=== PATIENT | male | born 1940 | race Caucasian/White ===

== ENCOUNTER 2020-02-03 11:58 | Outpatient (REF) | payer MEDICARE, OTHER, SELFPAY ==
[2020-02-03 13:51] LABS: MANUAL DIFF FLAG NO
[2020-02-03 13:59] LABS: Basophils Absolute Auto 0.1 X10*3/uL (0.0-0.2); Basophils Percent Auto 0.8 % (0-2); Eosinophils Absolute Auto 0.2 X10*3/uL (0.0-0.4); Hemoglobin 14.4 g/dl (14.0-18.0); Imm Gran Abs Auto 0.03 X10*3/uL (0.00-0.03); Imm Gran Pct Auto 0.5 % (0.0-0.4); Lymphocytes Absolute Auto 2.2 X10*3/uL (1.2-4.9); Mean Corpuscular HGB Conc 32.7 g/dl (31.0-36.0); Mean Corpuscular Hemoglobin 30.2 pg (27.0-33.0); Mean Corpuscular Volume 92.2 fL (80-98); Mean Platelet Volume 11.6 fL (9.4-12.4); Monocytes Absolute Auto 0.6 X10*3/uL (0.1-1.2); Monocytes Percent Auto 8.9 % (2-11); Neutrophils Absolute Auto 3.6 X10*3/uL (2.0-8.3); Neutrophils Percent Auto 53.8 % (45-73); Platelet Count 158 X10*3/uL (160-400); Red Blood Count 4.77 X10*6/uL (4.60-5.80); White Blood Count 6.6 X10*3/uL (4.8-10.8)
[2020-02-03 14:25] LABS: Alanine Aminotransferase 31 U/L (0-40); Albumin Level 4.3 g/dL (3.5-5.0); Alkaline Phosphatase 91 U/L (39-117); Anion Gap 13 (12-20); Aspartate Amino Transferase 30 U/L (5-37); Bilirubin Total 0.8 mg/dL (0.0-1.0); Blood Urea Nitrogen 15 mg/dL (9-16); Calcium 9.1 mg/dL (8.4-10.2); Carbon Dioxide 28 mmol/L (22-29); Chloride 107 mmol/L (96-108); Cholesterol 158 mg/dL; Estimated Glomerular Filt Rate > 60; Glucose Fasting 96 mg/dL (60-99); HDL Cholesterol 53 mg/dL; LDL Cholesterol Calculated 90 mg/dl; Potassium 4.3 mmol/l (3.3-5.1); Sodium 144 mmol/L (135-145); Total Protein 6.9 g/dL (6.5-8.0); Triglycerides 77 mg/dL
[2020-02-03 14:46] LABS: Thyroid Stimulating Hormone 1.35 mIU/mL (0.32-4.0)
== END 2020-02-03 11:59 | disposition home or self-care (01) ==
LOC: HO.HMGCLDS 11:58
PROVIDERS: PCP Internal Medicine; Visit Provider Internal Medicine
DX: I10 Essential (primary) hypertension (principal); E78.00 Pure hypercholesterolemia, unspecified; E55.9 Vitamin D deficiency, unspecified; F33.42 Major depressive disorder, recurrent, in full remission
CPT/HCPCS: 36415; 80053; 80061; 82306; 84443; 85025

== ENCOUNTER → 2020-08-10 13:17 | Outpatient (BNVA) | payer MEDICARE, OTHER, SELFPAY | PROVIDERS: PCP Internal Medicine; Visit Provider Orthopaedic Surgery | DX: M75.101 Unspecified rotator cuff tear or rupture of right shoulder, not specified as traumatic (principal) | CPT/HCPCS: 20610; 99212; J1100 ==

== ENCOUNTER 2021-03-16 09:10 | Outpatient (REF) | payer MEDICARE, OTHER, SELFPAY ==
[2021-03-16 11:54] LABS: MANUAL DIFF FLAG NO
[2021-03-16 12:03] LABS: Basophils Absolute Auto 0.1 X10*3/uL (0.0-0.2); Eosinophils Absolute Auto 0.3 X10*3/uL (0.0-0.4); Eosinophils Percent Auto 4.9 % (0-4); Hematocrit 45.6 % (42.0-52.0); Hemoglobin 14.5 g/dl (14.0-18.0); Imm Gran Abs Auto 0.03 X10*3/uL (0.00-0.03); Imm Gran Pct Auto 0.5 % (0.0-0.4); Lymphocytes Absolute Auto 1.8 X10*3/uL (1.2-4.9); Lymphocytes Percent Auto 29.8 % (20-40); Mean Corpuscular HGB Conc 31.8 g/dl (31.0-36.0); Mean Corpuscular Hemoglobin 29.8 pg (27.0-33.0); Mean Corpuscular Volume 93.8 fL (80.0-98.0); Mean Platelet Volume 11.5 fL (9.4-12.4); Monocytes Absolute Auto 0.6 X10*3/uL (0.1-1.2); Monocytes Percent Auto 9.4 % (2-11); Neutrophils Absolute Auto 3.2 x10*3/uL (2.0-8.3); Neutrophils Percent Auto 54.4 % (45-73); Platelet Count 166 X10*3/uL (160-400); Red Blood Count 4.86 X10*6/uL (4.60-5.80); Red Cell Distribution Width 13.5 % (11.0-16.0); White Blood Count 5.9 X10*3/uL (4.8-10.8)
[2021-03-16 12:11] LABS: Alanine Aminotransferase 48 U/L (0-40); Albumin Level 4.4 g/dL (3.5-5.0); Alkaline Phosphatase 107 U/L (39-117); Anion Gap 13 (12-20); Aspartate Amino Transferase 47 U/L (5-37); Bilirubin Total 0.7 mg/dL (0.0-1.0); Blood Urea Nitrogen 15 mg/dL (9-16); Calcium 9.6 mg/dL (8.4-10.2); Carbon Dioxide 27 mmol/L (22-29); Chloride 111 mmol/L (96-108); Cholesterol 163 mg/dL; Estimated Glomerular Filt Rate > 60; Glucose Fasting 134 mg/dL (60-99); HDL Cholesterol 42 mg/dL; LDL Cholesterol Calculated 101 mg/dl; Potassium 4.1 mmol/L (3.3-5.1); Sodium 147 mmol/L (135-145); Triglycerides 103 mg/dL
[2021-03-16 12:47] LABS: Thyroid Stimulating Hormone 1.57 uIU/mL (0.32-4.0); Vitamin D 25-OH Total 49.8 ng/mL (>30)
== END 2021-03-16 09:11 | disposition home or self-care (01) ==
LOC: HO.HMGCLDS 09:10
PROVIDERS: PCP Internal Medicine; Visit Provider Internal Medicine
DX: I10 Essential (primary) hypertension (principal); E78.00 Pure hypercholesterolemia, unspecified; E55.9 Vitamin D deficiency, unspecified; F33.42 Major depressive disorder, recurrent, in full remission
CPT/HCPCS: 36415; 80053; 80061; 82306; 84443; 85025

== ENCOUNTER 2021-09-14 09:56 | Outpatient (REF) | payer MEDICARE, OTHER, SELFPAY ==
[2021-09-14 11:26] LABS: MANUAL DIFF FLAG NO
[2021-09-14 11:41] LABS: Basophils Absolute Auto 0.1 X10*3/uL (0.0-0.2); Basophils Percent Auto 1.1 % (0-2); Eosinophils Absolute Auto 0.4 X10*3/uL (0.0-0.4); Eosinophils Percent Auto 6.2 % (0-4); Hematocrit 44.5 % (42.0-52.0); Hemoglobin 14.5 g/dl (14.0-18.0); Imm Gran Abs Auto 0.02 X10*3/uL (0.00-0.03); Imm Gran Pct Auto 0.3 % (0.0-0.4); Lymphocytes Absolute Auto 1.8 X10*3/uL (1.2-4.9); Lymphocytes Percent Auto 29.5 % (20-40); Mean Corpuscular HGB Conc 32.6 g/dl (31.0-36.0); Mean Corpuscular Volume 92.1 fL (80.0-98.0); Mean Platelet Volume 11.6 fL (9.4-12.4); Monocytes Absolute Auto 0.5 X10*3/uL (0.1-1.2); Monocytes Percent Auto 8.7 % (2-11); Neutrophils Absolute Auto 3.3 x10*3/uL (2.0-8.3); Neutrophils Percent Auto 54.2 % (45-73); Platelet Count 159 X10*3/uL (160-400); Red Blood Count 4.83 X10*6/uL (4.60-5.80); Red Cell Distribution Width 13.6 % (11.0-16.0); White Blood Count 6.1 X10*3/uL (4.8-10.8)
[2021-09-14 11:46] LABS: Alanine Aminotransferase 39 U/L (0-40); Albumin Level 4.3 g/dL (3.5-5.0); Alkaline Phosphatase 100 U/L (39-117); Anion Gap 12 (12-20); Aspartate Amino Transferase 37 U/L (5-37); Bilirubin Total 0.8 mg/dL (0.0-1.0); Blood Urea Nitrogen 13 mg/dL (9-16); Calcium 9.4 mg/dL (8.4-10.2); Carbon Dioxide 27 mmol/L (22-29); Chloride 109 mmol/L (96-108); Cholesterol 163 mg/dL; Estimated Glomerular Filt Rate > 60; Glucose Fasting 114 mg/dL (60-99); HDL Cholesterol 44 mg/dL; LDL Cholesterol Calculated 103 mg/dl; Potassium 4.1 mmol/L (3.3-5.1); Sodium 144 mmol/L (135-145); Total Protein 6.9 g/dL (6.5-8.0); Triglycerides 84 mg/dL
== END 2021-09-14 09:57 | disposition home or self-care (01) ==
LOC: HO.HMGCLDS 09:56
PROVIDERS: PCP Internal Medicine; Visit Provider Internal Medicine
DX: I10 Essential (primary) hypertension (principal); E78.00 Pure hypercholesterolemia, unspecified
CPT/HCPCS: 36415; 80053; 80061; 85025

== ENCOUNTER 2021-12-08 11:45 | Emergency (ER) | payer MEDICARE, OTHER, SELFPAY ==
--- NOTE | ~2021-12-08 | CT_ITS ---
EXAMINATION: CT ABDOMEN AND PELVIS WITHOUT CONTRAST CLINICAL INFORMATION: New onset back pain. Rule out abdominal aortic aneurysm. COMPARISON: CT abdomen pelvis July 09, 2006 TECHNIQUE: Multidetector volumetric imaging was performed from the superior aspect of the liver through the pubic symphysis. Sagittal and coronal reformatted images were obtained on the technologist's workstation. This CT examination was performed using dose optimization techniques as appropriate, variously including the following: *Automated exposure control *Adjustment of mA and/or kV according to patient size (this includes techniques or standardized protocols for targeted exams where dose is matched to indication/reason for exam; i.e. extremities or head) *Use of iterative reconstruction technique DLP: 497 mGy-cm FINDINGS: Visualized lung bases demonstrate minimal lingular and dependent atelectasis. The liver demonstrates normal size, contour and attenuation. Gallstones are present in an otherwise unremarkable appearing gallbladder. The pancreas, spleen and adrenal glands are unremarkable. Symmetrically sized kidneys. No renal calculi or hydronephrosis bilaterally. Mild bilateral perinephric stranding, nonspecific. The stomach is decompressed. Small diverticulum of the duodenal sweep suspected. Normal caliber loops of small bowel. Moderate colonic stool burden. Normal caliber abdominal aorta which demonstrates moderate atherosclerotic disease. Retroperitoneal lymphadenopathy is present, for example there is a lymph node inferior to the left renal vein which measures 2 cm in maximum transverse dimension. The bladder is normal in appearance. The prostate gland is enlarged measuring 5.6 cm in maximum transverse dimension. There is a moderate sized fat-containing left inguinal hernia. No gross free pelvic fluid. No inguinal lymphadenopathy. Diffuse osteopenia. Degenerative changes of the spine and hips. CT/CT abdomen pelvis wo con IMPRESSION: -Retroperitoneal lymphadenopathy, nonspecific. Malignancy is within the differential. -Cholelithiasis. -Enlarged prostate gland. Fleischner guidelines were followed.
--- NOTE | ~2021-12-08 | XR_ITS ---
EXAMINATION: XR LUMBAR SPINE CLINICAL INFORMATION: Reason for Exam acute atraumatic mid lower back pain COMPARISON: None TECHNIQUE: Frontal lateral and coned-down L5-S1 frontal lateral FINDINGS: Five [id number] lumbar vertebrae were identified maintaining normal height and alignments. Narrowing of intervertebral disc spaces suggest underlying degenerative disc disease. Paravertebral soft tissues are unremarkable. There are radiolucencies, most likely superimposed bowel gas.. No radiographic evidence of osteolytic or osteoblastic lesions. XR/XR lumbar spine 2-3V IMPRESSION: No fracture. Narrowing of intervertebral disc spaces suggest underlying degenerative disc disease. .
[2021-12-08 11:58] VITALS: BP 175/84; PULSE 72; O2SAT 98
[2021-12-08 11:59] VITALS: BP 162/73; PULSE 65; RESP 16; TEMP 36.6; O2SAT 95; BMI 24.3
--- NOTE | 2021-12-08 12:31 | ED_ITS ---
HPI - Back Pain/Injury General Chief Complaint: Back Pain/Injury Stated Complaint: LOW BACK PAIN X'S 1 WEEK,NO INJURY PER EMS Time Seen by Provider: 12/08/21 12:13 Source: patient Mode of arrival: EMS Limitations: no limitations History of Present Illness HPI Narrative: Patient presents emergency department for evaluation of back pain. Onset was 1 week ago. No trauma or exacerbating incident that he recalls. Pain is felt midline. It is described as sharp, made worse with movement. He is trialed Tylenol, Aleve, and Advil without improvement. Denies any prior history of back pain. Denies recent precipitating injury, fevers, chills, burning with micturition, urinary frequency/urgency/hesitancy, bladder or bowel dysfunction, numbness or tingling of the perineum or bilateral legs. Denies any recent surg ical procedures, any known immune compromising conditions, personal history of cancer, or IV drug usage. MD elicited complaint: back pain Related Data Home Medications Medication Instructions Recorded Confirmed lovastatin 10 mg tablet 10 mg PO DAILY 08/10/20 08/28/20 metoprolol succinate 25 mg 12.5 mg PO DAILY 08/10/20 08/28/20 tablet,extended release 24 hr mirtazapine 7.5 mg tablet 7.5 mg PO BEDTIME 08/10/20 08/28/20 quetiapine 25 mg tablet 25 mg PO BEDTIME 08/10/20 08/28/20 Previous Rx's Medication Instructions Recorded azithromycin 250 mg tablet See Rx Instructions PO .COMPLEX #6 08/28/20 tabs prednisone 20 mg tablet 20 mg PO .COMPLEX #18 tabs 08/28/20 lidocaine 5 % topical patch 1 patch topical DAILY #15 ea 12/08/21 (Lidoderm) tramadol 50 mg tablet 50 mg PO Q8H PRN pain #10 tabs 12/08/21 Allergies Allergy/AdvReac Type Severity Reaction Status Date / Time amoxicillin [From Augmentin] Allergy diarreah Verified 08/28/20 13:53 clavulanic acid Allergy diarreah Verified 08/28/20 13:53 [From Augmentin] Review of Systems Review of Systems: Constitutional: No weight loss, fever, chills, weakness or fatigue. HEENT: No visual loss, blurred vision, double vision. No hearing loss, sneezing, congestion, runny nose or sore throat. Skin: No rash or itching. Cardiovascular: No chest pain, chest pressure or chest discomfort. No palpitat ions or pedal edema. Respiratory: No shortness of breath, cough or sputum production. Gastrointestinal: No anorexia, nausea, vomiting or diarrhea. No abdominal pain or blood in stool. Genitourinary: No burning micturition. No urinary frequency or incontinence. Neurologic: No headache, dizziness, syncope, unilateral weakness, ataxia, numbness or tingling in the extremities. No change in bowel or bladder control. Musculoskeletal: + Back pain as noted in HPI. No joint pain or stiffness. Hematologic: No bleeding or bruising. Lymphatics: No enlarged lymph nodes. Psychiatric:No depression or anxiety. Endocrine: No polyuria or polydipsia. Yes all other systems are reviewed and are negative [facility] Past Medical History Attestation statement: The following information was validated with the patient. Source: old records reviewed Medical History (Updated 12/08/21 @ 16:19 by Yun Spencer CNP) Hypertension Social History Social History Advance Directives: No Advance Directives Information Provided: No Current occupational status: retired Current occupation: left hand Physical Exam Vital Signs: Vital Signs: Last Vital Signs Temp 97.9 F 12/08/21 11:59 Pulse 65 12/08/21 11:59 Resp 16 12/08/21 11:59 BP 162/73 H 12/08/21 11:59 Pulse Ox 95 12/08/21 11:59 O2 Del Method 12/08/21 11:59 BMI result Body Mass Index 24.3 Appearance: Alert.?Oriented to person, place and time. No acute distress.?Normal affect. Eyes: Pupils equal, round and reactive to light.? ENT: Pharynx normal.?? Neck: Normal inspection.? Neck supple.?? CVS: Heart sounds normal. Normal heart rate and rhythm.? Pulses normal; bilateral radial pulses 2+, bilateral posterior tibial/dorsalis pedis pulses 2+.? Respiratory: No respiratory distress.? Lung sounds clear to auscultation bilaterally?? Abdomen: Soft and non-tender. Normoactive bowel sounds. No pulsatile mass.?? Skin: Skin warm and dry.? Normal skin color.? Normal skin turgor.?? Extremities: No lower extremity edema.? No calf ttp? Back: No CVA tenderness. Positive midline lumbar spinal tenderness, no step- off's or deformity. Full ROM intact in bilateral lower extremities. Straight leg test negative on right; Straight leg test negative on left. No rashes, lesions, areas of induration or fluctuance, or signs of infection noted. Neuro: Moves all extremities spontaneously. 5/5 strength in hip extension/flexion, abduction, adduction. Sensation to light touch intact bilaterally. Patellar and Achilles reflex 2+ bilaterally. No ataxia, gait normal and steady.. No focal neuro deficits. Course Course Course Narrative: Patient is an 81-year-old male with a past medical history of hypertension presents to the emergency department for evaluation of midline lumbar back pain. On neurological exam there are no deficits. No high risk past medical history including incontinence, fever, immunosuppression, recent surgery or lumbar puncture, coagulopathy, significant trauma, recent unintentional weight loss, pulsatile mass, history of cancer, history of TB, history of IV drug use. However, given age in onset of symptoms to be sudden and atraumatic will obtain XR the lumbar spine and CT of the abdomen and pelvis to rule out intra-abdominal pathology as a source for pain or fracture/dislocation Not consistent with pyelonephritis, urinary tract infection, renal calculi, appendicitis, diverticulitis. On exam no concern for cauda equina syndrome. Patient to receive oxycodone and Lidoderm patch at this time for pain Reevaluation(s) Reevaluation #1: XR of the lumbar spine is overall unremarkable, does show degenerative changes. CT of the abdomen and pelvis reveals retroperitoneal lymphadenopathy, and enlarged prostate gland. At this time there is concern for malignancy. Discussed these findings with patient, advised no definitive diagnosis at this time, however it is imperative to follow up with primary care provider as well as Urology for further evaluation and treatment. Patient with some relief from oxycodone and Lidoderm patch, therefore will send patient home with a short prescription for analgesics and Lidoderm patch. Reviewed worrisome signs and symptoms return back to the emergency department for. All questions were answered, and patient was discharged home in stable condition, he was ambulatory with slow steady gait. Time: 15:26 MDM - Back Pain/Injury Medical Records Attestation: I reviewed the patient's medical records. Lab Data Attestation: I reviewed the patient's lab results. Result diagrams: 12/08/21 15:39 12/08/21 15:39 Labs: Lab Results 12/08/21 12/08/21 12/08/21 Range/Units 12:54 15:39 15:39 WBC 10.0 (4.8-10.8) X10*3/uL RBC 4.94 (4.60-5.80) X10*6/uL Hgb 15.0 (14.0-18.0) g/dl Hct 45.5 (42.0-52.0) % MCV 92.1 (80.0-98.0) fL MCH 30.4 (27.0-33.0) pg MCHC 33.0 (31.0-36.0) g/dl RDW 13.3 (11.0-16.0) % Plt Count 203 D (160-400) X10*3/uL MPV 10.3 (9.4-12.4) fL Immature Gran % (Auto) 0.4 (0.0-0.4) % Neut % (Auto) 73.5 H (45-73) % Lymph % (Auto) 15.9 L (20-40) % [place] % (Auto) 7.3 (2-11) % Eos % (Auto) 2.2 (0-4) % Baso % (Auto) 0.7 (0-2) % Lymph # (Auto) 1.6 (1.2-4.9) X10*3/uL [place] # (Auto) 0.7 (0.1-1.2) X10*3/uL Eos # (Auto) 0.2 (0.0-0.4) X10*3/uL Baso # (Auto) 0.1 (0.0-0.2) X10*3/uL Abs Immat Gran (auto) 0.04 H (0.00-0.03) X10*3/uL Absolute Neuts (auto) 7.4 (2.0-8.3) x10*3/uL Absolute Nucleated RBC 0.000 (0.0-0.012) X10*3/uL Nucleated RBC % (auto) 0.0 (0.0-0.2) /100WBC Sodium 144 (135-145) mmol/L Potassium 4.8 (3.3-5.1) mmol/L Chloride 105 (96-108) mmol/L Carbon Dioxide 26 (22-29) mmol/L Anion Gap 18 (12-20) BUN 14 (9-16) mg/dL Creatinine 0.96 (0.5-1.4) mg/dL Estim Creat Clear Calc 58.3 Estimated GFR > 60 Random Glucose 120 H (60-115) mg/dL Calcium 9.7 (8.4-10.2) mg/dL Total Bilirubin 0.7 (0.0-1.0) mg/dL AST 36 (5-37) U/L ALT 32 (0-40) U/L Alkaline Phosphatase 122 H D (39-117) U/L Total Protein 7.3 (6.5-8.0) g/dL Albumin 4.5 (3.5-5.0) g/dL Urine Color Yellow Urine Appearance Clear Urine pH 7.0 (5.0-8.0) Ur Specific [place] 1.015 (1.005-1.025) Urine Protein Negative (Neg-Trace) mg/dL Urine Glucose (UA) Negative (Negative) mg/dL Urine Ketones Negative (Negative) mg/dL Urine Blood Negative (Negative) Urine Nitrite Negative (Negative) Ur Leukocyte Esterase Trace H (Negative) Urine RBC 0-2 (0-2) /HPF Urine WBC 0-5 (0-5) /HPF Ur Squamous Epith Cells 0-2 (0-2) /HPF Urine Bacteria None Seen (None Seen) Hyaline Casts 0-2 (0-2) /LPF Imaging Data lumbar XR: Radiologist's impression: XR/XR lumbar spine 2-3V IMPRESSION: No fracture. ? Narrowing of intervertebral disc spaces suggest underlying degenerative disc disease. CT scan - abdomen: Radiologist's impression: CT/CT abdomen pelvis wo con IMPRESSION: -Retroperitoneal lymphadenopathy, nonspecific. Malignancy is within the differential. -Cholelithiasis. -Enlarged prostate gland.? Discharge Plan Discharge Clinical Impression: Acute lumbar back pain, Enlarged prostate, Lymphadenopathy, retroperitoneal Patient Disposition: Home, Self-Care Additional Instructions: As we discussed, it is very important to contact your primary care provider to arrange for a follow-up visit within 1 week. Additionally, you have been provided with contact information for Urology, you will need to call their office on Friday morning to schedule a follow-up visit for further evaluation and treatment You have been given a prescription for a Lidoderm patch for pain, you may use the tramadol as needed for severe pain. This may make you drowsy, you should not take this medication if you need to drive or leave the house. Please return to the emergency department with any new or worsening symptoms or concerns Prescriptions: New lidocaine [Lidoderm] 5 % adhesive patch,medicated 1 patch topical DAILY Qty: 15 0RF Rx Instructions: leave on most painful area for up to 12 hrs tramadol 50 mg tablet 50 mg PO Q8H PRN (Reason: pain) Qty: 10 0RF No Action prednisone 20 mg tablet 20 mg PO .COMPLEX Qty: 18 0RF Rx Instructions: 20 mg PO 3 p.o. daily for 3 days followed by 2 p.o. daily for 3 days followed by 1 p.o. daily for 3 days; azithromycin 250 mg tablet See Rx Instructions PO .COMPLEX Qty: 6 0RF Rx Instructions: take 500 mg today (day 1), then 250 mg for 4 days (days 2-5) PO metoprolol succinate 25 mg tablet extended release 24 hr 12.5 mg PO DAILY lovastatin 10 mg tablet 10 mg PO DAILY quetiapine 25 mg tablet 25 mg PO BEDTIME mirtazapine 7.5 mg tablet 7.5 mg PO BEDTIME Referrals: Riaz Laboy MD [Physician] - 1 week (Acute low back pain, enlarged prostate, retroperitoneal lymphadenopathy) Ramon Cortez DO [Primary Care Provider] - 1 week
[2021-12-08] MEDS: Lidocaine 4 % Patch ADH..PATCH 1 PATCH TRANSDERMA (12:52)
[2021-12-08] MEDS: oxyCODONE HCl Immed Release 5 MG TABLET PO (13:11)
[2021-12-08 13:14] LABS: Appearance Urine Clear; Color Urine Yellow; Glucose Urine UA Negative (Negative); Leukocyte Esterase Urine Trace (Negative); Nitrite Urine Negative (Negative); Specific Gravity - Urine 1.015 (1.005-1.025); Urine Blood Negative (Negative); Urine Ketones Negative (Negative); Urine Protein Negative (Neg-Trace)
[2021-12-08 13:19] LABS: Bacteria Urine None Seen (None Seen); Hyaline Casts Urine 0-2 /LPF (0-2); RBC Urine 0-2 /HPF (0-2); Squamous Epithelial Cell Urine 0-2 /HPF (0-2); WBC Urine 0-5 /HPF (0-5)
[2021-12-08 15:51] LABS: MANUAL DIFF FLAG NO
[2021-12-08 15:53] LABS: Basophils Absolute Auto 0.1 X10*3/uL (0.0-0.2); Basophils Percent Auto 0.7 % (0-2); Eosinophils Absolute Auto 0.2 X10*3/uL (0.0-0.4); Eosinophils Percent Auto 2.2 % (0-4); Hematocrit 45.5 % (42.0-52.0); Imm Gran Abs Auto 0.04 X10*3/uL (0.00-0.03); Imm Gran Pct Auto 0.4 % (0.0-0.4); Lymphocytes Absolute Auto 1.6 X10*3/uL (1.2-4.9); Lymphocytes Percent Auto 15.9 % (20-40); Mean Corpuscular Hemoglobin 30.4 pg (27.0-33.0); Mean Corpuscular Volume 92.1 fL (80.0-98.0); Mean Platelet Volume 10.3 fL (9.4-12.4); Monocytes Absolute Auto 0.7 X10*3/uL (0.1-1.2); Monocytes Percent Auto 7.3 % (2-11); Neutrophils Absolute Auto 7.4 x10*3/uL (2.0-8.3); Neutrophils Percent Auto 73.5 % (45-73); Platelet Count 203 X10*3/uL (160-400); Red Blood Count 4.94 X10*6/uL (4.60-5.80); Red Cell Distribution Width 13.3 % (11.0-16.0)
[2021-12-08 16:15] LABS: Alanine Aminotransferase 32 U/L (0-40); Albumin Level 4.5 g/dL (3.5-5.0); Alkaline Phosphatase 122 U/L (39-117); Anion Gap 18 (12-20); Aspartate Amino Transferase 36 U/L (5-37); Bilirubin Total 0.7 mg/dL (0.0-1.0); Blood Urea Nitrogen 14 mg/dL (9-16); Calcium 9.7 mg/dL (8.4-10.2); Carbon Dioxide 26 mmol/L (22-29); Chloride 105 mmol/L (96-108); Creatinine Clr Calc Pharmacy 58.3; Estimated Glomerular Filt Rate > 60; Glucose Random 120 mg/dL (60-115); Potassium 4.8 mmol/L (3.3-5.1); Sodium 144 mmol/L (135-145); Total Protein 7.3 g/dL (6.5-8.0)
[2021-12-08 16:35] LABS: Prostate Specific Antigen 2.09 ng/mL (<0.05-4.0)
== END 2021-12-08 16:34 | disposition home or self-care (01) ==
PROVIDERS: Nurse Practitioner Family; Emergency Provider Emergency Medicine; PCP Internal Medicine
DX: M54.50 Low back pain, unspecified (principal); N40.0 Benign prostatic hyperplasia without lower urinary tract symptoms; R59.1 Generalized enlarged lymph nodes
CPT/HCPCS: 36415; 72100; 74176; 80053; 81001; 81003; 84153; 85025; 99284

== ENCOUNTER → 2021-12-28 14:53 | Outpatient (BNV) | payer MEDICARE, OTHER, SELFPAY | PROVIDERS: PCP Internal Medicine; Referring Provider Internal Medicine; Visit Provider Internal Medicine Medical Oncology | DX: K68.9 Other disorders of retroperitoneum (principal) | CPT/HCPCS: 99204; 99212; 99213; 99214 ==

== ENCOUNTER 2022-01-10 11:55 | Day surgery (SDC) | payer MEDICARE, OTHER, SELFPAY ==
--- NOTE | ~2022-01-10 | CT_ITS ---
PROCEDURE: CT GUIDED BIOPSY, ABDOMINAL MASS CLINICAL INFORMATION: Retroperitoneal and small bowel mesentery lymphadenopathy COMPARISON: Previous CT of the abdomen and pelvis November 2021 TECHNIQUE: Procedure and risks and benefits including bleeding and infection were discussed with the patient and informed consent was obtained. Patient was positioned in the right decubitus position. Limited axial images through the abdomen were performed. The left flank was prepped and draped in the usual sterile fashion. The skin and soft tissues were anesthetized with 1% lidocaine plain. Using CT guidance and a coaxial system, access to an enlarged left retroperitoneal lymph node was obtained. 5 20-gauge core biopsies were performed and placed in formalin and flow cytometry solution. The patient received Versed 1 mg and fentanyl 50 mcg intravenously during the procedure. Total sedation time was 26 minutes. Continuous hemodynamic monitoring was performed by a registered nurse under my direct supervision. This CT examination was performed using dose optimization techniques as appropriate, variously including the following: *Automated exposure control *Adjustment of mA and/or kV according to patient size (this includes techniques or standardized protocols for targeted exams where dose is matched to indication/reason for exam; i.e. extremities or head) *Use of iterative reconstruction technique DLP: 288 mGy-cm FINDINGS: There are enlarged retroperitoneal and small bowel mesentery lymph nodes. Enlarged left periaortic retroperitoneal lymph node measuring maximum 1.9 cm was targeted for biopsy. Postprocedure images demonstrate no evidence of hemorrhage. CT/CT biopsy abdomen percutaneous IMPRESSION: CT-guided left retroperitoneal lymph node biopsy.
[2022-01-10 12:37] VITALS: BMI 24.3
--- NOTE | 2022-01-10 14:36 | HO.RADPN ---
RADIOLOGY Narrative Narrative: CT guided left retroperitoneal lymph node biopsy using coaxial system. 5 20g core biopsies obtained. No complication.
--- NOTE | 2022-01-10 14:37 | HO.RADPN ---
RADIOLOGY Narrative Narrative: CT guided left retroperitoneal lymph node biopsy using coaxial system. 5 20g core biopsies obtained. No complication.
[2022-01-10 14:40] VITALS: BP 133/56; PULSE 65; RESP 16; TEMP 36.8; O2SAT 97
[2022-01-10 14:55] VITALS: BP 114/89; PULSE 62; RESP 16; O2SAT 95
[2022-01-10 15:10] VITALS: BP 133/49; PULSE 62; RESP 16; O2SAT 95
[2022-01-10 15:25] VITALS: BP 124/55; PULSE 62; RESP 16; O2SAT 95
[2022-01-10 15:40] VITALS: BP 128/53; PULSE 63; RESP 16; TEMP 36.6; O2SAT 94
== END 2022-01-10 16:02 | disposition home or self-care (01) ==
PROVIDERS: Radiology Diagnostic Radiology; PCP Internal Medicine; Visit Provider Radiology Diagnostic Radiology
DX: R59.0 Localized enlarged lymph nodes (principal); K80.20 Calculus of gallbladder without cholecystitis without obstruction; I10 Essential (primary) hypertension; N40.0 Benign prostatic hyperplasia without lower urinary tract symptoms; Z79.899 Other long term (current) drug therapy; Z88.1 Allergy status to other antibiotic agents; Z87.891 Personal history of nicotine dependence
CPT/HCPCS: 36415; 49180; 77012; 88184; 88185; 88300; 88305; 88341; 88342; 88360; 99152; 99153; J2250; J3010

== ENCOUNTER → 2022-05-22 09:46 | Outpatient (BNVA) | payer MEDICARE, OTHER, SELFPAY | PROVIDERS: PCP Internal Medicine; Visit Provider Urology | DX: R39.15 Urgency of urination (principal) | CPT/HCPCS: 51798; 99202 ==

== ENCOUNTER 2022-06-05 10:06 | Day surgery (SDC) | payer MEDICARE, OTHER, SELFPAY ==
[2022-06-05 10:41] VITALS: BMI 23.9
[2022-06-05 10:55] VITALS: BP 152/71; PULSE 71; RESP 16; TEMP 36.3; O2SAT 97
[2022-06-05] MEDS: Sodium Phosphate,Mono-Dibasic 133 ML ENEMA PR ×2 (11:15→11:29)
--- NOTE | 2022-06-05 11:19 | PC.NURSE ---
1115-left lateral position for fleet enema. nicko procedure well.
--- NOTE | 2022-06-05 11:24 | PC.NURSE ---
light yellow but unable to see down into toilet. not clear. second enema to be performed.
--- NOTE | 2022-06-05 11:36 | PC.NURSE ---
1129-second fleet enema given. nicko well. left lateral position. redness noted to harjinder area.
--- NOTE | 2022-06-05 11:46 | PC.NURSE ---
after second enema clear output with some sediment.
[2022-06-05] MEDS: Lactated Ringers 1,000 ML 50 ML IVCONT (12:23)
--- NOTE | 2022-06-05 13:10 | P.CONAN_ITS ---
HPI - Anesthesia Eval Consult details Narrative: egd for dysphagia and gerd colonoscopy for screening [facility] Active Problems Active Problems: All Active Problems (Updated 06/04/22 @ 12:43 by Elisabet Harley RN) Left otitis media (Acute) Retroperitoneal lymphadenopathy (Acute) Urinary urgency (Acute) Past Medical History Medical History (Updated 06/04/22 @ 12:43 by Elisabet Harley RN) Bilateral cataracts Depression GERD (gastroesophageal reflux disease) Gout Hypertension Neuroendocrine tumor Peptic ulcer disease Right inguinal hernia Family History Family History Other No family history of cancer Family history of problems with anesthesia: No Surgical History Surgical History (Updated 06/04/22 @ 12:43 by Elisabet Harley RN) History of appendectomy No pertinent past surgical history History of Problems with Anesthesia: No Social History Social History Household Members: None Housing: Apartment Are you a primary care connector to a significant other at home: No Do you presently have visiting nurse or other home services: No Patient Tobacco Use Status: Former Tobacco user Tobacco use type: Cigarette Use of substances other than those prescribed or required for medical reasons: No Are you DNR?: No Advance Directives: No Advance Directives Information Provided: Yes Recently lost weight without trying: No How much weight loss: 2-13 pounds Nutrition Risks: No Nutritional Risk service: Yes Current occupational status: retired Current occupation: left hand Meds Allergies Allergy/AdvReac Type Severity Reaction Status Date / Time amoxicillin [From Augmentin] Allergy diarreah Verified 05/22/22 09:49 clavulanic acid Allergy diarreah Verified 05/22/22 09:49 [From Augmentin] Active Medications: Current Medications Lactated Ringer's (Lr) 1,000 mls @ 50 mls/hr IVCONT .Q20H [facility] Last Admin: 06/05/22 12:23 Dose: 50 mls/hr Sodium Biphosphate/Sodium Phosphate (Sodium Phosphate,[place]-Dibasic 133 Ml Enema) 133 ml UT ONCE PRN PRN Reason: Poor Colonoscopy Prep Results Last Admin: 06/05/22 11:29 Dose: 133 ml Home Medications Medication Instructions Recorded Confirmed Last Taken Type lisinopril 5 mg tablet 5 mg PO DAILY 05/22/22 06/05/22 Unknown History lovastatin 40 mg tablet 40 mg PO DAILY 05/22/22 06/05/22 Unknown History metoprolol tartrate 50 mg tablet 25 mg PO BID 05/22/22 06/05/22 Unknown History mirtazapine 45 mg tablet 45 mg PO BEDTIME 05/22/22 06/05/22 Unknown History quetiapine 100 mg tablet 100 mg PO BEDTIME 05/22/22 06/05/22 Unknown History Exam Exam Date and Time: June 05, 2022 1310 Height,Weight and Vital Signs: Height 5 ft 9 in Weight 73.482 kg Last Vital Signs Temp 97.3 F 06/05/22 10:55 Pulse 71 06/05/22 10:55 Resp 16 06/05/22 10:55 BP 152/71 H 06/05/22 10:55 Pulse Ox 97 06/05/22 10:55 O2 Del Method 06/05/22 10:55 Airway Mallampati Class: I TM Dist: >3cm Neck ROM: Full Denture: Upper and Lower Heart: RR Lungs: CTA Assessment and Plan Assessment Anesthesia Assessment: Anesthesia Plan Discussed and Chart Reviewed Final Anesthetic Review Family History of Problems with Anesthesia: No History of Problems with Anesthesia: No NPO: Yes ASA Class: II Final Preanesthetic Review: No Changes in Pt Med Stat and Consent Obtained/Reviewed Patient Risk: Low Procedure Risk: Low Anesthetic Plan Anesthetic Plan: MAC: Disposition: Standard PACU
--- NOTE | 2022-06-05 14:20 | PM.OP ---
Brief Operative Note Date of Service: 06/05/22 Pre-op diagnosis: Anorexia, Screening Post-op diagnosis: other (Colon mass, Colon polyps, Gastritis) Procedure: EGD with biopsies, Colonoscopy to the cecum with biopsy and submucosal inking of TC lesion, and hot snare polypectomy of cecal polyp and polyp at 50cm Surgeon: Ramon Araiza Anesthesia: MAC Was an Transition Specialist used for this Procedure?: No Estimated blood loss (mL): 2.0 Pathology: other (A. Gastric antrum B. Cecal polyp C. Transverse colon mass D. Polyp at 50cm) Condition: stable Disposition: PACU
[2022-06-05 14:23] VITALS: BP 121/58; PULSE 61; RESP 16; TEMP 36.2; O2SAT 97
[2022-06-05 14:38] VITALS: BP 151/61; PULSE 61; RESP 16; TEMP 36.1; O2SAT 96
--- NOTE | 2022-06-06 04:37 | OP_ITS ---
SURGEON: Ramon Araiza MD INDICATIONS: The patient presents for evaluation of metastatic neuroendocrine tumor, need to assess a primary site of neuroendocrine tumor if possible, anorexia, and weight loss. Full consent has been obtained from him for both procedures, including risks of bleeding and perforation. PREOPERATIVE DIAGNOSIS: POSTOPERATIVE DIAGNOSIS: Metastatic neuroendocrine tumor, anorexia, weight loss, chronic gastritis, small hiatal hernia, colon polyps, colon mass in transverse colon, diverticulosis, and internal hemorrhoids. PROCEDURE PERFORMED: Esophagogastroduodenoscopy with biopsies, colonoscopy to the cecum with hot snare polypectomy x 2, biopsies, and placement of submucosal ink. ESTIMATED BLOOD LOSS: COMPLICATIONS: ANESTHESIA: Medications used, monitored anesthesia care. ASSISTANTS: SPECIMENS: PREOPERATIVE DIAGNOSES: Metastatic neuroendocrine tumor, anorexia, weight loss. DESCRIPTION OF PROCEDURE: The patient was placed in the left lateral decubitus position. The Olympus video gastroscope was passed into the posterior oropharynx and upper esophagus under direct vision. The scope was passed slowly to the distal esophagus. The gastroesophageal junction appeared at 36 cm. This area appeared slightly irregular consistent with some reflux, but no evidence of esophagitis nor any definitive evidence of [place] mucosa. There was a small hiatal hernia. The scope was advanced to the pylorus, and the duodenum was cannulated to the second and third portion. The duodenum including the bulb was carefully inspected and I did not visualize any signs of duodenitis, ulceration, nor mass. The scope was withdrawn back into the stomach. The gastric antrum and body had some changes of chronic gastritis with some edema and erythema. There was no evidence of any ulceration or erosion. There was good peristalsis. Biopsies were obtained from the antrum. The scope was retroflexed visualizing the proximal stomach carefully, which appeared normal, without any sign of mass or ulceration. The scope was straightened and withdrawn back into the esophagus. The esophageal mucosa appeared normal. The scope was withdrawn from the patient. He was turned around for the colonoscopy. The digital rectal exam revealed no abnormalities. The Olympus video pediatric colonoscope was entered into the rectum and advanced to the cecum. Advancement was somewhat difficult due to a somewhat limited prep, particularly in the left colon. Once in the cecum, I did have to spend considerable time irrigating and suctioning away liquid and semisolid stool. Once I was able to get good visualization, I did find an approximately 10 mm polyp in the cecum, which was removed by hot snare polypectomy and recovered by suction. The polypectomy site appeared clean, without any signs of residual polyp nor bleeding. I then spent time trying to get into the ileum, but somewhat limited prep made it not possible at this time. The portions of the ileocecal valve itself appeared normal. There was transillumination of light deep in the right lower quadrant. The scope was slowly withdrawn assessing all mucosal surfaces carefully. Preparation of the ascending and transverse colon for the most part was good, although there was some small amount of liquid stool. The left colon was more limited in regard to the prep and definitively decreased our ability to visualize the mucosa and any relatively small or even larger lesions. In the transverse colon, however, was a very suspicious lesion part of which appeared to be polypoid, but the other part consistent with malignancy. It was quite friable. It encompassed about a third of the circumference of the transverse colon in that area. Multiple biopsies were obtained from it and it was very friable. I did place submucosal ink santiago just proximal and distal to the lesion. At 50 cm was an approximately 10 mm polyp, which was removed by hot snare polypectomy and recovered by suction. The polypectomy site appeared clean, without any sign of residual polyp nor bleeding. There was a moderate amount of sigmoid diverticulosis. I did not visualize any sign of other polyps, although again visualization was somewhat limited, particularly in the left colon. There was no sign of any colitis or angiodysplasias. In the rectum, the scope was retroflexed visualizing internal hemorrhoids but no other pathology. The rectal mucosa appeared normal. The scope was straightened and withdrawn from the patient. He tolerated the procedure well and was returned to the recovery area in stable condition. IMPRESSION: 1. Suspicious lesion in transverse colon, status post biopsy and marking with submucosal ink. 2. Colon polyps. 3. Diverticulosis. 4. Internal hemorrhoids. 5. Chronic gastritis. 6. Hiatal hernia. PLAN: The results of the biopsies will be checked. The colon lesion may represent a primary adenocarcinoma of the colon, but given his underlying history of the metastatic neuroendocrine tumor we will need to be sure the lesion in the transverse colon is not the primary site of the neuroendocrine tumor. If the lesion in the transverse colon is a straight forward adenocarcinoma of the colon, he will then need surgical consultation, but I would recommend another colonoscopy with a better clean out prior to any planned surgery to be sure there are no other synchronous lesions. He was instructed not to use any aspirin or NSAIDs on a nursing home basis at this point. He will be followed up once we have the results of the biopsies and further plans will be made accordingly. This has been discussed with his brother and with the patient. MD VERONIQUE Ozuna/JESUS / [id number] MTDD
== END 2022-06-05 15:17 | disposition home or self-care (01) ==
PROVIDERS: PCP Internal Medicine; Visit Provider Internal Medicine
PROC: (CPT 45385; principal; 2022-06-05 11:40)
DX: C7B.8 Other secondary neuroendocrine tumors (principal); Z86.010 Personal history of colon polyps; C18.4 Malignant neoplasm of transverse colon; D12.0 Benign neoplasm of cecum; D12.5 Benign neoplasm of sigmoid colon; K57.30 Diverticulosis of large intestine without perforation or abscess without bleeding; K64.8 Other hemorrhoids; K58.9 Irritable bowel syndrome, unspecified; R63.0 Anorexia; R63.4 Abnormal weight loss; Z68.24 Body mass index [BMI] 24.0-24.9, adult; R68.81 Early satiety; K29.50 Unspecified chronic gastritis without bleeding; K44.9 Diaphragmatic hernia without obstruction or gangrene; K21.9 Gastro-esophageal reflux disease without esophagitis; K27.9 Peptic ulcer, site unspecified, unspecified as acute or chronic, without hemorrhage or perforation; I10 Essential (primary) hypertension; F32.A Depression, unspecified; Z79.899 Other long term (current) drug therapy; Z88.1 Allergy status to other antibiotic agents
CPT/HCPCS: 45385; 45380; 45381; 43239; 88305; 88341; 88342; J3010

== ENCOUNTER → 2022-06-12 12:56 | Outpatient (BNVA) | payer MEDICARE, OTHER, SELFPAY | PROVIDERS: PCP Internal Medicine; Referring Provider Internal Medicine; Visit Provider Surgery | DX: C18.9 Malignant neoplasm of colon, unspecified (principal) | CPT/HCPCS: 99202 ==

== ENCOUNTER 2022-06-28 09:13 | Inpatient (IN) | payer MEDICARE, OTHER, SELFPAY ==
--- NOTE | 2022-06-20 | ECG_ITS ---
Test Reason : PRE OP Blood Pressure : / mmHG Vent. Rate : 055 BPM Atrial Rate : 055 BPM P-R Int : 166 ms QRS Dur : 080 ms QT Int : 430 ms P-R-T Axes : 077 018 058 degrees QTc Int : 411 ms Sinus bradycardia with sinus arrhythmia Otherwise normal ECG When compared with ECG of 05-JUL-2013 12:42, No significant changes seen Referred By: Lida Carrasco Electronically Signed By:CUONG BARRETO
[2022-06-20 10:08] VITALS: BP 168/70; PULSE 51; RESP 20; O2SAT 97; BMI 23.0
--- NOTE | 2022-06-20 10:23 | P.CONAN_ITS ---
Documented by User: Lida Carrasco NP 06/20/22 10:30 HPI - Anesthesia Eval Consult details Narrative: 82yo M for Colectomy Transverse Resection s/p EGD and [place] 05/2022 with [facility] Active Problems Active Problems: All Active Problems (Updated 06/20/22 @ 10:07 by Alejandra Clark RN) Left otitis media (Acute) Retroperitoneal lymphadenopathy (Acute) Urinary urgency (Acute) Colon cancer (Acute) Impacted cerumen of left ear (Acute) Past Medical History Medical History Arthritis Depression GERD (gastroesophageal reflux disease) Gout Hypertension Neuroendocrine tumor Peptic ulcer disease Right inguinal hernia Family History Family History Other No family history of cancer Family history of problems with anesthesia: No Surgical History Surgical History H/O colonoscopy History of appendectomy History of esophagogastroduodenoscopy (EGD) Hx of bilateral cataract extraction Hx of right inguinal hernia repair History of Problems with Anesthesia: No Social History Social History Household Members: None Housing: Apartment Are you a primary neonatal intensive care unit nurse to a significant other at home: No Do you presently have visiting nurse or other home services: No Alcohol intake: current Alcohol intake frequency: a few times a week Patient Tobacco Use Status: Former Tobacco user Quit Date: age 52 Tobacco use type: Cigarette Years Smoked: 20 Use of substances other than those prescribed or required for medical reasons: No Have you been hit, kicked, punched, or otherwise hurt by someone within the past year? 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 Narrative Narrative: No recent illness No CP/SOB >4 mets Meds Allergies Allergy/AdvReac Type Severity Reaction Status Date / Time amoxicillin [From Augmentin] Allergy Intermediate Diarrhea Verified 06/20/22 09:52 clavulanic acid Allergy Intermediate Diarrhea Verified 06/20/22 09:52 [From Augmentin] Home Medications Medication Instructions Recorded Confirmed Last Taken Type lisinopril 5 mg tablet 5 mg PO DAILY 05/22/22 06/28/22 06/27/22 History lovastatin 40 mg tablet 40 mg PO DAILY 05/22/22 06/28/22 06/27/22 History metoprolol tartrate 50 mg tablet 25 mg PO BID 05/22/22 06/19/22 06/28/22 History mirtazapine 45 mg tablet 45 mg PO BEDTIME 05/22/22 06/28/22 06/27/22 History quetiapine 100 mg tablet 100 mg PO BEDTIME 05/22/22 06/28/22 06/27/22 History Exam Exam Date and Time: June 20, 2022 1023 Height,Weight and Vital Signs: Height 5 ft 9 in Weight 70.76 kg Last Vital Signs Pulse 51 06/20/22 10:08 Resp 20 06/20/22 10:08 BP 168/70 H 06/20/22 10:08 Pulse Ox 97 06/20/22 10:08 O2 Del Method 06/20/22 10:08 Airway Mallampati Class: II TM Dist: >3cm Neck ROM: Full Denture: Upper and Lower (Doesnt wear) Heart: kelly, regular Lungs: CTAB Assessment and Plan Assessment Anesthesia Assessment: Anesthesia Plan Discussed and PAT Visit Final Anesthetic Review Family History of Problems with Anesthesia: No History of Problems with Anesthesia: No Documented by User: David Taylor MD 06/28/22 11:15 [facility] Past Medical History Medical History Arthritis Depression GERD (gastroesophageal reflux disease) Gout Hypertension Neuroendocrine tumor Peptic ulcer disease Right inguinal hernia Family History Family History Other No family history of cancer Surgical History Surgical History H/O colonoscopy History of appendectomy History of esophagogastroduodenoscopy (EGD) Hx of bilateral cataract extraction Hx of right inguinal hernia repair Social History Social History Household Members: None Housing: Apartment Are you a primary neonatal intensive care unit nurse to a significant other at home: No Do you presently have visiting nurse or other home services: No Alcohol intake: current Alcohol intake frequency: a few times a week Patient Tobacco Use Status: Former Tobacco user Quit Date: age 52 Tobacco use type: Cigarette Years Smoked: 20 Use of substances other than those prescribed or required for medical reasons: No Have you been hit, kicked, punched, or otherwise hurt by someone within the past year? If so, by whom?: No Are you DNR?: No Advance Directives: No (brothrenu Torres is primary contact) Advance Directives Information Provided: Yes Advance Directives on File: No Recently lost weight without trying: Yes How much weight loss: 2-13 pounds Eating poorly because of decreased appetite: No Nutrition screen score: 3 Nutrition Risks: Surgical patient >75years Poor oral hygiene: No (upper full denture) service: Yes Current occupational status: retired Current occupation: left hand Meds Allergies Allergy/AdvReac Type Severity Reaction Status Date / Time amoxicillin [From Augmentin] Allergy Intermediate Diarrhea Verified 06/20/22 09:52 clavulanic acid Allergy Intermediate Diarrhea Verified 06/20/22 09:52 [From Augmentin] Home Medications Medication Instructions Recorded Confirmed Last Taken Type lisinopril 5 mg tablet 5 mg PO DAILY 05/22/22 06/28/22 06/27/22 History lovastatin 40 mg tablet 40 mg PO DAILY 05/22/22 06/28/22 06/27/22 History metoprolol tartrate 50 mg tablet 25 mg PO BID 05/22/22 06/19/22 06/28/22 History mirtazapine 45 mg tablet 45 mg PO BEDTIME 05/22/22 06/28/22 06/27/22 History quetiapine 100 mg tablet 100 mg PO BEDTIME 05/22/22 06/28/22 06/27/22 History Exam Airway Loose/Missing/Broken Teeth: Yes Assessment and Plan Final Anesthetic Review NPO: Yes ASA Class: III Final Preanesthetic Review: No Changes in Pt Med Stat, Meds/Allgs Chart Reviewed, Consent Obtained/Reviewed and Anes Risks/Benef Reviewed Patient Risk: Intermediate Procedure Risk: Intermediate Assessment/Block/Sedation in SS: Assess/Block/Sedation-SS Anesthetic Plan Anesthetic Plan: GA and Agree w/ Assess. and Plan Disposition: Standard PACU
[2022-06-28] VITALS (8 sets, daily range): BP systolic 110–152; BP diastolic 47–64; PULSE 61–78; RESP 17–20; TEMP 36.2–36.6; O2SAT 95–100
[2022-06-28 08:57] LABS: COVID-19 Test Negative (Negative); IDNOW Serial# 08D9AD1C
[2022-06-28] MEDS: Lactated Ringers 1,000 ML 100 ML IVCONT (09:13)
--- OUTSIDE RECORDS SUMMARY | 2022-06-28 09:16 | XMS_ITS ---
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, in full remission Problem Vitamin D deficiency E55.9 Active 31364069 ALLERGIES Substance Reaction Event Type Date Status Augmentin diarrhea Drug Allergy Apr, Active ENCOUNTERS Encounter Location Date Diagnosis Ramon Cortez DO, [address] [place] [address] Apr, Retroper itoneal lymphadenopathy [place], [place] R59.0 ; Essenti al hypertension [id number] I10 ; Hyperchole sterolemia E78.00 ; Vitamin D deficiency E55.9 and Recurr ent major depressive disor dagmar, in full remission F33.42 [address] Jan, Neuroend ocrine tumor D3A.8 ; [place], [place] Essential hyper tension I10 ; [id number] Hypercholesterol emia E78.00 ; Vitamin D defici ency E55.9 and Recurrent major depressive disorder, in ful l remission F33.42 Ramon Cortez DO, [address] [place] [address] Dec, Retroper itoneal lymphadenopathy [place], [place] R59.0 ; Benign prostatic [id number] hyperplasia, uns pecified whether lower ur inary tract symptoms present N40.0 ; Essential hypert ension I10 ; Hypercholesterol emia E78.00 ; Vitamin D defici ency E55.9 and Recurrent major depressive disorder, in ful l remission F33.42 Ramon Cortez DO, [address] August, [facility]ent[facility] hypertension I10 ; [place] Hypercholestero lemia E78.00 ; [id number] Recurrent major depressive disorder, in ful l remission F33.42 and Vitam in D deficiency E55.9 Ramon Cortez DO, [address] Feb, [facility] hypertension I10 ; [place] Hypercholestero lemia E78.00 ; [id number] Recurrent major depressive disorder, in ful l remission F33.42 and Vitam in D deficiency E55.9 Ramon Cortez DO, [address] Jan, [facility] hypertension I10 [place] [id number] Ramon Cortez DO, [address] August, [facility] hypertension I10 ; [place] Hypercholestero lemia E78.00 ; [id number] Recurrent major depressive disorder, in ful l remission F33.42 and Vitam in D deficiency E55.9 Ramon Cortez DO, [address] Jul, [facility] hypertension I10 ; [place] Hypercholestero lemia E78.00 and [id number] Recurrent major depressive disorder, in ful l remission F33.42 Ramon Cortez DO, [address] Feb, [facility] hypertension I10 ; [place] Hypercholestero lemia E78.00 ; [id number] Vitamin D defici ency E55.9 and Recurrent major depressive disorder, in ful l remission F33.42 Ramon Cortez DO, [address] Oct, [facility] hypertension I10 ; [place] Hypercholestero lemia E78.00 ; [id number] Vitamin D defici ency E55.9 and Recurrent major depressive disorder, in ful l remission F33.42 Ramon Cortez DO, [address] Apr, [facility] hypertension I10 ; [place] Hypercholestero lemia E78.00 ; [id number] Vitamin D defici ency E55.9 and Recurrent major depressive disorder, in ful l remission F33.42 Ramon Cortez DO, [address] Dec, Essent[place] hypertension I10 [place] [id number] Ramon Cortez DO, [address] Oct, [facility] ; [place] Hypercholestero lemia E78.00 ; [id number] Recurrent major depressive disorder, in ful l remission F33.42 and Vitam in D deficiency E55.9 Ramon Cortez DO, [address] Apr, [facility] ; [place] Hypercholestero lemia E78.00 ; [id number] Vitamin D defici ency E55.9 and Recurrent major depressive disorder, in ful l remission F33.42 Ramon Cortez DO, [address] Jan, [facility] hypertension with [place] goal blood pres sure less than [id number] 130\/85 I10 Ramon Cortez DO, [address] Oct, [facility] hypertension with [place] goal blood pres sure less than [id number] 130\/85 I10 ; Hypercholesterol emia E78.0 ; Vitamin D defici ency E55.9 and Recurrent major depressive disorder, in ful l remission F33.42 Ramon Cortez DO, [address] August, [facility] hypertension with [place] goal blood pres sure less than [id number] 130\/85 I10 Ramon Cortez DO, [address] August, [facility] l hypertension with [place] goal blood pres sure less than [id number] 130\/85 I10 ; Hypercholesterol emia E78.0 ; Vitamin D defici ency E55.9 ; Recurrent major depressive disorder, in ful l remission F33.42 and Left hip pain M25.552 Ramon Cortez DO, [address] Jul, Encounte r for general adult [place] medical examina tion without [id number] abnormal finding s Z00.00 ; Essential hypert ension with goal blood press ure less than 130\/85 I10 ; Hypercholesterol emia E78.0 ; Vitamin D defici ency E55.9 and Recurrent major depressive disorder, in ful l remission F33.42 Ramon Cortez DO, [address] Jan, [facility] hypertension with [place] goal blood pres sure less than [id number] 130\/85 I10 ; Hypercholesterol emia E78.0 ; Vitamin D defici ency E55.9 and Recurrent major depressive disorder, in ful l remission F33.42 Ramon Cortez DO, [address] Sep, [facility] with [facility] [place] goal blood pres sure less than [id number] 130\/85 I10 ; Re current major depressive disor dagmar, in full remission F33.42 and Hypercholesterol emia E78.0 Ramon Cortez DO, [address] Jul, [facility] with [facility] [place] goal blood pres sure less than [id number] 130\/85 I10 ; Hypercholesterol emia E78.0 ; Vitamin D defici ency E55.9 and Recurrent major depressive disorder, in ful l remission F33.42 Ramon Cortez DO, [address] Apr, [facility] hypertension with [facility] [place] goal blood pres sure less than [id number] 130\/85 I10 Ramon Cortez DO, [address] [facility] [address] Dec, [facility] hypertension with [facility] [place] goal blood pres sure less than [id number] 130\/85 I10 ; Hypercholesterol emia E78.0 ; Vitamin D defici ency E55.9 and Recurrent major depressive disorder, in ful l remission F33.42 Ramon Cortez DO, [address] [facility] [address] Dec, [facility] [place] [id number] Ramon Cortez DO, [address] [facility] [address] Dec, [facility] [place] [id number] Ramon Cortez DO, [address] Nov, [facility] [place] [id number] Ramon Cortez DO, [address] Jul, [facility] [place] [id number] Ramon Cortez DO, [address] Jun, [facility] with [facility] [place] goal blood pres sure less than [id number] 130\/85 I10 ; Hypercholesterol emia E78.0 and Impacted cerumen of left ear H61.22 Ramon Cortez DO, [address] Dec, [facility] [place] [id number] Ramon Cortez DO, [address] Dec, Hyperten hawa 401.9 and [facility] [place] Hypercholestero lemia 272.0 [id number] Ramon Cortez DO, [address] [facility] [address] Nov, Tinea cr uris 110.3 [facility] [id number] Ramon Cortez DO, [address] [facility] August, Testicul ar discomfort 608.9 [facility] [id number] Ramon Cortez DO, [address] [facility] August, [facility] [place] [id number] Ramon Cortez DO, [address] [place] [address] Jun, Hyperten hawa 401.9 and [facility] [place] Hypercholestero lemia 272.0 [id number] Ramon Cortez DO, [address] [place] [address] Dec, Hyperten hawa 401.9 and [facility] [place] Hypercholestero lemia 272.0 [id number] Ramon Cortez DO, [address] [place] [address] Dec, [facility] [place] [id number] Ramon Cortez DO, [address] [place] [address] Dec, Hyperten hawa 401.9 [facility] [place] [id number] Ramon Cortez DO, [address] [place] [address] Oct, Hyperten hawa 401.9 and [facility] [place] Hypercholestero lemia 272.0 [id number] Ramon Cortez DO, [address] [place] [address] Jun, Hyperten hawa 401.9 ; [facility] [place] Hypercholestero lemia 272.0 ; [id number] Tubular adenoma 229.9 and Cataract 366.9 Ramon Cortez DO, [address] [place] [address] Apr, Hyperten hawa 401.9 and [facility] [place] Hypercholestero lemia 272.0 [id number] Ramon Cortez DO, [address] [place] [address] Feb, [facility] [place] [id number] Ramon Cortez DO, [address] [place] [address] Jan, [facility] [place] [id number] Ramon Cortez DO, [address] [place] [address] Jan, [facility] [place] [id number] Ramon Cortez DO, [address] [place] [address] STREET Jan, Shoulder pain, right 719.41 [facility] [place] [id number] Ramon Cortez DO, [address] [place] [address] Oct, Hyperten hawa 401.9 and [facility] [place] Hypercholestero lemia 272.0 [id number] Ramon Cortez , [address] [place] [address] May, [facility] [place] [id number] Ramon Cortez DO, [address] [place] [address] Apr, Hyperten hawa 401.9 and [facility] [place] Hypercholestero lemia 272.0 [id number] Ramon Cortez , [address] [place] [address] Feb, [facility] [place] [id number] Ramon Cortez , [address] [place] [address] August, [facility] [place] [id number] Ramon Cortez DO, [address] [place] [address] Apr, Hyperten hawa 401.9 and [facility] [place] Hypercholestero lemia 272.0 [id number] Ramon Cortez , [address] [place] [address] Feb, [facility] [place] [id number] IMMUNIZATIONS Vaccine Route Administration Date Status Influnza High Dose Quad Unknown Dec 21, 2020 Administ ered COVID-19 Moderna Vaccine Unknown September 12, 2020 Adminis tered Influenza High Dose IM Intramuscular Dec 19, 2021 Administere d Influnza High Dose Quad Unknown Dec 19, 2021 Administ ered Influenza Unknown Jan 14, 2018 Administered Influnza High Dose Quad Unknown Dec 28, 2019 Administ ered PCV 13 Unknown July 18, 2017 Administered Pneumococcal - PPSV23 Unknown Dec 20, 2003 Administer ed COVID-19 Moderna Vaccine Unknown August 11, 2020 Adminis tered Influenza IM Intramuscular Jan 13, 2019 Administered Influenza High Dose IM Intramuscular Dec 20, 2016 Administere d Influenza High Dose IM Intramuscular Jan 10, 2016 Administere d Influenza Quad IM Intramuscular Jan 05, 2015 Administered Pneumococcal - PPSV23 IM Intramuscular July 06, 2014 Administe red Influenza IM Intramuscular Jan 04, 2014 Administered Influenza Unknown Mar 02, 2013 Administered SOCIAL HISTORY Qualifiers Date Former Smoker REASON FOR REFERRAL FUNCTIONAL STATUS PLAN OF CARE Activity Details Follow Up 3 Months Reason:follow up vi sit Future Appointment Provider Name:Ramon Silveira she, 2022-07-30 02:00:00 PM, [address] [place] [address], [phone], Pending Test COVID-19 ID NOW ([place]) VITAL SIGNS Weight 163 lbs 2022-05-01 Weight 166 lbs 2022-01-23 Weight 170 lbs 2021-12-19 Weight 170 lbs 2021-09-05 Weight 175 lbs 2021-03-06 Weight 170 lbs 2020-09-05 Weight 180 lbs 2020-02-28 Weight 171 lbs 2019-04-20 Weight 169 lbs 2018-10-20 Weight 177 lbs 2018-04-21 Weight 175 lbs 2017-10-17 Weight 185 lbs 2017-08-15 Weight 185 lbs 2017-07-16 Weight 186 lbs 2017-01-15 Weight 185 lbs 2016-07-16 Weight 189 lbs 2016-01-10 Weight 186 lbs 2015-07-11 Weight 183 lbs 2015-01-05 Weight 183 lbs 2014-12-09 Weight 183 lbs 2014-08-26 Weight 184 lbs 2014-07-06 Weight 189 lbs 2014-01-04 Weight 183 lbs 2013-11-02 Weight 178 lbs 2013-07-07 Weight 182 lbs 2013-05-04 Weight 184 lbs 2013-01-29 Weight 180 lbs 2012-11-05 Weight 183 lbs 2012-05-12 Weight 180 lbs 2011-05-10 Height 68.25 in 2022-05-01 Height 68.25 in 2022-01-23 Height 68.25 in 2021-12-19 Height 68.25 in 2021-09-05 Height 68.25 in 2021-03-06 Height 68.25 in 2020-09-05 Height 68.25 in 2020-02-28 Height 68.25 in 2019-04-20 Height 68.25 in 2018-10-20 Height 68.25 in 2018-04-21 Height 68.25 in 2017-10-17 Height 68.25 in 2017-08-15 Height 68.25 in 2017-07-16 Height 68.25 in 2017-01-15 Height 68.25 in 2016-07-16 Height 68.25 in 2016-01-10 Height 68.25 in 2015-07-11 Height 68.25 in 2015-01-05 Height 68.25 in 2014-12-09 Height 68.25 in 2014-08-26 Height 68.25 in 2014-07-06 Height 68.25 in 2014-01-04 Height 68.25 in 2013-11-02 Height 68.25 in 2013-07-07 Height N/A in 2013-05-04 Height N/A in 2013-01-29 Height N/A in 2012-11-05 Height 68.25 in 2012-05-12 Height 68.25 in 2011-05-10 BMI 24.60 kg/m2 2022-05-01 BMI 25.05 kg/m2 2022-01-23 BMI 25.66 kg/m2 2021-12-19 BMI 25.66 kg/m2 2021-09-05 BMI 26.41 kg/m2 2021-03-06 BMI 25.66 kg/m2 2020-09-05 BMI 27.17 kg/m2 2020-02-28 BMI 25.81 kg/m2 2019-04-20 BMI 25.51 kg/m2 2018-10-20 BMI 26.71 kg/m2 2018-04-21 BMI 26.41 kg/m2 2017-10-17 BMI 27.92 kg/m2 2017-08-15 BMI 27.92 kg/m2 2017-07-16 BMI 28.07 kg/m2 2017-01-15 BMI 27.92 kg/m2 2016-07-16 BMI 28.52 kg/m2 2016-01-10 BMI 28.07 kg/m2 2015-07-11 BMI 27.62 kg/m2 2015-01-05 BMI 27.62 kg/m2 2014-12-09 BMI 27.62 kg/m2 2014-08-26 BMI 27.77 kg/m2 2014-07-06 BMI 28.52 kg/m2 2014-01-04 BMI 27.62 kg/m2 2013-11-02 BMI 26.86 kg/m2 2013-07-07 BMI 27.47 kg/m2 2013-05-04 BMI 27.77 kg/m2 2013-01-29 BMI 27.17 kg/m2 2012-11-05 BMI 27.62 kg/m2 2012-05-12 BMI 27.17 kg/m2 2011-05-10 Heart Rate 76 /min 2013-11-02 Heart Rate 68 /min 2013-07-07 Blood pressure systolic 124 mm Hg 2022-05-01 Blood pressure diastolic 56 mm Hg 2022-05-01 MEDICATIONS Medication Instructions Dosage Frequency Start End Date Duration Stat us Date Vitamin D 1000 Orally Once a 1 capsule 24h Jul, A ctive UNIT 2015 Lovastatin 40 Orally Once a 1 tablet 24h Act mackenzie MG day with the evening meal QUEtiapine Orally Once a 1 tablet at 24h Act mackenzie Fumarate 100 MG day bedtime Metoprolol Orally Twice a 1 tablet 12h Activ e Tartrate 50 MG day with food Mirtazapine 45 Orally Once a 1 tablet at 24h Active MG day bedtime Lisinopril 5 MG Orally Once a [address] day PROCEDURES Procedure Date Ordered Result Body Site FLU IMMUNIZE ORDER/ADMIN Jan 15, 2017 Imms Admin Pneu July 06, 2014 PNEUMOC IMM ORDER/ADMIN July 16, 2017 PNEUMOC IMM ORDER/ADMIN Feb 28, 2020 DOC MEDS VERIFIED W/PT OR RE October 17, 2017 ADMN FLU VAC NO FEE SCHED SAME Jan 10, 2016 DOC MEDS VERIFIED W/PT OR RE Jan 23, 2022 BMI<30 AND >=22 CALC & DOCU Feb 28, 2020 PNEUMOC IMM ORDER/ADMIN Jan 15, 2017 EAR IRRIGATION July 11, 2015 FLU IMMUNIZE ORDER/ADMIN July 16, 2016 FLU IMMUNIZE ORDER/ADMIN Jan 23, 2022 DOC MEDS VERIFIED W/PT OR RE October 20, 2018 DOC MEDS VERIFIED W/PT OR RE Mar 06, 2021 ADMN FLU VAC NO FEE SCHED SAME Dec 19, 2021 FLU IMMUNIZE ORDER/ADMIN July 16, 2017 FLU VACC 4 DAVONTE 3 YRS PLUS IM Jan 05, 2015 PNEUMOC IMM ORDER/ADMIN Apr 21, 2018 DOC MEDS VERIFIED W/PT OR RE November 02, 2013 DOC MEDS VERIFIED W/PT OR RE July 06, 2014 TOBACCO NON-USER Jan 04, 2014 TOBACCO NON-USER July 11, 2015 DOC MEDS VERIFIED W/PT OR RE Jan 10, 2016 TOBACCO NON-USER July 07, 2013 TOBACCO NON-USER Jan 10, 2016 PNEUMOC IMM ORDER/ADMIN July 16, 2016 BMI<30 AND >=22 CALC & DOCU Apr 21, 2018 TOBACCO NON-USER Mar 06, 2021 TOBACCO NON-USER October 17, 2017 ADMN FLU VAC NO FEE SCHED SAME DAY Jan 04, 2014 FLU IMMUNIZE ORDER/ADMIN Jan 10, 2016 BMI<30 AND >=22 CALC & DOCU July 16, 2016 Imms Admin Jan 05, 2015 BMI<30 AND >=22 CALC & DOCU July 16, 2017 COLORECTAL CA SCREEN DOC REV July 07, 2013 TOBACCO NON-USER July 06, 2014 BMI<30 AND >=22 CALC & DOCU September 05, 2021 DOC MEDS VERIFIED W/PT OR RE October 20, 2019 BMI<30 AND >=22 CALC & DOCU September 05, 2020 TOBACCO NON-USER November 02, 2013 PNEUMOC IMM ORDER/ADMIN July 07, 2013 FLU IMMUNIZE ORDER/ADMIN July 11, 2015 PNEUMOC IMM ORDER/ADMIN Apr 20, 2019 TOBACCO NON-USER August 26, 2014 BMI<30 AND >=22 CALC & DOCU July 07, 2013 MOST RECENT SYSTOLIC BP < 140MM HG Jan 23, 2022 TOBACCO NON-USER Feb 28, 2020 PNEUMOC IMM ORDER/ADMIN August 26, 2014 FLU IMMUNIZE ORDER/ADMIN Jan 04, 2014 TOBACCO NON-USER September 05, 2020 TOBACCO NON-USER Dec 19, 2021 PNEUMOC IMM ORDER/ADMIN July 06, 2014 TOBACCO NON-USER October 20, 2019 BMI<30 AND >=22 CALC & DOCU Apr 20, 2019 BMI<30 AND >=22 CALC & DOCU Mar 06, 2021 DOC MEDS VERIFIED W/PT OR RE Apr 20, 2019 DOC MEDS VERIFIED W/PT OR RE Apr 21, 2018 PNEUMOC IMM ORDER/ADMIN Mar 06, 2021 TOBACCO NON-USER Apr 21, 2018 PNEUMOC IMM ORDER/ADMIN Jan 10, 2016 FLU VACC PRSV FREE INC ANTIG Dec 19, 2021 DOC MEDS VERIFIED W/PT OR RE July 16, 2016 DOC MEDS VERIFIED W/PT OR RE Jan 05, 2015 FLU VACC PRSV FREE INC ANTIG Jan 10, 2016 Pneumococcal - PPSV23 July 06, 2014 TOBACCO NON-USER September 05, 2021 BMI<30 AND >=22 CALC & DOCU July 11, 2015 BMI<30 AND >=22 CALC & DOCU August 26, 2014 BMI<30 AND >=22 CALC & DOCU July 06, 2014 DOC MEDS VERIFIED W/PT OR RE July 11, 2015 TOBACCO NON-USER Apr 20, 2019 TOBACCO NON-USER July 16, 2016 DOC MEDS VERIFIED W/PT OR RE Jan 04, 2014 BMI<30 AND >=22 CALC & DOCU Jan 10, 2016 TOBACCO NON-USER July 16, 2017 BMI<30 AND >=22 CALC & DOCU Jan 15, 2017 FLU IMMUNIZE ORDER/ADMIN August 26, 2014 FLU IMMUNIZE ORDER/ADMIN Jan 05, 2015 DOC MEDS VERIFIED W/PT OR RE Feb 28, 2020 DOC MEDS VERIFIED W/PT OR RE Dec 19, 2021 PNEUMOC IMM ORDER/ADMIN July 11, 2015 DOC MEDS VERIFIED W/PT OR RE September 05, 2021 FLU IMMUNIZE ORDER/ADMIN July 06, 2014 DOC MEDS VERIFIED W/PT OR RE September 05, 2020 TOBACCO NON-USER Jan 23, 2022 DOC MEDS VERIFIED W/PT OR RE July 07, 2013 MOST RECENT DIASTOLIC BP < 90MM HG Jan 23, 2022 TOBACCO NON-USER Jan 15, 2017 BMI<30 AND >=22 CALC & DOCU Jan 23, 2022 FLU IMMUNIZE ORDER/ADMIN July 07, 2013 PNEUMOC IMM ORDER/ADMIN September 05, 2020 FLU VACC SPLIT 3 YRS & > IM FLUZONE Jan 04, 2014 DOC MEDS VERIFIED W/PT OR RE August 15, 2017 DOC MEDS VERIFIED W/PT OR RE August 26, 2014 PNEUMOC IMM ORDER/ADMIN September 05, 2021 PNEUMOC IMM ORDER/ADMIN October 20, 2019 FLU IMMUNIZE ORDER/ADMIN Apr 20, 2019 DOC MEDS VERIFIED W/PT OR RE Dec 09, 2014 ANNUAL WELLNESS VST; PPS SUBSQT VST July 16, 2017 DOC MEDS VERIFIED W/PT OR RE July 16, 2017 DOC MEDS VERIFIED W/PT OR RE Jan 15, 2017 RESULTS Name Result Date Reference Range Type and Screen 2022-06-20 Blood Type OP Antibody Screen NEGATIVE Complete Blood Count Auto Diff 2022-06-11 White Blood Count 5.2 4.8-10.8 Red Blood Count 4.91 4.60-5.80 Hemoglobin 14.6 14.0-18.0 Hematocrit 43.7 42.0-52.0 Mean Corpuscular Volume 89.0 80.0-98. 0 Mean Corpuscular Hemoglobin 29.7 27.0 -33.0 Mean Corpuscular HGB Conc 33.4 31.0-3 6.0 Red Cell Distribution Width 13.3 11.0 -16.0 Platelet Count 162 160-400 Mean Platelet Volume 10.2 9.4-12.4 Neutrophils Percent Auto 59.6 45-73 Imm Gran Pct Auto 0.2 0.0-0.4 Lymphocytes Percent Auto 26.0 20-40 Monocytes Percent Auto 9.2 2-11 Eosinophils Percent Auto 4.2 0-4 Basophils Percent Auto 0.8 0-2 NRBC Pct Auto 0.0 0.0-0.2 Neutrophils Absolute Auto 3.1 2.0-8. 3 Imm Gran Abs Auto 0.01 0.00-0.03 Lymphocytes Absolute Auto 1.4 1.2-4. 9 Monocytes Absolute Auto 0.5 0.1-1.2 Eosinophils Absolute Auto 0.2 0.0-0. 4 Basophils Absolute Auto 0.0 0.0-0.2 NRBC Abs Auto 0.000 0.0-0.012 Comprehensive Met. Panel 2022-06-11 Sodium 145 135-145 Potassium 3.8 3.3-5.1 Chloride 109 96-108 Carbon Dioxide 27 22-29 Anion Gap 13 12-20 Blood Urea Nitrogen 15 9-16 Creatinine 0.87 0.5-1.4 Creatinine Clr Calc Pharmacy 63.2 Estimated Glomerular Filt Rate > 60 Glucose Random 104 60-115 Calcium 9.2 8.4-10.2 Bilirubin Total 0.6 0.0-1.0 Aspartate Amino Transferase 34 5-37 Alanine Aminotransferase 33 0-40 Total Protein 6.5 6.5-8.0 Albumin Level 4.1 3.5-5.0 Alkaline Phosphatase 93 39-117 Carcinoembryonic Antigen 2022-06-11 Carcinoembryonic Antigen 2.40 Chromogranin A 2022-06-11 Chromogranin A 785 ADULTS: <311 Pathology 2022-06-05 Chromogranin A 2022-04-18 Chromogranin A 629 ADULTS: <311 Complete Blood Count Auto Diff 2022-03-18 White Blood Count 6.4 4.8-10.8 Red Blood Count 4.86 4.60-5.80 Hemoglobin 14.7 14.0-18.0 Hematocrit 44.5 42.0-52.0 Mean Corpuscular Volume 91.6 80.0-98. 0 Mean Corpuscular Hemoglobin 30.2 27.0 -33.0 Mean Corpuscular HGB Conc 33.0 31.0-3 6.0 Red Cell Distribution Width 13.2 11.0 -16.0 Platelet Count 168 160-400 Mean Platelet Volume 10.8 9.4-12.4 Neutrophils Percent Auto 58.8 45-73 Imm Gran Pct Auto 0.3 0.0-0.4 Lymphocytes Percent Auto 25.2 20-40 Monocytes Percent Auto 9.0 2-11 Eosinophils Percent Auto 5.9 0-4 Basophils Percent Auto 0.8 0-2 NRBC Pct Auto 0.0 0.0-0.2 Neutrophils Absolute Auto 3.8 2.0-8. 3 Imm Gran Abs Auto 0.02 0.00-0.03 Lymphocytes Absolute Auto 1.6 1.2-4. 9 Monocytes Absolute Auto 0.6 0.1-1.2 Eosinophils Absolute Auto 0.4 0.0-0. 4 Basophils Absolute Auto 0.1 0.0-0.2 NRBC Abs Auto 0.000 0.0-0.012 Comprehensive Met. Panel 2022-03-18 Sodium 147 135-145 Potassium 3.9 3.3-5.1 Chloride 110 96-108 Carbon Dioxide 29 22-29 Anion Gap 12 12-20 Blood Urea Nitrogen 17 9-16 Creatinine 0.96 0.5-1.4 Creatinine Clr Calc Pharmacy 58.3 Estimated Glomerular Filt Rate > 60 Glucose Random 100 60-115 Calcium 9.5 8.4-10.2 Bilirubin Total 0.6 0.0-1.0 Aspartate Amino Transferase 34 5-37 Alanine Aminotransferase 34 0-40 Total Protein 6.6 6.5-8.0 Albumin Level 4.3 3.5-5.0 Alkaline Phosphatase 86 39-117 Complete Blood Count Auto Diff 2022-01-17 White Blood Count 6.6 4.8-10.8 Red Blood Count 4.85 4.60-5.80 Hemoglobin 14.6 14.0-18.0 Hematocrit 44.4 42.0-52.0 Mean Corpuscular Volume 91.5 80.0-98. 0 Mean Corpuscular Hemoglobin 30.1 27.0 -33.0 Mean Corpuscular HGB Conc 32.9 31.0-3 6.0 Red Cell Distribution Width 12.9 11.0 -16.0 Platelet Count 168 160-400 Mean Platelet Volume 10.8 9.4-12.4 Neutrophils Percent Auto 57.7 45-73 Imm Gran Pct Auto 0.3 0.0-0.4 Lymphocytes Percent Auto 26.4 20-40 Monocytes Percent Auto 10.7 2-11 Eosinophils Percent Auto 3.8 0-4 Basophils Percent Auto 1.1 0-2 NRBC Pct Auto 0.0 0.0-0.2 Neutrophils Absolute Auto 3.8 2.0-8. 3 Imm Gran Abs Auto 0.02 0.00-0.03 Lymphocytes Absolute Auto 1.8 1.2-4. 9 Monocytes Absolute Auto 0.7 0.1-1.2 Eosinophils Absolute Auto 0.3 0.0-0. 4 Basophils Absolute Auto 0.1 0.0-0.2 NRBC Abs Auto 0.000 0.0-0.012 Comprehensive Met. Panel 2022-01-17 Sodium 143 135-145 Potassium 4.1 3.3-5.1 Chloride 107 96-108 Carbon Dioxide 27 22-29 Anion Gap 13 12-20 Blood Urea Nitrogen 14 9-16 Creatinine 0.94 0.5-1.4 Creatinine Clr Calc Pharmacy 59.5 Estimated Glomerular Filt Rate > 60 Glucose Random 108 60-115 Calcium 9.5 8.4-10.2 Bilirubin Total 0.5 0.0-1.0 Aspartate Amino Transferase 33 5-37 Alanine Aminotransferase 35 0-40 Total Protein 6.7 6.5-8.0 Albumin Level 4.3 3.5-5.0 Alkaline Phosphatase 86 39-117 Pathology 2022-01-10 Complete Blood Count Auto Diff 2021-12-28 White Blood Count 8.0 4.8-10.8 Red Blood Count 4.99 4.60-5.80 Hemoglobin 15.4 14.0-18.0 Hematocrit 46.5 42.0-52.0 Mean Corpuscular Volume 93.2 80.0-98. 0 Mean Corpuscular Hemoglobin 30.9 27.0 -33.0 Mean Corpuscular HGB Conc 33.1 31.0-3 6.0 Red Cell Distribution Width 13.2 11.0 -16.0 Platelet Count 193 160-400 Mean Platelet Volume 10.5 9.4-12.4 Neutrophils Percent Auto 62.8 45-73 Imm Gran Pct Auto 0.5 0.0-0.4 Lymphocytes Percent Auto 23.6 20-40 Monocytes Percent Auto 8.1 2-11 Eosinophils Percent Auto 4.1 0-4 Basophils Percent Auto 0.9 0-2 NRBC Pct Auto 0.0 0.0-0.2 Neutrophils Absolute Auto 5.0 2.0-8. 3 Imm Gran Abs Auto 0.04 0.00-0.03 Lymphocytes Absolute Auto 1.9 1.2-4. 9 Monocytes Absolute Auto 0.7 0.1-1.2 Eosinophils Absolute Auto 0.3 0.0-0. 4 Basophils Absolute Auto 0.1 0.0-0.2 NRBC Abs Auto 0.000 0.0-0.012 Prothrombin Time INR 2021-12-28 Prothrombin Time 11.8 10.0-13.1 INTERNATIONAL NORM RATIO 1.0 0.9-1.1 Comprehensive Met. Panel 2021-12-28 Sodium 145 135-145 Potassium 4.4 3.3-5.1 Chloride 104 96-108 Carbon Dioxide 29 22-29 Anion Gap 16 12-20 Blood Urea Nitrogen 16 9-16 Creatinine 0.99 0.5-1.4 Creatinine Clr Calc Pharmacy 56.5 Estimated Glomerular Filt Rate > 60 Glucose Random 108 60-115 Calcium 9.9 8.4-10.2 Bilirubin Total 0.6 0.0-1.0 Aspartate Amino Transferase 39 5-37 Alanine Aminotransferase 43 0-40 Total Protein 7.4 6.5-8.0 Albumin Level 4.7 3.5-5.0 Alkaline Phosphatase 104 39-117 Lactate Dehydrogenase 2021-12-28 Lactate Dehydrogenase 170 118-273 Carcinoembryonic Antigen 2021-12-28 Carcinoembryonic Antigen 2.40 Prostate Specific Antigen Scr 2021-12-28 Prostate Specific Antigen Scr 2.57 <0 .05-4.0 Complete Blood Count Auto Diff 2021-12-08 White Blood Count 10.0 4.8-10.8 Red Blood Count 4.94 4.60-5.80 Hemoglobin 15.0 14.0-18.0 Hematocrit 45.5 42.0-52.0 Mean Corpuscular Volume 92.1 80.0-98. 0 Mean Corpuscular Hemoglobin 30.4 27.0 -33.0 Mean Corpuscular HGB Conc 33.0 31.0-3 6.0 Red Cell Distribution Width 13.3 11.0 -16.0 Platelet Count 203 160-400 Mean Platelet Volume 10.3 9.4-12.4 Neutrophils Percent Auto 73.5 45-73 Imm Gran Pct Auto 0.4 0.0-0.4 Lymphocytes Percent Auto 15.9 20-40 Monocytes Percent Auto 7.3 2-11 Eosinophils Percent Auto 2.2 0-4 Basophils Percent Auto 0.7 0-2 NRBC Pct Auto 0.0 0.0-0.2 Neutrophils Absolute Auto 7.4 2.0-8. 3 Imm Gran Abs Auto 0.04 0.00-0.03 Lymphocytes Absolute Auto 1.6 1.2-4. 9 Monocytes Absolute Auto 0.7 0.1-1.2 Eosinophils Absolute Auto 0.2 0.0-0. 4 Basophils Absolute Auto 0.1 0.0-0.2 NRBC Abs Auto 0.000 0.0-0.012 Comprehensive Met. Panel 2021-12-08 Sodium 144 135-145 Potassium 4.8 3.3-5.1 Chloride 105 96-108 Carbon Dioxide 26 22-29 Anion Gap 18 12-20 Blood Urea Nitrogen 14 9-16 Creatinine 0.96 0.5-1.4 Creatinine Clr Calc Pharmacy 58.3 Estimated Glomerular Filt Rate > 60 Glucose Random 120 60-115 Calcium 9.7 8.4-10.2 Bilirubin Total 0.7 0.0-1.0 Aspartate Amino Transferase 36 5-37 Alanine Aminotransferase 32 0-40 Total Protein 7.3 6.5-8.0 Albumin Level 4.5 3.5-5.0 Alkaline Phosphatase 122 39-117 Prostate Specific Antigen 2021-12-08 Prostate Specific Antigen 2.09 <0.05- 4.0 Complete Blood Count Auto Diff 2021-09-14 White Blood Count 6.1 4.8-10.8 Red Blood Count 4.83 4.60-5.80 Hemoglobin 14.5 14.0-18.0 Hematocrit 44.5 42.0-52.0 Mean Corpuscular Volume 92.1 80.0-98. 0 Mean Corpuscular Hemoglobin 30.0 27.0 -33.0 Mean Corpuscular HGB Conc 32.6 31.0-3 6.0 Red Cell Distribution Width 13.6 11.0 -16.0 Platelet Count 159 160-400 Mean Platelet Volume 11.6 9.4-12.4 Neutrophils Percent Auto 54.2 45-73 Imm Gran Pct Auto 0.3 0.0-0.4 Lymphocytes Percent Auto 29.5 20-40 Monocytes Percent Auto 8.7 2-11 Eosinophils Percent Auto 6.2 0-4 Basophils Percent Auto 1.1 0-2 NRBC Pct Auto 0.0 0.0-0.2 Neutrophils Absolute Auto 3.3 2.0-8. 3 Imm Gran Abs Auto 0.02 0.00-0.03 Lymphocytes Absolute Auto 1.8 1.2-4. 9 Monocytes Absolute Auto 0.5 0.1-1.2 Eosinophils Absolute Auto 0.4 0.0-0. 4 Basophils Absolute Auto 0.1 0.0-0.2 NRBC Abs Auto 0.000 0.0-0.012 Comprehensive [place]. Panel Fast 2021-09-14 Sodium 144 135-145 Potassium 4.1 3.3-5.1 Chloride 109 96-108 Carbon Dioxide 27 22-29 Anion Gap 12 12-20 Blood Urea Nitrogen 13 9-16 Creatinine 0.95 0.5-1.4 Estimated Glomerular Filt Rate > 60 Glucose Fasting 114 60-99 Calcium 9.4 8.4-10.2 Bilirubin Total 0.8 0.0-1.0 Aspartate Amino Transferase 37 5-37 Alanine Aminotransferase 39 0-40 Total Protein 6.9 6.5-8.0 Albumin Level 4.3 3.5-5.0 Alkaline Phosphatase 100 39-117 Lipid Panel 2021-09-14 Triglycerides 84 Cholesterol 163 LDL Cholesterol Calculated 103 HDL Cholesterol 44 Complete Blood Count Auto Diff 2021-03-16 White Blood Count 5.9 4.8-10.8 Red Blood Count 4.86 4.60-5.80 Hemoglobin 14.5 14.0-18.0 Hematocrit 45.6 42.0-52.0 Mean Corpuscular Volume 93.8 80.0-98. 0 Mean Corpuscular Hemoglobin 29.8 27.0 -33.0 Mean Corpuscular HGB Conc 31.8 31.0-3 6.0 Red Cell Distribution Width 13.5 11.0 -16.0 Platelet Count 166 160-400 Mean Platelet Volume 11.5 9.4-12.4 Neutrophils Percent Auto 54.4 45-73 Imm Gran Pct Auto 0.5 0.0-0.4 Lymphocytes Percent Auto 29.8 20-40 Monocytes Percent Auto 9.4 2-11 Eosinophils Percent Auto 4.9 0-4 Basophils Percent Auto 1.0 0-2 NRBC Pct Auto 0.0 0.0-0.2 Neutrophils Absolute Auto 3.2 2.0-8. 3 Imm Gran Abs Auto 0.03 0.00-0.03 Lymphocytes Absolute Auto 1.8 1.2-4. 9 Monocytes Absolute Auto 0.6 0.1-1.2 Eosinophils Absolute Auto 0.3 0.0-0. 4 Basophils Absolute Auto 0.1 0.0-0.2 NRBC Abs Auto 0.000 0.0-0.012 Comprehensive [place]. Panel Fast 2021-03-16 Sodium 147 135-145 Potassium 4.1 3.3-5.1 Chloride 111 96-108 Carbon Dioxide 27 22-29 Anion Gap 13 12-20 Blood Urea Nitrogen 15 9-16 Creatinine 1.08 0.5-1.4 Estimated Glomerular Filt Rate > 60 Glucose Fasting 134 60-99 Calcium 9.6 8.4-10.2 Bilirubin Total 0.7 0.0-1.0 Aspartate Amino Transferase 47 5-37 Alanine Aminotransferase 48 0-40 Total Protein 7.0 6.5-8.0 Albumin Level 4.4 3.5-5.0 Alkaline Phosphatase 107 39-117 Lipid Panel 2021-03-16 Triglycerides 103 Cholesterol 163 LDL Cholesterol Calculated 101 HDL Cholesterol 42 Vitamin D 25-OH Total 2021-03-16 Vitamin D 25-OH Total 49.8 >30 Thyroid Stimulating Hormone 2021-03-16 Thyroid Stimulating Hormone 1.57 0.32 -4.0 LIPOPROTEIN FRACTIONATION (LIPID PANEL) CHOLESTEROL 166 TRIGLYCERIDE 86 HDL 53 LDL CALCULATED 96 CBC w DIFF 2018-11-06 WBC 6.6 4.8-10.8 ABSOLUTE NEUTROPHIL COUNT 3.3 2.2-7. 9 RBC 4.78 4.60-5.80 HEMOGLOBIN 14.8 14.0-18.0 HEMATOCRIT 44.7 42-52 MCV 93.5 80-98 MCH 31.0 27.0-33.0 MCHC 33.1 31.0-36.0 PLATELET COUNT 182 160-400 RDW 12.1 11.0-16.0 NEUTROPHILS 50.8 45-73 LYMPHOCYTES 34.3 20-40 MONOCYTES 9.7 2-11 EOSINOPHILS 3.7 0-4 BASOPHILS 1.6 0-2 PROFILE, FASTING 2018-11-06 NA 143 135-145 K 4.1 3.3-5.1 CL 108 96-108 CO2 27 22-29 ANION GAP 12 12-20 FASTING BLOOD SUGAR 99 60-99 BUN 14 9-16 CREATININE 0.86 0.5-1.4 ESTIMATED GFR > 60 PROTEIN, TOTAL 6.9 6.5-8.0 ALBUMIN 4.5 3.5-5.0 BILIRUBIN, TOTAL 0.7 0.0-1.0 CALCIUM 9.7 8.4-10.2 ALK. PHOS. 95 39-117 GOT 44 5-37 GPT 47 0-40 KNEE LEFT [id number] 2018-08-07 XR KNEE BILATERAL STANDING 2018-08-07 KNEE LEFT 4 VIEWS [id number] 2017-08-25 XR HIP LEFT 2 TO 3 VIEWS 2017-08-25 URINALYSIS + MICROSCOPIC 2017-08-04 COLOR YELLOW APPEARANCE,(UA) CLEAR SPECIFIC GRAVITY 1.025 1.005-1.025 LEUKOCYTES NEG NEG NITRITE NEG NEG PROTEIN,QUALITATIVE NEG NEG - TRACE PH 5.5 5.0-8.0 URINE BLOOD NEG NEG KETONES NEG NEG GLUCOSE NEG NEG MICROSCOPIC WBC 0 0-4 MICROSCOPIC RBC 0 0 EPITHELIAL CELLS NONE BACTERIA NONE LIPOPROTEIN FRACTIONATION (LIPID PANEL) CHOLESTEROL 189 TRIGLYCERIDE 137 HDL 49 LDL CALCULATED 113 CBC w DIFF 2017-08-01 WBC 6.9 4.8-10.8 ABSOLUTE NEUTROPHIL COUNT 3.7 2.2-7. 9 RBC 5.05 4.60-5.80 HEMOGLOBIN 15.7 14.0-18.0 HEMATOCRIT 46.8 42-52 MCV 92.8 80-98 MCH 31.0 27.0-33.0 MCHC 33.4 31.0-36.0 PLATELET COUNT 168 160-400 RDW 12.5 11.0-16.0 NEUTROPHILS 53.5 45-73 LYMPHOCYTES 33.6 20-40 MONOCYTES 8.3 2-11 EOSINOPHILS 3.3 0-4 BASOPHILS 1.5 0-2 PROFILE, FASTING 2017-08-01 NA 143 135-145 K 4.0 3.3-5.1 CL 106 96-108 CO2 28 22-29 ANION GAP 13 12-20 FASTING BLOOD SUGAR 106 60-99 BUN 15 9-16 CREATININE 0.86 0.5-1.4 ESTIMATED GFR > 60 PROTEIN, TOTAL 7.1 6.5-8.0 ALBUMIN 4.4 3.5-5.0 BILIRUBIN, TOTAL 0.8 0.0-1.0 CALCIUM 9.7 8.4-10.2 ALK. PHOS. 103 39-117 GOT 51 5-37 GPT 53 0-40 TSH (THYROID STIMULATING HORMONE) 2017-08-01 TSH 1.64 0.32-4.0 VITAMIN D 25-OH TOTAL 2017-08-01 VITAMIN D 25-OH TOTAL 31.8 > 30 LIPOPROTEIN FRACTIONATION (LIPID PANEL) CHOLESTEROL 183 TRIGLYCERIDE 137 HDL 51 LDL CALCULATED 105 CBC w DIFF 2016-11-20 WBC 7.4 4.8-10.8 ABSOLUTE NEUTROPHIL COUNT 4.3 2.2-7. 9 RBC 5.04 4.60-5.80 HEMOGLOBIN 16.1 14.0-18.0 HEMATOCRIT 48.6 42-52 MCV 96.3 80-98 MCH 31.9 27.0-33.0 MCHC 33.1 31.0-36.0 PLATELET COUNT 177 160-400 RDW 12.9 11.0-16.0 NEUTROPHILS 59.0 45-73 LYMPHOCYTES 27.6 20-40 MONOCYTES 9.4 2-11 EOSINOPHILS 2.6 0-4 BASOPHILS 1.4 0-2 PROFILE, FASTING 2016-11-20 NA 144 135-145 K 3.9 3.3-5.1 CL 106 96-108 CO2 25 22-29 ANION GAP 17 12-20 FASTING BLOOD SUGAR 96 60-99 BUN 16 9-16 CREATININE 0.89 0.5-1.4 ESTIMATED GFR > 60 PROTEIN, TOTAL 7.2 6.5-8.0 ALBUMIN 4.5 3.5-5.0 BILIRUBIN, TOTAL 0.7 0.0-1.0 CALCIUM 10.0 8.4-10.2 ALK. PHOS. 111 39-117 GOT 58 5-37 GPT 55 0-40 TSH (THYROID STIMULATING HORMONE) 2016-11-20 TSH 1.41 0.32-4.0 VITAMIN D 25-OH TOTAL 2016-11-20 VITAMIN D 25-OH TOTAL 33.5 > 30 LIPOPROTEIN FRACTIONATION (LIPID PANEL) CHOLESTEROL 179 TRIGLYCERIDE 107 HDL 57 LDL 101 CBC w DIFF 2015-07-19 WBC 7.4 4.8-10.8 ABSOLUTE NEUTROPHIL COUNT 3.7 2.2-7. 9 RBC 4.88 4.60-5.80 HEMOGLOBIN 15.9 14.0-18.0 HEMATOCRIT 46.9 42-52 MCV 96.1 80-98 MCH 32.6 27.0-33.0 MCHC 33.9 31.0-36.0 PLATELET COUNT 197 160-400 RDW 13.2 11.0-16.0 NEUTROPHILS 50.2 45-73 LYMPHOCYTES 33.9 20-40 MONOCYTES 11.0 2-11 EOSINOPHILS 3.5 0-4 BASOPHILS 1.4 0-2 PROFILE, FASTING 2015-07-19 NA 145 135-145 K 3.8 3.3-5.1 CL 106 96-108 CO2 28 22-29 ANION GAP 15 12-20 FASTING BLOOD SUGAR 90 60-99 BUN 12 9-16 CREATININE 0.9 0.5-1.4 ESTIMATED GFR > 60 PROTEIN, TOTAL 6.9 6.5-8.0 ALBUMIN 4.6 3.5-5.0 BILIRUBIN, TOTAL 0.7 0.0-1.0 CALCIUM 9.6 8.4-10.2 ALK. PHOS. 80 39-117 GOT 71 5-37 GPT 80 0-40 TSH (THYROID STIMULATING HORMONE) 2015-07-19 TSH 1.44 0.32-4.0 VITAMIN D 25-OH TOTAL 2015-07-19 VITAMIN D 25-OH TOTAL 18.1 > 30 LIPOPROTEIN FRACTIONATION (LIPID PANEL) CHOLESTEROL 205 TRIGLYCERIDE 139 HDL 61 LDL 117 CBC w DIFF 2014-07-21 WBC 9.5 4.8-10.8 ABSOLUTE NEUTROPHIL COUNT 5.4 2.2-7. 9 RBC 5.29 4.60-5.80 HEMOGLOBIN 16.3 14.0-18.0 HEMATOCRIT 49.1 42-52 MCV 93.0 80-98 MCH 30.9 27.0-33.0 MCHC 33.2 31.0-36.0 PLATELET COUNT 202 160-400 RDW 12.9 11.0-16.0 NEUTROPHILS 57.1 45-73 LYMPHOCYTES 30.1 20-40 MONOCYTES 9.1 2-11 EOSINOPHILS 2.4 0-4 BASOPHILS 1.2 0-2 PROFILE, FASTING 2014-07-21 NA 145 135-145 K 4.1 3.3-5.1 CL 106 96-108 CO2 26 22-29 ANION GAP 17 12-20 FASTING BLOOD SUGAR 83 60-99 BUN 11 9-16 CREATININE 1.02 0.5-1.4 ESTIMATED GFR > 60 PROTEIN, TOTAL 7.7 6.5-8.0 ALBUMIN 4.8 3.5-5.0 BILIRUBIN, TOTAL 0.6 0.0-1.0 CALCIUM 9.7 8.4-10.2 ALK. PHOS. 92 39-117 GOT 48 5-37 GPT 51 0-40 VITAMIN D 25-OH TOTAL 2014-07-21 VITAMIN D 25-OH TOTAL 27.4 > 30 LIPOPROTEIN FRACTIONATION (LIPID PANEL) CHOLESTEROL 179 TRIGLYCERIDE 121 HDL 45 LDL 110 CBC w DIFF 2013-05-14 WBC 7.6 4.8-10.8 ABSOLUTE NEUTROPHIL COUNT 4.8 2.2-7. 9 RBC 4.97 4.60-5.80 HEMOGLOBIN 15.7 14.0-18.0 HEMATOCRIT 45.4 42-52 MCV 91.4 80-98 MCH 31.7 27.0-33.0 MCHC 34.7 31.0-36.0 PLATELET COUNT 213 160-400 RDW 12.1 11.0-16.0 NEUTROPHILS 63.7 45-73 LYMPHOCYTES 25.6 20-40 MONOCYTES 7.5 2-11 EOSINOPHILS 1.9 0-4 BASOPHILS 1.4 0-2 PROFILE, FASTING 2013-05-14 NA 142 135-145 K 3.8 3.3-5.1 CL 108 96-108 CO2 26 22-29 ANION GAP 12 12-20 FASTING BLOOD SUGAR 148 60-99 BUN 17 9-16 CREATININE 0.97 0.5-1.4 ESTIMATED GFR > 60 PROTEIN, TOTAL 7.1 6.5-8.0 ALBUMIN 4.7 3.5-5.0 BILIRUBIN, TOTAL 0.6 0.0-1.0 CALCIUM 9.5 8.4-10.2 ALK. PHOS. 68 39-117 GOT 50 <3-37 GPT 67 <6-40 XR HUMERUS RT 2013-02-01 XR SHOULDER RT 2 VIEWS 2013-02-01 URINALYSIS + MICROSCOPIC 2012-05-27 COLOR YELLOW APPEARANCE,(UA) CLEAR SPECIFIC GRAVITY >= 1.030 1.005-1.025 LEUKOCYTES NEG NEG NITRITE NEG NEG PROTEIN,QUALITATIVE NEG NEG - TRACE PH 5.0 5.0-8.0 URINE BLOOD NEG NEG KETONES NEG NEG GLUCOSE NEG NEG MICROSCOPIC WBC 0 0-4 MICROSCOPIC RBC 0 0 EPITHELIAL CELLS TRACE BACTERIA NONE RENAL EPITHELIAL CELLS NONE CASTS NONE LIPOPROTEIN FRACTIONATION (LIPID PANEL) CHOLESTEROL 210 TRIGLYCERIDE 136 HDL 64 LDL 119 CBC w DIFF 2012-05-26 WBC 7.1 4.8-10.8 ABSOLUTE NEUTROPHIL COUNT 4.0 2.2-7. 9 RBC 4.93 4.60-5.80 HEMOGLOBIN 15.8 14.0-18.0 HEMATOCRIT 46.3 42-52 MCV 94.0 80-98 MCH 32.0 27.0-33.0 MCHC 34.0 31.0-36.0 PLATELET COUNT 179 160-400 RDW 12.4 11.0-16.0 NEUTROPHILS 57.0 45-73 LYMPHOCYTES 31.4 20-40 MONOCYTES 7.8 2-11 EOSINOPHILS 2.5 0-4 BASOPHILS 1.3 0-2 PROFILE, FASTING 2012-05-26 NA 144 135-145 K 4.0 3.3-5.1 CL 106 96-108 CO2 24 22-29 ANION GAP 18 12-20 FASTING BLOOD SUGAR 99 60-99 BUN 14 9-16 CREATININE 0.95 0.5-1.4 ESTIMATED GFR > 60 PROTEIN, TOTAL 7.6 6.5-8.0 ALBUMIN 4.5 3.5-5.0 BILIRUBIN, TOTAL 0.7 0.0-1.0 CALCIUM 10.3 8.4-10.2 ALK. PHOS. 73 39-117 GOT 51 <3-37 GPT 58 <6-40 Colonoscopy REASON FOR VISIT 3 month f/u, Follow up Retroperitoneal lymphadenopathy, 3 month f/u, 3 month f/u, 1 month f/u, Follow up Retroperitoneal lymphadenopathy, prostate, follow-up after Emergency Room visit, 6 month f/u, Follow up hypertension, hypercholesterolemia, 6 month f/u, Follow up hypertension, hypercholesterolemia, Refill, Follow up hypertension, hypercholesterolemia, 6 month f/u, Refills, Follow up hypertension,hypercholesterolemia, 3 month f/u, Follow up hypertension, hypercholesterolemia, vitamin D deficiency, depression, 6 month f/u, 6 month f/u, Follow up hypertension, hypercholesterolemia, Refills, Follow up hypertension, hypercholesterolemia, 6 month f/u, Follow up hypertension, hypercholesterolemia, Refills, Follow up hypertension, Refill, 1 month f/u, Follow up hypertension, hypercholesterolemia, physical, annual visit, 6 month f/u, Follow up hypertension, hypercholesterolemia, Refills, 6 month f/u, Follow up hypertension, hypercholesterolemia, vitamin D deficiency, Refill, 6 month f/u, Follow up hypertension, hypercholesterolemia, vitamin D deficiency, FYI only, Needs call back from office, Refills, Message, Follow up hypertension, hypercholesterolemia, 6 month f/u, Follow up hypertension, hypercholesterolemia, 6 month f/u, urgent visit, pain, groin, left testicular pain, Needs call back from office, Follow up hypertension, hypercholesterolemia, Follow up hypertension, Refills, Message, Follow up hypertension, Pre op Dr Garza, follow up, refills, urgent visit, follow up, annual visit, Refills, f/u visit, refills Insurance Providers [facility] Member Patient Patient Patient Patient Patient Subscriber Subscriber Subscriber Group Insurance Plan Plan Plan Plan ID Relationship Address Phone Name Date of ID Name Date of No Type Insurance Insurance Insurance Coverage to Subscriber Address Phone Name Dates MEDICARE [id number] MEDICARE self Edward [id number] [place] [address] [employer] [phone] [place] self [place] [id number] INDEMNITY [facility] INDEMNITY [address] MEDICARE [id number] MEDICARE self Edward [id number] [place] [address]
--- OUTSIDE RECORDS SUMMARY | 2022-06-28 09:16 | XMS_ITS ---
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 Problem History of Z86.010 Active 696490828 adenomatous polyp of colon Problem Diverticulosis of K57.30 Active 73 3613551 colon Problem Weight loss R63.4 Active 22911074 Problem Anorexia R63.0 Active 34294085 Problem Gastritis K29.70 Active 2119326 Problem Decreased appetite R63.0 Active ALLERGIES Substance Reaction Event Type Date Status Augmentin DIARRHEA Drug Allergy Jan, Active ENCOUNTERS Encounter Location Date Diagnosis [address] [facility] [address] [place] [address] [facility] Outpatient [address] [place] [address] May, Colon polyps K6 3.5 ; [place] [id number] Diverticul osis of colon K57.30 ; Interna l hemorrhoids K64. 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 4 ; Early satiety R68.81 ; Irritable bowel syndrome K 58.9 and History of adeno matous polyp of colon Z 86.[address] [place] [address] [facility] [address] [place] [address] [facility] Outpatient [address] [place], [place] [id number] [facility] [address] [place], [place] [id number] [facility] [address] [place], [place] [id number] IMMUNIZATIONS Vaccine Route Administration Date Status Influenza Unknown Jan 12, 2022 Administered SOCIAL HISTORY Qualifiers Date Never Smoker REASON FOR REFERRAL FUNCTIONAL STATUS PLAN OF CARE Activity Details Future/Pending Procedure UPPER GI ENDOSCOPY [id number] Future/Pending Procedure COLONOSCOPY [id number] VITAL SIGNS Weight 168 lbs 2022-01-24 Height 69 in 2022-01-24 BMI 24.81 kg/m2 2022-01-24 Temperature 97.1 degrees Fahrenheit 2022-01-24 Blood pressure systolic 000 mm Hg 2022-01-24 Blood pressure diastolic 00 mm Hg 2022-01-24 MEDICATIONS Medication Instructions Dosage Frequency Start End Duration Statu s Date Date Lovastatin 40 TAKE 1 90 Active MG TABLET BY MOUTH EVERY DAY WITH FOOD Mirtazapine 45 TAKE 1 90 Active MG TABLET BY MOUTH EVERYDAY AT BEDTIME Metoprolol Orally Twice a as directed 12h Ac tive Tartrate 25 MG day QUEtiapine 90 Active Fumarate 100 MG Lisinopril 5 MG 90 Active PROCEDURES Procedure Date Ordered Result Body Site BP SCR NOT PRFRM REC REASON NOS Jan 24, 2022 UPPER GI ENDOSCOPY, BIOPSY Jun 05, 2022 COLONOSCOPE, SUBMUCOUS INJ Jun 05, 2022 TOBACCO NON-USER Jan 24, 2022 DOC MEDS VERIFIED W/PT OR RE Jan 24, 2022 COLONOSCOPY AND BIOPSY Jun 05, 2022 LESION REMOVAL COLONOSCOPY Jun 05, 2022 RESULTS Name Result Date Reference Range Pathology 2022-06-05 REASON FOR VISIT Needs an JOSE [facility] surgery appointment, anorexia,wt loss,earlys satiety,hx polyps,secondary neuroendocrine tumor distant lymph nodes, Dr Jackson would like patient to have these tests, anorexia,wt loss, secondary neuroendocrine tumor of distant lymph node, early satiety,hx polyps, Patient presents today for retroperitoneal lymphadenopathy Insurance Providers [facility] Member Patient Patient Patient Patient Patient Subscriber Subscriber Subscriber Group Insurance Plan Plan Plan Plan ID Relationship Address Phone Name Date of ID Name Date of No Type Insurance Insurance Insurance Coverage to Subscriber Address Phone Name Dates [facility] [phone] [facility] self EDWARD [id number] [employer] [id number] [employer] [place] [employer] TH INDEMNITY SERVICE INDEMNITY [facility] [address] MEDICARE [id number] MEDICARE self EDWARD [id number] [place] [address] [place] [address]
--- OUTSIDE RECORDS SUMMARY | 2022-06-28 09:16 | XMS_ITS ---
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, in full remission Problem Vitamin D deficiency E55.9 Active 75054936 ALLERGIES Substance Reaction Event Type Date Status Augmentin diarrhea Drug Allergy Apr, Active ENCOUNTERS Encounter Location Date Diagnosis Ramon Cortez DO, [address] [place] [address] Apr, Retroper itoneal lymphadenopathy [place], [place] R59.0 ; Essenti al hypertension 660623357 I10 ; Hyperchole sterolemia E78.00 ; Vitamin D deficiency E55.9 and Recurr ent major depressive disor dagmar, in full remission F33.[address] Jan, Neuroend ocrine tumor D3A.8 ; [place], [place] Essential hyper tension I10 ; [id number] Hypercholesterol emia E78.00 ; Vitamin D defici ency E55.9 and Recurrent major depressive disorder, in ful l remission F33.42 Ramon Cortez DO, [address] [place] [address] Dec, Retroper itoneal lymphadenopathy [place], [place] R59.0 ; Benign prostatic [id number] hyperplasia, uns pecified whether lower ur inary tract symptoms present N40.0 ; Essential hypert ension I10 ; Hypercholesterol emia E78.00 ; Vitamin D defici ency E55.9 and Recurrent major depressive disorder, in ful l remission F33.42 Ramon Cortez DO, [address] August, [place]ent[place] hypertension I10 ; [place] Hypercholestero lemia E78.00 ; [id number] Recurrent major depressive disorder, in ful l remission F33.42 and Vitam in D deficiency E55.9 Ramon Cortez DO, [address] Feb, [place]ent[place] hypertension I10 ; [place] Hypercholestero lemia E78.00 ; 685641747 Recurrent major depressive disorder, in ful l remission F33.42 and Vitam in D deficiency E55.9 Ramon Cortez DO, [address] Jan, [place]ent[place] hypertension I10 [place] [id number] Ramon Cortez DO, [address] August, [place] hypertension I10 ; [place] Hypercholestero lemia E78.00 ; [id number] Recurrent major depressive disorder, in ful l remission F33.42 and Vitam in D deficiency E55.9 Ramon Cortez DO, [address] Jul, [place] hypertension I10 ; [place] Hypercholestero lemia E78.00 and 612994953 Recurrent major depressive disorder, in ful l remission F33.42 Ramon oCrtez DO, [address] Feb, [place] hypertension I10 ; [place] Hypercholestero lemia E78.00 ; 840862425 Vitamin D defici ency E55.9 and Recurrent major depressive disorder, in ful l remission F33.42 Ramon Cortez DO, [address] Oct, [place] hypertension I10 ; [place] Hypercholestero lemia E78.00 ; [id number] Vitamin D defici ency E55.9 and Recurrent major depressive disorder, in ful l remission F33.42 Ramon Cortez DO, [address] Apr, [place] hypertension I10 ; [place] Hypercholestero lemia E78.00 ; 755973403 Vitamin D defici ency E55.9 and Recurrent major depressive disorder, in ful l remission F33.42 Ramon Cortez DO, [address] Dec, [place] hypertension I10 [place] [id number] Ramon Cortez DO, [address] Oct, [facility] ; [place] Hypercholestero lemia E78.00 ; 518012795 Recurrent major depressive disorder, in ful l remission F33.42 and Vitam in D deficiency E55.9 Ramon Cortez DO, [address] Apr, [facility] hypertension I10 ; [place] Hypercholestero lemia E78.00 ; 960329139 Vitamin D defici ency E55.9 and Recurrent major depressive disorder, in ful l remission F33.42 Ramon Cortez DO, [address] Jan, [facility] hypertension with [place] goal blood pres sure less than [id number] 130\/85 I10 Ramon Cortez DO, [address] Oct, [facility] hypertension with [place] goal blood pres sure less than 400174047 130\/85 I10 ; Hypercholesterol emia E78.0 ; Vitamin D defici ency E55.9 and Recurrent major depressive disorder, in ful l remission F33.42 Ramon Cortez DO, [address] August, [facility] hypertension with [place] goal blood pres sure less than [id number] 130\/85 I10 Ramon Cortez DO, [address] August, [facility] l hypertension with [place] goal blood pres sure less than [id number] 130\/85 I10 ; Hypercholesterol emia E78.0 ; Vitamin D defici ency E55.9 ; Recurrent major depressive disorder, in ful l remission F33.42 and Left hip pain M25.552 Ramon Cortez DO, [address] Jul, Encounte r for general adult [place] medical examina tion without [id number] abnormal finding s Z00.00 ; Essential hypert ension with goal blood press ure less than 130\/85 I10 ; Hypercholesterol emia E78.0 ; Vitamin D defici ency E55.9 and Recurrent major depressive disorder, in ful l remission F33.42 Ramon Cortez DO, [address] Jan, [place] hypertension with [place] goal blood pres sure less than [id number] 130\/85 I10 ; Hypercholesterol emia E78.0 ; Vitamin D defici ency E55.9 and Recurrent major depressive disorder, in ful l remission F33.42 Ramon Cortez DO, [address] Sep, [facility] hypertension with [facility] [place] goal blood pres sure less than [id number] 130\/85 I10 ; Re current major depressive disor dagmar, in full remission F33.42 and Hypercholesterol emia E78.0 Ramon Cortez DO, [address] Jul, [facility] hypertension with [facility] [place] goal blood pres sure less than [id number] 130\/85 I10 ; Hypercholesterol emia E78.0 ; Vitamin D defici ency E55.9 and Recurrent major depressive disorder, in ful l remission F33.42 Ramon Cortez DO, [address] Apr, [facility] hypertension with [facility] [place] goal blood pres sure less than [id number] 130\/85 I10 Ramon Cortez DO, [address] [facility] [address] Dec, [facility] hypertension with [facility] [place] goal blood pres sure less than [id number] 130\/85 I10 ; Hypercholesterol emia E78.0 ; Vitamin D defici ency E55.9 and Recurrent major depressive disorder, in ful l remission F33.42 Ramon Cortez DO, [address] [facility] [address] Dec, [facility] [place] [id number] Ramon Cortez DO, [address] [facility] [address] Dec, [facility] [place] [id number] Ramon Cortez DO, [address] Nov, [facility] [place] [id number] Ramon Cortez DO, [address] Jul, [facility] [place] [id number] Ramon Cortez DO, [address] Jun, [facility] hypertension with [facility] [place] goal blood pres sure less than [id number] 130\/85 I10 ; Hypercholesterol emia E78.0 and Impacted cerumen of left ear H61.22 Ramon Cortez DO, [address] Dec, [facility] [place] [id number] Ramon Cortez DO, [address] Dec, Hyperten hawa [address] [facility] [place] Hypercholestero lemia 272.0 [id number] Ramon Cortez DO, [address] [facility] [address] Nov, Tinea cr uris 110.3 [facility] [phone] Ramon Cortez DO, [address] [facility] August, Testicul ar discomfort 608.9 [facility] [id number] Ramon Cortez DO, [address] [facility] August, [facility] [place] [phone] Ramon Cortez DO, [address] [place] [address] Jun, Hyperten hawa [address] [facility] [place] Hypercholestero lemia 272.0 [id number] Ramon Cortez DO, [address] [place] [address] Dec, Hyperten hawa 401.[address] [facility] [place] Hypercholestero lemia 272.0 [id number] Ramon Cortez DO, [address] [place] [address] Dec, [facility] [place] [id number] Ramon Cortez DO, [address] [place] [address] Dec, Hyperten [address]wa [address] [facility] [place] [id number] Ramon Cortez DO, [address] [place] [address] Oct, Hyperten hawa 401.9 and [facility] [place] Hypercholestero lemia 272.0 [id number] Ramon Cortez DO, [address] [place] [address] Jun, Hyperten hawa 401.9 ; [facility] [place] Hypercholestero lemia 272.0 ; [id number] Tubular adenoma 229.9 and Cataract 366.9 Ramon Cortez DO, [address] [place] [address] Apr, Hyperten hawa 401.9 and [facility] [place] Hypercholestero lemia 272.0 [id number] Ramon Cortez DO, [address] [place] [address] Feb, [facility] [place] [id number] Ramon Cortez DO, [address] [place] [address] Jan, [facility] [place] [id number] Ramon Cortez DO, [address] [place] [address] Jan, [facility] [place] [id number] Ramon Cortez DO, [address] [place] [address] STREET Jan, Shoulder pain, right 719.41 [facility] [place] [id number] Ramon Cortez DO, [address] [place] [address] Oct, Hyperten hawa 401.9 and [facility] [place] Hypercholestero lemia 272.0 [id number] Ramon Cortez , [address] [place] [address] May, [facility] [place] [id number] Ramon Cortez DO, [address] [place] [address] Apr, Hyperten hawa 401.9 and [facility] [place] Hypercholestero lemia 272.0 [id number] Ramon Cortez , [address] [place] [address] Feb, [facility] [place] [id number] Ramon Cortez , [address] [place] [address] August, [facility] [place] [id number] Ramon Cortez DO, [address] [place] [address] Apr, Hyperten hawa 401.9 and [facility] [place] Hypercholestero lemia 272.0 [id number] Ramon Cortez , [address] [place] [address] Feb, [facility] [place] [id number] IMMUNIZATIONS Vaccine Route Administration Date Status Influnza [...] Provider Name:Ramon Silveira she, 2022-07-30 02:00:00 PM, [address] [place] [address], [id number], Pending Test COVID-19 ID NOW ([facility]) VITAL [...] 0.0-0.2 NRBC Abs Auto 0.000 0.0-0.012 Comprehensive [place]. Panel Fast 2021-09-14 Sodium 144 135-145 Potassium [...] 0.0-0.2 NRBC Abs Auto 0.000 0.0-0.012 Comprehensive [place]. Panel Fast 2021-03-16 Sodium 147 135-145 Potassium [...] 44 5-37 GPT 47 0-40 KNEE LEFT [id number] 2018-08-07 XR KNEE BILATERAL STANDING 2018-08-07 KNEE LEFT 4 VIEWS [id number] 2017-08-25 XR HIP LEFT 2 TO 3 [...] visit, Refills, f/u visit, refills Insurance Providers [facility] Health Health Member Patient Patient Patient Patient Patient Subscriber Subscriber Subscriber Group Insurance Plan Plan Plan Plan ID Relationship Address Phone Name Date of ID Name Date of No Type Insurance Insurance Insurance Coverage to Subscriber Address Phone Name Dates MEDICARE [phone] MEDICARE self Edward [id number] [place] [address] [employer] [phone] [place] self [place] [id number] INDEMNITY [facility] INDEMNITY [address] MEDICARE [phone] MEDICARE self Edward [id number] [place] [address]
--- OUTSIDE RECORDS SUMMARY | 2022-06-28 09:17 | XMS_ITS ---
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 Problem History of Z86.010 Active 557115590 adenomatous polyp of colon Problem Diverticulosis of K57.30 Active 73 0259074 colon Problem Weight loss R63.4 Active 66721829 Problem Anorexia R63.0 Active 49001994 Problem Gastritis K29.70 Active 9979331 Problem Decreased appetite R63.0 Active ALLERGIES Substance Reaction Event Type Date Status Augmentin DIARRHEA Drug Allergy Jan, Active ENCOUNTERS Encounter Location Date Diagnosis [address] May, [facility] [address] [place] [address] [facility] Outpatient [address] [place] [address] May, Colon polyps K6 3.5 ; [place] [phone] Diverticul osis of colon K57.30 ; Interna l hemorrhoids K64. 8 ; Other malignant neuroe ndocrine tumors C7A.8 ; D ecreased appetite R63.0 ; Weight loss R63.4 ; Cristian plasm of uncertain behavi or of colon D37.4 ; Gastriti s K29.70 and Hiatal herni a K44.[address] [place], [address] [facility] [address] [place] [address] [place] [address] Jan, [facility] [address] [place] [address] [place] [address] Jan, Anorexia R63.0 ; Secondary [facility] [address] [place] [address] distant lymph no antonia C7B.8 ; Weight loss R63. 4 ; Early satiety R68.81 ; Irritable bowel syndrome K 58.9 and History of adeno matous polyp of colon Z 86.[address] [place] [address] Jan, [facility] [address] [place] [address] [facility] Outpatient [address] [place], [place] [id number] [facility] ER [address] [place], [place] [id number] [facility] ER [address] [place], [place] [phone] IMMUNIZATIONS Vaccine Route Administration Date Status Influenza [...] today for retroperitoneal lymphadenopathy Insurance Providers [facility] Health Member Patient Patient Patient Patient Patient Subscriber Subscriber Subscriber Group Insurance Plan Plan Plan Plan ID Relationship Address Phone Name Date of ID Name Date of No Type Insurance Insurance Insurance Coverage to Subscriber Address Phone Name Dates MEDICARE [phone] MEDICARE self EDWARD [id number] [place] [address] [place] [address] [facility] [phone] [facility] self EDWARD [id number] [employer] [id number] [place] [employer] IN[employer]MNITY [facility] [address]
--- NOTE | 2022-06-28 11:35 | P.CONAN_ITS ---
HPI - Anesthesia Eval Consult details Narrative: colon resection PMFSH Active Problems Active Problems: All Active Problems (Updated 06/23/22 @ 13:58 by Bhavani Jackson MD) Left otitis media (Acute) Retroperitoneal lymphadenopathy (Acute) Urinary urgency (Acute) Colon cancer (Acute) Impacted cerumen of left ear (Acute) Past Medical History Medical History Arthritis Depression GERD (gastroesophageal reflux disease) Gout Hypertension Neuroendocrine tumor Peptic ulcer disease Right inguinal hernia Family History Family History Other No family history of cancer Family history of problems with anesthesia: No Surgical History Surgical History H/O colonoscopy History of appendectomy History of esophagogastroduodenoscopy (EGD) Hx of bilateral cataract extraction Hx of right inguinal hernia repair History of Problems with Anesthesia: No Social History Social History Household Members: None Housing: Apartment Are you a primary intensive care medicine specialist to a significant other at home: No Do you presently have visiting nurse or other home services: No Alcohol intake: current Alcohol intake frequency: a few times a week Patient Tobacco Use Status: Former Tobacco user Quit Date: age 52 Tobacco use type: Cigarette Years Smoked: 20 Use of substances other than those prescribed or required for medical reasons: No Have you been hit, kicked, punched, or otherwise hurt by someone within the past year? If so, by whom?: No Are you DNR?: No Advance Directives: No (brothrenu Torres is primary contact) Advance Directives Information Provided: Yes Advance Directives on File: No Recently lost weight without trying: Yes How much weight loss: 2-13 pounds Eating poorly because of decreased appetite: No Nutrition screen score: 3 Nutrition Risks: Surgical patient >75years Poor oral hygiene: No (upper full denture) service: Yes Current occupational status: retired Current occupation: left hand Meds Allergies Allergy/AdvReac Type Severity Reaction Status Date / Time amoxicillin [From Augmentin] Allergy Intermediate Diarrhea Verified 06/20/22 09:52 clavulanic acid Allergy Intermediate Diarrhea Verified 06/20/22 09:52 [From Augmentin] Active Medications: Current Medications Fentanyl (Fentanyl Citrate/Pf 100 Mcg/2 Ml Vial) 50 mcg IVPUSH Q5M PRN; Protocol PRN Reason: Pain, Moderate (Pain Scale 4-6 Hydromorphone HCl (Hydromorphone Hcl 0.5 Mg/0.5 Ml Syringe) 0.5 mg IVPUSH Q5M PRN; Protocol PRN Reason: Pain, Severe (Pain Scale 7-10) Lactated Ringer's (Lr) 1,000 mls @ 100 mls/hr IVCONT .Q10H CARROLL Last Admin: 06/28/22 09:13 Dose: 100 mls/hr Ondansetron HCl (Ondansetron Hcl 4 Mg/2 Ml Vial) 4 mg IVPUSH ONCE PRN PRN Reason: Nausea and Vomiting Home Medications Medication Instructions Recorded Confirmed Last Taken Type lisinopril 5 mg tablet 5 mg PO DAILY 05/22/22 06/28/22 06/27/22 History lovastatin 40 mg tablet 40 mg PO DAILY 05/22/22 06/28/22 06/27/22 History metoprolol tartrate 50 mg tablet 25 mg PO BID 05/22/22 06/19/22 06/28/22 History mirtazapine 45 mg tablet 45 mg PO BEDTIME 05/22/22 06/28/22 06/27/22 History quetiapine 100 mg tablet 100 mg PO BEDTIME 05/22/22 06/28/22 06/27/22 History Exam Exam Date and Time: June 28, 2022 113 Height,Weight and Vital Signs: Height 5 ft 9 in Weight 70.76 kg Last Vital Signs Pulse 51 06/20/22 10:08 Resp 20 06/20/22 10:08 BP 168/70 H 06/20/22 10:08 Pulse Ox 97 06/20/22 10:08 O2 Del Method 06/20/22 10:08 Pertinent Lab Results Pertinent Lab Results: Laboratory Tests 06/20/22 06/28/22 10:49 08:31 COVID-19 (OSMIN) Negative COVID-19 Clin Com See Note Blood Type O Positive Antibody Screen NEGATIVE Airway Mallampati Class: II TM Dist: >3cm Neck ROM: Full Partial: Upper and Lower Heart: sr Lungs: cta Assessment and Plan Final Anesthetic Review Family History of Problems with Anesthesia: No History of Problems with Anesthesia: No ASA Class: III Final Preanesthetic Review: No Changes in Pt Med Stat, Meds/Allgs Chart Reviewed, Consent Obtained/Reviewed and Anes Risks/Benef Reviewed Patient Risk: Intermediate Procedure Risk: Intermediate Anesthetic Plan Anesthetic Plan: GA and Agree w/ Assess. and Plan Disposition: Standard PACU
--- NOTE | 2022-06-28 13:33 | W.PM.OPN ---
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 No gross liver pathology demonstrated. Very small transverse mesenteric adenopathy identified within the transverse colon mesenteryand sent with transverse colon specimen for pathologic evaluation. Procedure: [] patient brought to the operating room, placed on the operating table in supine position, and after an adequate level of general anesthesia was induced, the patient's abdomen is prepped and draped in usual sterile fashion. Using a small supraumbilical midline incision, this carried down through skin, subcutaneous tissue, down to the linea alba which was opened along the length of the incision using Bovie. Posterior fascia and peritoneum Were entered sharply and extended along the length of the incision using Bovie . Intraoperative findings were as noted above. The the junction of the proximal and mid transverse colonl area of concern was identified by colonoscopic dye identification. The mass in question was also palpable. The omentum was from the transverse colon using combination electro Bovie And ligature device. The transverse colon was then mobilized. When adequate margins were obtained, the colon was transection ust proximal to the hepatic flexure and proximal to the splenic flexure at the desired locations using LANA usman. Mesentery was sequentially taken down using a combination of clamp, cutting, and tying with 2-0 and 0 Vicryl ties and ligature device and 0 silk suture ligature. Specimen was tagged and sent to pathology for permanent specimen evaluation. A functional end-to-end anastomosis was then performed using LANA and TA staplers. The bowel used for the anastomosis was well perfused. At completion of the formation of the anastomosis ithad air traverse it and was widely patent with no obvious airleak. The mesenteric defect was reapproximated using interrupted 3-0 silk sutures. The crotch of the anastomosis was buttressusing seromuscular interrupted 3-0 silk sutures. Abdominal cavity was copiously irrigated, and secured hemostasis. Wound was closed in the following manner; mass closure using 1. Looped PDS suture was used to close the fascia. Skin was reapproximated using interrupted inverted deep dermal 3-0 Vicryl sutures followed by running subcuticular 4-0 Vicryl suture. Wound was infiltrated 0.5% Marcaine with epinephrine a completion. Steri-Strips and sterile dressing was applied Sponge, needle, and instrument counts were reported to be correct. Patient tolerated the procedure well emerge from anesthesia stable condition. EBL minimal please refer to anesthesia note
[2022-06-28] MEDS: Lactated Ringers 1,000 ML 80 ML IVCONT (14:46)
[2022-06-28] MEDS: Morphine Sulfate 2 MG/ML CARTRIDGE 4 MG IVPUSH (17:03)
[2022-06-28] MEDS: Acetaminophen 1,000 MG/100 ML PIGGYBACK 400 MG IV (18:13)
[2022-06-28] MEDS: Mirtazapine 15 MG TABLET 45 MG PO (19:52)
[2022-06-28] MEDS: Metoprolol Tartrate 25 MG TABLET PO (19:52)
[2022-06-28] MEDS: QUEtiapine Fumarate 100 MG TABLET PO (19:52)
[2022-06-29] VITALS (11 sets, daily range): BP systolic 75–151; BP diastolic 43–81; PULSE 76–84; RESP 16–18; TEMP 36.2–36.7; O2SAT 94–97
[2022-06-29] MEDS: Acetaminophen 1,000 MG/100 ML PIGGYBACK 400 MG IV ×3 (01:47→18:39)
[2022-06-29] MEDS: Lactated Ringers 1,000 ML 80 ML IVCONT ×2 (01:48→17:19)
[2022-06-29 06:32] LABS: MANUAL DIFF FLAG NO
[2022-06-29 06:38] LABS: Basophils Percent Auto 0.1 % (0-2); Hematocrit 36.9 % (42.0-52.0); Hemoglobin 11.9 g/dl (14.0-18.0); Imm Gran Abs Auto 0.05 X10*3/uL (0.00-0.03); Imm Gran Pct Auto 0.4 % (0.0-0.4); Lymphocytes Absolute Auto 0.8 X10*3/uL (1.2-4.9); Lymphocytes Percent Auto 6.7 % (20-40); Mean Corpuscular HGB Conc 32.2 g/dl (31.0-36.0); Mean Corpuscular Hemoglobin 29.4 pg (27.0-33.0); Mean Corpuscular Volume 91.1 fL (80.0-98.0); Mean Platelet Volume 11.6 fL (9.4-12.4); Monocytes Absolute Auto 1.1 X10*3/uL (0.1-1.2); Monocytes Percent Auto 9.2 % (2-11); Neutrophils Absolute Auto 10.3 x10*3/uL (2.0-8.3); Neutrophils Percent Auto 83.6 % (45-73); Platelet Count 172 X10*3/uL (160-400); Red Blood Count 4.05 X10*6/uL (4.60-5.80); Red Cell Distribution Width 13.8 % (11.0-16.0); White Blood Count 12.3 X10*3/uL (4.8-10.8)
[2022-06-29 06:54] LABS: Anion Gap 14 (12-20); Blood Urea Nitrogen 19 mg/dL (9-16); Calcium 8.3 mg/dL (8.4-10.2); Carbon Dioxide 23 mmol/L (22-29); Chloride 109 mmol/L (96-108); Creatinine Clr Calc Pharmacy 58.4; Estimated Glomerular Filt Rate > 60; Glucose Fasting 189 mg/dL (60-99); Potassium 4.3 mmol/L (3.3-5.1); Sodium 142 mmol/L (135-145)
--- NOTE | 2022-06-29 07:21 | P.PNGS_ITS ---
Subjective Subjective Date of Service: 06/29/22 Interval history: POD #1 s/p Transverse colectomy for an invasive adenocarcinoma. He reports adequate pain control, denies nausea, vomiting. No fever or chills. Denies passing flatus or bowels. Has not been out of bed yet. Bullard catheter in place draining clear urine. Physical Exam Vital Signs: Vital Signs: Last Vital Signs Temp 98.1 F 06/29/22 03:47 Pulse 84 06/29/22 03:47 Resp 17 06/29/22 03:47 BP 110/53 L 06/29/22 03:47 Pulse Ox 94 06/29/22 03:47 O2 Del Method 06/29/22 03:47 O2 Flow Rate 4 06/28/22 13:42 BMI result Body Mass Index 23.0 Const: General: comfortable and no acute distress Nutritional Appearance: well nourished Orientation/consciousness: patient oriented x3 Limitations: no limitations Resp: Other: Breathing comfortably on room air, no respiratory distress GI: Other: Midline incision dressings are clean, dry, and intact without redness or discharge. Abdomen is softly distended. : Other: Bullard catheter in place, no hematuria Skin: Other: Warm, dry, no rash Neuro: General: patient oriented x3 Extrem: Other: No peripheral edema, brisk capillary refill Objective Data Active Medications Heparin Sodium (Porcine) (Heparin Sodium,Porcine 5,000 Unit/Ml Vial) 5,000 unit SUBCUT Q12H [facility] Acetaminophen (Ofirmev) 1,000 mg in 100 mls @ 400 mls/hr IV Q6H [facility] Last Infusion: 06/29/22 06:25 Dose: 0 mls/hr Documented By: EMMA Lactated Ringer's (Lr) 1,000 mls @ 80 mls/hr IVCONT .[id number] [facility] Last Admin: 06/29/22 01:48 Dose: 80 mls/hr Documented By: EMMA Lisinopril (Lisinopril 5 Mg Tablet) 5 mg PO DAILY [facility]; Protocol Metoprolol Tartrate (Metoprolol Tartrate 25 Mg Tablet) 25 mg PO BID [facility]; Protocol Last Admin: 06/28/22 19:52 Dose: 25 mg Documented By: EMMA Mirtazapine (Mirtazapine 15 Mg Tablet) 45 mg PO BEDTIME [facility] Last Admin: 06/28/22 19:52 Dose: 45 mg Documented By: EMMA Morphine Sulfate (Morphine Sulfate 2 Mg/Ml Cartridge) 4 mg IVPUSH Q4H PRN; Protocol PRN Reason: Pain, Severe (Pain Scale 7-10) Last Admin: 06/28/22 17:03 Dose: 4 mg Documented By: SUSANA Ondansetron HCl (Ondansetron Hcl 4 Mg/2 Ml Vial) 4 mg IVPUSH Q8H PRN PRN Reason: Nausea Oxycodone HCl (Oxycodone Hcl Immed Release 5 Mg Tablet) 5 mg PO Q4H PRN PRN Reason: Pain, Moderate (Pain Scale 4-6 Oxycodone HCl (Oxycodone Hcl Immed Release 5 Mg Tablet) 10 mg PO Q4H PRN PRN Reason: Pain, Severe (Pain Scale 7-10) Pravastatin Sodium (Pravastatin Sodium 40 Mg Tablet) 40 mg PO DAILY [facility] Quetiapine Fumarate (Quetiapine Fumarate 100 Mg Tablet) 100 mg PO BEDTIME [facility] Last Admin: 06/28/22 19:52 Dose: 100 mg Documented By: EMMA Sodium Chloride (0.9 % Sodium Chloride Flush 3 Ml Syringe) 3 ml IVFLUSH QSHIFT [facility] Last Admin: 06/29/22 07:08 Dose: Not Given Documented By: SHANE Non-Admin Reason: IV Running Labs 06/29/22 05:51 06/29/22 05:51 Labs: Laboratory Results - last 24 hr 06/28/22 06/29/22 06/29/22 08:31 05:51 05:51 MCV 91.1 MCH 29.4 MCHC 32.2 RDW 13.8 Plt Count 172 MPV 11.6 Immature Gran % (Auto) 0.4 Neut % (Auto) 83.6 H Lymph % (Auto) 6.7 L [place] % (Auto) 9.2 Eos % (Auto) 0.0 Baso % (Auto) 0.1 Lymph # (Auto) 0.8 L [place] # (Auto) 1.1 Eos # (Auto) 0.0 Baso # (Auto) 0.0 Abs Immat Gran (auto) 0.05 H Absolute Neuts (auto) 10.3 H Absolute Nucleated RBC 0.000 Nucleated RBC % (auto) 0.0 Anion Gap 14 Estim Creat Clear Calc 58.4 Estimated GFR > 60 Fasting Glucose 189 H Calcium 8.3 L D COVID-19 (OSMIN) Negative COVID-19 Clin Com See Note Procedures Date of Service Date of Service: 06/29/22 Progress Note: A&P Assessment and plan (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 Patient is hemodynamically stable and relatively comfortable. Incision is clean and intact without discharge. Plan to remove Bullard catheter. Encourage patient to do deep breathing exercises and incentive spirometry. Physical therapy consultation for ambulation. Clear liquid diet. Time Spent With Patient Time: Total time managing care of this patient today ____ minutes. Quality Stroke Does the patient have a stroke diagnosis?: No VTE Prior VTE?: No VTE Risk Level:: Surgical - moderate VTE Device Contraindication: N/A - Device Ordered VTE Drug Contraindication: Treatment Not Indicated
[2022-06-29] MEDS: lisinopriL 5 MG TABLET PO (08:31)
[2022-06-29] MEDS: Pravastatin Sodium 40 MG TABLET PO (08:31)
[2022-06-29] MEDS: Metoprolol Tartrate 25 MG TABLET PO ×2 (08:31→20:30)
--- NOTE | 2022-06-29 09:22 | HO.POSTANES ---
Post Anesthesia Evaluation Post Anesthesia Evaluation Vital Signs: Vital Signs Temp Pulse Resp BP Pulse Ox O2 Del Method 06/29/22 07:52 97.1 F 80 18 110/54 L 96 Room Air 06/29/22 03:47 98.1 F 84 17 110/53 L 94 Room Air Anesthesia: General Endotracheal-GETA Mental Status: Awake Pain Control: Satisfactory Nausea/Vomiting: None Hydration: Adequate Anesthesia-Related Issues: No Anes. Related Issues
--- NOTE | 2022-06-29 09:58 | PC.NURSE ---
Bullard catheter removed at [address] Dyson's order. Due to void by 1430.
--- NOTE | 2022-06-29 11:37 | PM.EVENT ---
Event Note Date of Service: 06/29/22 Event Note: Rapid response called at around 1130am due to ams/brief syncope episode while on commode after BM. He is s/p transverse colectomy for invasive adenocarcinoma POD 1. Pt slow to respond, complaining of lightheadedness of exam. Initially unable to obtain BP. Pt transferred to be noted to have bloody stool in commode and on buttocks. Patient placed in Trendelenburg. Blood pressure of 75/43. Patient reported he is still feeling lightheaded with abdominal pain. Tenderness in bilateral lower quadrants with light palpation. Patient states he needs to have another bowel movement and copious blood noted from rectum. BP improved to 86/59. Blood glucose 178. 1 L IV fluid bolus and 1 unit blood ordered. Stop heparin. Stat CBC and BMP ordered. H/H this am 11.9/36.9%. Dr. Dyson notified. Continue serial blood pressure monitoring. Time Spent With Patient Time: Total time managing care of this patient today ____ minutes.
[2022-06-29] MEDS: 0.9 % Sodium Chloride 1,000 ML 999 ML IV (11:41)
[2022-06-29 12:12] LABS: MANUAL DIFF FLAG NO
[2022-06-29 12:14] LABS: Basophils Percent Auto 0.1 % (0-2); Hematocrit 34.4 % (42.0-52.0); Hemoglobin 11.3 g/dl (14.0-18.0); Imm Gran Abs Auto 0.05 X10*3/uL (0.00-0.03); Imm Gran Pct Auto 0.4 % (0.0-0.4); Lymphocytes Absolute Auto 0.8 X10*3/uL (1.2-4.9); Lymphocytes Percent Auto 6.5 % (20-40); Mean Corpuscular HGB Conc 32.8 g/dl (31.0-36.0); Mean Corpuscular Hemoglobin 29.9 pg (27.0-33.0); Mean Platelet Volume 10.8 fL (9.4-12.4); Monocytes Absolute Auto 1.3 X10*3/uL (0.1-1.2); Monocytes Percent Auto 10.7 % (2-11); Neutrophils Absolute Auto 9.7 x10*3/uL (2.0-8.3); Neutrophils Percent Auto 82.3 % (45-73); Platelet Count 165 X10*3/uL (160-400); Red Blood Count 3.78 X10*6/uL (4.60-5.80); White Blood Count 11.8 X10*3/uL (4.8-10.8)
[2022-06-29 12:15] LABS: Glucose, Whole Blood 178 mg/dL (60-115)
[2022-06-29 12:19] LABS: INTERNATIONAL NORM RATIO 1.2 (0.9-1.1); Prothrombin Time 13.9 SEC (10.0-13.1)
[2022-06-29 12:25] LABS: Anion Gap 13 (12-20); Blood Urea Nitrogen 20 mg/dL (9-16); Calcium 8.3 mg/dL (8.4-10.2); Carbon Dioxide 22 mmol/L (22-29); Chloride 112 mmol/L (96-108); Estimated Glomerular Filt Rate > 60; Glucose Random 174 mg/dL (60-115); Potassium 4.1 mmol/L (3.3-5.1); Sodium 143 mmol/L (135-145)
[2022-06-29] MEDS: Tranexamic Acid 1,000 MG in 0.9 % Sodium Chloride 50 ML 360 MG IV (12:38)
--- NOTE | 2022-06-29 12:53 | PM.EVENT ---
Event Note Date of Service: 06/29/22 Event Note: Patient was up to the bathroom and passed up. Rapid assist called and patient found to be hypotensive, passing large liquid, dark bloody stool. He was bolused with fluid and T&C ordered; 1 U PRBC ordered, heparin stopped, Tranexemic acid dose given. He has passed several loose stools. He denies abdominal pain but does feel dizzy. On exam, BP after bolus is 117/81. Abdomen is soft and nondistended. No peritoneal signs. HGB 11.3 down from 11.9 yesterday. INR 1.3 Bleeding appears to be old blood, not BRB. Will continue to monitor. Recheck labs in AM. Time Spent With Patient Time: Total time managing care of this patient today ____ minutes.
--- NOTE | 2022-06-29 13:05 | PC.NURSE ---
IV Acetaminophen held per Dr Dyson.
[2022-06-29] MEDS: 0.9 % Sodium Chloride Flush 3 ML SYRINGE IVFLUSH (17:19)
--- NOTE | 2022-06-29 18:41 | PC.NURSE ---
Pt found by pt and this nurse unresposnsive. Was having a bloody stool. Slow to respond. On the commode pt bp 75/45. Pt lifted to bed. trendelenberg and bp 86/51. ANDRÉS mansfield ordered a bolus of NS. pt BP improved to 117/81. Pt nurse and general surgeon Leti aware of situation.
[2022-06-29 19:01] LABS: Hematocrit 36.5 % (42.0-52.0); Hemoglobin 12.1 g/dl (14.0-18.0); Mean Corpuscular HGB Conc 33.2 g/dl (31.0-36.0); Mean Corpuscular Hemoglobin 29.7 pg (27.0-33.0); Mean Corpuscular Volume 89.7 fL (80.0-98.0); Platelet Count 152 X10*3/uL (160-400); Red Blood Count 4.07 X10*6/uL (4.60-5.80); Red Cell Distribution Width 14.6 % (11.0-16.0); White Blood Count 12.6 X10*3/uL (4.8-10.8)
[2022-06-29] MEDS: Mirtazapine 15 MG TABLET 45 MG PO (20:30)
[2022-06-29] MEDS: QUEtiapine Fumarate 100 MG TABLET PO (20:31)
[2022-06-30 02:22] VITALS: BP 140/67; PULSE 81; RESP 17; TEMP 36.9; O2SAT 94
[2022-06-30] MEDS: Acetaminophen 1,000 MG/100 ML PIGGYBACK 400 MG IV ×4 (02:25→18:10)
[2022-06-30] MEDS: Lactated Ringers 1,000 ML 80 ML IVCONT ×2 (05:09→16:31)
[2022-06-30 06:34] LABS: Hematocrit 33.1 % (42.0-52.0); Mean Corpuscular HGB Conc 33.2 g/dl (31.0-36.0); Mean Corpuscular Hemoglobin 30.1 pg (27.0-33.0); Mean Corpuscular Volume 90.7 fL (80.0-98.0); Mean Platelet Volume 11.6 fL (9.4-12.4); Platelet Count 128 X10*3/uL (160-400); Red Blood Count 3.65 X10*6/uL (4.60-5.80); Red Cell Distribution Width 14.9 % (11.0-16.0); White Blood Count 9.5 X10*3/uL (4.8-10.8)
--- NOTE | 2022-06-30 07:11 | PC.NURSE ---
still liquid maroon color stool this am pt had several all through the night, vss no s/s
[2022-06-30 07:41] VITALS: BP 163/67; PULSE 83; RESP 18; TEMP 36.3; O2SAT 94
[2022-06-30] MEDS: Pravastatin Sodium 40 MG TABLET PO (08:40)
[2022-06-30] MEDS: Metoprolol Tartrate 25 MG TABLET PO ×2 (08:40→19:16)
[2022-06-30] MEDS: lisinopriL 5 MG TABLET PO (08:40)
--- NOTE | 2022-06-30 08:58 | P.PNGS_ITS ---
Subjective Subjective Date of Service: 06/30/22 Patient reports: no new complaints, feels better, pain is less and tolerating liquids well Interval history: Passing dark armando stool. No bright red blood. Patient would like to try regular diet today. Physical Exam Vital Signs: Vital Signs: Last Vital Signs Temp 97.3 F 06/30/22 07:41 Pulse 83 06/30/22 07:41 Resp 18 06/30/22 07:41 BP 163/67 H 06/30/22 07:41 Pulse Ox 94 06/30/22 07:41 O2 Del Method 06/30/22 07:41 O2 Flow Rate 4 06/28/22 13:42 BMI result Body Mass Index 23.0 Const: General: comfortable and no acute distress Nutritional Appearance: well nourished Orientation/consciousness: patient oriented x3 Eyes: Sclerae: sclerae normal Resp: Effort & Inspection: normal respiratory effort, no audible wheezes and no cough GI: Inspection: Yes normal to inspection Palpation (GI): Soft to palpation, nontender, no guarding and not rigid Percussion: Yes normal to percussion Auscultation: normal bowel sounds Skin: Other: warm, dry, normal color Neuro: General: patient oriented x3 Extrem: General: Yes no pedal edema Objective Data Active Medications Acetaminophen (Ofirmev) 1,000 mg in 100 mls @ 400 mls/hr IV Q6H [facility] Last Infusion: 06/30/22 07:06 Dose: 0 mls/hr Documented By: EMMA Lactated Ringer's (Lr) 1,000 mls @ 80 mls/hr IVCONT .[id number] [facility] Last Admin: 06/30/22 05:09 Dose: 80 mls/hr Documented By: EMMA Lisinopril (Lisinopril 5 Mg Tablet) 5 mg PO DAILY [facility]; Protocol Last Admin: 06/30/22 08:40 Dose: 5 mg Documented By: SHANE Metoprolol Tartrate (Metoprolol Tartrate 25 Mg Tablet) 25 mg PO BID [facility]; Protocol Last Admin: 06/30/22 08:40 Dose: 25 mg Documented By: SHANE Mirtazapine (Mirtazapine 15 Mg Tablet) 45 mg PO BEDTIME [facility] Last Admin: 06/29/22 20:30 Dose: 45 mg Documented By: EMMA Morphine Sulfate (Morphine Sulfate 2 Mg/Ml Cartridge) 4 mg IVPUSH Q4H PRN; Protocol PRN Reason: Pain, Severe (Pain Scale 7-10) Last Admin: 06/28/22 17:03 Dose: 4 mg Documented By: SUSANA Ondansetron HCl (Ondansetron Hcl 4 Mg/2 Ml Vial) 4 mg IVPUSH Q8H PRN PRN Reason: Nausea Oxycodone HCl (Oxycodone Hcl Immed Release 5 Mg Tablet) 5 mg PO Q4H PRN PRN Reason: Pain, Moderate (Pain Scale 4-6 Oxycodone HCl (Oxycodone Hcl Immed Release 5 Mg Tablet) 10 mg PO Q4H PRN PRN Reason: Pain, Severe (Pain Scale 7-10) Pravastatin Sodium (Pravastatin Sodium 40 Mg Tablet) 40 mg PO DAILY [facility] Last Admin: 06/30/22 08:40 Dose: 40 mg Documented By: SHANE Quetiapine Fumarate (Quetiapine Fumarate 100 Mg Tablet) 100 mg PO BEDTIME [facility] Last Admin: 06/29/22 20:31 Dose: 100 mg Documented By: EMMA Sodium Chloride (0.9 % Sodium Chloride Flush 3 Ml Syringe) 3 ml IVFLUSH QSHIFT [facility] Last Admin: 06/30/22 07:21 Dose: Not Given Documented By: SHANE Non-Admin Reason: IV Running Labs 06/30/22 05:48 06/29/22 12:05 Labs: Laboratory Results - last 24 hr 06/29/22 06/29/22 06/29/22 11:40 12:05 12:05 MCV 91.0 MCH 29.9 MCHC 32.8 RDW 14.0 Plt Count 165 MPV 10.8 Immature Gran % (Auto) 0.4 Neut % (Auto) 82.3 H Lymph % (Auto) 6.5 L [place] % (Auto) 10.7 Eos % (Auto) 0.0 Baso % (Auto) 0.1 Lymph # (Auto) 0.8 L [place] # (Auto) 1.3 H Eos # (Auto) 0.0 Baso # (Auto) 0.0 Abs Immat Gran (auto) 0.05 H Absolute Neuts (auto) 9.7 H Absolute Nucleated RBC 0.000 Nucleated RBC % (auto) 0.0 PT INR Anion Gap 13 Estim Creat Clear Calc 49.0 Estimated GFR > 60 POC Glucose 178 H Random Glucose 174 H Calcium 8.3 L Blood Type Antibody Screen Crossmatch 06/29/22 06/29/22 06/29/22 12:05 12:05 18:42 MCV 89.7 MCH 29.7 MCHC 33.2 RDW 14.6 Plt Count 152 L MPV 11.0 Immature Gran % (Auto) Neut % (Auto) Lymph % (Auto) [place] % (Auto) Eos % (Auto) Baso % (Auto) Lymph # (Auto) [place] # (Auto) Eos # (Auto) Baso # (Auto) Abs Immat Gran (auto) Absolute Neuts (auto) Absolute Nucleated RBC 0.000 Nucleated RBC % (auto) 0.0 PT 13.9 H INR 1.2 H Anion Gap Estim Creat Clear Calc Estimated GFR POC Glucose Random Glucose Calcium Blood Type O Positive Antibody Screen NEGATIVE Crossmatch See Detail 06/30/22 05:48 MCV 90.7 MCH 30.1 MCHC 33.2 RDW 14.9 Plt Count 128 L MPV 11.6 Immature Gran % (Auto) Neut % (Auto) Lymph % (Auto) [place] % (Auto) Eos % (Auto) Baso % (Auto) Lymph # (Auto) [place] # (Auto) Eos # (Auto) Baso # (Auto) Abs Immat Gran (auto) Absolute Neuts (auto) Absolute Nucleated RBC 0.000 Nucleated RBC % (auto) 0.0 PT INR Anion Gap Estim Creat Clear Calc Estimated GFR POC Glucose Random Glucose Calcium Blood Type Antibody Screen Crossmatch Procedures Date of Service Date of Service: 06/30/22 Progress Note: A&P Assessment and plan (1) S/P partial colectomy: Status: Acute (2) Cancer of transverse colon: Status: Acute Plan Overall patient feels improved today. He continues to have loose stool, arm[place] in color, no gross blood. H/H has drifted slightly to this morning. Vitals are stable and abdominal exam is benign. Plan: advance diet to regular soft Monitor stool output Recheck CBC in AM. Time Spent With Patient Time: Total time managing care of this patient today ____ minutes. Quality Stroke Does the patient have a stroke diagnosis?: No VTE Prior VTE?: No VTE Risk Level:: Surgical - moderate VTE Device Contraindication: N/A - Device Ordered VTE Drug Contraindication: Treatment Not Indicated
--- NOTE | 2022-06-30 10:38 | MHC.CM.PN ---
PT REPORTS HE LIVES ALONE AND IS INDEPENDENT WITH CARE HE DENIES USE OF DME OR SERVICES PT DECLINES TO COMPLETE A HCP HE CONFIRMS KIMBERLY MANRIQUE IS HIS PCP PT IS [facility] DELIVERED CURRENT DC PLAN IS HOME WITH NO SERVICES PT REPORTS HE CAN ARRANGE TRANSPORT
[2022-06-30 12:00] VITALS: BP 127/59; PULSE 79; RESP 18; TEMP 36.8; O2SAT 96
[2022-06-30 15:34] VITALS: BP 133/64; PULSE 76; RESP 18; TEMP 36.8; O2SAT 95
[2022-06-30] MEDS: Mirtazapine 15 MG TABLET 45 MG PO (19:15)
[2022-06-30] MEDS: QUEtiapine Fumarate 100 MG TABLET PO (19:16)
[2022-06-30 19:47] VITALS: BP 176/76; PULSE 80; RESP 16; TEMP 36.5; O2SAT 95
[2022-06-30 23:38] VITALS: BP 156/68; PULSE 77; RESP 16; TEMP 36.4; O2SAT 99
[2022-07-01] MEDS: Acetaminophen 1,000 MG/100 ML PIGGYBACK 400 MG IV ×3 (00:27→18:18)
[2022-07-01 03:25] VITALS: BP 144/63; PULSE 75; RESP 16; TEMP 36.3; O2SAT 93
[2022-07-01] MEDS: Lactated Ringers 1,000 ML 80 ML IVCONT (06:01)
[2022-07-01 06:29] LABS: Hematocrit 33.5 % (42.0-52.0); Hemoglobin 11.2 g/dl (14.0-18.0); Mean Corpuscular HGB Conc 33.4 g/dl (31.0-36.0); Mean Corpuscular Volume 89.8 fL (80.0-98.0); Mean Platelet Volume 10.9 fL (9.4-12.4); Platelet Count 141 X10*3/uL (160-400); Red Blood Count 3.73 X10*6/uL (4.60-5.80); Red Cell Distribution Width 14.5 % (11.0-16.0); White Blood Count 7.9 X10*3/uL (4.8-10.8)
[2022-07-01 07:01] VITALS: BP 157/76; PULSE 84; RESP 18; TEMP 36.6; O2SAT 94
[2022-07-01] MEDS: Pravastatin Sodium 40 MG TABLET PO (07:36)
[2022-07-01] MEDS: lisinopriL 5 MG TABLET PO (07:36)
[2022-07-01] MEDS: Metoprolol Tartrate 25 MG TABLET PO ×2 (07:37→20:34)
[2022-07-01] MEDS: 0.9 % Sodium Chloride Flush 3 ML SYRINGE IVFLUSH ×3 (07:37→20:35)
--- NOTE | 2022-07-01 09:00 | PM.PNGS ---
Subjective Subjective Date of Service: 07/01/22 Interval history: Reports another bloody BM this morning. No one actually saw the blood in the stool however he was noted to have blood on his leg after using the commode and thinks it was from the stool. Tolerating solid diet. Pain is well controlled and has only been using IV tylenol for analgesia. Physical Exam Vital Signs: Vital Signs: Last Vital Signs Temp 98 F 07/01/22 07:01 Pulse 84 07/01/22 07:01 Resp 18 07/01/22 07:01 BP 157/76 H 07/01/22 07:01 Pulse Ox 94 07/01/22 07:01 O2 Del Method 07/01/22 07:01 O2 Flow Rate 4 06/28/22 13:42 BMI result Body Mass Index 23.0 Const: General: comfortable, no acute distress and alert Orientation/consciousness: patient oriented x3 Resp: Effort & Inspection: normal respiratory effort GI: Inspection: Yes distended and Yes incision (clean, mild ecchymosis inferior incision) Palpation (GI): Soft to palpation, Tenderness to palpation present (GI) (mild, incisional), no guarding and not rigid Percussion: Yes tympanic to percussion Skin: Other: warm and dry General skin exam: no rashes or lesions noted Neuro: General: patient oriented x3 and moves all extremities Objective Data Active Medications Acetaminophen (Ofirmev) 1,000 mg in 100 mls @ 400 mls/hr IV Q6H [facility] Last Admin: 07/01/22 07:38 Dose: Not Given Documented By: JOSE F Non-Admin Reason: Hold Per MD Jesus Lisinopril (Lisinopril 5 Mg Tablet) 5 mg PO DAILY [facility]; Protocol Last Admin: 07/01/22 07:36 Dose: 5 mg Documented By: JOSE F Metoprolol Tartrate (Metoprolol Tartrate 25 Mg Tablet) 25 mg PO BID [facility]; Protocol Last Admin: 07/01/22 07:37 Dose: 25 mg Documented By: JOSE F Mirtazapine (Mirtazapine 15 Mg Tablet) 45 mg PO BEDTIME [facility] Last Admin: 06/30/22 19:15 Dose: 45 mg Documented By: TUCKER Morphine Sulfate (Morphine Sulfate 2 Mg/Ml Cartridge) 4 mg IVPUSH Q4H PRN; Protocol PRN Reason: Pain, Severe (Pain Scale 7-10) Last Admin: 06/28/22 17:03 Dose: 4 mg Documented By: SUSANA Ondansetron HCl (Ondansetron Hcl 4 Mg/2 Ml Vial) 4 mg IVPUSH Q8H PRN PRN Reason: Nausea Oxycodone HCl (Oxycodone Hcl Immed Release 5 Mg Tablet) 5 mg PO Q4H PRN PRN Reason: Pain, Moderate (Pain Scale 4-6 Oxycodone HCl (Oxycodone Hcl Immed Release 5 Mg Tablet) 10 mg PO Q4H PRN PRN Reason: Pain, Severe (Pain Scale 7-10) Pravastatin Sodium (Pravastatin Sodium 40 Mg Tablet) 40 mg PO DAILY [facility] Last Admin: 07/01/22 07:36 Dose: 40 mg Documented By: JOSE F Quetiapine Fumarate (Quetiapine Fumarate 100 Mg Tablet) 100 mg PO BEDTIME [facility] Last Admin: 06/30/22 19:16 Dose: 100 mg Documented By: TUCKER Sodium Chloride (0.9 % Sodium Chloride Flush 3 Ml Syringe) 3 ml IVFLUSH QSHIFT [facility] Last Admin: 07/01/22 07:37 Dose: 3 ml Documented By: JOSE F Labs 07/01/22 05:40 06/29/22 12:05 Labs: Laboratory Results - last 24 hr 06/29/22 07/01/22 12:05 05:40 MCV 89.8 MCH 30.0 MCHC 33.4 RDW 14.5 Plt Count 141 L MPV 10.9 Absolute Nucleated RBC 0.000 Nucleated RBC % (auto) 0.0 Crossmatch See Detail Procedures Date of Service Date of Service: 07/01/22 Progress Note: A&P Assessment and plan (1) S/P partial colectomy: Status: Acute (2) Cancer of transverse colon: Status: Acute Plan 82 year old male POD #3 s/p partial colectomy. Reports continued bloody BM although this morning was not witnessed, otherwise doing well in regards to pain control and tolerating diet. VSS. Abd exam benign with appropriate post op tenderness, clean incision. H/H remains stable. Will continue to monitor stool output, recheck CBC in AM. Cont OOB/ambulation and PT. Dispo planning. If no further bloody BM, H/H remain stable, possible dc tomorrow. Time Spent With Patient Time: Total time managing care of this patient today ____ minutes. Quality Stroke Does the patient have a stroke diagnosis?: No VTE Prior VTE?: No VTE Risk Level:: Surgical - moderate VTE Device Contraindication: N/A - Device Ordered VTE Drug Contraindication: Treatment Not Indicated
[2022-07-01 12:00] VITALS: TEMP 36.6
[2022-07-01 12:18] LABS: Hematocrit 37.6 % (42.0-52.0); Hemoglobin 12.3 g/dl (14.0-18.0)
[2022-07-01 12:22] LABS: INTERNATIONAL NORM RATIO 1.1 (0.9-1.1); Prothrombin Time 12.6 SEC (10.0-13.1)
[2022-07-01 12:25] VITALS: BMI 23.0
[2022-07-01 12:25] LABS: Partial Thromboplastin Time 26.7 SEC (26.0-36.4)
[2022-07-01] MEDS: oxyCODONE HCl Immed Release 5 MG TABLET PO (12:37)
--- NOTE | 2022-07-01 13:28 | MHC.CM.PN ---
Per MD rounds no dc today. Patient would like to go home with services. PT and OT eval rec STR. Referrals have been sent to [facility]NA and SNFs. DP Home vs STR . Pt will arrange for transport home vs BLS transport. CM will follow.
--- NOTE | 2022-07-01 15:34 | PC.NURSE ---
MD Jesus notified this AM of Pts multiple loose BMs maroon in color, small clots noted. MD came to bedside and assessed BM. New labs ordered and carried out, see lab results for more details. MD instructed to continue to watch for signs and symptoms of increased bleeding.
[2022-07-01 15:37] VITALS: BP 141/66; PULSE 72; RESP 16; TEMP 37.1; O2SAT 93
[2022-07-01 20:00] VITALS: BP 145/72; PULSE 93; RESP 16; TEMP 36.3; O2SAT 95
[2022-07-01] MEDS: Mirtazapine 15 MG TABLET 45 MG PO (20:34)
[2022-07-01] MEDS: QUEtiapine Fumarate 100 MG TABLET PO (20:34)
[2022-07-01 23:25] VITALS: BP 155/66; PULSE 78; RESP 16; TEMP 37.1; O2SAT 96
[2022-07-02] VITALS (7 sets, daily range): BP systolic 116–159; BP diastolic 58–77; PULSE 69–78; RESP 15–20; TEMP 36.4–37.1; O2SAT 94–97
[2022-07-02] MEDS: Acetaminophen 1,000 MG/100 ML PIGGYBACK 400 MG IV ×2 (01:31→19:51)
[2022-07-02 05:36] LABS: MANUAL DIFF FLAG NO
[2022-07-02 05:40] LABS: Basophils Absolute Auto 0.1 X10*3/uL (0.0-0.2); Basophils Percent Auto 0.9 % (0-2); Eosinophils Absolute Auto 0.2 X10*3/uL (0.0-0.4); Eosinophils Percent Auto 3.5 % (0-4); Hematocrit 34.9 % (42.0-52.0); Hemoglobin 11.3 g/dl (14.0-18.0); Imm Gran Abs Auto 0.03 X10*3/uL (0.00-0.03); Imm Gran Pct Auto 0.5 % (0.0-0.4); Lymphocytes Absolute Auto 1.5 X10*3/uL (1.2-4.9); Lymphocytes Percent Auto 21.8 % (20-40); Mean Corpuscular HGB Conc 32.4 g/dl (31.0-36.0); Mean Corpuscular Hemoglobin 29.7 pg (27.0-33.0); Mean Corpuscular Volume 91.6 fL (80.0-98.0); Monocytes Absolute Auto 0.6 X10*3/uL (0.1-1.2); Monocytes Percent Auto 9.3 % (2-11); Neutrophils Absolute Auto 4.3 x10*3/uL (2.0-8.3); Platelet Count 146 X10*3/uL (160-400); Red Blood Count 3.81 X10*6/uL (4.60-5.80); Red Cell Distribution Width 14.3 % (11.0-16.0); White Blood Count 6.7 X10*3/uL (4.8-10.8)
--- NOTE | 2022-07-02 08:18 | PM.PNGS ---
Subjective Subjective Date of Service: 07/02/22 Interval history: Had multiple loose BM yesterday, nonbloody per EMR. Did not ambulate. Continuing to tolerate a solid diet. Not much abd pain. Physical Exam Vital Signs: Vital Signs: Last Vital Signs Temp 97.5 F 07/02/22 07:15 Pulse 75 07/02/22 07:15 Resp 16 07/02/22 07:15 BP 134/64 07/02/22 07:15 Pulse Ox 94 07/02/22 07:15 O2 Del Method 07/02/22 07:15 O2 Flow Rate 4 06/28/22 13:42 BMI result Body Mass Index 23.0 Const: General: comfortable, no acute distress and alert Orientation/consciousness: patient oriented x3 Resp: Effort & Inspection: normal respiratory effort GI: Inspection: Yes distended (softly) and Yes incision (clean) Palpation (GI): Soft to palpation, nontender, no guarding and not rigid Skin: General skin exam: no rashes or lesions noted Neuro: General: patient oriented x3 and moves all extremities Objective Data Active Medications Acetaminophen (Ofirmev) 1,000 mg in 100 mls @ 400 mls/hr IV Q6H [facility] Last Admin: 07/02/22 06:44 Dose: Not Given Documented By: MIN Non-Admin Reason: Patient Refused Lisinopril (Lisinopril 5 Mg Tablet) 5 mg PO DAILY [facility]; Protocol Last Admin: 07/01/22 07:36 Dose: 5 mg Documented By: JOSE F Metoprolol Tartrate (Metoprolol Tartrate 25 Mg Tablet) 25 mg PO BID [facility]; Protocol Last Admin: 07/01/22 20:34 Dose: 25 mg Documented By: MIN Mirtazapine (Mirtazapine 15 Mg Tablet) 45 mg PO BEDTIME [facility] Last Admin: 07/01/22 20:34 Dose: 45 mg Documented By: MIN Morphine Sulfate (Morphine Sulfate 2 Mg/Ml Cartridge) 4 mg IVPUSH Q4H PRN; Protocol PRN Reason: Pain, Severe (Pain Scale 7-10) Last Admin: 06/28/22 17:03 Dose: 4 mg Documented By: SUSANA Ondansetron HCl (Ondansetron Hcl 4 Mg/2 Ml Vial) 4 mg IVPUSH Q8H PRN PRN Reason: Nausea Oxycodone HCl (Oxycodone Hcl Immed Release 5 Mg Tablet) 5 mg PO Q4H PRN PRN Reason: Pain, Moderate (Pain Scale 4-6 Last Admin: 07/01/22 12:37 Dose: 5 mg Documented By: FORTINO Oxycodone HCl (Oxycodone Hcl Immed Release 5 Mg Tablet) 10 mg PO Q4H PRN PRN Reason: Pain, Severe (Pain Scale 7-10) Pravastatin Sodium (Pravastatin Sodium 40 Mg Tablet) 40 mg PO DAILY [facility] Last Admin: 07/01/22 07:36 Dose: 40 mg Documented By: JOSE F Quetiapine Fumarate (Quetiapine Fumarate 100 Mg Tablet) 100 mg PO BEDTIME [facility] Last Admin: 07/01/22 20:34 Dose: 100 mg Documented By: MIN Sodium Chloride (0.9 % Sodium Chloride Flush 3 Ml Syringe) 3 ml IVFLUSH QSHIFT [facility] Last Admin: 07/01/22 20:35 Dose: 3 ml Documented By: MIN Labs 07/02/22 05:04 06/29/22 12:05 Labs: Laboratory Results - last 24 hr 07/01/22 07/02/22 12:09 05:04 MCV 91.6 MCH 29.7 MCHC 32.4 RDW 14.3 Plt Count 146 L MPV 11.0 Immature Gran % (Auto) 0.5 H Neut % (Auto) 64.0 Lymph % (Auto) 21.8 [place] % (Auto) 9.3 Eos % (Auto) 3.5 Baso % (Auto) 0.9 Lymph # (Auto) 1.5 [place] # (Auto) 0.6 Eos # (Auto) 0.2 Baso # (Auto) 0.1 Abs Immat Gran (auto) 0.03 Absolute Neuts (auto) 4.3 Absolute Nucleated RBC 0.000 Nucleated RBC % (auto) 0.0 PT 12.6 INR 1.1 APTT 26.7 Procedures Date of Service Date of Service: 07/02/22 Progress Note: A&P Assessment and plan (1) S/P partial colectomy: Status: Acute (2) Cancer of transverse colon: Status: Acute Plan 82 year old male POD #4 s/p partial transverse colectomy. Multiple loose BMs yesterday, nonbloody. VSS. Abd exam benign with appropriate post op tenderness, clean incision. H/H increased yesterday but drifted down slightly this am. Will repeat CBC later this afternoon. Cont OOB/ambulation and PT reconsulted for dispo planning. If no further bloody BM, H/H remain stable, possible dc tomorrow to either [facility] or home with PT/VNA. Time Spent With Patient Time: Total time managing care of this patient today ____ minutes. Quality Stroke Does the patient have a stroke diagnosis?: No VTE Prior VTE?: No VTE Risk Level:: Surgical - moderate VTE Device Contraindication: N/A - Device Ordered VTE Drug Contraindication: Treatment Not Indicated
[2022-07-02] MEDS: Metoprolol Tartrate 25 MG TABLET PO ×2 (09:01→20:16)
[2022-07-02] MEDS: 0.9 % Sodium Chloride Flush 3 ML SYRINGE IVFLUSH ×3 (09:01→20:16)
[2022-07-02] MEDS: lisinopriL 5 MG TABLET PO (09:01)
[2022-07-02] MEDS: Pravastatin Sodium 40 MG TABLET PO (09:01)
[2022-07-02 12:00] LABS: MANUAL DIFF FLAG NO
[2022-07-02 12:05] LABS: Basophils Absolute Auto 0.1 X10*3/uL (0.0-0.2); Basophils Percent Auto 0.7 % (0-2); Eosinophils Absolute Auto 0.2 X10*3/uL (0.0-0.4); Eosinophils Percent Auto 3.5 % (0-4); Hematocrit 37.2 % (42.0-52.0); Hemoglobin 12.3 g/dl (14.0-18.0); Imm Gran Abs Auto 0.04 X10*3/uL (0.00-0.03); Imm Gran Pct Auto 0.6 % (0.0-0.4); Lymphocytes Percent Auto 15.1 % (20-40); Mean Corpuscular HGB Conc 33.1 g/dl (31.0-36.0); Mean Corpuscular Hemoglobin 29.6 pg (27.0-33.0); Mean Corpuscular Volume 89.6 fL (80.0-98.0); Mean Platelet Volume 11.4 fL (9.4-12.4); Monocytes Absolute Auto 0.7 X10*3/uL (0.1-1.2); Monocytes Percent Auto 9.4 % (2-11); Neutrophils Absolute Auto 4.9 x10*3/uL (2.0-8.3); Neutrophils Percent Auto 70.7 % (45-73); Platelet Count 145 X10*3/uL (160-400); Red Blood Count 4.15 X10*6/uL (4.60-5.80); Red Cell Distribution Width 14.1 % (11.0-16.0); White Blood Count 6.9 X10*3/uL (4.8-10.8)
[2022-07-02] MEDS: Simethicone 80 MG TAB.CHEW PO ×2 (14:25→17:30)
[2022-07-02] MEDS: Mirtazapine 15 MG TABLET 45 MG PO (20:16)
[2022-07-02] MEDS: QUEtiapine Fumarate 100 MG TABLET PO (20:16)
[2022-07-03 03:56] VITALS: BP 130/65; PULSE 76; RESP 16; TEMP 36.1; O2SAT 94
[2022-07-03] MEDS: Acetaminophen 1,000 MG/100 ML PIGGYBACK 400 MG IV (06:02)
[2022-07-03 07:11] VITALS: BP 126/60; PULSE 83; RESP 18; TEMP 36.6; O2SAT 95
--- NOTE | 2022-07-03 08:52 | PM.PNGS ---
Subjective Subjective Date of Service: 07/03/22 Interval history: Feels ok this morning. Had another loose BM yesterday, nonbloody. No further BM since but passing flatus. OOB and ambulated halls yesterday with PT. Tolerating solid diet. Wants to go home. Physical Exam Vital Signs: Vital Signs: Last Vital Signs Temp 97.8 F 07/03/22 07:11 Pulse 83 07/03/22 07:11 Resp 18 07/03/22 07:11 BP 126/60 07/03/22 07:11 Pulse Ox 95 07/03/22 07:11 O2 Del Method 07/03/22 07:11 O2 Flow Rate 4 06/28/22 13:42 BMI result Body Mass Index 23.0 Const: General: comfortable, no acute distress and alert Orientation/consciousness: patient oriented x3 Resp: Effort & Inspection: normal respiratory effort GI: Inspection: Yes distended (softly, mild) and Yes incision (steri strips intact, mild inferior ecchymosis) Palpation (GI): Soft to palpation, nontender, no guarding and not rigid Skin: General skin exam: no rashes or lesions noted Neuro: General: patient oriented x3 and moves all extremities Objective Data Active Medications Acetaminophen (Ofirmev) 1,000 mg in 100 mls @ 400 mls/hr IV Q6H [facility] Last Infusion: 07/03/22 06:28 Dose: 0 mls/hr Documented By: MIN Lisinopril (Lisinopril 5 Mg Tablet) 5 mg PO DAILY [facility]; Protocol Last Admin: 07/02/22 09:01 Dose: 5 mg Documented By: JOSE F Metoprolol Tartrate (Metoprolol Tartrate 25 Mg Tablet) 25 mg PO BID [facility]; Protocol Last Admin: 07/02/22 20:16 Dose: 25 mg Documented By: MIN Mirtazapine (Mirtazapine 15 Mg Tablet) 45 mg PO BEDTIME [facility] Last Admin: 07/02/22 20:16 Dose: 45 mg Documented By: MIN Morphine Sulfate (Morphine Sulfate 2 Mg/Ml Cartridge) 4 mg IVPUSH Q4H PRN; Protocol PRN Reason: Pain, Severe (Pain Scale 7-10) Last Admin: 06/28/22 17:03 Dose: 4 mg Documented By: HO.GRAZIC Ondansetron HCl (Ondansetron Hcl 4 Mg/2 Ml Vial) 4 mg IVPUSH Q8H PRN PRN Reason: Nausea Oxycodone HCl (Oxycodone Hcl Immed Release 5 Mg Tablet) 5 mg PO Q4H PRN PRN Reason: Pain, Moderate (Pain Scale 4-6 Last Admin: 07/01/22 12:37 Dose: 5 mg Documented By: FORTINO Oxycodone HCl (Oxycodone Hcl Immed Release 5 Mg Tablet) 10 mg PO Q4H PRN PRN Reason: Pain, Severe (Pain Scale 7-10) Pravastatin Sodium (Pravastatin Sodium 40 Mg Tablet) 40 mg PO DAILY [facility] Last Admin: 07/02/22 09:01 Dose: 40 mg Documented By: JOSE F Quetiapine Fumarate (Quetiapine Fumarate 100 Mg Tablet) 100 mg PO BEDTIME [facility] Last Admin: 07/02/22 20:16 Dose: 100 mg Documented By: MIN Simethicone (Simethicone 80 Mg Tab.Chew) 80 mg PO QIDWMHS PRN PRN Reason: Gas Last Admin: 07/02/22 17:30 Dose: 80 mg Documented By: JOSE F Sodium Chloride (0.9 % Sodium Chloride Flush 3 Ml Syringe) 3 ml IVFLUSH QSHIFT [facility] Last Admin: 07/02/22 20:16 Dose: 3 ml Documented By: MIN Labs 07/02/22 11:44 06/29/22 12:05 Labs: Laboratory Results - last 24 hr 07/02/22 11:44 MCV 89.6 MCH 29.6 MCHC 33.1 RDW 14.1 Plt Count 145 L MPV 11.4 Immature Gran % (Auto) 0.6 H Neut % (Auto) 70.7 Lymph % (Auto) 15.1 L [place] % (Auto) 9.4 Eos % (Auto) 3.5 Baso % (Auto) 0.7 Lymph # (Auto) 1.0 L [place] # (Auto) 0.7 Eos # (Auto) 0.2 Baso # (Auto) 0.1 Abs Immat Gran (auto) 0.04 H Absolute Neuts (auto) 4.9 Absolute Nucleated RBC 0.000 Nucleated RBC % (auto) 0.0 Procedures Date of Service Date of Service: 07/03/22 Progress Note: A&P Assessment and plan (1) S/P partial colectomy: Status: Acute (2) Cancer of transverse colon: Status: Acute Plan 82 year old male POD #5 s/p partial transverse colectomy. Doing well, no further bloody BM. H/H remained stable. VSS. Abd exam benign. Stable for dc to home today with VNA/PT services. F/u in office in 1 week. Pt comfortable with plan. Time Spent With Patient Time: Total time managing care of this patient today ____ minutes. Quality Stroke Does the patient have a stroke diagnosis?: No VTE Prior VTE?: No VTE Risk Level:: Surgical - moderate VTE Device Contraindication: N/A - Device Ordered VTE Drug Contraindication: Treatment Not Indicated
[2022-07-03] MEDS: Metoprolol Tartrate 25 MG TABLET PO (09:21)
[2022-07-03] MEDS: Pravastatin Sodium 40 MG TABLET PO (09:21)
[2022-07-03] MEDS: lisinopriL 5 MG TABLET PO (09:21)
[2022-07-03] MEDS: 0.9 % Sodium Chloride Flush 3 ML SYRINGE IVFLUSH (09:23)
--- NOTE | 2022-07-03 09:46 | MHC.CM.PN ---
pt dcd home with mane morales
--- NOTE | 2022-07-03 12:24 | PM.DS ---
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 Patient has sporadic bowel habits in that he alters occasional loose stools which is felt to be related to his NET with occasional constipation.? Takes periodically stool softeners.? He also has had also had approximately 10 lb weight loss over the last several weeks to months. Patient is currently being treated conservatively for his NET. It was recommended to proceed with limited resection of his transverse colon neoplasm. He presents now for the procedure. HOSPITAL COURSE: On 06/28/22, a partial transverse colectomy was performed by Dr. Jesus without complication. The patient tolerated the procedure well and was admitted to the medical/surgical floor for observation following. He was initially doing well on POD #1 with good pain control and tolerating clear liquids. His his chiang was removed. PT was consulted for ambulation. He however had a syncopal episode after moving his bowels in the bathroom and was found to be hypotensive and had passed a large liquid, dark bloody stool.? He was bolused with 1L LR and given 1 U PRBC with improvement in his BP, tranexemic acid dose given.?Heparin stopped. His repeat H/H was marginally decreased. He continued with small liquid, maroon BMs for two days which slowly improved. There wa no evidence of BRBPR and active bleeding. His H/H remained very stable. His diet was advanced to solid. He was ambulated. On the day of discharge, he was tolerating a solid diet with good pain control, ambulating without difficulty and was having nonbloody bowel movements. His abdomen was benign with a clean incision. His H/H was trending up. He felt ready for discharge. He was discharged to home in stable condition on 07/03/22 with home PT and VNA services. Status at Discharge Functional status at discharge: independent ambulation Overall status at discharge: patient is progressing back to baseline Time Spent with Patient Time attestation: Total time managing care of this patient today ____ minutes. Discharge coordination time: Less than 30 minutes Quality: Safe Use of Opioids Does Pt have an Active Cancer Diagnosis on the Problem List?: No Quality: Stroke Does the patient have a stroke diagnosis?: No Physical Exam Vital Signs: Vital Signs: Last Vital Signs Temp 97.8 F 07/03/22 07:11 Pulse 83 07/03/22 07:11 Resp 18 07/03/22 07:11 BP 126/60 07/03/22 07:11 Pulse Ox 95 07/03/22 07:11 O2 Del Method 07/03/22 07:11 O2 Flow Rate 4 06/28/22 13:42 BMI result Body Mass Index 23.0 Const: General: comfortable, no acute distress and alert Orientation/consciousness: patient oriented x3 Resp: Effort & Inspection: normal respiratory effort GI: Inspection: Yes distended (softly) and Yes incision (clean, inferior ecchymosis) Palpation (GI): Soft to palpation, nontender, no guarding and not rigid Skin: General skin exam: no rashes or lesions noted Neuro: General: patient oriented x3 and moves all extremities DS: Data Data Completed and Pending Pending studies at discharge: Pending at discharge 06/28/22 12:42 Surgical [PTH] Routine Discharge Plan Discharge Anticipated Discharge Date/Time: 07/03/22 08:22 Patient Disposition: Home Health Service Discharge Diagnosis: s/p partial colectomy Referrals: mane [Other] - 1 Week Ramon Cortez DO [Primary Care Provider] - 1 Week Micheal Jesus MD [Physician] - 1 Week Discharge Medications: Continued mirtazapine 45 mg tablet 45 mg PO BEDTIME metoprolol tartrate 50 mg tablet 25 mg PO BID quetiapine 100 mg tablet 100 mg PO BEDTIME lovastatin 40 mg tablet 40 mg PO DAILY lisinopril 5 mg tablet 5 mg PO DAILY Discontinued erythromycin 500 mg tablet 1,000 mg PO TID Qty: 6 0RF Rx Instructions: On the day prior to the procedure, take 2 tablets at 2pm, 2 tablets at 3pm and 2 tablets at 10pm neomycin 500 mg tablet 1 g PO TID Qty: 6 0RF Rx Instructions: On the day prior to the procedure, take 2 tabs at 2 PM, 2 tabs at 3 PM, and 2 tabs at 10 PM Discharge Orders: Discharge Order (Routine); Ordered 07/03/22 Ordered By: Tess Cutler Diet: Advance to usual diet Activity on Discharge: No heavy lifting Stand Alone Forms: Patient Portal Discharge page Activity Restrictions/Additional Instructions: Apply an ice pack for short intervals (20 minutes on, followed by at least 20 minutes off) for the first 2 days. Do not apply heat. Do not use creams, lotions, or topical antibiotics. These can cause infection or allergic reaction. Ok to shower. No tub bath. You have steri strips (small white cloth strips) covering your incision- these will fall off ~1 week. Follow up in office with Dr. Jesus in 1 week. ([phone]) No heavy lifting (>10lbs) or strenuous activity! Call Your Doctor If: -Your temperature exceeds 101.5? F -You experience excessive pain or swelling -You have an unexpected reaction to medication -You have excessive bleeding -You experience continued vomiting/nausea -Your incision begins to separate -Your incision shows signs of infection such as increased redness, swelling, excessive pain, drainage (light blood or clear fluid is normal) or heat Care Plan Goals: Return to baseline health and resume normal activities following recovery period. Health Concerns: transverse colon CA neuroendocrine tumor hypertension Plan of Treatment: s/p transverse partial colectomy Assessment: doing well post op Discharge Date/Time: 07/03/22 14:06
== END 2022-07-03 14:06 | disposition home health service (06) | DRG 331 ==
LOC: HO.SSSA 09:14 → HO.S3 12:07
PROVIDERS: Physician Assistant; Physician Assistant Surgical; Surgery; Admitting Provider Surgery; PCP Internal Medicine; Visit Provider Surgery
PROC: 0DTL0ZZ Resection of Transverse Colon, Open Approach (ICD-10-PCS; principal; 2022-06-28 11:00)
DX: C18.4 Malignant neoplasm of transverse colon (principal); K21.9 Gastro-esophageal reflux disease without esophagitis; F32.A Depression, unspecified; I95.81 Postprocedural hypotension; Z20.822 Contact with and (suspected) exposure to COVID-19; Z87.891 Personal history of nicotine dependence; Z88.0 Allergy status to penicillin; Z79.899 Other long term (current) drug therapy
CPT/HCPCS: 36415; 80048; 82947; 85014; 85018; 85025; 85027; 85610; 85730; 86850; 86900; 86901; 86923; 87635; 88309; 88341; 88342; 88360; 93005; 97116; 97161; C1758; J0131; J2270; J2370; J2795; J3010; P9016

== ENCOUNTER 2022-07-04 10:41 | Emergency (ER) | payer MEDICARE, OTHER, SELFPAY ==
--- NOTE | ~2022-07-04 | XR_ITS ---
EXAMINATION: XR CHEST CLINICAL INFORMATION: Cough COMPARISON: CT abdomen from 12/08/2021 TECHNIQUE: Frontal view of the chest was obtained. FINDINGS: Lungs are well expanded and without evidence of acute disease. No consolidation or pleural effusion. 0.8 cm opacity that projects between the right anterior sixth and seventh ribs probably represents a nipple shadow. This could be confirmed on a follow-up chest radiograph obtained in the next 2-3 months with use of nipple markers. Note that there was no pulmonary nodule in this location on the abdomen CT from 12/08/2021. The cardiac silhouette has normal size and contour. The pulmonary vascular pattern is normal. No acute skeletal findings. XR/XR chest 1V IMPRESSION: * No evidence of pneumonia. * A focal opacity that projects over the right lung base probably represents a nipple shadow. To ensure absence of a new lung nodule, recommend radiographic follow-up within the next 2-3 months with placement of nipple shadows.
[2022-07-04 10:50] VITALS: BP 106/48; PULSE 76; RESP 16; TEMP 36.7; O2SAT 98; BMI 23.6
[2022-07-04 10:56] VITALS: BP 111/47; BP 92/41; BP 96/41; PULSE 76; PULSE 77; PULSE 79
--- NOTE | 2022-07-04 11:01 | ECG_ITS ---
Test Reason : WEAKNESS Blood Pressure : / mmHG Vent. Rate : 072 BPM Atrial Rate : 072 BPM P-R Int : 156 ms QRS Dur : 074 ms QT Int : 382 ms P-R-T Axes : 016 025 047 degrees QTc Int : 418 ms Normal sinus rhythm Normal ECG When compared with ECG of 20-JUN-2022 11:02, T wave amplitude has decreased in Lateral leads Referred By: Anne Kilgore Electronically Signed By:MELISA TUTTLE MD
--- OUTSIDE RECORDS SUMMARY | 2022-07-04 11:08 | XMS_ITS ---
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 Active 45966644 Problem Vitamin D deficiency E55.9 Active 347 83190 ALLERGIES Substance Reaction Event Type Date Status Augmentin diarrhea Drug Allergy Apr, Active ENCOUNTERS Encounter Location Date Diagnosis Ramon Cortez DO, [address] [id number] Apr, Retroperitoneal lymphadenopa thy R59.0 ; Essential hypertension I10 ; Hypercholesterolemia E78.00 ; Vitamin D deficiency E55.9 and Recurrent major depressive disorder, in full remission F33.42 Ramon Cortez DO, [address] [id number] Jan, Neuroendocrine tumor D3A.8 ; Essential hypertension I10 ; Hypercholesterolemia E78.00 ; Vitamin D deficiency E55.9 and Recurrent major depressive disorder, in full remission F33.42 Ramon Cortez DO, [address] [id number] Dec, Retroperitoneal lymphadenopa thy R59.0 ; Benign prostatic hyperplasia, unspecified whether lower urinary tract symptoms present N40.0 ; Essential hypertension I10 ; Hypercholesterolemia E78.00 ; Vitamin D deficiency E55.9 and Recurrent major depressive disorder, in full remission F33.42 Ramon Cortez DO, [facility] [address], [place] [id number] August, Essential hypertension I10 ; Hypercholesterolemia E78.00 ; Recurrent major depressive disorder, in full remission F33.42 and Vitamin D deficiency E55.9 Raomn Cortez DO, [facility] [address], [place] [id number] Feb, Essential hypertension I10 ; Hypercholesterolemia E78.00 ; Recurrent major depressive disorder, in full remission F33.42 and Vitamin D deficiency E55.9 Ramon Cortez DO, [facility] [address], [place] [id number] Jan, Essential hypertension I10 Ramon Cortez DO, [address] [id number] August, Essential hypertension I10 ; Hypercholesterolemia E78.00 ; Recurrent major depressive disorder, in full remission F33.42 and Vitamin D deficiency E55.9 Ramon Cortez DO, [address] [id number] Jul, Essential hypertension I10 ; Hypercholesterolemia E78.00 and Recurrent major depressive disorder, in full remission F33.42 Ramon Cortez DO, [facility] [address], [place] [id number] Feb, Essential hypertension I10 ; Hypercholesterolemia E78.00 ; Vitamin D deficiency E55.9 and Recurrent major depressive disorder, in full remission F33.42 Ramon Cortez DO, [facility] [address], [place] [id number] Oct, Essential hypertension I10 ; Hypercholesterolemia E78.00 ; Vitamin D deficiency E55.9 and Recurrent major depressive disorder, in full remission F33.42 Ramon Cortez DO, [facility] [address], [place] [id number] Apr, Essential hypertension I10 ; Hypercholesterolemia E78.00 ; Vitamin D deficiency E55.9 and Recurrent major depressive disorder, in full remission F33.42 Ramon Cortez DO, [facility] [address], [place] [id number] Dec, Essential hypertension I10 Ramon Cortez DO, [facility] [address], [place] [id number] Oct, Essential hypertension I10 ; Hypercholesterolemia E78.00 ; Recurrent major depressive disorder, in full remission F33.42 and Vitamin D deficiency E55.9 Ramon Cortez DO, [facility] [address], [place] [id number] Apr, Essential hypertension I10 ; Hypercholesterolemia E78.00 ; Vitamin D deficiency E55.9 and Recurrent major depressive disorder, in full remission F33.42 Ramon Cortez DO, [facility] [address], [place] [id number] Jan, Essential hypertension with goal blood pressure less than 130\/85 I10 Ramon Cortez DO, [facility] [address], [place] [id number] Oct, Essential hypertension with goal blood pressure less than 130\/85 I10 ; Hypercholesterolemia E78.0 ; Vitamin D deficiency E55.9 and Recurrent major depressive disorder, in full remission F33.42 Ramon Cortez DO, [facility] [address], [place] [id number] August, Essential hypertension with goal blood pressure less than 130\/85 I10 Ramon Cortez DO, [facility] [address], [place] [id number] August, Essential hypertension with goal blood pressure less than 130\/85 I10 ; Hypercholesterolemia E78.0 ; Vitamin D deficiency E55.9 ; Recurrent major depressive disorder, in full remission F33.42 and Left hip pain M25.552 Ramon Cortez DO, [facility] [address], [place] [id number] Jul, Encounter for general adult medical examination without abnormal findings Z00.00 ; Essential hypertension with goal blood pressure less than 130\/85 I10 ; Hypercholesterolemia E78.0 ; Vitamin D deficiency E55.9 and Recurrent major depressive disorder, in full remission F33.42 Ramon Cortez DO, [facility] [address], [place] [id number] Jan, Essential hypertension with goal blood pressure less than 130\/85 I10 ; Hypercholesterolemia E78.0 ; Vitamin D deficiency E55.9 and Recurrent major depressive disorder, in full remission F33.42 Ramon Cortez DO, [facility] [address], [place] [id number] Sep, Essential hypertension with goal blood pressure less than 130\/85 I10 ; Recurrent major depressive disorder, in full remission F33.42 and Hypercholesterolemia E78.0 Ramon Cortez DO, [facility] [address], [place] [id number] Jul, Essential hypertension with goal blood pressure less than 130\/85 I10 ; Hypercholesterolemia E78.0 ; Vitamin D deficiency E55.9 and Recurrent major depressive disorder, in full remission F33.42 Ramon Cortez DO, [address] [id number] Apr, Essential hypertension with goal blood pressure less than 130\/85 I10 Ramon Cortez DO, [facility] [address], [place] [id number] Dec, Essential hypertension with goal blood pressure less than 130\/85 I10 ; Hypercholesterolemia E78.0 ; Vitamin D deficiency E55.9 and Recurrent major depressive disorder, in full remission F33.42 Ramon Cortez DO, [facility] [address], [place] [id number] Dec, Ramon Cortez DO [address] [id number] Dec, Ramon Cortez DO [address] [id number] Nov, Ramon Cortez DO [address] [id number] Jul, Ramon Cortez DO, [address] [id number] Jun, Essential hypertension with goal blood pressure less than 130\/85 I10 ; Hypercholesterolemia E78.0 and Impacted cerumen of left ear H61.22 Ramon Cortez DO, [facility] [address], [place] [id number] Dec, Ramon Cortez DO [address] [id number] Dec, Hypertension 401.9 and Hypercholesterolemia 272.0 Ramon Cortez DO [facility] [address], [place] [id number] Nov, Tinea cruris 110.3 Ramon Cortez DO, [facility] [address], [place] [id number] August, Testicular discomfort 608.9 Ramon Cortez DO, [address] [id number] August, Ramon Cortez DO, [facility] [address], [place] [id number] Jun, Hypertension 401.9 and Hypercholesterolemia 272.0 Ramon Cortez DO [facility] [address], [place] [id number] Dec, Hypertension 401.9 and Hypercholesterolemia 272.0 Ramon Cortez DO, [address] [id number] Dec, Ramon Cortez DO, [address] [id number] Dec, Hypertension 401.9 Ramon Cortez DO, [address] [id number] Oct, Hypertension 401.9 and Hypercholesterolemia 272.0 Ramon Cortez DO [address] [id number] Jun, Hypertension 401.9 ; Hypercholesterolemia 272.0 ; Tubular adenoma 229.9 and Cataract 366.9 Ramon Cortez DO [address] [id number] Apr, Hypertension 401.9 and Hypercholesterolemia 272.0 Ramon Cortez DO [address] [id number] Feb, Ramon Cortez DO [address] [id number] Jan, Ramon Cortez DO [address] [id number] Jan, Ramon Cortez DO, [address] [id number] Jan, Shoulder pain, right 719.41 Ramon Cortez DO [address] [id number] Oct, Hypertension 401.9 and Hypercholesterolemia 272.0 Ramon Cortez DO [address] [id number] May, Ramon Cortez DO [address] [id number] Apr, Hypertension 401.9 and Hypercholesterolemia 272.0 Ramon Cortez DO [address] [id number] Feb, Ramon Cortez DO [address] [id number] August, Ramon Cortez DO, [address] [id number] Apr, Hypertension 401.9 and Hypercholesterolemia 272.0 Ramon Cortez DO, [address] [id number] Feb, IMMUNIZATIONS Vaccine Route Administration Date Status Influnza High Dose Quad Unknown Dec 21, 2020 Adm inistered COVID-19 Moderna Vaccine Unknown September 12, 2020 Ad ministered Influenza High Dose IM Intramuscular Dec 19, 2021 Adm inistered Influnza High Dose Quad Unknown Dec 19, 2021 Adm inistered Influenza Unknown Jan 14, 2018 Administered Influnza High Dose Quad Unknown Dec 28, 2019 Adm inistered PCV 13 Unknown July 18, 2017 Administered Pneumococcal - PPSV23 Unknown Dec 20, 2003 Admin istered COVID-19 Moderna Vaccine Unknown August 11, 2020 A dministered Influenza IM Intramuscular Jan 13, 2019 Administere d Influenza High Dose IM Intramuscular Dec 20, 2016 Adm inistered Influenza High Dose IM Intramuscular Jan 10, 2016 Adm inistered Influenza Quad IM Intramuscular Jan 05, 2015 Administ ered Pneumococcal - PPSV23 IM Intramuscular July 06, 2014 Administered Influenza IM Intramuscular Jan 04, 2014 Administer ed Influenza Unknown Mar 02, 2013 Administered SOCIAL HISTORY Qualifiers Date Former Smoker REASON FOR REFERRAL FUNCTIONAL STATUS PLAN OF CARE Activity Details VITAL SIGNS Weight 163 lbs 2022-05-01 Weight [...] 2013-07-07 Blood pressure systolic 124 mm Hg Blood pressure diastolic 56 mm Hg 2022-04 MEDICATIONS Medication Instructions Dosage Frequency Start Date End Date Duration Status Vitamin D 1000 UNIT Orally Once a day 1 capsule 24h Jul, Active Lovastatin 40 MG Orally Once a day 1 tablet with the evening meal 24h Active QUEtiapine Fumarate 100 MG Orally Once a day 1 tablet at bedtime 24h Active Metoprolol Tartrate 50 MG Orally Twice a day 1 tablet with food 12h Active Mirtazapine 45 MG Orally Once a day 1 tablet at bedtime 24h Active Lisinopril 5 MG Orally Once a day 1 tablet 24h Active PROCEDURES Procedure Date Ordered Result Body Site FLU IMMUNIZE ORDER/ADMIN Jan 15, 2017 Imms Admin Pneu July 06, 2014 PNEUMOC IMM ORDER/ADMIN July 16, 2017 PNEUMOC IMM ORDER/ADMIN Feb 28, 2020 DOC MEDS VERIFIED W/PT OR RE October 17, 2017 ADMN FLU VAC NO FEE SCHED SAME DAY Jan 10, 2016 DOC MEDS VERIFIED W/PT [...] FLU VAC NO FEE SCHED SAME DAY Dec 19, 2021 FLU IMMUNIZE ORDER/ADMIN July [...] 2018 PNEUMOC IMM ORDER/ADMIN Jan 10, 2016 DOC MEDS VERIFIED W/PT OR RE July 16, 2016 FLU VACC PRSV FREE INC ANTIG Dec 19, 2021 DOC MEDS VERIFIED W/PT OR RE Jan [...] 10, 2016 TOBACCO NON-USER July 16, 2017 DOC MEDS VERIFIED W/PT OR RE Dec 19, 2021 FLU IMMUNIZE ORDER/ADMIN August 26, 2014 FLU IMMUNIZE ORDER/ADMIN Jan 05, 2015 DOC MEDS VERIFIED W/PT OR RE Feb 28, 2020 BMI<30 AND >=22 CALC & DOCU Jan 15, 2017 PNEUMOC IMM ORDER/ADMIN July 11, 2015 DOC [...] >=22 CALC & DOCU Jan 23, 2022 PNEUMOC IMM ORDER/ADMIN September 05, 2020 FLU IMMUNIZE ORDER/ADMIN July 07, 2013 FLU VACC SPLIT 3 YRS & >IM FLUZONE Jan 04, 2014 DOC MEDS VERIFIED [...] 2017 RESULTS Name Result Date Reference Range Complete Blood Count Auto Diff 2022-07-02 White Blood Count 6.9 4.8-10.8 Red Blood Count 4.15 4.60-5.80 Hemoglobin 12.3 14.0-18.0 Hematocrit 37.2 42.0-52.0 Mean Corpuscular Volume 89.6 80.0 -98.0 Mean Corpuscular Hemoglobin 29.6 27.0-33.0 Mean Corpuscular HGB Conc 33.1 31 .0-36.0 Red Cell Distribution Width 14.1 11.0-16.0 Platelet Count 145 160-400 Mean Platelet Volume 11.4 9.4-12. 4 Neutrophils Percent Auto 70.7 45- 73 Imm Gran Pct Auto 0.6 0.0-0.4 Lymphocytes Percent Auto 15.1 20- 40 Monocytes Percent Auto 9.4 2-11 Eosinophils Percent Auto 3.5 0-4 Basophils Percent Auto 0.7 0-2 NRBC Pct Auto 0.0 0.0-0.2 Neutrophils Absolute Auto 4.9 2. 0-8.3 Imm Gran Abs Auto 0.04 0.00-0.03 Lymphocytes Absolute Auto 1.0 1. 2-4.9 Monocytes Absolute Auto 0.7 0.1- 1.2 Eosinophils Absolute Auto 0.2 0. 0-0.4 Basophils Absolute Auto 0.1 0.0- 0.2 NRBC Abs Auto 0.000 0.0-0.012 Complete Blood Count Auto Diff 2022-07-02 White Blood Count 6.7 4.8-10.8 Red Blood Count 3.81 4.60-5.80 Hemoglobin 11.3 14.0-18.0 Hematocrit 34.9 42.0-52.0 Mean Corpuscular Volume 91.6 80.0 -98.0 Mean Corpuscular Hemoglobin 29.7 27.0-33.0 Mean Corpuscular HGB Conc 32.4 31 .0-36.0 Red Cell Distribution Width 14.3 11.0-16.0 Platelet Count 146 160-400 Mean Platelet Volume 11.0 9.4-12. 4 Neutrophils Percent Auto 64.0 45- 73 Imm Gran Pct Auto 0.5 0.0-0.4 Lymphocytes Percent Auto 21.8 20- 40 Monocytes Percent Auto 9.3 2-11 Eosinophils Percent Auto 3.5 0-4 Basophils Percent Auto 0.9 0-2 NRBC Pct Auto 0.0 0.0-0.2 Neutrophils Absolute Auto 4.3 2. 0-8.3 Imm Gran Abs Auto 0.03 0.00-0.03 Lymphocytes Absolute Auto 1.5 1. 2-4.9 Monocytes Absolute Auto 0.6 0.1- 1.2 Eosinophils Absolute Auto 0.2 0. 0-0.4 Basophils Absolute Auto 0.1 0.0- 0.2 NRBC Abs Auto 0.000 0.0-0.012 Complete Blood Count no Diff 2022-07-01 White Blood Count 7.9 4.8-10.8 Red Blood Count 3.73 4.60-5.80 Hemoglobin 11.2 14.0-18.0 Hematocrit 33.5 42.0-52.0 Mean Corpuscular Volume 89.8 80.0 -98.0 Mean Corpuscular Hemoglobin 30.0 27.0-33.0 Mean Corpuscular HGB Conc 33.4 31 .0-36.0 Red Cell Distribution Width 14.5 11.0-16.0 Platelet Count 141 160-400 Mean Platelet Volume 10.9 9.4-12. 4 NRBC Pct Auto 0.0 0.0-0.2 NRBC Abs Auto 0.000 0.0-0.012 Hemoglobin and Hematocrit 2022-07-01 Hemoglobin 12.3 14.0-18.0 Hematocrit 37.6 42.0-52.0 Prothrombin Time INR 2022-07-01 Prothrombin Time 12.6 10.0-13.1 INTERNATIONAL NORM RATIO 1.1 0.9 -1.1 Partial Thromboplastin Time 2022-07-01 Partial Thromboplastin Time 26.7 26.0-36.4 Complete Blood Count no Diff 2022-06-30 White Blood Count 9.5 4.8-10.8 Red Blood Count 3.65 4.60-5.80 Hemoglobin 11.0 14.0-18.0 Hematocrit 33.1 42.0-52.0 Mean Corpuscular Volume 90.7 80.0 -98.0 Mean Corpuscular Hemoglobin 30.1 27.0-33.0 Mean Corpuscular HGB Conc 33.2 31 .0-36.0 Red Cell Distribution Width 14.9 11.0-16.0 Platelet Count 128 160-400 Mean Platelet Volume 11.6 9.4-12. 4 NRBC Pct Auto 0.0 0.0-0.2 NRBC Abs Auto 0.000 0.0-0.012 Complete Blood Count Auto Diff 2022-06-29 White Blood Count 11.8 4.8-10.8 Red Blood Count 3.78 4.60-5.80 Hemoglobin 11.3 14.0-18.0 Hematocrit 34.4 42.0-52.0 Mean Corpuscular Volume 91.0 80.0 -98.0 Mean Corpuscular Hemoglobin 29.9 27.0-33.0 Mean Corpuscular HGB Conc 32.8 31 .0-36.0 Red Cell Distribution Width 14.0 11.0-16.0 Platelet Count 165 160-400 Mean Platelet Volume 10.8 9.4-12. 4 Neutrophils Percent Auto 82.3 45- 73 Imm Gran Pct Auto 0.4 0.0-0.4 Lymphocytes Percent Auto 6.5 20- 40 Monocytes Percent Auto 10.7 2-11 Eosinophils Percent Auto 0.0 0-4 Basophils Percent Auto 0.1 0-2 NRBC Pct Auto 0.0 0.0-0.2 Neutrophils Absolute Auto 9.7 2. 0-8.3 Imm Gran Abs Auto 0.05 0.00-0.03 Lymphocytes Absolute Auto 0.8 1. 2-4.9 Monocytes Absolute Auto 1.3 0.1- 1.2 Eosinophils Absolute Auto 0.0 0. 0-0.4 Basophils Absolute Auto 0.0 0.0- 0.2 NRBC Abs Auto 0.000 0.0-0.012 Complete Blood Count no Diff 2022-06-29 White Blood Count 12.6 4.8-10.8 Red Blood Count 4.07 4.60-5.80 Hemoglobin 12.1 14.0-18.0 Hematocrit 36.5 42.0-52.0 Mean Corpuscular Volume 89.7 80.0 -98.0 Mean Corpuscular Hemoglobin 29.7 27.0-33.0 Mean Corpuscular HGB Conc 33.2 31 .0-36.0 Red Cell Distribution Width 14.6 11.0-16.0 Platelet Count 152 160-400 Mean Platelet Volume 11.0 9.4-12. 4 NRBC Pct Auto 0.0 0.0-0.2 NRBC Abs Auto 0.000 0.0-0.012 Complete Blood Count Auto Diff 2022-06-29 White Blood Count 12.3 4.8-10.8 Red Blood Count 4.05 4.60-5.80 Hemoglobin 11.9 14.0-18.0 Hematocrit 36.9 42.0-52.0 Mean Corpuscular Volume 91.1 80.0 -98.0 Mean Corpuscular Hemoglobin 29.4 27.0-33.0 Mean Corpuscular HGB Conc 32.2 31 .0-36.0 Red Cell Distribution Width 13.8 11.0-16.0 Platelet Count 172 160-400 Mean Platelet Volume 11.6 9.4-12. 4 Neutrophils Percent Auto 83.6 45- 73 Imm Gran Pct Auto 0.4 0.0-0.4 Lymphocytes Percent Auto 6.7 20- 40 Monocytes Percent Auto 9.2 2-11 Eosinophils Percent Auto 0.0 0-4 Basophils Percent Auto 0.1 0-2 NRBC Pct Auto 0.0 0.0-0.2 Neutrophils Absolute Auto 10.3 2. 0-8.3 Imm Gran Abs Auto 0.05 0.00-0.03 Lymphocytes Absolute Auto 0.8 1. 2-4.9 Monocytes Absolute Auto 1.1 0.1- 1.2 Eosinophils Absolute Auto 0.0 0. 0-0.4 Basophils Absolute Auto 0.0 0.0- 0.2 NRBC Abs Auto 0.000 0.0-0.012 Prothrombin Time INR 2022-06-29 Prothrombin Time 13.9 10.0-13.1 INTERNATIONAL NORM RATIO 1.2 0.9 -1.1 Basic Metabolic Panel 2022-06-29 Sodium 143 135-145 Potassium 4.1 3.3-5.1 Chloride 112 96-108 Carbon Dioxide 22 22-29 Anion Gap 13 12-20 Blood Urea Nitrogen 20 9-16 Creatinine 1.12 0.5-1.4 Creatinine Clr Calc Pharmacy 49.0 Estimated Glomerular Filt Rate >60 Glucose Random 174 60-115 Calcium 8.3 8.4-10.2 Basic Metabolic Panel Fasting 2022-06-29 Sodium 142 135-145 Potassium 4.3 3.3-5.1 Chloride 109 96-108 Carbon Dioxide 23 22-29 Anion Gap 14 12-20 Blood Urea Nitrogen 19 9-16 Creatinine 0.94 0.5-1.4 Creatinine Clr Calc Pharmacy 58.4 Estimated Glomerular Filt Rate >60 Glucose Fasting 189 60-99 Calcium 8.3 8.4-10.2 Glucose, Whole Blood 2022-06-29 Glucose, Whole Blood 178 60-115 COVID-19 ID NOW ([facility]ers) 2022-06-28 IDNOW Serial# [id number] COVID-19 Test Negative Negative COVID-19 Note See Note Type and Screen 2022-06-20 Blood Type OP Antibody Screen NEGATIVE Complete Blood Count Auto Diff 2022-06-11 White Blood Count 5.2 4.8-10.8 Red Blood Count 4.91 4.60-5.80 Hemoglobin 14.6 14.0-18.0 Hematocrit 43.7 42.0-52.0 Mean Corpuscular Volume 89.0 80.0 -98.0 Mean Corpuscular Hemoglobin 29.7 27.0-33.0 Mean Corpuscular HGB Conc 33.4 31 .0-36.0 Red Cell Distribution Width 13.3 11.0-16.0 Platelet Count 162 160-400 Mean Platelet Volume 10.2 9.4-12. 4 Neutrophils Percent Auto 59.6 45- 73 Imm Gran Pct Auto 0.2 0.0-0.4 Lymphocytes Percent Auto 26.0 20- 40 Monocytes Percent Auto 9.2 2-11 Eosinophils Percent Auto 4.2 0-4 Basophils Percent Auto 0.8 0-2 NRBC Pct Auto 0.0 0.0-0.2 Neutrophils Absolute Auto 3.1 2. 0-8.3 Imm Gran Abs Auto 0.01 0.00-0.03 Lymphocytes Absolute Auto 1.4 1. 2-4.9 Monocytes Absolute Auto 0.5 0.1- 1.2 Eosinophils Absolute Auto 0.2 0. 0-0.4 Basophils Absolute Auto 0.0 0.0- 0.2 NRBC Abs Auto 0.000 0.0-0.012 Comprehensive Met. Panel 2022-06-11 Sodium 145 135-145 Potassium 3.8 3.3-5.1 Chloride 109 96-108 Carbon Dioxide 27 22-29 Anion Gap 13 12-20 Blood Urea Nitrogen 15 9-16 Creatinine 0.87 0.5-1.4 Creatinine Clr Calc Pharmacy 63.2 Estimated Glomerular Filt Rate >60 Glucose Random 104 60-115 Calcium 9.2 8.4-10.2 Bilirubin Total 0.6 0.0-1.0 Aspartate Amino Transferase 34 5-37 Alanine Aminotransferase 33 0-4 0 Total Protein 6.5 6.5-8.0 Albumin Level 4.1 3.5-5.0 Alkaline Phosphatase 93 39-117 Carcinoembryonic Antigen 2022-06-11 Carcinoembryonic Antigen 2.40 Chromogranin A 2022-06-11 Chromogranin A 785 ADULTS: <311 Pathology 2022-06-05 Chromogranin A 2022-04-18 Chromogranin A 629 ADULTS: <311 Complete Blood Count Auto Diff 2022-03-18 White Blood Count 6.4 4.8-10.8 Red Blood Count 4.86 4.60-5.80 Hemoglobin 14.7 14.0-18.0 Hematocrit 44.5 42.0-52.0 Mean Corpuscular Volume 91.6 80.0 -98.0 Mean Corpuscular Hemoglobin 30.2 27.0-33.0 Mean Corpuscular HGB Conc 33.0 31 .0-36.0 Red Cell Distribution Width 13.2 11.0-16.0 Platelet Count 168 160-400 Mean Platelet Volume 10.8 9.4-12. 4 Neutrophils Percent Auto 58.8 45- 73 Imm Gran Pct Auto 0.3 0.0-0.4 Lymphocytes Percent Auto 25.2 20- 40 Monocytes Percent Auto 9.0 2-11 Eosinophils Percent Auto 5.9 0-4 Basophils Percent Auto 0.8 0-2 NRBC Pct Auto 0.0 0.0-0.2 Neutrophils Absolute Auto 3.8 2. 0-8.3 Imm Gran Abs Auto 0.02 0.00-0.03 Lymphocytes Absolute Auto 1.6 1. 2-4.9 Monocytes Absolute Auto 0.6 0.1- 1.2 Eosinophils Absolute Auto 0.4 0. 0-0.4 Basophils Absolute Auto 0.1 0.0- 0.2 NRBC Abs Auto 0.000 0.0-0.012 Comprehensive Met. Panel 2022-03-18 Sodium 147 135-145 Potassium 3.9 3.3-5.1 Chloride 110 96-108 Carbon Dioxide 29 22-29 Anion Gap 12 12-20 Blood Urea Nitrogen 17 9-16 Creatinine 0.96 0.5-1.4 Creatinine Clr Calc Pharmacy 58.3 Estimated Glomerular Filt Rate >60 Glucose Random 100 60-115 Calcium 9.5 8.4-10.2 Bilirubin Total 0.6 0.0-1.0 Aspartate Amino Transferase 34 5-37 Alanine Aminotransferase 34 0-4 0 Total Protein 6.6 6.5-8.0 Albumin Level 4.3 3.5-5.0 Alkaline Phosphatase 86 39-117 Complete Blood Count Auto Diff 2022-01-17 White Blood Count 6.6 4.8-10.8 Red Blood Count 4.85 4.60-5.80 Hemoglobin 14.6 14.0-18.0 Hematocrit 44.4 42.0-52.0 Mean Corpuscular Volume 91.5 80.0 -98.0 Mean Corpuscular Hemoglobin 30.1 27.0-33.0 Mean Corpuscular HGB Conc 32.9 31 .0-36.0 Red Cell Distribution Width 12.9 11.0-16.0 Platelet Count 168 160-400 Mean Platelet Volume 10.8 9.4-12. 4 Neutrophils Percent Auto 57.7 45- 73 Imm Gran Pct Auto 0.3 0.0-0.4 Lymphocytes Percent Auto 26.4 20- 40 Monocytes Percent Auto 10.7 2-11 Eosinophils Percent Auto 3.8 0-4 Basophils Percent Auto 1.1 0-2 NRBC Pct Auto 0.0 0.0-0.2 Neutrophils Absolute Auto 3.8 2. 0-8.3 Imm Gran Abs Auto 0.02 0.00-0.03 Lymphocytes Absolute Auto 1.8 1. 2-4.9 Monocytes Absolute Auto 0.7 0.1- 1.2 Eosinophils Absolute Auto 0.3 0. 0-0.4 Basophils Absolute Auto 0.1 0.0- 0.2 NRBC Abs Auto 0.000 0.0-0.012 Comprehensive Met. Panel 2022-01-17 Sodium 143 135-145 Potassium 4.1 3.3-5.1 Chloride 107 96-108 Carbon Dioxide 27 22-29 Anion Gap 13 12-20 Blood Urea Nitrogen 14 9-16 Creatinine 0.94 0.5-1.4 Creatinine Clr Calc Pharmacy 59.5 Estimated Glomerular Filt Rate >60 Glucose Random 108 60-115 Calcium 9.5 8.4-10.2 Bilirubin Total 0.5 0.0-1.0 Aspartate Amino Transferase 33 5-37 Alanine Aminotransferase 35 0-4 0 Total Protein 6.7 6.5-8.0 Albumin Level 4.3 3.5-5.0 Alkaline Phosphatase 86 39-117 Pathology 2022-01-10 Complete Blood Count Auto Diff 2021-12-28 White Blood Count 8.0 4.8-10.8 Red Blood Count 4.99 4.60-5.80 Hemoglobin 15.4 14.0-18.0 Hematocrit 46.5 42.0-52.0 Mean Corpuscular Volume 93.2 80.0 -98.0 Mean Corpuscular Hemoglobin 30.9 27.0-33.0 Mean Corpuscular HGB Conc 33.1 31 .0-36.0 Red Cell Distribution Width 13.2 11.0-16.0 Platelet Count 193 160-400 Mean Platelet Volume 10.5 9.4-12. 4 Neutrophils Percent Auto 62.8 45- 73 Imm Gran Pct Auto 0.5 0.0-0.4 Lymphocytes Percent Auto 23.6 20- 40 Monocytes Percent Auto 8.1 2-11 Eosinophils Percent Auto 4.1 0-4 Basophils Percent Auto 0.9 0-2 NRBC Pct Auto 0.0 0.0-0.2 Neutrophils Absolute Auto 5.0 2. 0-8.3 Imm Gran Abs Auto 0.04 0.00-0.03 Lymphocytes Absolute Auto 1.9 1. 2-4.9 Monocytes Absolute Auto 0.7 0.1- 1.2 Eosinophils Absolute Auto 0.3 0. 0-0.4 Basophils Absolute Auto 0.1 0.0- 0.2 NRBC Abs Auto 0.000 0.0-0.012 Prothrombin Time INR 2021-12-28 Prothrombin Time 11.8 10.0-13.1 INTERNATIONAL NORM RATIO 1.0 0.9 -1.1 Comprehensive Met. Panel 2021-12-28 Sodium 145 135-145 Potassium 4.4 3.3-5.1 Chloride 104 96-108 Carbon Dioxide 29 22-29 Anion Gap 16 12-20 Blood Urea Nitrogen 16 9-16 Creatinine 0.99 0.5-1.4 Creatinine Clr Calc Pharmacy 56.5 Estimated Glomerular Filt Rate >60 Glucose Random 108 60-115 Calcium 9.9 8.4-10.2 Bilirubin Total 0.6 0.0-1.0 Aspartate Amino Transferase 39 5-37 Alanine Aminotransferase 43 0-4 0 Total Protein 7.4 6.5-8.0 Albumin Level 4.7 3.5-5.0 Alkaline Phosphatase 104 39-117 Lactate Dehydrogenase 2021-12-28 Lactate Dehydrogenase 170 118-27 3 Carcinoembryonic Antigen 2021-12-28 Carcinoembryonic Antigen 2.40 Prostate Specific Antigen Scr 2021-12-28 Prostate Specific Antigen Scr 2.57 <0.05-4.0 Complete Blood Count Auto Diff 2021-12-08 White Blood Count 10.0 4.8-10.8 Red Blood Count 4.94 4.60-5.80 Hemoglobin 15.0 14.0-18.0 Hematocrit 45.5 42.0-52.0 Mean Corpuscular Volume 92.1 80.0 -98.0 Mean Corpuscular Hemoglobin 30.4 27.0-33.0 Mean Corpuscular HGB Conc 33.0 31 .0-36.0 Red Cell Distribution Width 13.3 11.0-16.0 Platelet Count 203 160-400 Mean Platelet Volume 10.3 9.4-12. 4 Neutrophils Percent Auto 73.5 45- 73 Imm Gran Pct Auto 0.4 0.0-0.4 Lymphocytes Percent Auto 15.9 20- 40 Monocytes Percent Auto 7.3 2-11 Eosinophils Percent Auto 2.2 0-4 Basophils Percent Auto 0.7 0-2 NRBC Pct Auto 0.0 0.0-0.2 Neutrophils Absolute Auto 7.4 2. 0-8.3 Imm Gran Abs Auto 0.04 0.00-0.03 Lymphocytes Absolute Auto 1.6 1. 2-4.9 Monocytes Absolute Auto 0.7 0.1- 1.2 Eosinophils Absolute Auto 0.2 0. 0-0.4 Basophils Absolute Auto 0.1 0.0- 0.2 NRBC Abs Auto 0.000 0.0-0.012 Comprehensive Met. Panel 2021-12-08 Sodium 144 135-145 Potassium 4.8 3.3-5.1 Chloride 105 96-108 Carbon Dioxide 26 22-29 Anion Gap 18 12-20 Blood Urea Nitrogen 14 9-16 Creatinine 0.96 0.5-1.4 Creatinine Clr Calc Pharmacy 58.3 Estimated Glomerular Filt Rate >60 Glucose Random 120 60-115 Calcium 9.7 8.4-10.2 Bilirubin Total 0.7 0.0-1.0 Aspartate Amino Transferase 36 5-37 Alanine Aminotransferase 32 0-4 0 Total Protein 7.3 6.5-8.0 Albumin Level 4.5 3.5-5.0 Alkaline Phosphatase 122 39-117 Prostate Specific Antigen 2021-12-08 Prostate Specific Antigen 2.09 <0 .05-4.0 Complete Blood Count Auto Diff 2021-09-14 White Blood Count 6.1 4.8-10.8 Red Blood Count 4.83 4.60-5.80 Hemoglobin 14.5 14.0-18.0 Hematocrit 44.5 42.0-52.0 Mean Corpuscular Volume 92.1 80.0 -98.0 Mean Corpuscular Hemoglobin 30.0 27.0-33.0 Mean Corpuscular HGB Conc 32.6 31 .0-36.0 Red Cell Distribution Width 13.6 11.0-16.0 Platelet Count 159 160-400 Mean Platelet Volume 11.6 9.4-12. 4 Neutrophils Percent Auto 54.2 45- 73 Imm Gran Pct Auto 0.3 0.0-0.4 Lymphocytes Percent Auto 29.5 20- 40 Monocytes Percent Auto 8.7 2-11 Eosinophils Percent Auto 6.2 0-4 Basophils Percent Auto 1.1 0-2 NRBC Pct Auto 0.0 0.0-0.2 Neutrophils Absolute Auto 3.3 2. 0-8.3 Imm Gran Abs Auto 0.02 0.00-0.03 Lymphocytes Absolute Auto 1.8 1. 2-4.9 Monocytes Absolute Auto 0.5 0.1- 1.2 Eosinophils Absolute Auto 0.4 0. 0-0.4 Basophils Absolute Auto 0.1 0.0- 0.2 NRBC Abs Auto 0.000 0.0-0.012 Comprehensive [place]. Panel Fast 2021-09-14 Sodium 144 135-145 Potassium 4.1 3.3-5.1 Chloride 109 96-108 Carbon Dioxide 27 22-29 Anion Gap 12 12-20 Blood Urea Nitrogen 13 9-16 Creatinine 0.95 0.5-1.4 Estimated Glomerular Filt Rate >60 Glucose Fasting 114 60-99 Calcium 9.4 8.4-10.2 Bilirubin Total 0.8 0.0-1.0 Aspartate Amino Transferase 37 5-37 Alanine Aminotransferase 39 0-4 0 Total Protein 6.9 6.5-8.0 Albumin Level 4.3 3.5-5.0 Alkaline Phosphatase 100 39-117 Lipid Panel 2021-09-14 Triglycerides 84 Cholesterol 163 LDL Cholesterol Calculated 103 HDL Cholesterol 44 Complete Blood Count Auto Diff 2021-03-16 White Blood Count 5.9 4.8-10.8 Red Blood Count 4.86 4.60-5.80 Hemoglobin 14.5 14.0-18.0 Hematocrit 45.6 42.0-52.0 Mean Corpuscular Volume 93.8 80.0 -98.0 Mean Corpuscular Hemoglobin 29.8 27.0-33.0 Mean Corpuscular HGB Conc 31.8 31 .0-36.0 Red Cell Distribution Width 13.5 11.0-16.0 Platelet Count 166 160-400 Mean Platelet Volume 11.5 9.4-12. 4 Neutrophils Percent Auto 54.4 45- 73 Imm Gran Pct Auto 0.5 0.0-0.4 Lymphocytes Percent Auto 29.8 20- 40 Monocytes Percent Auto 9.4 2-11 Eosinophils Percent Auto 4.9 0-4 Basophils Percent Auto 1.0 0-2 NRBC Pct Auto 0.0 0.0-0.2 Neutrophils Absolute Auto 3.2 2. 0-8.3 Imm Gran Abs Auto 0.03 0.00-0.03 Lymphocytes Absolute Auto 1.8 1. 2-4.9 Monocytes Absolute Auto 0.6 0.1- 1.2 Eosinophils Absolute Auto 0.3 0. 0-0.4 Basophils Absolute Auto 0.1 0.0- 0.2 NRBC Abs Auto 0.000 0.0-0.012 Comprehensive [place]. Panel Fast 2021-03-16 Sodium 147 135-145 Potassium 4.1 3.3-5.1 Chloride 111 96-108 Carbon Dioxide 27 22-29 Anion Gap 13 12-20 Blood Urea Nitrogen 15 9-16 Creatinine 1.08 0.5-1.4 Estimated Glomerular Filt Rate >60 Glucose Fasting 134 60-99 Calcium 9.6 8.4-10.2 Bilirubin Total 0.7 0.0-1.0 Aspartate Amino Transferase 47 5-37 Alanine Aminotransferase 48 0-4 0 Total Protein 7.0 6.5-8.0 Albumin Level 4.4 3.5-5.0 Alkaline Phosphatase 107 39-117 Lipid Panel 2021-03-16 Triglycerides 103 Cholesterol 163 LDL Cholesterol Calculated 101 HDL Cholesterol 42 Vitamin D 25-OH Total 2021-03-16 Vitamin D 25-OH Total 49.8 >30 Thyroid Stimulating Hormone 2021-03-16 Thyroid Stimulating Hormone 1.57 0.32-4.0 LIPOPROTEIN FRACTIONATION (LIPID PANEL) 2 CHOLESTEROL 166 TRIGLYCERIDE 86 HDL 53 LDL CALCULATED 96 CBC w DIFF 2018-11-06 WBC 6.6 4.8-10.8 ABSOLUTE NEUTROPHIL COUNT 3.3 2. 2-7.9 RBC 4.78 4.60-5.80 HEMOGLOBIN 14.8 14.0-18.0 HEMATOCRIT [...] 14 9-16 CREATININE 0.86 0.5-1.4 ESTIMATED GFR >60 PROTEIN, TOTAL 6.9 6.5-8.0 ALBUMIN 4.5 3.5-5.0 BILIRUBIN, TOTAL 0.7 0.0-1.0 CALCIUM 9.7 8.4-10.2 ALK. PHOS. 95 39-117 GOT 44 5-37 GPT 47 0-40 KNEE LEFT [id number] 2018-08-07 XR KNEE BILATERAL STANDING 2018-08-07 KNEE LEFT 4 VIEWS [id number] 2017-08-25 XR HIP LEFT 2 TO 3 VIEWS 2017-08-25 URINALYSIS + MICROSCOPIC 2017-08-04 COLOR YELLOW APPEARANCE,(UA) CLEAR SPECIFIC GRAVITY 1.025 1.005-1.025 LEUKOCYTES NEG NEG NITRITE NEG NEG PROTEIN,QUALITATIVE NEG NEG - TR LINDA PH 5.5 5.0-8.0 URINE BLOOD NEG NEG KETONES NEG NEG GLUCOSE NEG NEG MICROSCOPIC WBC 0 0-4 MICROSCOPIC RBC 0 0 EPITHELIAL CELLS NONE BACTERIA NONE LIPOPROTEIN FRACTIONATION (LIPID PANEL) 2 CHOLESTEROL 189 TRIGLYCERIDE 137 HDL 49 LDL CALCULATED 113 CBC w DIFF 2017-08-01 WBC 6.9 4.8-10.8 ABSOLUTE NEUTROPHIL COUNT 3.7 2. 2-7.9 RBC 5.05 4.60-5.80 HEMOGLOBIN 15.7 14.0-18.0 HEMATOCRIT 46.8 42-52 MCV 92.8 80-98 MCH 31.0 27.0-33.0 MCHC 33.4 31.0-36.0 PLATELET COUNT 168 160-400 RDW 12.5 11.0-16.0 NEUTROPHILS 53.5 45-73 LYMPHOCYTES 33.6 20-40 MONOCYTES 8.3 2-11 EOSINOPHILS 3.3 0-4 BASOPHILS 1.5 0-2 PROFILE, FASTING 2017-08-01 NA 143 135-145 K 4.0 3.3-5.1 CL 106 96-108 CO2 28 22-29 ANION GAP 13 -20 FASTING BLOOD SUGAR 106 60-99 BUN 15 9-16 CREATININE 0.86 0.5-1.4 ESTIMATED GFR >60 PROTEIN, TOTAL 7.1 6.5-8.0 ALBUMIN 4.4 3.5-5.0 BILIRUBIN, TOTAL 0.8 0.0-1.0 CALCIUM 9.7 8.4-10.2 ALK. PHOS. 103 39-117 GOT 51 5-37 GPT 53 0-40 TSH (THYROID STIMULATING HORMONE) 2017-07 TSH 1.64 0.32-4.0 VITAMIN D 25-OH TOTAL 2017-08-01 VITAMIN D 25-OH TOTAL 31.8 >30 LIPOPROTEIN FRACTIONATION (LIPID PANEL) 2 CHOLESTEROL 183 TRIGLYCERIDE 137 HDL 51 LDL CALCULATED 105 CBC w DIFF 2016-11-20 WBC 7.4 4.8-10.8 ABSOLUTE NEUTROPHIL COUNT 4.3 2. 2-7.9 RBC 5.04 4.60-5.80 HEMOGLOBIN 16.1 14.0-18.0 HEMATOCRIT 48.6 42-52 MCV 96.3 80-98 MCH 31.9 27.0-33.0 MCHC 33.1 31.0-36.0 PLATELET COUNT 177 160-400 RDW 12.9 11.0-16.0 NEUTROPHILS 59.0 45-73 LYMPHOCYTES 27.6 20-40 MONOCYTES 9.4 2-11 EOSINOPHILS 2.6 0-4 BASOPHILS 1.4 0-2 PROFILE, FASTING 2016-11-20 NA 144 135-145 K 3.9 3.3-5.1 CL 106 96-108 CO2 25 22-29 ANION GAP 17 20 FASTING BLOOD SUGAR 96 60-99 BUN 16 9-16 CREATININE 0.89 0.5-1.4 ESTIMATED GFR >60 PROTEIN, TOTAL 7.2 6.5-8.0 ALBUMIN 4.5 3.5-5.0 BILIRUBIN, TOTAL 0.7 0.0-1.0 CALCIUM 10.0 8.4-10.2 ALK. PHOS. 111 39-117 GOT 58 5-37 GPT 55 0-40 TSH (THYROID STIMULATING HORMONE) 2016-11 TSH 1.41 0.32-4.0 VITAMIN D 25-OH TOTAL 2016-11-20 VITAMIN D 25-OH TOTAL 33.5 >30 LIPOPROTEIN FRACTIONATION (LIPID PANEL) 2 CHOLESTEROL 179 TRIGLYCERIDE 107 HDL 57 LDL 101 CBC w DIFF 2015-07-19 WBC 7.4 4.8-10.8 ABSOLUTE NEUTROPHIL COUNT 3.7 2. 2-7.9 RBC 4.88 4.60-5.80 HEMOGLOBIN 15.9 14.0-18.0 HEMATOCRIT [...] 12 9-16 CREATININE 0.9 0.5-1.4 ESTIMATED GFR >60 PROTEIN, TOTAL 6.9 6.5-8.0 ALBUMIN 4.6 3.5-5.0 BILIRUBIN, TOTAL 0.7 0.0-1.0 CALCIUM 9.6 8.4-10.2 ALK. PHOS. 80 39-117 GOT 71 5-37 GPT 80 0-40 TSH (THYROID STIMULATING HORMONE) 2015-07 TSH 1.44 0.32-4.0 VITAMIN D 25-OH TOTAL 2015-07-19 VITAMIN D 25-OH TOTAL 18.1 >30 LIPOPROTEIN FRACTIONATION (LIPID PANEL) 2 CHOLESTEROL 205 TRIGLYCERIDE 139 HDL 61 LDL 117 CBC w DIFF 2014-07-21 WBC 9.5 4.8-10.8 ABSOLUTE NEUTROPHIL COUNT 5.4 2. 2-7.9 RBC 5.29 4.60-5.80 HEMOGLOBIN 16.3 14.0-18.0 HEMATOCRIT [...] 11 9-16 CREATININE 1.02 0.5-1.4 ESTIMATED GFR >60 PROTEIN, TOTAL 7.7 6.5-8.0 ALBUMIN 4.8 3.5-5.0 BILIRUBIN, TOTAL 0.6 0.0-1.0 CALCIUM 9.7 8.4-10.2 ALK. PHOS. 92 39-117 GOT 48 5-37 GPT 51 0-40 VITAMIN D 25-OH TOTAL 2014-07-21 VITAMIN D 25-OH TOTAL 27.4 >30 LIPOPROTEIN FRACTIONATION (LIPID PANEL) 2 CHOLESTEROL 179 TRIGLYCERIDE 121 HDL 45 LDL 110 CBC w DIFF 2013-05-14 WBC 7.6 4.8-10.8 ABSOLUTE NEUTROPHIL COUNT 4.8 2. 2-7.9 RBC 4.97 4.60-5.80 HEMOGLOBIN 15.7 14.0-18.0 HEMATOCRIT [...] 17 9-16 CREATININE 0.97 0.5-1.4 ESTIMATED GFR >60 PROTEIN, TOTAL 7.1 6.5-8.0 ALBUMIN 4.7 3.5-5.0 BILIRUBIN, TOTAL 0.6 0.0-1.0 CALCIUM 9.5 8.4-10.2 ALK. PHOS. 68 39-117 GOT 50 <3-37 GPT 67 <6-40 XR HUMERUS RT 2013-02-01 XR SHOULDER RT 2 VIEWS 2013-02-01 URINALYSIS + MICROSCOPIC 2012-05-27 COLOR YELLOW APPEARANCE,(UA) CLEAR SPECIFIC GRAVITY >= 1.030 1.005-1.025 LEUKOCYTES NEG NEG NITRITE NEG NEG PROTEIN,QUALITATIVE NEG NEG - TR LINDA PH 5.0 5.0-8.0 URINE BLOOD NEG NEG KETONES NEG NEG GLUCOSE NEG NEG MICROSCOPIC WBC 0 0-4 MICROSCOPIC RBC 0 0 EPITHELIAL CELLS TRACE BACTERIA NONE RENAL EPITHELIAL CELLS NONE CASTS NONE LIPOPROTEIN FRACTIONATION (LIPID PANEL) 2 CHOLESTEROL 210 TRIGLYCERIDE 136 HDL 64 LDL 119 CBC w DIFF 2012-05-26 WBC 7.1 4.8-10.8 ABSOLUTE NEUTROPHIL COUNT 4.0 2. 2-7.9 RBC 4.93 4.60-5.80 HEMOGLOBIN 15.8 14.0-18.0 HEMATOCRIT [...] 14 9-16 CREATININE 0.95 0.5-1.4 ESTIMATED GFR >60 PROTEIN, TOTAL 7.6 6.5-8.0 ALBUMIN 4.5 3.5-5.0 [...] hypercholesterolemia, 6 month f/u, Refills, Follow up hypertension, hypercholesterolemia, 3 month f/u, Follow up hypertension, hypercholesterolemia, vitamin D deficiency, depression, 6 month f/u, 6 month f/u, Follow up hypertension, hypercholesterolemia, Refills,Follow up hypertension, hypercholesterolemia, 6 month f/u, Follow [...] follow up, refills, urgent visit, follow up, annualvisit, Refills, f/u visit, refills Insurance Providers Health Insurance Type Health Plan Insurance Address Health Plan Insurance Phone Health Plan Insurance Name Health Plan Coverage Dates Member ID Patient Relationship to Subscriber Patient Address Patient Phone Patient Name Patient Date of Subscriber ID Subscriber Name Subscriber Date of Group No MEDICARE [address] [place] [address] 04 MEDICARE self [place] [id number] MEDICARE [address] [place] [address] 04 MEDICARE self [place] [id number] [employer] [address] [facility] [address] [employer] self Edward Tu [id number]
--- OUTSIDE RECORDS SUMMARY | 2022-07-04 11:08 | XMS_ITS ---
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 ; Gastritis K29.70 and Hiatal hernia K44.9 [facility] [address] [place] [phone] Apr, [facility] [address] [place] [phone] Jan, [facility] [address] [place] [phone] 13 Jan, 2022 Anorexia R63.0 ; 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 ; Weight loss R63.4 ; Early satiety R68.81 ; Irritable bowel syndrome K58.9 and History of adenomatous polyp of colon Z86.010 [facility] [address] [place] [phone] 06 Jan, 2022 [facility] Outpatient [address], [place] [phone] May, [facility] ER [address] [place], [place] [phone] Mar, [facility] ER [address] [place], [place] [phone] May, IMMUNIZATIONS Vaccine Route Administration Date Status Influenza Unknown Jan 12, 2022 Administered SOCIAL HISTORY Qualifiers Date Never Smoker REASON FOR REFERRAL FUNCTIONAL STATUS PLAN OF CARE Activity Details VITAL SIGNS Weight 168 lbs 2022-01-24 Height 69 in 2022-01-24 BMI 24.81 kg/m2 2022-01-24 Temperature 97.1 degrees Fahrenheit Blood pressure systolic 000 mm Hg Blood pressure diastolic 00 mm Hg 2022-01 MEDICATIONS Medication Instructions Dosage Frequency Start Date End Date Duration Status Lovastatin 40 MG TAKE 1 TABLET BY MOUTH EVERY DAY WITH FOOD 90 Active Mirtazapine 45 MG TAKE 1 TABLET BY MOUTH EVERYDAY AT BEDTIME 90 Active Metoprolol Tartrate 25 MG Orally Twice a day as directed 12h Active QUEtiapine Fumarate 100 MG 90 Acti ve Lisinopril 5 MG 90 Active PROCEDURES Procedure [...] presents today for retroperitoneal lymphadenopathy Insurance Providers Health Insurance Type Health Plan Insurance Address Health Plan Insurance Phone Health Plan Insurance Name Health Plan Coverage Dates Member ID Patient Relationship to Subscriber Patient Address Patient Phone Patient Name Patient Date of Subscriber ID Subscriber Name Subscriber Date of Group No MEDICARE OF [place] [address] [facility] [address] MED[place]ARE OF [place] self JOHN IYER [id number] [facility] [address] [facility] [address] [facility] INDEMNITY self JOHN IYER [id number]
--- NOTE | 2022-07-04 11:10 | ED_ITS ---
HPI - General Adult General Chief complaint: General Medical Stated complaint: LOW BP 82/60,110/70 NOW PER EMS Time Seen by Provider: 07/04/22 10:52 Source: patient Mode of arrival: EMS History of Present Illness HPI narrative: 82-year-old male with history colon CA, patient is postop day 6 status post partial colectomy and denies any fever but states he has had some chills and increased weakness but denies any melena or hematochezia. He also denies any shortness of breath or chest pain. Related Data Home Medications Medication Instructions Recorded Confirmed lisinopril 5 mg tablet 5 mg PO DAILY 05/22/22 06/28/22 lovastatin 40 mg tablet 40 mg PO DAILY 05/22/22 06/28/22 metoprolol tartrate 50 mg tablet 25 mg PO BID 05/22/22 06/19/22 mirtazapine 45 mg tablet 45 mg PO BEDTIME 05/22/22 06/28/22 quetiapine 100 mg tablet 100 mg PO BEDTIME 05/22/22 06/28/22 Allergies Allergy/AdvReac Type Severity Reaction Status Date / Time amoxicillin [From Augmentin] Allergy Intermediate Diarrhea Verified 06/20/22 09:52 clavulanic acid Allergy Intermediate Diarrhea Verified 06/20/22 09:52 [From Augmentin] Review of Systems Review of Systems: Pertinent positives and negatives as stated in HPI PMFSH Past Medical History Source: nursing notes reviewed Medical History Arthritis Depression GERD (gastroesophageal reflux disease) Gout Hypertension Neuroendocrine tumor Peptic ulcer disease Right inguinal hernia Surgical History H/O colonoscopy History of appendectomy History of esophagogastroduodenoscopy (EGD) Hx of bilateral cataract extraction Hx of right inguinal hernia repair S/P partial colectomy Family History Family History Other No family history of cancer Social History Social History Household Members: None Housing: Apartment Are you a primary child care attendant school to a significant other at home: No Do you presently have visiting nurse or other home services: No Alcohol intake: current Alcohol intake frequency: a few times a week Patient Tobacco Use Status: Former Tobacco user Quit Date: age 52 Tobacco use type: Cigarette Years Smoked: 20 Advance Directives: Yes Advance Directives Information Provided: Yes Advance Directives on File: No service: No Current occupational status: retired 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 GENERAL: Well developed, well nourished, in no acute distress. HEAD: Normocephalic/atraumatic EYES: PERRLA, EOMI LUNGS: Normal breath sounds. No adventitious sounds or accessory muscle use. SpO2<98> CARDIOVASCULAR: Regular rate and rhythm without noted murmurs, no JVD or lower extremity edema. ABDOMEN: Soft, non-tender, non-distended with healing Steri-Strips at midline abdominal incision and good approximation without erythema or surrounding induration MUSCULOSKELETAL: No tenderness, deformities, or effusions noted on gross inspection. EXTREMITIES: No cyanosis, clubbing or edema. SKIN: Inspection of the skin reveals no rashes NEUROLOGIC: Alert and oriented x 4. Strength and sensation to light touch were grossly intact x 4. Medications Administered Discontinued Medications Generic Name Dose Route Start Last Admin Trade Name Freq PRN Reason Stop Dose Admin Sodium Chloride 1,000 mls @ 999 mls/hr 07/04/22 11:15 07/04/22 12:22 Ns IV 07/04/22 12:15 Infused .Q1H1M CARROLL Infusion Medical Decision Making Medical Decision Making [facility] Narrative: 82-year-old male with increasing weakness and has known pole in CA. Orthostatics are positive and will obtain basic lab work. I reviewed all laboratory investigations and my interpretation is that the mild leukocytosis is consistent with patient's recent surgical procedure as patient is afebrile and otherwise does not report symptoms that would suggest infection. I do think that patient was mildly dehydrated and received 1 L of fluids and on re-evaluation he states he is feeling much better and was ambulated with a landy lisset gait at bedside. He is otherwise discharged home with recommendations to continue follow-up with his surgeon and his primary care provider. Differential Diagnosis Please see the discussion above Lab Data Please see the discussion above 07/04/22 11:16 07/04/22 11:16 Labs: Lab Results 07/04/22 07/04/22 07/04/22 Range/Units 11:16 11:16 11:16 WBC 11.1 H (4.8-10.8) X10*3/uL RBC 4.03 L (4.60-5.80) X10*6/uL Hgb 11.9 L (14.0-18.0) g/dl Hct 36.9 L (42.0-52.0) % MCV 91.6 (80.0-98.0) fL MCH 29.5 (27.0-33.0) pg MCHC 32.2 (31.0-36.0) g/dl RDW 14.0 (11.0-16.0) % Plt Count 250 D (160-400) X10*3/uL MPV 10.5 (9.4-12.4) fL Immature Gran % (Auto) 0.8 H (0.0-0.4) % Neut % (Auto) 79.2 H (45-73) % Lymph % (Auto) 8.5 L (20-40) % [place] % (Auto) 10.3 (2-11) % Eos % (Auto) 0.8 (0-4) % Baso % (Auto) 0.4 (0-2) % Lymph # (Auto) 1.0 L (1.2-4.9) X10*3/uL [place] # (Auto) 1.1 (0.1-1.2) X10*3/uL Eos # (Auto) 0.1 (0.0-0.4) X10*3/uL Baso # (Auto) 0.1 (0.0-0.2) X10*3/uL Abs Immat Gran (auto) 0.09 H (0.00-0.03) X10*3/uL Absolute Neuts (auto) 8.8 H (2.0-8.3) x10*3/uL Absolute Nucleated RBC 0.000 (0.0-0.012) X10*3/uL Nucleated RBC % (auto) 0.0 (0.0-0.2) /100WBC PT (10.0-13.1) SEC INR (0.9-1.1) Sodium 142 (135-145) mmol/L Potassium 4.0 (3.3-5.1) mmol/L Chloride 106 (96-108) mmol/L Carbon Dioxide 27 (22-29) mmol/L Anion Gap 13 (12-20) BUN 24 H (9-16) mg/dL Creatinine 1.39 (0.5-1.4) mg/dL Estim Creat Clear Calc 39.5 Estimated GFR 49 Random Glucose 184 H (60-115) mg/dL Calcium 8.8 D (8.4-10.2) mg/dL Total Bilirubin 0.7 (0.0-1.0) mg/dL AST 26 (5-37) U/L ALT 27 (0-40) U/L Alkaline Phosphatase 109 (39-117) U/L Troponin I High Sens (<3.5-35.0) ng/L Total Protein 5.4 L (6.5-8.0) g/dL Albumin 3.3 L (3.5-5.0) g/dL COVID-19 (OSMIN) Negative (Negative) COVID-19 Clin Com See Note Blood Type Antibody Screen 07/04/22 07/04/22 07/04/22 Range/Units 11:16 11:16 11:16 WBC (4.8-10.8) X10*3/uL RBC (4.60-5.80) X10*6/uL Hgb (14.0-18.0) g/dl Hct (42.0-52.0) % MCV (80.0-98.0) fL MCH (27.0-33.0) pg MCHC (31.0-36.0) g/dl RDW (11.0-16.0) % Plt Count (160-400) X10*3/uL MPV (9.4-12.4) fL Immature Gran % (Auto) (0.0-0.4) % Neut % (Auto) (45-73) % Lymph % (Auto) (20-40) % [place] % (Auto) (2-11) % Eos % (Auto) (0-4) % Baso % (Auto) (0-2) % Lymph # (Auto) (1.2-4.9) X10*3/uL [place] # (Auto) (0.1-1.2) X10*3/uL Eos # (Auto) (0.0-0.4) X10*3/uL Baso # (Auto) (0.0-0.2) X10*3/uL Abs Immat Gran (auto) (0.00-0.03) X10*3/uL Absolute Neuts (auto) (2.0-8.3) x10*3/uL Absolute Nucleated RBC (0.0-0.012) X10*3/uL Nucleated RBC % (auto) (0.0-0.2) /100WBC PT 11.8 (10.0-13.1) SEC INR 1.0 (0.9-1.1) Sodium (135-145) mmol/L Potassium (3.3-5.1) mmol/L Chloride (96-108) mmol/L Carbon Dioxide (22-29) mmol/L Anion Gap (12-20) BUN (9-16) mg/dL Creatinine (0.5-1.4) mg/dL Estim Creat Clear Calc Estimated GFR Random Glucose (60-115) mg/dL Calcium (8.4-10.2) mg/dL Total Bilirubin (0.0-1.0) mg/dL AST (5-37) U/L ALT (0-40) U/L Alkaline Phosphatase (39-117) U/L Troponin I High Sens 15.5 (<3.5-35.0) ng/L Total Protein (6.5-8.0) g/dL Albumin (3.5-5.0) g/dL COVID-19 (OSMIN) (Negative) COVID-19 Clin Com Blood Type O Positive Antibody Screen NEGATIVE Independent Interpretation I performed an independent interpretation of an: EKG Interpretation: Normal sinus rhythm, HR-72, no STEMI, DC/QRS/QTC is within normal limits. Radiology Impression Radiologist Impression: My interpretation is in agreement with radiology's impression of the imaging study. Discharge Plan Discharge Clinical Impression: Dehydration Patient Disposition: Home, Self-Care Instructions: Dehydration (ED) Additional Instructions: Please keep your appointments with your surgeon and your primary care provider. Resume all home medications as prescribed. Please continue to drink plenty of water and maintain your nutrition. Return to the ER for any worsening symptoms. Prescriptions: No Action mirtazapine 45 mg tablet 45 mg PO BEDTIME metoprolol tartrate 50 mg tablet 25 mg PO BID quetiapine 100 mg tablet 100 mg PO BEDTIME lovastatin 40 mg tablet 40 mg PO DAILY lisinopril 5 mg tablet 5 mg PO DAILY Referrals: Micheal Jesus MD [Primary Care Provider] -
[2022-07-04] MEDS: 0.9 % Sodium Chloride 1,000 ML 999 ML IV (11:21)
[2022-07-04 11:25] LABS: MANUAL DIFF FLAG NO
[2022-07-04 11:30] LABS: Basophils Absolute Auto 0.1 X10*3/uL (0.0-0.2); Basophils Percent Auto 0.4 % (0-2); Eosinophils Absolute Auto 0.1 X10*3/uL (0.0-0.4); Eosinophils Percent Auto 0.8 % (0-4); Hematocrit 36.9 % (42.0-52.0); Hemoglobin 11.9 g/dl (14.0-18.0); Imm Gran Abs Auto 0.09 X10*3/uL (0.00-0.03); Imm Gran Pct Auto 0.8 % (0.0-0.4); Lymphocytes Percent Auto 8.5 % (20-40); Mean Corpuscular HGB Conc 32.2 g/dl (31.0-36.0); Mean Corpuscular Hemoglobin 29.5 pg (27.0-33.0); Mean Corpuscular Volume 91.6 fL (80.0-98.0); Mean Platelet Volume 10.5 fL (9.4-12.4); Monocytes Absolute Auto 1.1 X10*3/uL (0.1-1.2); Monocytes Percent Auto 10.3 % (2-11); Neutrophils Absolute Auto 8.8 x10*3/uL (2.0-8.3); Neutrophils Percent Auto 79.2 % (45-73); Platelet Count 250 X10*3/uL (160-400); Red Blood Count 4.03 X10*6/uL (4.60-5.80); White Blood Count 11.1 X10*3/uL (4.8-10.8)
[2022-07-04 11:33] LABS: Prothrombin Time 11.8 SEC (10.0-13.1)
[2022-07-04 11:49] LABS: Alanine Aminotransferase 27 U/L (0-40); Albumin Level 3.3 g/dL (3.5-5.0); Alkaline Phosphatase 109 U/L (39-117); Anion Gap 13 (12-20); Aspartate Amino Transferase 26 U/L (5-37); Bilirubin Total 0.7 mg/dL (0.0-1.0); Blood Urea Nitrogen 24 mg/dL (9-16); Calcium 8.8 mg/dL (8.4-10.2); Carbon Dioxide 27 mmol/L (22-29); Chloride 106 mmol/L (96-108); Creatinine Clr Calc Pharmacy 39.5; Estimated Glomerular Filt Rate 49; Glucose Random 184 mg/dL (60-115); Sodium 142 mmol/L (135-145); Total Protein 5.4 g/dL (6.5-8.0)
[2022-07-04 11:54] LABS: Troponin-I High Sensitivity 15.5 ng/L (<3.5-35.0)
[2022-07-04 11:56] LABS: COVID-19 Test Negative (Negative); IDNOW Serial# BCCEAD1C
[2022-07-04 13:07] VITALS: BP 138/57; PULSE 78
[2022-07-04 13:33] VITALS: BP 130/73; PULSE 76; RESP 16; TEMP 37.1; O2SAT 97
--- NOTE | 2022-07-04 14:12 | PC.NURSE ---
IV REMOVED. PT AMBULATED WELL AROUND ED. PLAN FOR DISCHARGE.
== END 2022-07-04 14:26 | disposition home or self-care (01) ==
PROVIDERS: Emergency Provider Student in an Organized Health Care Education/Training Program; PCP Surgery
DX: E86.0 Dehydration (principal); R53.1 Weakness; D72.829 Elevated white blood cell count, unspecified; C18.9 Malignant neoplasm of colon, unspecified; I10 Essential (primary) hypertension; Z87.891 Personal history of nicotine dependence; Z90.49 Acquired absence of other specified parts of digestive tract; Z79.899 Other long term (current) drug therapy; Z20.822 Contact with and (suspected) exposure to COVID-19
CPT/HCPCS: 36415; 71045; 80053; 84484; 85025; 85610; 86850; 86900; 86901; 87635; 93005; 96360; 99284; 99285

== ENCOUNTER 2022-07-11 10:57 | Outpatient (REF) | payer MEDICARE, OTHER, SELFPAY | END 2022-07-11 10:58 | disposition home or self-care (01) | LOC: HO.LAB 10:57 | PROVIDERS: PCP Internal Medicine; Visit Provider Surgery | DX: T81.49XA Infection following a procedure, other surgical site, initial encounter (principal) | CPT/HCPCS: 87070; 87077; 87186; 87205; 99212 ==

== ENCOUNTER → 2022-07-17 13:40 | Outpatient (BNVA) | payer MEDICARE, OTHER, SELFPAY | PROVIDERS: PCP Internal Medicine; Visit Provider Surgery | DX: Z48.815 Encounter for surgical aftercare following surgery on the digestive system (principal); T81.49XD Infection following a procedure, other surgical site, subsequent encounter; Z90.49 Acquired absence of other specified parts of digestive tract | CPT/HCPCS: 99212 ==

== ENCOUNTER → 2022-08-06 11:22 | Outpatient (BNVA) | payer MEDICARE, OTHER, SELFPAY | PROVIDERS: PCP Internal Medicine; Visit Provider Surgery | DX: Z48.1 Encounter for planned postprocedural wound closure (principal); T81.49XD Infection following a procedure, other surgical site, subsequent encounter; C18.4 Malignant neoplasm of transverse colon | CPT/HCPCS: 99212 ==

== ENCOUNTER → 2022-08-19 13:41 | Outpatient (BNVA) | payer MEDICARE, OTHER, SELFPAY | PROVIDERS: PCP Internal Medicine; Visit Provider Surgery ==

== ENCOUNTER → 2022-08-20 13:26 | Outpatient (BNVA) | payer MEDICARE, OTHER, SELFPAY | PROVIDERS: PCP Internal Medicine; Visit Provider Surgery | DX: Z48.1 Encounter for planned postprocedural wound closure (principal); C18.4 Malignant neoplasm of transverse colon; Z90.49 Acquired absence of other specified parts of digestive tract | CPT/HCPCS: 99212 ==

== ENCOUNTER 2022-10-24 08:20 | Outpatient (REF) | payer MEDICARE, OTHER, SELFPAY ==
--- NOTE | ~2022-10-24 | CT_ITS ---
EXAMINATION: CT ABDOMEN AND PELVIS WITH CONTRAST CLINICAL INFORMATION: Neuroendocrine tumor. Colon ca. COMPARISON: Prior studies including the 03/14/2022 PET/CT scan TECHNIQUE: Multidetector volumetric imaging was performed from the superior aspect of the liver through the pubic symphysis following administration of 85 mL Omnipaque 300 intravenous contrast. Sagittal and coronal reformatted images were obtained on the technologist workstation.. This CT examination was performed using dose optimization techniques as appropriate, variously including the following: *Automated exposure control *Adjustment of mA and/or kV according to patient size (this includes techniques or standardized protocols for targeted exams where dose is matched to indication/reason for exam; i.e. extremities or head) *Use of iterative reconstruction technique DLP: 402 mGy-cm FINDINGS: LUNG BASES: Minimal linear airspace changes more likely due to atelectasis. LIVER, GALLBLADDER, AND BILIARY TREE: The liver is normal in size, shape, and attenuation. No focal hepatic lesion or biliary ductal dilatation is present. Mobile gallstones in the dependent portion of the gallbladder. No gallbladder wall thickening or pericholecystic inflammatory changes. PANCREAS: Unremarkable. SPLEEN: Unremarkable. ADRENAL GLANDS: Unremarkable. KIDNEYS AND URETERS: The kidneys are normal in size, shape, and attenuation. No hydronephrosis, hydroureter, or calculi seen. No perinephric stranding. BLADDER: Unremarkable. GASTROINTESTINAL TRACT: Large amount stool seen within the distal colon. No colonic wall thickening or pericolonic inflammatory change to suggest diverticulitis. No obstructive changes seen to the small bowel prominent diverticula incidentally noted ABDOMINAL WALL: Postoperative changes along the midline intra-abdominal wall. Fat-containing left internal hernia. LYMPHOVASCULAR STRUCTURES: No bulky retroperitoneal or mesenteric adenopathy is again noted. As examples there is a 1.5 cm short axis periaortic lymph node on image 34/86 that previously measured 1.4 cm in maximal short axis diameter on the 03/14/2022 study. The largest pericaval retroperitoneal lymph node on axial image 30/86 currently measures 2.1 cm in maximal diameter and previously measured 1.9 cm in similar orientation on the prior PET/CT. There is prominent peripancreatic and periportal adenopathy with the largest peripancreatic lymph node measuring 1.3 cm short axis on image 17/86 and previously this measured 1.3 cm, not significantly changed. Prominent celiac axis adenopathy present as well. There is a 0.6 cm short axis retrocrural lymph node not significantly changed in size or character from the 03/14/2022 PET/CT scan either. The mesenteric lymph nodes are more conglomerated and difficult to separate into individual nodes the largest discrete cluster of nodes in the right mid mesentery measures 3.9 x 2.5 cm in size and previously measured 3.6 x 2.1 cm in size. No new adenopathy PELVIC VISCERA: Unremarkable. OSSEOUS STRUCTURES: Multilevel degenerative changes in the spine and degenerative changes in both hips. CT/CT abdomen pelvis w IV con IMPRESSION: 1. Overall the appearance is similar to the recent 03/14/2022 study with bulky mesenteric or retroperitoneal adenopathy as described. The mesenteric adenopathy is more conglomerated and difficult to separate into individual nodes. The retroperitoneal lymph nodes are slightly more prominent on the current study compared to the 03/14/2022 study as described above. I do not appreciate any new adenopathy. 2. Chronic appearing changes otherwise as described above.
[2022-10-24] MEDS: iohexoL 350 MG/ML 100 ML INFUS..BTL IV (11:51)
== END 2022-10-24 08:21 | disposition home or self-care (01) ==
LOC: HO.CT 08:20
PROVIDERS: PCP Internal Medicine; Visit Provider Internal Medicine Medical Oncology
DX: D3A.8 Other benign neuroendocrine tumors (principal)
CPT/HCPCS: 74177; Q9967

== ENCOUNTER 2022-11-11 13:42 | Outpatient (AMB) | payer MEDICARE, OTHER, SELFPAY ==
[2022-11-11 13:48] VITALS: BP 134/64; PULSE 55; BMI 22.0
--- NOTE | 2022-11-11 13:48 | MHC.OFFVIS ---
Intake Vital Signs 11/11/22 13:48 Height 5 ft 9 in Weight 149 lb BMI 22.0 BP 134/64 Blood Pressure Location Rt brachial Position Sitting Pulse 55 Intake Visit Reasons: wound check, red at incision Intake Note: Patient here for wound check. C/o tenderness at incision site with touch. Denies bleeding or oozing. 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 He now presents with some discomfort and some redness at the most superior aspect of his incision. He is otherwise doing well. He has been cleared by Oncology and has not received any chemotherapy. He is tolerating a diet. Having normal bowel habits. His activity level is back to baseline. COUNTS INCLUDE 234 BEDS AT THE [facility] Medical History Arthritis Depression GERD (gastroesophageal reflux disease) Gout Hypertension Neuroendocrine tumor Peptic ulcer disease Right inguinal hernia Surgical History H/O colonoscopy History of appendectomy History of esophagogastroduodenoscopy (EGD) Hx of bilateral cataract extraction Hx of right inguinal hernia repair S/P partial colectomy (06/28/22) Family History Other No family history of cancer Social History Household Members: None Housing: Apartment Are you a primary career professional to a significant other at home: No Do you presently have visiting nurse or other home services: No Alcohol intake: current Alcohol intake frequency: a few times a week Patient Tobacco Use Status: Former Tobacco user Quit Date: age 52 Tobacco use type: Cigarette Years Smoked: 20 service: No Current occupational status: retired Current occupation: left hand Physical Exam Vital Signs: Last Vital Signs Pulse 55 11/11/22 13:48 BP 134/64 11/11/22 13:48 BMI result Body Mass Index 22.0 GI Other: At the most superior aspect of his incision, there is some very mild erythema. The incision is otherwise soft, benign, heal by good 1st intention. Under this area of mild erythema I can feel his fascia suture. No obvious abscess. No drainage Assessment & Plan Assessment & Plan (1) Pain at surgical incision: Code(s): L76.82 - Other postprocedural complications of skin and subcutaneous tissue Plan At present time, we will treat the patient conservatively. He has been given antibiotics and instructed to apply warm compresses periodically. Patient will contact me in approximately 1 weeks time and should his symptoms progress or worsen during this interim, we will see him immediately. All questions were answered. Medications: New sulfamethoxazole-trimethoprim 400-80 mg (Bactrim) 1 tab PO BID 14 tabs 0RF Coding Level of Care Code Tele Est Pt Level 3 (30238) Diagnoses Pain at surgical incision L76.82
== END 2022-11-11 13:52 | disposition home or self-care (01) ==
PROVIDERS: PCP Internal Medicine; Visit Provider Surgery
DX: L76.82 Other postprocedural complications of skin and subcutaneous tissue (principal)
CPT/HCPCS: 99213

== ENCOUNTER → 2022-11-11 13:42 | Outpatient (BNVA) | payer MEDICARE, OTHER, SELFPAY | PROVIDERS: PCP Internal Medicine; Visit Provider Surgery | DX: L76.82 Other postprocedural complications of skin and subcutaneous tissue (principal); C7A.8 Other malignant neuroendocrine tumors; Z90.49 Acquired absence of other specified parts of digestive tract; Z98.890 Other specified postprocedural states | CPT/HCPCS: 99212 ==

== ENCOUNTER 2022-12-03 12:48 | Outpatient (AMB) | payer MEDICARE, OTHER, SELFPAY ==
--- NOTE | 2022-12-03 12:51 | MHC.OFFVIS ---
Intake Vital Signs 12/03/22 13:00 Height 5 ft 9 in Weight 149 lb 6 oz BMI 22.1 BP 114/57 L Blood Pressure Location Lt brachial Position Sitting Pulse 60 Intake Visit Reasons: wound check, completed abx Intake Note: Patient is seen in office for wound check, post transverse colon resection. Patient c/o: denies any concerns at the time of visit. Business Unit Leader Required: No Accompanied by: Self / Same As Patient Allergies amoxicillin [From Augmentin] Allergy (Intermediate, Verified 12/03/22 13:01) Diarrhea clavulanic acid [From Augmentin] Allergy (Intermediate, Verified 12/03/22 13:01) Diarrhea HPI HPI Comments History of Present Illness Details Patient presents for follow-up. His abdominal incisional issue is completely resolved. In the meantime, he is tolerating a diet. Having normal bowel habits. [facility] Medical History Arthritis Depression GERD (gastroesophageal reflux disease) Gout Hypertension Neuroendocrine tumor Peptic ulcer disease Right inguinal hernia Surgical History H/O colonoscopy History of appendectomy History of esophagogastroduodenoscopy (EGD) Hx of bilateral cataract extraction Hx of right inguinal hernia repair S/P partial colectomy (06/28/22) Family History Other No family history of cancer Social History Household Members: None Housing: Apartment Are you a primary memory care director to a significant other at home: No Do you presently have visiting nurse or other home services: No Alcohol intake: current Alcohol intake frequency: a few times a week Patient Tobacco Use Status: Former Tobacco user Quit Date: age 52 Tobacco use type: Cigarette Years Smoked: 20 service: No Current occupational status: retired Current occupation: left hand Physical Exam Vital Signs: Last Vital Signs Pulse 60 12/03/22 13:00 BP 114/57 L 12/03/22 13:00 BMI result Body Mass Index 22.1 GI Other: Abdomen soft. Incision clean dry and intact. Most superior aspect induration has resolved completely. No evidence of erythema or fluctuance. Assessment & Plan Assessment & Plan (1) Pain at surgical incision: Code(s): L76.82 - Other postprocedural complications of skin and subcutaneous tissue Plan Patient has been given local instructions, and will follow-up p.r.n. Coding Level of Care Code Est Pt Level 1 (94175) Diagnoses Pain at surgical incision L76.82
[2022-12-03 13:00] VITALS: BP 114/57; PULSE 60; BMI 22.1
== END 2022-12-03 13:30 | disposition home or self-care (01) ==
PROVIDERS: PCP Internal Medicine; Visit Provider Surgery
DX: L76.82 Other postprocedural complications of skin and subcutaneous tissue (principal)

== ENCOUNTER → 2022-12-03 12:48 | Outpatient (BNVA) | payer MEDICARE, OTHER, SELFPAY | PROVIDERS: PCP Internal Medicine; Visit Provider Surgery | DX: L76.82 Other postprocedural complications of skin and subcutaneous tissue (principal) | CPT/HCPCS: 99211 ==

== ENCOUNTER 2023-04-17 08:55 | Outpatient (REF) | payer MEDICARE, OTHER, SELFPAY ==
--- NOTE | ~2023-04-17 | CT_ITS ---
EXAMINATION: CT ABDOMEN AND PELVIS WITH CONTRAST CLINICAL INFORMATION: Colon cancer with followup of retroperitoneal lymphadenopathy. COMPARISON: CT abdomen and pelvis 10/24/2022. TECHNIQUE: Multidetector volumetric images were obtained from the superior aspect of the liver through the pubic symphysis following administration 85 mL of Omnipaque 350 intravenous contrast. Sagittal and coronal reformatted images were obtained on the technologist's workstation. Oral contrast: No This CT examination was performed using dose optimization techniques as appropriate, variously including the following: *Automated exposure control *Adjustment of mA and/or kV according to patient size (this includes techniques or standardized protocols for targeted exams where dose is matched to indication/reason for exam; i.e. extremities or head) *Use of iterative reconstruction technique DLP: 412 mGy-cm NONVASCULAR FINDINGS: LUNG BASES: The visualized lung bases are unremarkable. LIVER, GALLBLADDER, AND BILIARY TREE: The liver is normal in size, shape, and attenuation. No focal hepatic lesion or biliary ductal dilatation is present. Small dependent gallstones are present in the gallbladder without evidence of cholecystitis. There is a tiny amount of perihepatic ascites. PANCREAS: Unremarkable. SPLEEN: Unremarkable. ADRENAL GLANDS: Unremarkable. KIDNEYS AND URETERS: The kidneys are normal in size, shape, and attenuation. No hydronephrosis, hydroureter, or calculi seen. No perinephric stranding. BLADDER: Unremarkable. GASTROINTESTINAL TRACT: The small and large bowel are unremarkable. A large stool burden is again seen in the colon. The appendix is unremarkable. ABDOMINAL WALL: There is a small fat-containing periumbilical hernia along with a fat-containing left inguinal hernia. LYMPH NODES: Retroperitoneal lymphadenopathy is again seen and relatively similar or possibly minimally smaller when compared to the prior exam. For example, there is a precaval lymph node seen with greatest short-axis dimension of about 2.0 cm compared with 2.2 cm previously (3:29 compare prior 3:30). There is a left para-aortic lymph node with greatest short-axis dimension of 1.5 cm, previously 1.6 cm (3:27 compare prior 3:29). Some preaortic lymph nodes are unchanged. There is a node just above the tank hepatis that appears slightly larger, increasing in size from 1.4 to 1.5 cm (3:15 compare 3:17). Another node just below this adjacent to the pancreatic head is unchanged at 1.7 cm in short-axis dimension (3:17 compare prior 3:19). There is some haziness in the omentum behind the anterior abdominal wall unchanged and in an area of what appears to be a surgical scar. VASCULAR FINDINGS: Calcific atherosclerotic changes are present in the aorta and iliofemoral vessels. There is no evidence of an abdominal aortic aneurysm. PELVIC VISCERA: Mild BPH. Seminal vesicles appear normal. OSSEOUS STRUCTURES: Degenerative changes are present in the spine. No bony destructive lesions. CT/CT abdomen pelvis w IV con IMPRESSION: 1. Retroperitoneal lymphadenopathy is again seen and relatively similar or possibly minimally smaller when compared to the prior exam. There is one node just above the tank hepatis that appears slightly larger. 2. Cholelithiasis without cholecystitis. 3. Large stool burden in the colon. 4. Mild BPH. 5. Other incidental findings as described above. Fleischner guidelines were followed.
== END 2023-04-17 08:56 | disposition home or self-care (01) ==
LOC: HO.CT 08:55
PROVIDERS: PCP Internal Medicine; Visit Provider Internal Medicine Medical Oncology
DX: C18.4 Malignant neoplasm of transverse colon (principal)
CPT/HCPCS: 74177; 82565; Q9967

== ENCOUNTER 2023-05-22 10:28 | Outpatient (AMB) | payer MEDICARE, OTHER, SELFPAY ==
--- NOTE | 2023-05-22 10:34 | A.OFFVIS_ITS ---
Intake Intake Visit Reasons: 1Y PVR Intake Note: Patient is Present for Follow Up Urology Medication: None Antibiotic Allergies: Amoxicillin Blood Thinners: None PVR: Patient had refused bladder scan, explained to patient that this is a routine check to make sure that he is emptying completely patient denied Patient confirmed allergy to Amoxicillin and Clavulanic Acid (Augmentin) Patient states no new medications Allergies amoxicillin [From Augmentin] Allergy (Intermediate, Verified 05/22/23 10:43) Diarrhea clavulanic acid [From Augmentin] Allergy (Intermediate, Verified 05/22/23 10:43) Diarrhea Medication List - Last Reconciled 05/22/23 by Riaz Laboy MD lisinopril 5 mg PO DAILY lovastatin 40 mg PO DAILY metoprolol tartrate 25 mg PO BID mirtazapine 45 mg PO BEDTIME quetiapine 100 mg PO BEDTIME HPI HPI Comments History of Present Illness Details Bernardo is a pleasant male. He is a patient of Dr. Cortez. He is seen for the following urologic conditions - lower urinary tract symptoms Bladder stable Prostate normal L[facility]PE[facility] Lower urinary tract symptoms Primarily urinary urgency when running with tap Does not have urge when out of the house Does have bowel urgency Discussed use of anticholinergics At this point he would prefer not to use medication PSA 01/03 2.6 12 month follow-up [facility] Medical History Arthritis Right inguinal hernia Neuroendocrine tumor Depression Peptic ulcer disease Gout GERD (gastroesophageal reflux disease) Hypertension Surgical History S/P partial colectomy (06/28/22) Hx of bilateral cataract extraction Hx of right inguinal hernia repair History of esophagogastroduodenoscopy (EGD) H/O colonoscopy History of appendectomy Family History Other No family history of cancer Social History Household Members: None Housing: Apartment Are you a primary assistant child care teacher to a significant other at home: No Do you presently have visiting nurse or other home services: No Alcohol intake: current Alcohol intake frequency: a few times a week Patient Tobacco Use Status: Former Tobacco user Quit Date: age 52 Tobacco use type: Cigarette Years Smoked: 20 service: No Current occupational status: retired Current occupation: left hand Review of Systems Const Denies chills and Denies fever(s) Card Reports no additional complaints and Denies syncope Resp Denies cough GI Denies abdominal pain and Denies heartburn Reports as per HPI and Denies change in libido Neuro Denies syncope Psych Denies change in libido Endo Denies change in libido Physical Exam Const General: cooperative, healthy appearing, comfortable and no acute distress Orientation/consciousness: patient oriented x3 HEENT Face and sinus: Yes normal facial exam Mouth: moist mucous membranes Neck Neck: Yes normal visual inspection, Yes full ROM and Yes trachea midline Chest Chest palpation & inspection: normal inspection of the chest Resp Effort & Inspection: normal respiratory effort, able to speak in complete sentences and no respiratory distress GI Inspection: Yes normal to inspection Rectal Exam - Male: Yes normal sphincter tone and Yes prostate normal Male General Exam: Yes normal external exam Penis: normal penis and circumcised Meatus: meatus normal Scrotum: scrotum normal Testes: Testes normal Back/Spine/Pelvis Cervical Spine: normal cervical lordosis Thoracic/Lumbar Spine: thoracic and lumbar spine normal to inspection Skin General skin exam: no rashes or lesions noted Neuro General: patient oriented x3, gait normal, tone normal and moves all extremities Extrem General: Yes normal to inspection and Yes capillary refill normal Assessment & Plan Assessment & Plan (1) Urinary urgency: Code(s): R39.15 - Urgency of urination Plan Twelve month follow-up L[facility]PEZ Patient Instructions: Imaging studies, laboratory and physical exam results were discussed and reviewed in detail. No major barriers to patient understanding were identified. An opportunity to ask questions regarding the treatment plan was provided. All questions were answered. The patient expressed understanding and agreement with the above treatment plan. The patient is aware they should contact our office by phone for worsening of their current condition or the appearance of new urologic symptoms. Compliance is encouraged with any medications and followup testing that is ordered. It is a privilege to participate in the urologic care of your patient. If you have any questions or concerns regarding treatment for the above conditions, or other urologic issues, please do not hesitate to contact me. The office telephone contact is [phone]. This note is constructed using voice recognition software. While every effort has been made to ensure accuracy ssrs report developer errors may have been included. Yours sincerely, Dr Riaz Laboy MD, [facility] - Urology Providers of Expert, Compassionate Care for the Genitourinary System Coding Level of Care Code Est Pt Level 4 (27340) Diagnoses Urinary urgency R39.15
== END 2023-05-22 11:13 | disposition home or self-care (01) ==
PROVIDERS: Visit Provider Urology
DX: R39.15 Urgency of urination (principal)
CPT/HCPCS: 99213

== ENCOUNTER → 2023-05-22 10:28 | Outpatient (BNVA) | payer MEDICARE, OTHER, SELFPAY | PROVIDERS: Visit Provider Urology | DX: R39.15 Urgency of urination (principal) | CPT/HCPCS: 99212 ==

== ENCOUNTER 2023-07-28 13:17 | Outpatient (AMB) | payer MEDICARE, OTHER, SELFPAY ==
[2023-07-28 13:46] VITALS: BP 118/60; PULSE 70; TEMP 36.6; O2SAT 97; BMI 23.5
--- NOTE | 2023-07-28 13:46 | MHC.OFFWIV ---
Intake Vital Signs 07/28/23 13:46 Height 5 ft 9 in Weight 159 lb BMI 23.5 BP 118/60 Blood Pressure Location Lt brachial Position Sitting Pulse 70 Pulse Source Pulse Oximeter Temp 97.9 F Temp Source Oral Pulse Oximetry (%) 97 Intake Visit Reasons: EP cyst on bottom of spine (lobby) Intake Note: pt is here for c.o cyst on bottom of spine Patient Tobacco Use Status: Former Tobacco user Quit Date: age 52 Allergies amoxicillin [From Augmentin] Allergy (Intermediate, Verified 07/28/23 13:47) Diarrhea clavulanic acid [From Augmentin] Allergy (Intermediate, Verified 07/28/23 13:47) Diarrhea Do you need a note to return to daycare/school/sports/work: No HPI HPI Comments History of Present Illness Details Patient presents to the walk-in today for sick visit Complaining of pain at coccyx, worse with sitting for last 4 days Was concern that he had an abscess or pimples and needs to be drained Denies any fall or injury PFSH Medical History Arthritis Right inguinal hernia Neuroendocrine tumor Depression Peptic ulcer disease Gout GERD (gastroesophageal reflux disease) Hypertension Surgical History S/P partial colectomy (06/28/22) Hx of bilateral cataract extraction Hx of right inguinal hernia repair History of esophagogastroduodenoscopy (EGD) H/O colonoscopy History of appendectomy Family History Other No family history of cancer Social History Household Members: None Housing: Apartment Are you a primary out of school hours care worker to a significant other at home: No Do you presently have visiting nurse or other home services: No Alcohol intake: current Alcohol intake frequency: a few times a week Patient Tobacco Use Status: Former Tobacco user Quit Date: age 52 Tobacco use type: Cigarette Years Smoked: 20 service: No Current occupational status: retired Current occupation: left hand Review of Systems Const All systems reviewed & are unremarkable except as noted in HPI and below Physical Exam Vital Signs: Last Vital Signs Temp 97.9 F 04/15/24 13:46 Pulse 70 07/28/23 13:46 BP 118/60 07/28/23 13:46 Pulse Ox 97 07/28/23 13:46 BMI result Body Mass Index 23.5 General: awake, alert, oriented. Answers questions appropriately. Fully engaged in examination. Skin: warm, dry, intact. No visible wounds, lesions, ulcers, abscesses visualized HEENT: Normocephalic. Hearing intact. Cardiac: External chest normal in appearance. Respiratory: No cough, audible wheezing or stridor. Abdomen: without gross distension. MS: No obvious swelling or deformities. Tenderness to palpation over coccyx Neurological: Oriented to person, place, time and situation. Thought process intact. Psychiatric: Appropriate mood and affect. Good judgment and insight. Results Reviewed Results Reviewed: X-ray sacrum coccyx ordered independently reviewed: No fracture or dislocation Assessment & Plan Assessment & Plan (1) Coccydynia: Code(s): M53.3 - Sacrococcygeal disorders, not elsewhere classified Plan X-ray ordered independently reviewed, results reviewed with patient Reassurance provided, no visual abscess or pimple New Rx: Celecoxib 50 mg p.o. twice daily. Do not take with any other nonsteroidal anti-inflammatory medications Recommended patient use cushion or donut pillow when seated Follow-up with PCP or return here for any new or worsening symptoms Orders: Orders XR sacrum coccyx min 2V Today M53.3 - Sacrococcygeal disorders, not elsewhere classified Medications: New celecoxib 50 mg PO BID 14 caps 0RF Coding Level of Care Code Est Pt Level 4 (16405) Diagnoses Coccydynia M53.3
== END 2023-07-28 15:30 | disposition home or self-care (01) ==
PROVIDERS: PCP Internal Medicine; Visit Provider Registered Nurse Emergency
DX: M53.3 Sacrococcygeal disorders, not elsewhere classified (principal)
CPT/HCPCS: 99213

== ENCOUNTER 2023-07-28 14:18 | Outpatient (REF) | payer MEDICARE, OTHER, SELFPAY ==
--- NOTE | ~2023-07-28 | XR_ITS ---
EXAMINATION: XR SACRUM AND COCCYX CLINICAL INFORMATION: Sacrococcygeal disorders, not elsewhere classified COMPARISON: CT abdomen pelvis 04/17/2023 TECHNIQUE: 3 views of the sacrum and coccyx were obtained. FINDINGS: Degenerative changes are present in the spine. There is partial sacralization of L5. 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 No fractures or bony destructive lesions are seen. XR/XR sacrum coccyx min 2V IMPRESSION: Degenerative changes in the spine and left hip. No acute finding.
== END 2023-07-28 14:19 | disposition home or self-care (01) ==
LOC: HO.HMGCX 14:18
PROVIDERS: PCP Internal Medicine; Visit Provider Registered Nurse Emergency
DX: M53.3 Sacrococcygeal disorders, not elsewhere classified (principal)
CPT/HCPCS: 72220

== ENCOUNTER 2023-09-04 14:18 | Outpatient (AMB) | payer MEDICARE, OTHER, SELFPAY ==
--- NOTE | 2023-09-04 14:19 | A.OFFVIS_ITS ---
Vital Signs 09/04/23 14:26 Height 5 ft 9 in Weight 158 lb 15.993 oz BMI 23.5 Intake Visit Reasons: pilondial cyst Intake Note: This patient presents for an assessment for pilonidal cyst. Pt c/o; reports no complaints. Hotel Director Required: No Accompanied by: Self / Same As Patient Allergies amoxicillin [From Augmentin] Allergy (Intermediate, Verified 09/04/23 14:26) Diarrhea clavulanic acid [From Augmentin] Allergy (Intermediate, Verified 09/04/23 14:26) Diarrhea Medication List - Last Reconciled 09/04/23 by Toi Contreras MD celecoxib 50 mg PO BID lisinopril 5 mg PO DAILY lovastatin 40 mg PO DAILY metoprolol tartrate 25 mg PO BID mirtazapine 45 mg PO BEDTIME quetiapine 100 mg PO BEDTIME HPI HPI pilondial cyst: Details: 83-year-old male referred for a cyst on the area of the tailbone. He says that he has noticed a small lump on this area for about a few months. He says that this has been bothering him because of pain and discomfort. He denies any drainage. He says he wants this area removed because of the discomfort. [facility] Medical History (Updated 09/04/23 @ 14:46 by Toi Contreras MD) Epidermal cyst Arthritis Right inguinal hernia Neuroendocrine tumor Depression Peptic ulcer disease Gout GERD (gastroesophageal reflux disease) Hypertension Surgical History S/P partial colectomy (06/28/22) Hx of bilateral cataract extraction Hx of right inguinal hernia repair History of esophagogastroduodenoscopy (EGD) H/O colonoscopy History of appendectomy Family History Other No family history of cancer Social History Household Members: None Housing: Apartment Are you a primary childbirth and infant care teacher to a significant other at home: No Do you presently have visiting nurse or other home services: No Alcohol intake: current Alcohol intake frequency: a few times a week Patient Tobacco Use Status: Former Tobacco user Quit Date: age 52 Tobacco use type: Cigarette Years Smoked: 20 service: No Current occupational status: retired Current occupation: left hand Review of Systems Const Denies chills and Denies fever(s) Card Denies chest pain, Denies dyspnea and Denies dyspnea on exertion Resp Denies cough, Denies dyspnea and Denies dyspnea on exertion GI Denies hematochezia and Denies change in bowel habits Denies hematuria and Denies difficulty urinating Musc Denies back pain and Denies limited range of motion Neuro Denies focal weakness and Denies convulsions Psych Denies depression and Denies mood swings Physical Exam Vital Signs: BMI result Body Mass Index 23.5 Const General: comfortable and no acute distress Orientation/consciousness: patient oriented x3 Neck Neck: Yes no lymphadenopathy Resp Auscultation: clear to auscultation bilaterally Cardio Rhythm: regular rhythm GI Palpation (GI): Soft to palpation, nontender and no guarding Back/Spine/Pelvis Other: Small cystic induration, about 5 mm in size, sacrococcygeal area without associated fistulous tracts Neuro General: patient oriented x3 Assessment & Plan Assessment & Plan (1) Epidermal cyst: Code(s): L72.0 - Epidermal cyst Category: Medical Plan: He has this small epidermal cyst on the sacrococcygeal area. There were no associated fistulous tracts so this is unlikely to be pilonidal cyst. He wants this excised. I explained the technique of excision under local anesthesia. I reviewed the risks including but not limited to bleeding and infections as well as the benefits and alternatives. He says he wants to proceed This will be done in the office on his next visit. Coding Level of Care Code Est Pt Level 3 (19093) Diagnoses Epidermal cyst L72.0
[2023-09-04 14:26] VITALS: BMI 23.5
== END 2023-09-04 14:50 | disposition home or self-care (01) ==
PROVIDERS: PCP Internal Medicine; Referring Provider Internal Medicine; Visit Provider Surgery
DX: L72.0 Epidermal cyst (principal)
CPT/HCPCS: 99213

== ENCOUNTER → 2023-09-04 14:18 | Outpatient (BNVA) | payer MEDICARE, OTHER, SELFPAY | PROVIDERS: PCP Internal Medicine; Referring Provider Internal Medicine; Visit Provider Surgery | DX: L72.0 Epidermal cyst (principal) | CPT/HCPCS: 99212 ==

== ENCOUNTER 2023-09-18 13:54 | Outpatient (AMB) | payer MEDICARE, OTHER, SELFPAY ==
--- NOTE | 2023-09-18 13:55 | A.OFFVIS_ITS ---
Intake Visit Reasons: excision pilondial cyst Intake Note: Office procedure: excision pilonidal cyst. Case Technician Required: No Accompanied by: Self / Same As Patient Allergies amoxicillin [From Augmentin] Allergy (Intermediate, Verified 09/18/23 13:56) Diarrhea clavulanic acid [From Augmentin] Allergy (Intermediate, Verified 09/18/23 13:56) Diarrhea HPI HPI excision pilondial cyst: Details: He is here for excision of a simple cyst from the sacrococcygeal area. [facility] Medical History Epidermal cyst Arthritis Right inguinal hernia Neuroendocrine tumor Depression Peptic ulcer disease Gout GERD (gastroesophageal reflux disease) Hypertension Surgical History S/P partial colectomy (06/28/22) Hx of bilateral cataract extraction Hx of right inguinal hernia repair History of esophagogastroduodenoscopy (EGD) H/O colonoscopy History of appendectomy Family History Other No family history of cancer Social History Household Members: None Housing: Apartment Are you a primary behavioral health care coordinator to a significant other at home: No Do you presently have visiting nurse or other home services: No Alcohol intake: current Alcohol intake frequency: a few times a week Patient Tobacco Use Status: Former Tobacco user Tobacco use type: Cigarette Years Smoked: 20 service: No Current occupational status: retired Current occupation: left hand Office Procedures Excision Details: He was in prone position. The area of the cyst near the sacrococcygeal region was prepped and draped. Lidocaine 1% was used for local anesthesia. I made an elliptical incision around the cystic induration using a blade 15. This was carried down through the full-thickness of the skin and subcutaneous fat to excise this entire indurated area. There were area removed as about 6-7 mm in diameter. The incision was closed with full-thickness nylon 3-0 simple interrupted sutures. Dressings were applied. The procedure was then completed. The patient tolerated the procedure well. There were no immediate complications. There was minimal blood loss. 14040-yscco/arms/legs 0.6-1cm Procedure code (CPT) selection complete Assessment & Plan Assessment & Plan (1) Epidermal cyst: Code(s): L72.0 - Epidermal cyst Category: Medical Plan: Cystic induration was removed without problems. He was given wound care instructions. He will be seen in the office in about 2 weeks for removal of sutures. Coding Level of Care Code Procedure Only Diagnoses Epidermal cyst L72.0 CPT Codes Trunk/Arms/Legs - CPT: 71320-caizf/arms/legs 0.6-1cm ([id number])
== END 2023-09-18 14:17 | disposition home or self-care (01) ==
PROVIDERS: PCP Internal Medicine; Visit Provider Surgery
DX: L72.0 Epidermal cyst (principal)
CPT/HCPCS: 11401

== ENCOUNTER 2023-09-18 13:54 | Outpatient (REF) | payer MEDICARE, OTHER, SELFPAY | END 2023-09-18 13:55 | disposition home or self-care (01) | LOC: HO.LNP 13:54 | PROVIDERS: PCP Internal Medicine; Visit Provider Surgery | DX: L72.0 Epidermal cyst (principal) | CPT/HCPCS: 11401; 88304; 88305 ==

== ENCOUNTER 2023-09-29 13:36 | Outpatient (AMB) | payer MEDICARE, OTHER, SELFPAY ==
[2023-09-29 13:40] VITALS: BMI 23.5
--- NOTE | 2023-09-29 13:40 | MHC.OFFVIS ---
Vital Signs 09/29/23 13:40 Height 5 ft 9 in Weight 159 lb BMI 23.5 Intake Visit Reasons: s/p excision pilonidal cyst Intake Note: This patient presents for a follow-up assessment status post excision epidermal cyst. Pt c/o; reports no complaints. Surgery: 09/18/2023 Corporate Manager Required: No Accompanied by: Self / Same As Patient Allergies amoxicillin [From Augmentin] Allergy (Intermediate, Verified 09/29/23 13:46) Diarrhea clavulanic acid [From Augmentin] Allergy (Intermediate, Verified 09/29/23 13:46) Diarrhea HPI HPI s/p excision pilonidal cyst: Details: He underwent excision of an epidermal cyst from the sacrococcygeal area under local anesthesia last 09/19/2023. He tolerated the procedure well. He currently denies significant complaints. [facility] Medical History Epidermal cyst Arthritis Right inguinal hernia Neuroendocrine tumor Depression Peptic ulcer disease Gout GERD (gastroesophageal reflux disease) Hypertension Surgical History History of removal of cyst (~09/18/23) S/P partial colectomy (06/28/22) Hx of bilateral cataract extraction Hx of right inguinal hernia repair History of esophagogastroduodenoscopy (EGD) H/O colonoscopy History of appendectomy Family History Other No family history of cancer Social History Household Members: None Housing: Apartment Are you a primary acute care nurse practitioner to a significant other at home: No Do you presently have visiting nurse or other home services: No Alcohol intake: current Alcohol intake frequency: a few times a week Patient Tobacco Use Status: Former Tobacco user Tobacco use type: Cigarette Years Smoked: 20 service: No Current occupational status: retired Current occupation: left hand Review of Systems Const Denies chills and Denies fever(s) Card Denies chest pain, Denies dyspnea and Denies dyspnea on exertion Resp Denies cough, Denies dyspnea and Denies dyspnea on exertion GI Denies hematochezia and Denies change in bowel habits Denies hematuria and Denies difficulty urinating Musc Denies back pain and Denies limited range of motion Neuro Denies focal weakness and Denies convulsions Psych Denies depression and Denies mood swings Physical Exam Vital Signs: BMI result Body Mass Index 23.5 Const General: comfortable and no acute distress Resp Effort & Inspection: normal respiratory effort Back/Spine/Pelvis Other: Excision site is well healed, sutures intact, no evidence of infection Assessment & Plan Assessment & Plan (1) Epidermal cyst: Code(s): L72.0 - Epidermal cyst Category: Medical Plan: Status post excision of a cyst from the sacrococcygeal area. This was a dermal scar on pathology. I removed his sutures. The incision is healing well. He can follow up on a p.r.n. basis. He was instructed on keeping the area clean and dry. Coding Level of Care Code Global (24585) Diagnoses Epidermal cyst L72.0
== END 2023-09-29 14:12 | disposition home or self-care (01) ==
PROVIDERS: PCP Internal Medicine; Visit Provider Surgery
DX: L72.0 Epidermal cyst (principal)
CPT/HCPCS: 99024

== ENCOUNTER → 2023-09-29 13:36 | Outpatient (BNVA) | payer MEDICARE, OTHER, SELFPAY | PROVIDERS: PCP Internal Medicine; Visit Provider Surgery | DX: Z09 Encounter for follow-up examination after completed treatment for conditions other than malignant neoplasm (principal); Z87.2 Personal history of diseases of the skin and subcutaneous tissue | CPT/HCPCS: 99212 ==

== ENCOUNTER 2023-10-13 08:21 | Outpatient (AMB) | payer MEDICARE, OTHER, SELFPAY ==
[2023-10-13 08:22] VITALS: BP 132/60; PULSE 53; BMI 23.0
--- NOTE | 2023-10-13 08:22 | A.OFFVIS_ITS ---
Vital Signs 10/13/23 08:22 Height 5 ft 9 in Weight 155 lb 8 oz BMI 23.0 BP 132/60 Blood Pressure Location Rt brachial Position Sitting Pulse 53 Intake Visit Reasons: painful s/p excision pilondial cyst Intake Note: This patient presents for an assessment for a pain status post excision pilonidal cyst. Patient c/o; reports pain surgical site, Hx excision pilonidal cyst 09/18/2023. Newcomer Hostess Required: No Accompanied by: Self / Same As Patient Allergies amoxicillin [From Augmentin] Allergy (Intermediate, Verified 10/13/23 08:24) Diarrhea clavulanic acid [From Augmentin] Allergy (Intermediate, Verified 10/13/23 08:24) Diarrhea HPI HPI painful s/p excision pilondial cyst: Details: He had undergone excision of a cyst from the sacrococcygeal area under anesthesia last 09/19/2023. His path report had shown a dermal scar likely from her previous cyst. I had seen him 2 weeks ago and the incision had healed well. He called the office because he says he still has some pain on the site whenever he sits while driving. He denies any discharge. [facility] Medical History Epidermal cyst Arthritis Right inguinal hernia Neuroendocrine tumor Depression Peptic ulcer disease Gout GERD (gastroesophageal reflux disease) Hypertension Surgical History History of removal of cyst (~09/18/23) S/P partial colectomy (06/28/22) Hx of bilateral cataract extraction Hx of right inguinal hernia repair History of esophagogastroduodenoscopy (EGD) H/O colonoscopy History of appendectomy Family History Other No family history of cancer Social History Household Members: None Housing: Apartment Are you a primary technical healthcare consultant to a significant other at home: No Do you presently have visiting nurse or other home services: No Alcohol intake: current Alcohol intake frequency: a few times a week Patient Tobacco Use Status: Former Tobacco user Tobacco use type: Cigarette Years Smoked: 20 service: No Current occupational status: retired 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 The surgical site is completely healed. I assured him that there was no signs of any infection. I told him that he have pain for a few more weeks because of the surgical site being a pressure point when sitting down. Furthermore, it is also possible that he may have coccydynia unrelated to the excision site itself I told him that he is welcome to come back to the office down the line if he wants to be re-evaluated. Coding Level of Care Code Global (71415) Diagnoses Epidermal cyst L72.0
== END 2023-10-13 08:34 | disposition home or self-care (01) ==
PROVIDERS: PCP Internal Medicine; Visit Provider Surgery
DX: L72.0 Epidermal cyst (principal)
CPT/HCPCS: 99024

== ENCOUNTER → 2023-10-13 08:21 | Outpatient (BNVA) | payer MEDICARE, OTHER, SELFPAY | PROVIDERS: PCP Internal Medicine; Visit Provider Surgery | DX: Z09 Encounter for follow-up examination after completed treatment for conditions other than malignant neoplasm (principal); Z87.2 Personal history of diseases of the skin and subcutaneous tissue | CPT/HCPCS: 99212 ==

== ENCOUNTER 2023-11-27 11:54 | Outpatient (REF) | payer MEDICARE, OTHER, SELFPAY ==
--- NOTE | ~2023-11-27 | XR_ITS ---
EXAMINATION: XR KNEE, LEFT CLINICAL INFORMATION: Pain in left knee. COMPARISON: 08/07/2018. TECHNIQUE: Three views of the left knee. FINDINGS: Bones are diffusely demineralized. Small joint effusion. Extensive vascular calcifications. Moderate joint space narrowing with degenerative changes in the medial and patellofemoral compartments. XR/XR knee LT 3V IMPRESSION: Moderate degenerative changes.
== END 2023-11-27 11:55 | disposition home or self-care (01) ==
LOC: HO.HOSX 11:54
PROVIDERS: Visit Provider Orthopaedic Surgery
DX: M25.562 Pain in left knee (principal); M17.12 Unilateral primary osteoarthritis, left knee
CPT/HCPCS: 73562; 99202

== ENCOUNTER 2023-11-27 13:55 | Outpatient (AMB) | payer MEDICARE, OTHER, SELFPAY ==
--- NOTE | 2023-11-27 14:18 | MHC.OFFVIS ---
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 The patient describes his pain as sharp in nature. His pain has gotten worse over the last few years in spite of continued non operative treatments. Has tried physical therapy exercises which aggravated his pain. He has also tried Tylenol and anti-inflammatory medicines which gave him minimal relief. He has failed the last 3 months of conservative treatment which has included a home exercise program and topical creams. At this point the patient's left knee pain is interfering with his activities of daily living and his ability to sleep well through the night. He has had multiple cortisone injections in the past which gave him no relief. He has not had a viscosupplementation injection. He wishes to hold off on surgery if at all possible. Allergies amoxicillin [From Augmentin] Allergy (Intermediate, Verified 11/27/23 14:19) Diarrhea clavulanic acid [From Augmentin] Allergy (Intermediate, Verified 11/27/23 14:19) Diarrhea Medication List - Last Reconciled 11/27/23 by Karlo Villalta MD lisinopril 5 mg PO DAILY lovastatin 40 mg PO DAILY metoprolol tartrate 25 mg PO BID mirtazapine 45 mg PO BEDTIME quetiapine 100 mg PO BEDTIME [facility] Medical History Epidermal cyst Arthritis Right inguinal hernia Neuroendocrine tumor Depression Peptic ulcer disease Gout GERD (gastroesophageal reflux disease) Hypertension Surgical History History of removal of cyst (~09/18/23) S/P partial colectomy (06/28/22) Hx of bilateral cataract extraction Hx of right inguinal hernia repair History of esophagogastroduodenoscopy (EGD) H/O colonoscopy History of appendectomy Family History Other No family history of cancer Social History Household Members: None Housing: Apartment Are you a primary healthcare advisory services manager to a significant other at home: No Do you presently have visiting nurse or other home services: No Alcohol intake: current Alcohol intake frequency: a few times a week Patient Tobacco Use Status: Former Tobacco user Tobacco use type: Cigarette Years Smoked: 20 service: No Current occupational status: retired 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 occupation: left hand Physical Exam Const Other: Well-nourished well-developed very friendly male awake alert and oriented x3 in no acute distress Extrem Other: Bilateral lower extremity examination shows good capillary refill, no skin lesions noted, normal sensation light touch Left knee examination shows a minimal effusion, palpable crepitus with range of motion, pain with range of motion, range of motion from -3 degrees to 115 degrees, no instability Results Reviewed Results Reviewed: X-rays of the patient's left knee taken today show moderate joint space narrowing, subchondral sclerosis, no acute bony abnormalities Assessment & Plan Assessment & Plan (1) Osteoarthritis of left knee: Code(s): M17.12 - Unilateral primary osteoarthritis, left knee Category: Medical Plan Mr. Mae presents with left knee pain due to osteoarthritis. I had a lengthy discussion with the patient regarding the treatment options. He wishes to hold off on total knee replacement surgery if at all possible. I agree with this plan. I will see whether or not the patient's insurance company will cover a viscosupplementation injection for his left knee. I will see him back once the injection is available. Feel free to call me at any time should questions regarding his orthopedic management arise. Thank you very much for asking me to see this very friendly gentleman. I spent 21 minutes in reviewing the patient's records and imaging studies, seeing the patient and documenting in the medical record. Orders: Orders XR knee LT 3V Today M25.562 - Pain in left knee XR knee RT 1V Today M25.562 - Pain in left knee Coding Level of Care Code New Pt Level 3 (88303) Diagnoses Osteoarthritis of left knee M17.12
== END 2023-11-27 14:34 | disposition home or self-care (01) ==
PROVIDERS: PCP Internal Medicine; Visit Provider Orthopaedic Surgery
DX: M17.12 Unilateral primary osteoarthritis, left knee (principal)
CPT/HCPCS: 99203

== ENCOUNTER 2023-12-18 13:35 | Outpatient (AMB) | payer MEDICARE, OTHER, SELFPAY ==
--- NOTE | 2023-12-18 13:40 | A.OFFVIS_ITS ---
Intake Visit Reasons: Left Knee Durolane Injection Intake Note: Bernardo is a 83 year old male who presents with complaints of progressively worsening left knee pain. He describes his pain sharp nature. His pain has gotten worse over the last few years in spite of continued non operative treatments. Has had multiple cortisone injections given into his left knee. The most recent injection gave him minimal relief. He would like to hold off on left total knee replacement surgery for as long as possible. He has done physical therapy exercises which aggravated his pain. He has also tried Tylenol and anti-inflammatory medicines which gave him minimal relief. The patient states that his left knee pain is now interfering with his activities of daily living and his ability to sleep well through the night. Allergies amoxicillin [From Augmentin] Allergy (Intermediate, Verified 12/18/23 13:40) Diarrhea clavulanic acid [From Augmentin] Allergy (Intermediate, Verified 12/18/23 13:40) Diarrhea Medication List - Last Reconciled 12/19/23 by Karlo Villalta MD lisinopril 5 mg PO DAILY lovastatin 40 mg PO DAILY metoprolol tartrate 25 mg PO BID mirtazapine 45 mg PO BEDTIME quetiapine 100 mg PO BEDTIME [facility] Medical History Epidermal cyst Arthritis Right inguinal hernia Neuroendocrine tumor Depression Peptic ulcer disease Gout GERD (gastroesophageal reflux disease) Hypertension Surgical History History of removal of cyst (~09/18/23) S/P partial colectomy (06/28/22) Hx of bilateral cataract extraction Hx of right inguinal hernia repair History of esophagogastroduodenoscopy (EGD) H/O colonoscopy History of appendectomy Family History Other No family history of cancer Social History Household Members: None Housing: Apartment Are you a primary career technical counselor to a significant other at home: No Do you presently have visiting nurse or other home services: No Alcohol intake: current Alcohol intake frequency: a few times a week Patient Tobacco Use Status: Former Tobacco user Tobacco use type: Cigarette Years Smoked: 20 service: No Current occupational status: retired 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 occupation: left hand Physical Exam Const Other: Well-nourished well-developed very friendly male awake alert and oriented x3 in no acute distress Extrem Other: Bilateral lower extremity examination shows good capillary refill, no skin lesions noted, normal sensation light touch Left knee examination shows a minimal effusion, pain with range of motion, crepitus with range of motion, range of motion from -3 degrees to 115 degrees, no instability Office Procedures Joint Injection/Aspiration Joint Injection/Aspiration Primary Site: left knee Prep: site was prepped using aseptic technique Injected: 60 mg of (Durolane viscosupplementation) and 1% plain lidocaine Procedure: The patient tolerated the procedure well Coding - Large joint Procedure code (CPT) selection complete Results Reviewed Results Reviewed: X-rays of the patient's left knee taken previously show joint space narrowing, subchondral sclerosis, no acute bony abnormalities Assessment & Plan Assessment & Plan (1) Osteoarthritis of left knee: Code(s): M17.12 - Unilateral primary osteoarthritis, left knee Category: Medical Plan Mr. Mae presents with left knee pain due to degenerative joint disease. I had a lengthy discussion with the patient regarding the treatment options. The risks and benefits of a left knee Durolane viscosupplementation injection were discussed at length with the patient. The patient wished to proceed. He tolerated the injection well. He will continue with his activity modifications. He will contact me prior to his follow-up appointment in 3 months should any questions or concerns arise. Feel free to call me at any time should questions regarding his orthopedic management arise. I spent 22 minutes in reviewing the patient's records and imaging studies, seeing the patient and documenting in the medical record. Orders: Orders AMB Joint Injection/Aspiration 12/18/23 M17.12 - Unilateral primary osteoarthritis, left knee Coding Level of Care Code Est Pt Level 3 (90495) Complex EM visit Add On G2211 Diagnoses Osteoarthritis of left knee M17.12 CPT Codes Coding - Large joint: 37050 - Large joint ([id number])
== END 2023-12-18 14:07 | disposition home or self-care (01) ==
PROVIDERS: PCP Internal Medicine; Visit Provider Orthopaedic Surgery
DX: M17.12 Unilateral primary osteoarthritis, left knee (principal)
CPT/HCPCS: 20610; 99213

== ENCOUNTER → 2023-12-18 13:35 | Outpatient (BNVA) | payer MEDICARE, OTHER, SELFPAY | PROVIDERS: PCP Internal Medicine; Visit Provider Orthopaedic Surgery | DX: M17.12 Unilateral primary osteoarthritis, left knee (principal) | CPT/HCPCS: 20610; 99212; J1010; J7318 ==

== ENCOUNTER 2024-01-05 09:27 | Outpatient (REF) | payer MEDICARE, OTHER, SELFPAY ==
--- NOTE | ~2024-01-05 | CT_ITS ---
EXAMINATION: CT ABDOMEN AND PELVIS WITH CONTRAST CLINICAL INFORMATION: Follow-up colon cancer. COMPARISON: April 17, 2023 TECHNIQUE: Multidetector volumetric images were obtained from the superior aspect of the liver through the pubic symphysis following administration 85 mL of Omnipaque 350 intravenous contrast. Sagittal and coronal reformatted images were obtained on the technologist's workstation. Oral contrast: Yes This CT examination was performed using dose optimization techniques as appropriate, variously including the following: *Automated exposure control *Adjustment of mA and/or kV according to patient size (this includes techniques or standardized protocols for targeted exams where dose is matched to indication/reason for exam; i.e. extremities or head) *Use of iterative reconstruction technique DLP: 335 mGy-cm FINDINGS: LUNG BASES: No pleural or pericardial effusion. LIVER, GALLBLADDER, AND BILIARY TREE: The liver is decreased in attenuation. No suspicious hepatic lesion or biliary ductal dilatation is present. Gallstones. Small ascites. PANCREAS: No ductal dilatation. SPLEEN: Not enlarged. ADRENAL GLANDS: No adrenal mass. KIDNEYS AND URETERS: The kidneys are normal in size, shape, and attenuation. No hydronephrosis. No perinephric stranding. BLADDER: Unremarkable. GASTROINTESTINAL TRACT: Large duodenal diverticulum. Polypoid mass in the splenic flexure measuring 3.6 x 3.0 x 3.7 cm. No small bowel obstruction. Marked stool throughout the colon. ABDOMINAL WALL: Fat-containing left inguinal hernia. Small fat-containing umbilical hernia. LYMPH NODES: Enlarged multistation lymphadenopathy including gastrohepatic ligament, retroperitoneum and root of the mesentery. Haziness of the omentum and peritoneum may represent carcinomatosis. VASCULAR: Normal caliber abdominal aorta. PELVIC VISCERA: Enlarged prostate gland. OSSEOUS STRUCTURES: No destructive bone lesions. CT/CT abdomen pelvis w IV con IMPRESSION: Polypoid mass in the splenic flexure measuring 3.6 x 3.0 x 3.7 cm unchanged from prior exam. Consider correlation with PET/CT. Enlarged multistation lymphadenopathy including gastrohepatic ligament, retroperitoneum and root of mesentery. Haziness of the omentum and peritoneum may represent carcinomatosis. The appearance is stable. Hepatic steatosis. Gallstones. Small abdominopelvic ascites increased from prior. Electronically signed by: Estevan Patrick MD 01/05/2024 02:17 PM EDT
[2024-01-05] MEDS: Barium Sulfate Oral (Berry) 450 ML ORAL.SUSP 900 ML PO (11:40)
[2024-01-05] MEDS: iohexoL 350 MG/ML 100 ML INFUS..BTL 85 ML IV (11:41)
== END 2024-01-05 09:28 | disposition home or self-care (01) ==
LOC: HO.CT 09:27
PROVIDERS: PCP Internal Medicine; Visit Provider Internal Medicine Medical Oncology
DX: C18.9 Malignant neoplasm of colon, unspecified (principal)
CPT/HCPCS: 74177; Q9967

== ENCOUNTER 2024-03-18 13:20 | Outpatient (AMB) | payer MEDICARE, OTHER, SELFPAY ==
--- NOTE | 2024-03-18 13:22 | A.OFFVIS_ITS ---
Vital Signs 03/18/24 13:23 Height 5 ft 9 in Weight 155 lb BMI 22.9 Intake Visit Reasons: OV: Left knee OA, last inj on 12/18/23 Intake Note: Bernardo is a 83 year old male who presents today for a follow up visit of his left knee OA. Patient received a left knee Durolane injection on 12/18/2023. The patient states that he got minimal relief from that injection. He has also had cortisone injections which gave him no relief. He wishes to hold off on surgery if at all possible. Allergies amoxicillin [From Augmentin] Allergy (Intermediate, Verified 03/18/24 13:23) Diarrhea clavulanic acid [From Augmentin] Allergy (Intermediate, Verified 03/18/24 13:23) Diarrhea Medication List - Last Reconciled 03/18/24 by Karlo Villalta MD lisinopril 5 mg PO DAILY lovastatin 40 mg PO DAILY metoprolol tartrate 25 mg PO BID mirtazapine 45 mg PO BEDTIME quetiapine 100 mg PO BEDTIME [facility] Medical History Epidermal cyst Arthritis Right inguinal hernia Neuroendocrine tumor Depression Peptic ulcer disease Gout GERD (gastroesophageal reflux disease) Hypertension Surgical History History of removal of cyst (~09/18/23) S/P partial colectomy (06/28/22) Hx of bilateral cataract extraction Hx of right inguinal hernia repair History of esophagogastroduodenoscopy (EGD) H/O colonoscopy History of appendectomy Family History Other No family history of cancer Social History Household Members: None Housing: Apartment Are you a primary vocational childcare teacher to a significant other at home: No Do you presently have visiting nurse or other home services: No Alcohol intake: current Alcohol intake frequency: a few times a week Patient Tobacco Use Status: Former Tobacco user Tobacco use type: Cigarette Years Smoked: 20 service: No Current occupational status: retired Current occupation: left hand Physical Exam Vital Signs: BMI result Body Mass Index 22.9 Const Other: Well-nourished well-developed very friendly male awake alert and oriented x3 in no acute distress Extrem Other: Bilateral lower extremity examination shows good capillary refill, no skin lesions noted, normal sensation light touch Left knee examination shows a minimal effusion, mild crepitus with range of motion, pain with range of motion, no instability Results Reviewed Results Reviewed: X-rays of the patient's left knee taken previously show joint space narrowing, subchondral sclerosis, no acute bony abnormalities Assessment & Plan Assessment & Plan (1) Left knee pain: Code(s): M25.562 - Pain in left knee Category: Medical Plan Mr. Mae presents with left knee pain due to degenerative joint disease. I had a lengthy discussion with the patient regarding the treatment options. Based on the patient's age and medical history I am not sure that he is a great surgical candidate at this time. Cortisone and viscosupplementation injections have not given him much relief. Thus, I will arrange for the patient to have an evaluation here in our pain management Department with Dr. Daly. The patient may be a candidate for a nerve block procedure. I will see him back on an as- needed basis. Feel free to call me at any time should questions regarding his orthopedic management arise. I spent 22 minutes in reviewing the patient's records and imaging studies, seeing the patient and documenting in the medical record. Orders: Referrals Pain Management Referral M25.562 - Pain in left knee Coding Level of Care Code Est Pt Level 3 (83004) Complex EM visit Add On G2211 Diagnoses Left knee pain M25.562
[2024-03-18 13:23] VITALS: BMI 22.9
--- OUTSIDE RECORDS SUMMARY | 2024-03-24 02:22 | XMS_ITS ---
Author Organization Ramon Cortez DO, [facility] Address [address] [place] [address] [phone] Care Team Providers Care Hairspring Inspector Name Role Phone Ramon Cortez Primary Care Provider REASON FOR VISIT FYI Encounters Encounter Location Date Provider Diagnosis Ramon Cortez DO, [address] [phone] 02/27/2024 Ramon Cortez PLAN OF TREATMENT No Information
--- OUTSIDE RECORDS SUMMARY | 2024-03-24 02:22 | XMS_ITS | Patient Health Record ---
Author Organization [facility] Address [address] [place] [address] Care Team Providers Care Mat Puncher Name Role Phone Ramon Cortez DO Primary Care Provider Unavail able Ramon Araiza Unavailable [phone] ALLERGIES Allergen (clinical drug ingredient) Drug/Non Drug Allergy documented on EMR Reaction Allergy Type Onset Date Status amoxicillin / clavulanate Augmentin DIARRHEA Drug Allergy Active REASON FOR REFERRAL No Information MEDICATIONS Medication SIG (Take, Route, Frequency, Duration) Notes Start Date End Date Status Metoprolol Tartrate 25 MG as directed Or ally Twice a day Active QUEtiapine Fumarate 100 MG Oral for 90 Active Lovastatin 40 MG TAKE 1 TABLET BY DENVER TH EVERY DAY WITH FOOD Oral for 90 Active Mirtazapine 45 MG TAKE 1 TABLET BY DENVER TH EVERYDAY AT BEDTIME Oral for 90 Active Lisinopril 5 MG Oral for 90 Ac tive IMMUNIZATIONS Vaccine Route Administration Date Status Comme nts Influenza Unknown 01/12/2022 Administered SOCIAL HISTORY Tobacco Use: Social History Observation Description Date Details (start date - stop date) Never Smoker NA - NA Sex Assigned At : Social History Observation Description Sex Assigned At Unknown Tobacco Use/Smoking Question Answer Notes Patient is a nonsmoker Alcohol Screen Question Answer Notes Did you have a drink contain ing alcohol in the past year? Yes How often did you have a dri nk containing alcohol in the past year? Never (0 point) How many drinks did you have on a typical day when you were drinking in the past year? 1 or 2 drinks (0 point) How often did you have 6 or more drinks on one occasion in the past year? 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) Problem Irritable bowel syndrome (K58.9) Active confirmed Irritable b owel syndrome (80571324) Problem History of adenomatous polyp of colon (Z86.010) Active confirmed History of adenomatous polyp of colon (657163701) Problem Diverticulosis of colon (K57.30) Active confirmed Diverticulosi s of colon (840451522) Problem Other malignant neuroendocrine tumors (C7A.8) Active confirmed Problem Decreased appetite (R63.0) Active confirmed Decrease in appetite (finding) (07699124) Problem Gastritis (K29.70) Active confirmed Gastritis (5538310) PLAN OF TREATMENT Future Test Test Name Order Date UPPER GI ENDOSCOPY 01/24/2022 COLONOSCOPY 01/24/2022 Insurance Providers Payer Name Payer Address Payer Phone Subscriber Number Group Number Insured Name Patient Relationship to Insured Coverage Start Date Coverage End Date MEDICARE OF [place] [address] [place] [address] [id number] JOHN IYER Self - patient is the insured [facility] [address] [place] [address] [id number] JOHN IYER Self - patient is the insured MEDICAL (GENERAL) HISTORY Medical History History ICD Code Hypertension GERD Gout Peptic ulcer disease Depression Denies MO,DM,CVA,Lung disease,renal dise ase 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 Surgical History Surgery Date(Month/Year) Right inguinal hernia repair Appendectomy Bilateral cataracts
--- OUTSIDE RECORDS SUMMARY | 2024-03-24 02:22 | XMS_ITS ---
Author Organization Ramon Cortez DO, [facility] Address [address] [place] [phone] Care Team Providers Care Core Piler Name Role Phone Ramon Cortez Primary Care Provider [phone] REASON FOR VISIT Needs call back from office Encounters Encounter Location Date Provider Diagnosis Ramon Cortez DO, FACP [address] [place] [phone] 02/06/2024 Ramon Cortez PLAN OF TREATMENT No Information
--- OUTSIDE RECORDS SUMMARY | 2024-03-24 02:22 | XMS_ITS ---
Author Organization Ramon Cortez DO [facility] Address [address] [place] [address] [phone] Care Team Providers Care Cut Plug Packer Name Role Phone Ramon Cortez Primary Care Provider [phone] REASON FOR VISIT Needs call back from MD MEDICATIONS Medication SIG (Take, Route, Fr equency, Duration) Notes Start Date End Date Status Lovastatin 40 MG 1 tablet with the ev ening meal Orally Once a day for 90 days Ac tive Encounters Encounter Location Date Provider Diagnosis Ramon Cortez DO, [address] [phone] 02/03/2024 Ramon Cortez Hypercholesterolemia E78.00 ASSESSMENTS Encounter Date Diagnosis Assessment Notes Treatment Notes Treatment Clinical Notes 02/03/2024 Hypercholesterolemia (ICD-10 - E78.00) PLAN OF TREATMENT Medication Medication Name Sig Start Date Stop Date Notes Lovastatin 40 MG 1 tablet with the ev ening meal Orally Once a day for 90 days
--- OUTSIDE RECORDS SUMMARY | 2024-03-24 02:23 | XMS_ITS | Patient Health Record ---
Author Organization Ramon Cortez DO, [facility] Address [address] [place] [phone] Care Team Providers [employer] Name Role Phone Ramon Cortez Primary Care Provider ALLERGIES Allergen (clinical drug ingredient) Drug/Non Drug Allergy documented on EMR Reaction Allergy Type Onset Date Status amoxicillin / clavulanate Augmentin diarrhea Drug Allergy Active RESULTS Component Value Reference Range Notes Creatinine GFR POC Reviewed date:04/18/2023 10:35:33 AM Interpretation:Normal Performing Lab:[facility], [address] [place] [phone] Notes/Report: [id number] 0.65 >60 1108 HO.BERCHB Creatinine POC 0.7 0.5-1.4 mg/dL GFR POC > 60 Chronic Kidney Disease: Estimated GFR < 60 mL/min/1.73m2 Severe Kidney Disease: Estimated GFR < 15 mL/min/1.73m2 CT abdomen pelvis w con Reviewed date:04/25/2023 09:48:59 AM Interpretation:Abnormal Performing Lab: Notes/Report: [address] [address] [address] Scan Report Signed Patient: Bernardo Mae MR#: [id number] : 1940 Acct:[id number] Age/Sex: 82 / M ADM Date: 04/17/23 Loc: HO.CT Attending Dr: Bhavani Jackson MD Ordering Physician: Bhavani Jackson MD Date of Service: 04/17/23 Procedure(s): CT abdomen pelvis w IV con Accession Number(s): [id number] cc: Ramon Cortez DO; Bhavani Jackson MD EXAMINATION: CT ABDOMEN AND PELVIS WITH CONTRAST CLINICAL INFORMATION: Colon cancer with followup of retroperitoneal lymphadenopathy. COMPARISON: CT abdomen and pelvis 10/24/2022. TECHNIQUE: Multidetector volumetric images were obtained from the superior aspect of the liver through the pubic symphysis following administration 85 mL of Omnipaque 350 intravenous contrast. Sagittal and coronal reformatted images were obtained on the technologist's workstation. Oral contrast: No This CT examination was performed using dose optimization techniques as appropriate, variously including the following: *Automated exposure control *Adjustment of mA and/or kV according to patient size (this includes techniques or standardized protocols for targeted exams where dose is matched to indication/reason for exam; i.e. extremities or head) *Use of iterative reconstruction technique DLP: 412 mGy-cm NONVASCULAR FINDINGS: LUNG BASES: The visualized lung bases are unremarkable. LIVER, GALLBLADDER, AND BILIARY TREE: The liver is normal in size, shape, and attenuation. No focal hepatic lesion or biliary ductal dilatation is present. Small dependent gallstones are present in the gallbladder without evidence of cholecystitis. There is a tiny amount of perihepatic ascites. PANCREAS: Unremarkable. SPLEEN: Unremarkable. ADRENAL GLANDS: Unremarkable. KIDNEYS AND URETERS: The kidneys are normal in size, shape, and attenuation. No hydronephrosis, hydroureter, or calculi seen. No perinephric stranding. BLADDER: Unremarkable. GASTROINTESTINAL TRACT: The small and large bowel are unremarkable. A large stool burden is again seen in the colon. The appendix is unremarkable. ABDOMINAL WALL: There is a small fat-containing periumbilical hernia along with a fat-containing left inguinal hernia. LYMPH NODES: Retroperitoneal lymphadenopathy is again seen and relatively similar or possibly minimally smaller when compared to the prior exam. For example, there is a precaval lymph node seen with greatest short-axis dimension of about 2.0 cm compared with 2.2 cm previously (3:29 compare prior 3:30). There is a left para-aortic lymph node with greatest short-axis dimension of 1.5 cm, previously 1.6 cm (3:27 compare prior 3:29). Some preaortic lymph nodes are unchanged. There is a node just above the tank hepatis that appears slightly larger, increasing in size from 1.4 to 1.5 cm (3:15 compare 3:17). Another node just below this adjacent to the pancreatic head is unchanged at 1.7 cm in short-axis dimension (3:17 compare prior 3:19). There is some haziness in the omentum behind the anterior abdominal wall unchanged and in an area of what appears to be a surgical scar. VASCULAR FINDINGS: Calcific atherosclerotic changes are present in the aorta and iliofemoral vessels. There is no evidence of an abdominal aortic aneurysm. PELVIC VISCERA: Mild BPH. Seminal vesicles appear normal. OSSEOUS STRUCTURES: Degenerative changes are present in the spine. No bony destructive lesions. CT/CT abdomen pelvis w IV con IMPRESSION: 1. Retroperitoneal lymphadenopathy is again seen and relatively similar or possibly minimally smaller when compared to the prior exam. There is one node just above the tank hepatis that appears slightly larger. 2. Cholelithiasis without cholecystitis. 3. Large stool burden in the colon. 4. Mild BPH. 5. Other incidental findings as described above. Fleischner guidelines were followed. Dictated By: Will Sneed MD Signed By: <Electronically signed by Will Sneed MD in OV> 04/24/23 1407 DD/ 1122 TD/TT: Manager Trade Marketing: PHILLIP Complete Blood Count Auto Di ff Reviewed date:05/30/2023 02:24:16 PM Interpretation:Normal Performing Lab:[facility], [address] [place] [phone] Notes/Report: White Blood Count 5.8 4.8-10.8 X10*3/uL Red Blood Count 4.72 4.60-5.80 X10*6/uL Hemoglobin 14.0 14.0-18.0 g/dl Hematocrit 42.9 42.0-52.0 % Mean Corpuscular Volume 90.9 80.0-98.0 fL Mean Corpuscular Hemoglobin 29.7 27.0-33.0 pg Mean Corpuscular HGB Conc 32.6 31.0-36.0 g/dl Red Cell Distribution Width 13.3 11.0-16.0 % Platelet Count 162 160-400 X10*3/uL Mean Platelet Volume 10.9 9.4-12.4 fL Neutrophils Percent Auto 53.0 45-73 % Imm Gran Pct Auto 0.3 0.0-0.4 % Lymphocytes Percent Auto 30.6 20-40 % Monocytes Percent Auto 10.1 2-11 % Eosinophils Percent Auto 4.8 0-4 % Basophils Percent Auto 1.2 0-2 % NRBC Pct Auto 0.0 0.0-0.2 /100WBC Neutrophils Absolute Auto 3.1 2.0-8.3 x10*3/u L Imm Gran Abs Auto 0.02 0.00-0.03 X10*3/uL Lymphocytes Absolute Auto 1.8 1.2-4.9 X10*3/u L Monocytes Absolute Auto 0.6 0.1-1.2 X10*3/uL Eosinophils Absolute Auto 0.3 0.0-0.4 X10*3/u L Basophils Absolute Auto 0.1 0.0-0.2 X10*3/uL NRBC Abs Auto 0.000 0.0-0.012 X10*3/uL Comprehensive Met. Panel Reviewed date:05/30/2023 03:15:42 PM Interpretation:Abnormal Performing Lab:[facility], [address] [place] [phone] Notes/Report: Sodium 144 135-145 mmol/L Potassium 4.1 3.3-5.1 mmol/L Chloride 107 96-108 mmol/L Carbon Dioxide 31 22-29 mmol/L Anion Gap 10 12-20 Blood Urea Nitrogen 12 9-16 mg/dL Creatinine 0.99 0.5-1.4 mg/dL Creatinine Clr Calc Pharmacy 54.0 eGFR (calculated from the MDRD study equation) and eCrCl (calculated from the Cockcroft-Gault equation) are based on different parameters and may not yield comparable results. If eCrCl result is absurd, please check patient's height/weight. Estimated Glomerular Filt Rate > 60 NOTE: For -Moroccan individuals, multiply the result by 1.210. Chronic Kidney Disease: Estimated GFR < 60 mL/min/1.73m2 Severe Kidney Disease: Estimated GFR < 15 mL/min/1.73m2 Glucose Random 130 60-115 mg/dL Calcium 9.5 8.4-10.2 mg/dL Bilirubin Total 0.4 0.0-1.0 mg/dL Aspartate Amino Transferase 37 5-37 U/L Alanine Aminotransferase 31 0-40 U/L Total Protein 7.0 6.5-8.0 g/dL Albumin Level 4.3 3.5-5.0 g/dL Alkaline Phosphatase 109 39-117 U/L Carcinoembryonic Antigen Reviewed date:05/30/2023 03:14:51 PM Interpretation:Normal Performing Lab:[facility], [address] [place] [phone] Notes/Report: Carcinoembryonic Antigen 2.00 CEA Reference Range: 93.4% Non-Smokers = 0.0-3.0 ng/mL 95.6% Smokers = 0.0-5.0 ng/mL CEA Methodology: [employer] Alinity i Chemiluminescent Microparticle Immunoassay (CMIA) CEA testing can have significant value in monitoring of patients with diagnosed malignancies in whom changing concentrations of CEA are observed. Values obtained with different assay methods cannot be used interchangeably. Ethan Nelson Reviewed date:05/30/2023 02:21:06 PM Interpretation:Hold Performing Lab:[facility], [address] [place] [phone] Notes/Report: Ethan Nelson See Note Specimen held untested for 24 hours; Call to request Chemistry testing. XR sacrum coccyx min 2V Reviewed date:07/28/2023 03:39:16 PM Interpretation:Abnormal Performing Lab: Notes/Report: [facility] [address] [place] [address] [place] [address] XRay Report Signed Patient: Bernardo Mae MR#: [id number] : 1940 Acct:[id number] Age/Sex: 83 / M ADM Date: 07/28/23 Loc: .HMGCX Attending Dr: Rena Calderón APRN, CNP Ordering Physician: Rena Calderón APRN, CNP Date of Service: 07/28/23 Procedure(s): XR sacrum coccyx min 2V Accession Number(s): [id number] cc: Ramon Cortez DO; Rena Calderón APRN, CNP EXAMINATION: XR SACRUM AND COCCYX CLINICAL INFORMATION: Sacrococcygeal disorders, not elsewhere classified COMPARISON: CT abdomen pelvis 04/17/2023 TECHNIQUE: 3 views of the sacrum and coccyx were obtained. FINDINGS: Degenerative changes are present in the spine. There is partial sacralization of L5. 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 No fractures or bony destructive lesions are seen. XR/XR sacrum coccyx min 2V IMPRESSION: Degenerative changes in the spine and left hip. No acute finding. Dictated By: Will Sneed MD Signed By: <Electronically signed by Will Sneed MD in OV> 07/28/23 1530 DD/ 1432 TD/TT: Manager Trade Marketing: PHILLIP Pathology Reviewed date:09/22/2023 04:57:26 PM Interpretation:Benign Performing Lab:[facility], [address] [place] [phone] Notes/Report: Complete Blood Count Auto Di ff Reviewed date:12/30/2023 03:58:56 PM Interpretation:Abnormal Performing Lab:[facility], [address] [place] [phone] Notes/Report: White Blood Count 5.2 4.8-10.8 X10*3/uL Red Blood Count 4.53 4.60-5.80 X10*6/uL Hemoglobin 13.8 14.0-18.0 g/dl Hematocrit 41.4 42.0-52.0 % Mean Corpuscular Volume 91.4 80.0-98.0 fL Mean Corpuscular Hemoglobin 30.5 27.0-33.0 pg Mean Corpuscular HGB Conc 33.3 31.0-36.0 g/dl Red Cell Distribution Width 13.5 11.0-16.0 % Platelet Count 145 160-400 X10*3/uL Mean Platelet Volume 10.8 9.4-12.4 fL Neutrophils Percent Auto 57.1 45-73 % Imm Gran Pct Auto 0.6 0.0-0.4 % Lymphocytes Percent Auto 25.8 20-40 % Monocytes Percent Auto 10.3 2-11 % Eosinophils Percent Auto 5.2 0-4 % Basophils Percent Auto 1.0 0-2 % NRBC Pct Auto 0.0 0.0-0.2 /100WBC Neutrophils Absolute Auto 3.0 2.0-8.3 x10*3/u L Imm Gran Abs Auto 0.03 0.00-0.03 X10*3/uL Lymphocytes Absolute Auto 1.4 1.2-4.9 X10*3/u L Monocytes Absolute Auto 0.5 0.1-1.2 X10*3/uL Eosinophils Absolute Auto 0.3 0.0-0.4 X10*3/u L Basophils Absolute Auto 0.1 0.0-0.2 X10*3/uL NRBC Abs Auto 0.000 0.0-0.012 X10*3/uL Comprehensive Met. Panel Reviewed date:12/30/2023 07:28:05 PM Interpretation:Abnormal Performing Lab:[address] [phone] Notes/Report: Sodium 146 135-145 mmol/L Potassium 4.2 3.3-5.1 mmol/L Chloride 109 96-108 mmol/L Carbon Dioxide 29 22-29 mmol/L Anion Gap 12 12-20 Blood Urea Nitrogen 11 9-16 mg/dL Creatinine 1.05 0.5-1.4 mg/dL Creatinine Clr Calc Pharmacy 50.0 eGFR (calculated from the MDRD study equation) and eCrCl (calculated from the Cockcroft-Gault equation) are based on different parameters and may not yield comparable results. If eCrCl result is absurd, please check patient's height/weight. Estimated Glomerular Filt Rate > 60 NOTE: For -Moroccan individuals, multiply the result by 1.210. Chronic Kidney Disease: Estimated GFR < 60 mL/min/1.73m2 Severe Kidney Disease: Estimated GFR < 15 mL/min/1.73m2 Glucose Random 124 60-115 mg/dL Calcium 9.8 8.4-10.2 mg/dL Bilirubin Total 0.5 0.0-1.0 mg/dL Aspartate Amino Transferase 38 5-37 U/L Alanine Aminotransferase 29 0-40 U/L Total Protein 6.7 6.5-8.0 g/dL Albumin Level 4.2 3.5-5.0 g/dL Alkaline Phosphatase 107 39-117 U/L Carcinoembryonic Antigen Reviewed date:12/30/2023 07:28:34 PM Interpretation:Normal Performing Lab:[address] [phone] Notes/Report: Carcinoembryonic Antigen 2.20 CEA Reference Range: 93.4% Non-Smokers = 0.0-3.0 ng/mL 95.6% Smokers = 0.0-5.0 ng/mL CEA Methodology: [employer] Alinity i Chemiluminescent Microparticle Immunoassay (CMIA) CEA testing can have significant value in monitoring of patients with diagnosed malignancies in whom changing concentrations of CEA are observed. Values obtained with different assay methods cannot be used interchangeably. Chromogranin A Reviewed date:01/11/2024 03:34:12 PM Interpretation:Abnormal Performing Lab:[facility], [address] [place] [phone] Notes/Report: Chromogranin A 1468 ADULTS: <311 ng/mL The sample type for this test was serum. Interpretation of patient results may be affected by a variety of conditions such as hypertension, gastritis, prostate cancer, hyperparathyroidism, and most commonly renal disease and use of proton pump inhibitors (PPIs). (Mo Delaney, et al. Chromogranin A measurement in metastatic well-differentiated gastroenteropancreatic neuroendocrine carcinoma: screening for false positives and a prospective follow-up study. Int J Biol Markers. 2010;26(2):94-101.) This test was performed using a Liquid Chromatography Mass Spectrometry method. Values obtained from different assay methods cannot be used interchangeably. Chromogranin A levels, regardless of value, should not be interpreted as absolute evidence of the presence or absence of disease. This test was developed and its analytical performance characteristics have been determined by [employer]. It has not been cleared or approved by FDA. This assay has been validated pursuant to the CLIA regulations and is used for clinical purposes. THIS TEST WAS PERFORMED AT: [employer] [address] [place] [address] MAY GARNER MD,PHD,RASHAUN Ethan Nelson Reviewed date:12/30/2023 03:53:52 PM Interpretation:Hold Performing Lab:[facility], [address] [place] [phone] Notes/Report: Ethan Nelson See Note Specimen held untested for 24 hours; Call to request Chemistry testing. CT abdomen pelvis w con Reviewed date:01/05/2024 03:04:52 PM Interpretation:Abnormal Performing Lab: Notes/Report: [address] [place] [address] CT Scan Report Signed Patient: Bernardo Mae MR#: [id number] : 1940 Acct:[id number] Age/Sex: 83 / M ADM Date: 01/05/24 Loc: HO.CT Attending Dr: Bhavani Jackson MD Ordering Physician: Bhavani Jackson MD Date of Service: 01/05/24 Procedure(s): CT abdomen pelvis w IV con Accession Number(s): [id number] cc: Ramon Cortez DO; Bhavani Jackson MD EXAMINATION: CT ABDOMEN AND PELVIS WITH CONTRAST CLINICAL INFORMATION: Follow-up colon cancer. COMPARISON: April 17, 2023 TECHNIQUE: Multidetector volumetric images were obtained from the superior aspect of the liver through the pubic symphysis following administration 85 mL of Omnipaque 350 intravenous contrast. Sagittal and coronal reformatted images were obtained on the technologist's workstation. Oral contrast: Yes This CT examination was performed using dose optimization techniques as appropriate, variously including the following: *Automated exposure control *Adjustment of mA and/or kV according to patient size (this includes techniques or standardized protocols for targeted exams where dose is matched to indication/reason for exam; i.e. extremities or head) *Use of iterative reconstruction technique DLP: 335 mGy-cm FINDINGS: LUNG BASES: No pleural or pericardial effusion. LIVER, GALLBLADDER, AND BILIARY TREE: The liver is decreased in attenuation. No suspicious hepatic lesion or biliary ductal dilatation is present. Gallstones. Small ascites. PANCREAS: No ductal dilatation. SPLEEN: Not enlarged. ADRENAL GLANDS: No adrenal mass. KIDNEYS AND URETERS: The kidneys are normal in size, shape, and attenuation. No hydronephrosis. No perinephric stranding. BLADDER: Unremarkable. GASTROINTESTINAL TRACT: Large duodenal diverticulum. Polypoid mass in the splenic flexure measuring 3.6 x 3.0 x 3.7 cm. No small bowel obstruction. Marked stool throughout the colon. ABDOMINAL WALL: Fat-containing left inguinal hernia. Small fat-containing umbilical hernia. LYMPH NODES: Enlarged multistation lymphadenopathy including gastrohepatic ligament, retroperitoneum and root of the mesentery. Haziness of the omentum and peritoneum may represent carcinomatosis. VASCULAR: Normal caliber abdominal aorta. PELVIC VISCERA: Enlarged prostate gland. OSSEOUS STRUCTURES: No destructive bone lesions. CT/CT abdomen pelvis w IV con IMPRESSION: Polypoid mass in the splenic flexure measuring 3.6 x 3.0 x 3.7 cm unchanged from prior exam. Consider correlation with PET/CT. Enlarged multistation lymphadenopathy including gastrohepatic ligament, retroperitoneum and root of mesentery. Haziness of the omentum and peritoneum may represent carcinomatosis. The appearance is stable. Hepatic steatosis. Gallstones. Small abdominopelvic ascites increased from prior. Electronically signed by: Estevan Patrick MD 01/05/2024 02:17 PM EDT RP Dictated By: Luis Patrick MD Signed By: <Electronically signed by Luis Patrick MD in OV> 01/05/24 1417 DD/ 1124 TD/TT: 01/05/24 1143 Manager Trade Marketing: REASON FOR REFERRAL Reason Pilonidal Cyst Diagnosis 1 Pilonidal cyst (L05. 91) Referral Organization Ramon Bach FACP Referring Provider First Name Ramon Referring Provider Last Name Dana Referring Provider Speciality Internal edicine Referred Provider Toi Contreras Referred Provider Specialty General Surg eliazar General Notes Erin Jimenez 01:24:40 PM EDT > Referral and notes faxed, Erin Jimenez 08/27/2023 11:21:40 AM EDT > Patient aware of date and time of appointment. Referral Priority Routine Referral Appointment Date 09/04/2023 Reason Knee Pain Diagnosis 1 Left knee pain, unsp ecified chronicity (M25.562) Referral Organization Ramon Bach FACP Referring Provider First Name Ramon Referring Provider Connor Name Dana Referring Provider Speciality Internal edicine Referred Provider Merary Calderon Referred Provider Specialty Orthopedic S urgery General Notes Erin Jimenez 09:42:49 AM EDT > Referral faxed prior to scheduling., Erin Jimenez 10/28/2023 10:00:48 AM EDT > Patient aware of appointment with Dr. Villalta at [address] [place] [address] , [place] [address] Referral Priority Routine Referral Appointment Date 11/27/2023 MEDICATIONS Medication SIG (Take, Route, Frequency, Duration) Notes Start Date End Date Status Mirtazapine 45 MG TAKE 1 TABLET BY [place] TH EVERY DAY AT BEDTIME FOR 90 DAYS for 90 Active Cephalexin 500 MG 1 capsule Orally Fou r times a day for 7 days 08/12/2023 Active Metoprolol Tartrate 50 MG 1 tablet with food Orally Twice a day Active QUEtiapine Fumarate 100 MG TAKE 1 TABLET BY MOUTH EVERY DAY AT BEDTIME FOR 90 DAYS for 90 Active Vitamin D 1000 UNIT 1 capsule Orally Onc e a day 07/19/2015 Active Lisinopril 5 MG 1 tablet Orally Once a day for 90 days Active Lovastatin 40 MG 1 tablet with the ev ening meal Orally Once a day for 90 days Active IMMUNIZATIONS Vaccine Route Administration Date Status Comme nts Pneumococcal - PPSV23 Unknown 12/20/2003 Administered Influenza Unknown 03/02/2013 Administered Influenza IM Intramuscular 01/04/2014 Administered Pneumococcal - PPSV23 IM Intramuscular 07/06/2014 Administ ered Influenza Quad IM Intramuscular 01/05/2015 Administered Influenza High Dose IM Intramuscular 01/10/2016 Administer ed Influenza High Dose IM Intramuscular 12/20/2016 Administer ed Influenza IM Intramuscular 01/13/2019 Administered COVID-19 Moderna Vaccine Unknown 08/11/2020 Administere d Influenza Unknown 01/14/2018 Administered Influnza High Dose Quad Unknown 12/28/2019 Administered PCV 13 Unknown 07/18/2017 Administered Influnza High Dose Quad Unknown 12/21/2020 Administered COVID-19 Moderna Vaccine Unknown 09/12/2020 Administere d Influenza High Dose IM Intramuscular 12/19/2021 Administer ed Influnza High Dose Quad Unknown 12/19/2021 Administered Influenza High Dose IM Intramuscular 02/04/2023 Administer ed Influenza Unknown 12/25/2022 Refused SOCIAL HISTORY Tobacco Use: Social History Observation Description Date Details (start date - stop date) Former Smoker NA - NA Sex Assigned At : Social History Observation Description Sex Assigned At Unknown Tobacco Use/Smoking Question Answer Notes Patient is a former smoker How long has it been since y ou last smoked? > 10 years Additional Findings: Tobacco Non-User Fo rmer smoker, currently using no form of tobacco Alcohol Screen Question Answer Notes Did you have a drink contain ing alcohol in the past year? Yes How often did you have a dri nk containing alcohol in the past year? 4 or more times a week (4 points) How many drinks did you have on a typical day when you were drinking in the past year? 1 or 2 drinks (0 point) How often did you have 6 or more drinks on one occasion in the past year? 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) Active confirmed 986299535 Problem Essential hypertensi on (I10) Active confirmed 01180469 Problem Recurrent major depressive disorder, in full remission (F33.42) Active confirmed 150598434 Problem Hypercholesterolemia (E78.00) Active confirmed 06669604 VITAL SIGNS Blood pressure diastolic 64 mm Hg 08/12/2023 Height 68.25 in 08/12/2023 Blood pressure systolic 114 mm Hg 08/12/2023 Weight 157 lbs 08/12/2023 BMI 23.69 kg/m2 08/12/2023 Encounters Encounter Location Date Provider Diagnosis Ramon Cortez DO, [address] [id number] 10/07/2023 Ramon Cortez DO, [address] [id number] 08/06/2023 Ramon Cortez DO, [address] [id number] 08/25/2023 Ramon Cortez DO, [address] [id number] 08/26/2023 Ramon Cortez DO, [address] [id number] 10/07/2023 Ramon Cortez DO, [address] [id number] 10/28/2023 Ramon Cortez DO, [address] [id number] 01/20/2024 Ramon Cortez Hypercholesterolemia E78.00 Ramon Cortez DO, [address] [id number] 01/21/2024 Ramon Cortez DO, [address] [id number] 01/23/2024 Ramon Cortez Hypercholesterolemia E78.00 Ramon Cortez DO, [address] [id number] 01/27/2024 Ramon Cortez Hypercholesterolemia E78.00 Ramon Cortez DO, [address], [place] [id number] 02/03/2024 Ramon Cortez Hypercholesterolemia E78.00 Ramon Cortez DO, [facility] [address] [place], [place] [id number] 02/06/2024 Ramon Cortez DO, [facility] [address] [place], [place] [id number] 02/27/2024 Ramon Cortez DO, [facility] [address] [place], [place] [id number] 08/12/2023 Ramon Cortez Pilonidal cyst L05.9 1 ; Essential hypertension I10 ; Hypercholesterolemia E78.00 ; Recurrent major depressive disorder, in full remission F33.42 and Vitamin D deficiency E55.9 ASSESSMENTS Encounter Date Diagnosis Assessment Notes Treatment Notes Treatment Clinical Notes 01/20/2024 Hypercholesterolemia (ICD-10 - E78.00) 01/23/2024 Hypercholesterolemia (ICD-10 - E78.00) 01/27/2024 Hypercholesterolemia (ICD-10 - E78.00) 02/03/2024 Hypercholesterolemia (ICD-10 - E78.00) 08/12/2023 Essential hypertensi on (ICD-10 - I10) 08/12/2023 Pilonidal cyst (ICD- 10 - L05.91) Warm compresses. Offload tailbone 08/12/2023 Hypercholesterolemia (ICD-10 - E78.00) 08/12/2023 Recurrent major depr essive disorder, in full remission (ICD-10 - F33.42) 08/12/2023 Vitamin D deficiency (ICD-10 - E55.9) PLAN OF TREATMENT No Information Insurance Providers Payer Name Payer Address Payer Phone Subscriber Number Group Number Insured Name Patient Relationship to Insured Coverage Start Date Coverage End Date MEDICARE [address] [place] [phone] [id number] Bernardo Mae Self - patient is the insured [facility] [address] [place] [address] [id number] Bernardo Mae Self - patient is the insured MEDICAL (GENERAL) HISTORY Medical History History ICD Code hypertension hypercholesterolemia gout vitamin D deficiency depression anxiety hernia, left inguinal left 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
--- OUTSIDE RECORDS SUMMARY | 2024-03-24 02:23 | XMS_ITS | Clinical Summary ---
Author Organization Unknown Care Team Providers Care Lead Technical Architect Name Role Phone KIMBERLY MANRIQUE DO Unavailable Unavailable BECKY TRANS ROUTER, CANDI Unavailable Unavailable HAKEEM RN, ELIESER Unavailable Unavailable VON HUGO TRANS ROUTER, BIRGIT Unavailable Unavail able KALETINA TRANS ROUTER, HAI Unavailable Unavailab le Payers Payer Name Policy Type Policy Number Effective Date Expira tion Date MEDICARE - NGS [place] - PD [id number] Problems Condition Name Condition Details Condition Category Status Onset Date Resolution Date Last Treatment Date Treating Clinician Comments MALIGNANT NEOPLASM OF TRANSVERSE COLON Active 07-05 00:00: 00 AFTERCARE FOLLOWING SURGERY FOR NEOPLASM Active 07-05 00:00: 00 ESSENTIAL (PRIMARY) HYPERTENSION Active 07-05 00:00: 00 GOUT, UNSPECIFIED Active 07-05 00:00: 00 ANXIETY DISORDER, UNSPECIFIED Active 07-05 00:00: 00 UNSPECIFIED OSTEOARTHRIT IS, UNSPECIFIED SITE Active 07-05 00:00: 00 DEPRESSION, UNSPECIFIED Active 07-05 00:00: 00 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 Ordering Clinician Indication Dosage Frequency Signature (SIG) Comments Components lisinopril 5 mg tablet 07-05 00:00: 00 Yes [id number] 1 tablet DAILY 1 tablet DAILY (route: oral) Med Classific ation: Cardiovas cular Therapy Agents lovastatin 40 mg tablet 07-05 00:00: 00 Yes [id number] 1 tablet DAILY 1 tablet DAILY (route: oral) Med Classific ation: Cardiovas cular Therapy Agents metoprolol tartrate 50 mg tablet 07-05 00:00: 00 Yes [id number] 1 tablet 2 TIMES DAILY 1 tablet 2 TIMES DAILY (route: oral) Med Classific ation: Cardiovas cular Therapy Agents mirtazapine 45 mg tablet 07-05 00:00: 00 Yes [id number] 1 tablet BEDTIME 1 tablet BEDTIME (route: oral) Med Classific ation: Central Nervous System Agents quetiapine 100 mg tablet 07-05 00:00: 00 Yes [id number] 1 tablet BEDTIME 1 tablet BEDTIME (route: oral) Med Classific ation: Central Nervous System Agents Tylenol Extra Strength 500 mg tablet 07-05 00:00: 00 Yes [id number] 2 tablet 2 TIMES DAILY 2 tablet 2 TIMES DAILY (route: oral) Med Classific ation: Analgesic , Anti-infl ammatory or Antipyret ic Cipro 500 mg tablet 07-12 00:00: 00 07-19 23:59 :00 No [id number] 1 tablet 2 TIMES DAILY 1 tablet 2 TIMES DAILY (route: oral) Med Classific ation: Anti-Infe ctive Agents Immunizations Ordered Immunization Name Filled Immunization Name Date Status Comments Refusal Reason INFLUENZA, LAIV (LIVE VIRUS) 2022-03-06 00:00:00 COVID SECOND DOSE, COVID SECOND DOSE 2021-11-14 00:00:00 COVID FIRST DOSE, COVID FIRST DOSE 2021-07-17 00:00:00 Vital Signs Vital Name Observation Time Observation Value Commen ts Temperature 2022-08-22 09:08:00.000 97 [degF] Temperature 2022-08-19 08:50:00.000 98.3 [degF] Temperature 2022-08-16 13:59:00.000 98 [degF] Temperature 2022-08-14 16:17:00.000 97.6 [degF] Temperature 2022-08-12 16:53:00.000 98.3 [degF] Temperature 2022-08-09 08:47:00.000 98.6 [degF] Temperature 2022-08-07 09:13:00.000 97.5 [degF] Temperature 2022-08-05 09:00:00.000 97.1 [degF] Temperature 2022-08-02 20:02:00.000 98.2 [degF] Temperature 2022-07-31 19:33:00.000 97.8 [degF] Temperature 2022-07-29 08:17:00.000 97.8 [degF] Temperature 2022-07-26 09:33:00.000 97.9 [degF] Temperature 2022-07-24 10:28:00.000 97.5 [degF] Temperature 2022-07-22 09:17:00.000 97.5 [degF] Temperature 2022-07-19 21:03:00.000 98.6 [degF] Temperature 2022-07-18 10:20:00.000 97.1 [degF] Temperature 2022-07-17 09:14:00.000 97.8 [degF] Temperature 2022-07-16 14:53:00.000 97.8 [degF] Temperature 2022-07-15 19:06:00.000 97 [degF] Temperature 2022-07-12 13:10:00.000 97.6 [degF] Temperature 2022-07-08 08:31:00.000 97.5 [degF] Temperature 2022-07-05 12:53:00.000 97.6 [degF] BMI (%) 2022-07-05 12:44:56.000 23 kg/m2 Height 2022-07-05 12:44:50.000 69 [in_us] Pulse 2022-08-22 09:08:00.000 62 /min Pulse 2022-08-19 08:50:00.000 76 /min Pulse 2022-08-16 13:59:00.000 78 /min Pulse 2022-08-14 16:17:00.000 62 /min Pulse 2022-08-12 16:53:00.000 62 /min Pulse 2022-08-09 08:47:00.000 80 /min Pulse 2022-08-07 09:13:00.000 65 /min Pulse 2022-08-05 09:00:00.000 74 /min Pulse 2022-08-02 20:02:00.000 76 /min Pulse 2022-07-31 19:33:00.000 68 /min Pulse 2022-07-29 08:17:00.000 60 /min Pulse 2022-07-26 09:33:00.000 62 /min Pulse 2022-07-24 10:28:00.000 67 /min Pulse 2022-07-22 09:17:00.000 61 /min Pulse 2022-07-19 21:03:00.000 68 /min Pulse 2022-07-18 10:20:00.000 67 /min Pulse 2022-07-17 09:14:00.000 64 /min Pulse 2022-07-16 14:53:00.000 68 /min Pulse 2022-07-15 19:06:00.000 74 /min Pulse 2022-07-12 13:10:00.000 73 /min Pulse 2022-07-08 08:31:00.000 76 /min Pulse 2022-07-05 12:53:00.000 78 /min O2 Saturation (%) 2022-08-22 09:08:00.000 97 % O2 Saturation (%) 2022-08-19 08:50:00.000 98 % O2 Saturation (%) 2022-08-16 13:59:00.000 97 % O2 Saturation (%) 2022-08-14 16:17:00.000 96 % O2 Saturation (%) 2022-08-07 09:13:00.000 96 % O2 Saturation (%) 2022-08-05 09:00:00.000 97 % O2 Saturation (%) 2022-08-02 20:02:00.000 97 % O2 Saturation (%) 2022-07-31 19:33:00.000 97 % O2 Saturation (%) 2022-07-29 08:17:00.000 97 % O2 Saturation (%) 2022-07-26 09:33:00.000 97 % O2 Saturation (%) 2022-07-24 10:28:00.000 98 % O2 Saturation (%) 2022-07-22 09:17:00.000 96 % O2 Saturation (%) 2022-07-19 21:03:00.000 98 % O2 Saturation (%) 2022-07-18 10:20:00.000 97 % O2 Saturation (%) 2022-07-17 09:14:00.000 98 % O2 Saturation (%) 2022-07-15 19:06:00.000 97 % O2 Saturation (%) 2022-07-12 13:10:00.000 97 % O2 Saturation (%) 2022-07-08 08:31:00.000 97 % O2 Saturation (%) 2022-07-05 12:53:00.000 96 % Respirations 2022-08-22 09:08:00.000 18 /min Respirations 2022-08-19 08:50:00.000 19 /min Respirations 2022-08-16 13:59:00.000 18 /min Respirations 2022-08-14 16:17:00.000 18 /min Respirations 2022-08-12 16:53:00.000 16 /min Respirations 2022-08-09 08:47:00.000 18 /min Respirations 2022-08-07 09:13:00.000 18 /min Respirations 2022-08-05 09:00:00.000 18 /min Respirations 2022-08-02 20:02:00.000 18 /min Respirations 2022-07-31 19:33:00.000 18 /min Respirations 2022-07-29 08:17:00.000 18 /min Respirations 2022-07-26 09:33:00.000 18 /min Respirations 2022-07-24 10:28:00.000 18 /min Respirations 2022-07-22 09:17:00.000 18 /min Respirations 2022-07-19 21:03:00.000 18 /min Respirations 2022-07-18 10:20:00.000 18 /min Respirations 2022-07-17 09:14:00.000 18 /min Respirations 2022-07-16 14:53:00.000 18 /min Respirations 2022-07-15 19:06:00.000 18 /min Respirations 2022-07-12 13:10:00.000 18 /min Respirations 2022-07-08 08:31:00.000 18 /min Respirations 2022-07-05 12:53:00.000 18 /min Weight (lbs) 2022-07-05 12:44:56.000 160 [lb_av] Systolic Blood Pressure 2022-08-22 09:08:00.000 132 mm [Hg] Systolic Blood Pressure 2022-08-19 08:50:00.000 114 mm [Hg] Systolic Blood Pressure 2022-08-16 13:59:00.000 126 mm [Hg] Systolic Blood Pressure 2022-08-14 16:17:00.000 124 mm [Hg] Systolic Blood Pressure 2022-08-12 16:53:00.000 110 mm [Hg] Systolic Blood Pressure 2022-08-09 08:47:00.000 112 mm [Hg] Systolic Blood Pressure 2022-08-07 09:13:00.000 116 mm [Hg] Systolic Blood Pressure 2022-08-05 09:00:00.000 118 mm [Hg] Systolic Blood Pressure 2022-08-02 20:02:00.000 132 mm [Hg] Systolic Blood Pressure 2022-07-31 19:33:00.000 122 mm [Hg] Systolic Blood Pressure 2022-07-29 08:17:00.000 114 mm [Hg] Systolic Blood Pressure 2022-07-26 09:33:00.000 116 mm [Hg] Systolic Blood Pressure 2022-07-24 10:28:00.000 116 mm [Hg] Systolic Blood Pressure 2022-07-22 09:17:00.000 116 mm [Hg] Systolic Blood Pressure 2022-07-19 21:03:00.000 132 mm [Hg] Systolic Blood Pressure 2022-07-18 10:20:00.000 120 mm [Hg] Systolic Blood Pressure 2022-07-17 09:14:00.000 116 mm [Hg] Systolic Blood Pressure 2022-07-16 14:53:00.000 116 mm [Hg] Systolic Blood Pressure 2022-07-15 19:06:00.000 116 mm [Hg] Systolic Blood Pressure 2022-07-12 13:10:00.000 124 mm [Hg] Systolic Blood Pressure 2022-07-08 08:31:00.000 118 mm [Hg] Systolic Blood Pressure 2022-07-05 12:53:00.000 114 mm [Hg] Diastolic Blood Pressure 2022-08-22 09:08:00.000 64 mm [Hg] Diastolic Blood Pressure 2022-08-19 08:50:00.000 64 mm [Hg] Diastolic Blood Pressure 2022-08-16 13:59:00.000 64 mm [Hg] Diastolic Blood Pressure 2022-08-14 16:17:00.000 62 mm [Hg] Diastolic Blood Pressure 2022-08-12 16:53:00.000 62 mm [Hg] Diastolic Blood Pressure 2022-08-09 08:47:00.000 60 mm [Hg] Diastolic Blood Pressure 2022-08-07 09:13:00.000 62 mm [Hg] Diastolic Blood Pressure 2022-08-05 09:00:00.000 62 mm [Hg] Diastolic Blood Pressure 2022-08-02 20:02:00.000 74 mm [Hg] Diastolic Blood Pressure 2022-07-31 19:33:00.000 62 mm [Hg] Diastolic Blood Pressure 2022-07-29 08:17:00.000 60 mm [Hg] Diastolic Blood Pressure 2022-07-26 09:33:00.000 62 mm [Hg] Diastolic Blood Pressure 2022-07-24 10:28:00.000 64 mm [Hg] Diastolic Blood Pressure 2022-07-22 09:17:00.000 62 mm [Hg] Diastolic Blood Pressure 2022-07-19 21:03:00.000 64 mm [Hg] Diastolic Blood Pressure 2022-07-18 10:20:00.000 64 mm [Hg] Diastolic Blood Pressure 2022-07-17 09:14:00.000 62 mm [Hg] Diastolic Blood Pressure 2022-07-16 14:53:00.000 62 mm [Hg] Diastolic Blood Pressure 2022-07-15 19:06:00.000 62 mm [Hg] Diastolic Blood Pressure 2022-07-12 13:10:00.000 64 mm [Hg] Diastolic Blood Pressure 2022-07-08 08:31:00.000 62 mm [Hg] Diastolic Blood Pressure 2022-07-05 12:53:00.000 62 mm [Hg] Plan of Treatment Planned Activity Planned Date Details Comments Future Scheduled Test SKILLED NU RSE TO EVALUATE PATIENT, IDENTIFY PRIMARY AND CO-MORBID CONDITIONS CODED PER CODING GUIDELINES, AND DEVELOP PATIENT SPECIFIC PLAN OF CARE THAT INCLUDES PATIENT GOAL FOR HOME HEALTH. CLINICAL SUMMARY SOC THE PATIENT IS RECEIVING HOMECARE DUE TO NEED FOR ASSESSMENT AND TEACHING OF SURGICAL SITE FOLLOWING PARTIAL COLECTOMY, INFECTION CONTROL, DISEASE PROCESS AND MANAGEMENT, DIET AND NUTRITION RECENT HOSPITALIZATION/INPATIENT ADMISSION RELATED TO: COLON CANCER, S/P PARTIAL COLECTOMY NEW OR CHANGED MEDICATIONS: DISCONTINUED ERYTHROMYCIN, NEOMYCIN PATIENT LIVING SITUATION/CAREGIVER STATUS: LIVES IN OWN APARTMENT, HAS BROTHER THAT HE IS CLOSE WITH AND LIVES NEARBY RECENT FALLS: NO FALLS SUMMARIZE SKILLED NEED: SN TEACHING EDUCATION ON MEDICATION REGIMEN, PAIN, AFTER SURGERY CARE OF SURGICAL INCISION AND ASSESSMENT, INFECTION CONTROL, DIET AND NUTRITION, DISEASE PROCESS AND MANAGEMENT, SAFETY PRECAUTIONS AND FALL PREVENTION, PRESSURE ULCER PREVENTION AND EDUCATION ADDITIONAL DISCIPLINES NEEDED OR DECLINED ORDERED SERVICES: PT, PT HAS DECLINED [code = SKILLED NURSE TO EVALUATE PATIENT, IDENTIFY PRIMARY AND CO-MORBID CONDITIONS CODED PER CODING GUIDELINES, AND DEVELOP PATIENT SPECIFIC PLAN OF CARE THAT INCLUDES PATIENT GOAL FOR HOME HEALTH. CLINICAL SUMMARY SOC THE PATIENT IS RECEIVING HOMECARE DUE TO NEED FOR ASSESSMENT AND TEACHING OF SURGICAL SITE FOLLOWING PARTIAL COLECTOMY, INFECTION CONTROL, DISEASE PROCESS AND MANAGEMENT, DIET AND NUTRITION RECENT HOSPITALIZATION/INPATIENT ADMISSION RELATED TO: COLON CANCER, S/P PARTIAL COLECTOMY NEW OR CHANGED MEDICATIONS: DISCONTINUED ERYTHROMYCIN, NEOMYCIN PATIENT LIVING SITUATION/CAREGIVER STATUS: LIVES IN OWN APARTMENT, HAS BROTHER THAT HE IS CLOSE WITH AND LIVES NEARBY RECENT FALLS: NO FALLS SUMMARIZE SKILLED NEED: SN TEACHING EDUCATION ON MEDICATION REGIMEN, PAIN, AFTER SURGERY CARE OF SURGICAL INCISION AND ASSESSMENT, INFECTION CONTROL, DIET AND NUTRITION, DISEASE PROCESS AND MANAGEMENT, SAFETY PRECAUTIONS AND FALL PREVENTION, PRESSURE ULCER PREVENTION AND EDUCATION ADDITIONAL DISCIPLINES NEEDED OR DECLINED ORDERED SERVICES: PT, PT HAS DECLINED ] Future Scheduled Test SKILLED NU RSE TO REVIEW PATIENT MEDICATIONS. INSTRUCT PATIENT/CAREGIVER ON MONITORING OF EFFECTIVENESS, ADVERSE DRUG REACTIONS, SIDE EFFECTS OF ALL MEDICATIONS (PRESCRIPTION/-OTC), AND HOW AND WHEN TO REPORT PROBLEMS. [code = SKILLED NURSE TO REVIEW PATIENT MEDICATIONS. INSTRUCT PATIENT/CAREGIVER ON MONITORING OF EFFECTIVENESS, ADVERSE DRUG REACTIONS, SIDE EFFECTS OF ALL MEDICATIONS (PRESCRIPTION/-OTC), AND HOW AND WHEN TO REPORT PROBLEMS.] Future Scheduled Test SKILLED NU RSE TO PERFORM HOME SAFETY AND FALL ASSESSMENT AND PROVIDE INSTRUCTION TO IMPLEMENT HOME SAFETY AND FALL PREVENTION STRATEGIES. [code = SKILLED NURSE TO PERFORM HOME SAFETY AND FALL ASSESSMENT AND PROVIDE INSTRUCTION TO IMPLEMENT HOME SAFETY AND FALL PREVENTION STRATEGIES.] Future Scheduled Test SKILLED NU RSE FOR O/A AND TEACHING RELATED TO NEOPLASM OF COLON INCLUDING SIGNS AND SYMPTOMS OF DISEASE PROGRESSION, TREATMENT, AND MANAGEMENT OF POTENTIAL SIDE EFFECTS. [code = SKILLED NURSE FOR O/A AND TEACHING RELATED TO NEOPLASM OF COLON INCLUDING SIGNS AND SYMPTOMS OF DISEASE PROGRESSION, TREATMENT, AND MANAGEMENT OF POTENTIAL SIDE EFFECTS.] Future Scheduled Test PATIENT ARIAS S A RISK OF HOSPITALIZATION AND ED USE. SKILLED NURSE TO ESTABLISH SUPPORT MEASURES TO MINIMIZE RISK OF HOSPITALIZATION AND ED USE, AND INSTRUCT PATIENT/CAREGIVER ON METHODS TO REDUCE AVOIDABLE HOSPITALIZATION AND ED USE. [code = PATIENT HAS A RISK OF HOSPITALIZATION AND ED USE. SKILLED NURSE TO ESTABLISH SUPPORT MEASURES TO MINIMIZE RISK OF HOSPITALIZATION AND ED USE, AND INSTRUCT PATIENT/CAREGIVER ON METHODS TO REDUCE AVOIDABLE HOSPITALIZATION AND ED USE.] Future Scheduled Test SKILLED NU RSE TO PROVIDE INSTRUCTION TO PATIENT/CAREGIVER RELATED TO DISCHARGE PLANNING. [code = SKILLED NURSE TO PROVIDE INSTRUCTION TO PATIENT/CAREGIVER RELATED TO DISCHARGE PLANNING.] Future Scheduled Test SKILLED NU RSE FOR OBSERVATION AND ASSESSMENT OF PATIENTS PAIN LEVEL AND EFFECTIVENESS OF PAIN MANAGEMENT REGIMEN. SKILLED NURSE TO INSTRUCT PATIENT/CAREGIVER REGARDING PHARMACOLOGIC AND NON-PHARMACOLOGIC PAIN CONTROL MEASURES. SKILLED NURSE TO REPORT TO PHYSICIAN IF PAIN IS UNCONTROLLED WITH CURRENT PAIN MANAGEMENT REGIMEN. [code = SKILLED NURSE FOR OBSERVATION AND ASSESSMENT OF PATIENTS PAIN LEVEL AND EFFECTIVENESS OF PAIN MANAGEMENT REGIMEN. SKILLED NURSE TO INSTRUCT PATIENT/CAREGIVER REGARDING PHARMACOLOGIC AND NON-PHARMACOLOGIC PAIN CONTROL MEASURES. SKILLED NURSE TO REPORT TO PHYSICIAN IF PAIN IS UNCONTROLLED WITH CURRENT PAIN MANAGEMENT REGIMEN.] Future Scheduled Test SKILLED NU RSE FOR O/A, TEACHING FOR EARLY IDENTIFICATION OF EXACERBATION OF GERD, PUD DISEASE PROCESS. [code = SKILLED NURSE FOR O/A, TEACHING FOR EARLY IDENTIFICATION OF EXACERBATION OF GERD, PUD DISEASE PROCESS.] Future Scheduled Test NEED FOR S KILLED TEACHING AND INTERVENTION RELATED TO SURGICAL INCISION MIDLINE ABDOMEN. SKILLED NURSE OR TRAINED PATIENT TO ASSESS AND TEACH SIGNS AND SYMPTOMS OF INFECTION WHILE WOUND LOTA. WOUND CARE WILL BE PERFORMED BY TRAINED CAREGIVER ON DAYS WHEN SKILLED NURSE IS NOT SCHEDULED FOR A VISIT. DISCONTINUE WOUND ORDERS ONCE WOUND IS HEALED. [code = NEED FOR SKILLED TEACHING AND INTERVENTION RELATED TO SURGICAL INCISION MIDLINE ABDOMEN. SKILLED NURSE OR TRAINED PATIENT TO ASSESS AND TEACH SIGNS AND SYMPTOMS OF INFECTION WHILE WOUND LOTA. WOUND CARE WILL BE PERFORMED BY TRAINED CAREGIVER ON DAYS WHEN SKILLED NURSE IS NOT SCHEDULED FOR A VISIT. DISCONTINUE WOUND ORDERS ONCE WOUND IS HEALED.] Future Scheduled Test SKILLED NU RSE TO ASSESS PATIENT'S SKIN INTEGRITY AND INSTRUCT PATIENT/CAREGIVER ON MEASURES TO PREVENT PRESSURE ULCERS [code = SKILLED NURSE TO ASSESS PATIENT'S SKIN INTEGRITY AND INSTRUCT PATIENT/CAREGIVER ON MEASURES TO PREVENT PRESSURE ULCERS] Future Scheduled Test SKILLED NU RSE TO PROVIDE TEACHING ON SIGNS AND SYMPTOMS AND MANAGEMENT OF HYPERTENSION. [code = SKILLED NURSE TO PROVIDE TEACHING ON SIGNS AND SYMPTOMS AND MANAGEMENT OF HYPERTENSION.] Future Scheduled Test VIRTUAL SIT FREQUENCY: 1-6 PER WEEK X 2 WEEKS AND 6 PRN VIRTUAL VISITS MAY BE PERFORMED UTILIZING TELECOMMUNICATIONS SYSTEM TO OPTIMIZE SKILLED SERVICES FURNISHED ON THE PLAN OF CARE. SKILLED NURSE TO ESTABLISH SUPPORT MEASURES TO MINIMIZE RISK OF REHOSPITALIZATION, AND INSTRUCT PATIENT/CAREGIVER ON METHODS TO REDUCE AVOIDABLE HOSPITALIZATION. [code = VIRTUAL VISIT FREQUENCY: 1-6 PER WEEK X 2 WEEKS AND 6 PRN VIRTUAL VISITS MAY BE PERFORMED UTILIZING TELECOMMUNICATIONS SYSTEM TO OPTIMIZE SKILLED SERVICES FURNISHED ON THE PLAN OF CARE. SKILLED NURSE TO ESTABLISH SUPPORT MEASURES TO MINIMIZE RISK OF REHOSPITALIZATION, AND INSTRUCT PATIENT/CAREGIVER ON METHODS TO REDUCE AVOIDABLE HOSPITALIZATION.] Future Scheduled Test SKILLED NU RSE TO ASSESS ANXIETY AND PROVIDE ASSISTANCE TO PATIENT FOR UNDERSTANDING AND MANAGEMENT OF FEELINGS. [code = SKILLED NURSE TO ASSESS ANXIETY AND PROVIDE ASSISTANCE TO PATIENT FOR UNDERSTANDING AND MANAGEMENT OF FEELINGS.] Future Scheduled Test SKILLED NU RSE FOR O/A OF DEPRESSIVE SYMPTOMS TO IDENTIFY CHANGES ASSOCIATED WITH MEDICATION THERAPY OR DEGRESSIONS OF DISEASE PROCESS. SN TO REPORT SIGNIFICANT CHANGE IN DEPRESSIVE SYMPTOMS TO MD FOR EARLY INTERVENTION. [code = SKILLED NURSE FOR O/A OF DEPRESSIVE SYMPTOMS TO IDENTIFY CHANGES ASSOCIATED WITH MEDICATION THERAPY OR DEGRESSIONS OF DISEASE PROCESS. SN TO REPORT SIGNIFICANT CHANGE IN DEPRESSIVE SYMPTOMS TO MD FOR EARLY INTERVENTION.] Future Scheduled Test SKILLED NU RSE FOR O/A OF MUSCULOSKELETAL STATUS FOR EARLY INTERVENTION OF COMPLICATIONS R/T OA. [code = SKILLED NURSE FOR O/A OF MUSCULOSKELETAL STATUS FOR EARLY INTERVENTION OF COMPLICATIONS R/T OA.] Goal 2022-08-22 Patient Goal - I WANT TO GET BETTER Goal Provider Goal - A PLAN OF CARE WILL BE ESTABLISHED THAT MEETS PATIENT'S NURSING HOME NEEDS AND INCLUDES PATIENT GOAL FOR HOME HEALTH. Goal Provider Goal - PATIENT/CAREGIVER WILL VERBALIZE UNDERSTANDING OF EDUCATION PROVIDED ON MEDICATIONS BY THE END OF THE CERTIFICATION PERIOD. Goal Provider Goal - PATIENT/CAREGIVER WILL VERBALIZE/DEMONSTRATE EFFECTIVE HOME SAFETY AND FALL PREVENTION STRATEGIES THROUGHOUT CERTIFICATION PERIOD. Goal Provider Goal - PATIENT / CAREGIVER WILL VERBALIZE/DEMONSTRATE MANAGEMENT OF CANCER/NEOPLASM DISEASE AND THE SIDE EFFECTS OF TREATMENTS DURING THIS EPISODE. Goal Provider Goal - PATIENT WILL HAVE SUPPORT MEASURES ESTABLISHED TO PREVENT HOSPITALIZATION AND ED USE AND PATIENT/CAREGIVER WILL VERBALIZE/DEMONSTRATE METHODS TO REDUCE AVOIDABLE HOSPITALIZATION AND ED USE BY END OF CERT PERIOD Goal Provider Goal - PATIENT/CAREGIVER WILL VERBALIZE UNDERSTANDING OF DISCHARGE PLANNING INSTRUCTIONS BY DATE OF DISCHARGE. Goal Provider Goal - PATIENT/CAREGIVER WILL DEMONSTRATE UNDERSTANDING OF PHARMACOLOGIC AND NONPHARMACOLOGIC PAIN CONTROL MEASURES AND PATIENT WILL HAVE IMPROVEMENT IN PAIN INTERFERING WITH ACTIVITY EVIDENCED BY PAIN CONTROLLED AT LEVEL OF SPECIFY PATIENT GOAL ON 0-10 PAIN SCALE OR LESS BY END OF CERTIFICATION PERIOD. Goal Provider Goal - EXACERBATIONS OF GASTROINTESTINAL DISEASE WILL BE PROMPTLY IDENTIFIED AND INTERVENTIONS IMPLEMENTED TO MINIMIZE RISKS TO PATIENT BY END OF CERT PERIOD Goal Provider Goal - PATIENT WILL HAVE IMPROVED WOUND STATUS EVIDENCED BY NO SIGNS AND SYMPTOMS OF INFECTION, DECREASED WOUND SIZE, AND/OR NO COMPLICATIONS BY THE END OF THE CERTIFICATION PERIOD. Goal Provider Goal - PATIENT/CAREGIVER WILL VERBALIZE UNDERSTANDING OF PRESSURE ULCER PREVENTION BY END OF CERT PERIOD Goal Provider Goal - PATIENT/CAREGIVER WILL VERBALIZE SIGNS AND SYMPTOMS OF HYPERTENSION AND WILL BE ABLE TO DEMONSTRATE ABILITY TO MANAGE EXACERBATION BY END OF CERT PERIOD Goal Provider Goal - PATIENT/CAREGIVER WILL UTILIZE VIRTUAL VISITS TO ACHIEVE GOALS OUTLINED ON THE PLAN OF CARE. PATIENT WILL HAVE SUPPORT MEASURES ESTABLISHED TO PREVENT HOSPITALIZATION AND PATIENT/CAREGIVER WILL VERBALIZE/DEMONSTRATE METHODS TO REDUCE AVOIDABLE HOSPITALIZATION THROUGHOUT THE CERTIFICATION PERIOD. Goal Provider Goal - SYMPTOMS OF ANXIETY ARE IDENTIFIED AND INTERVENTIONS INITIATED TO ENABLE PATIENT TO UNDERSTAND AND MANAGE FEELINGS BY END OF EPISODE Goal Provider Goal - CHANGES IN PATIENTS DEPRESSIVE SYMPTOMS WILL BE IDENTIFIED AND MD PROMPTLY NOTIFIED TO MINIMIZE ASSOCIATED RISKS BY THE END OF THE CERTIFICATION PERIOD. Goal Provider Goal - CHANGES IN MUSCULOSKETAL STATUS WILL BE IDENTIFIED AND REPORTED TO PHYSICIAN TO MINIMIZE ASSOCIATED RISKS THROUGHOUT THE CERTIFICATION PERIOD. Reason for Visit INDEPENDENT IN THE COMMUNITY Encounters Start Date/Time End Date/Time Encounter Type Admission Type Attending [facility] Care Department Encounter ID Discharge Date Discharge Status Discharge Condition Discharge Reason Percent Goals Met 2022-07-05 00:00:00 2022-08-22 00:00:00 Outpatient NEW ADMISSION [facility] [id number] 00:00:00 DISCHARGE TO HOME OR SELF CARE INDEPENDEN T IN THE COMMUNITY GOALS MET ( ONLY) 100.00
== END 2024-03-18 13:32 | disposition home or self-care (01) ==
PROVIDERS: PCP Internal Medicine; Visit Provider Orthopaedic Surgery
DX: M25.562 Pain in left knee (principal)
CPT/HCPCS: 99213; G2211

== ENCOUNTER → 2024-03-18 13:20 | Outpatient (BNVA) | payer MEDICARE, OTHER, SELFPAY | PROVIDERS: PCP Internal Medicine; Visit Provider Orthopaedic Surgery | DX: M17.12 Unilateral primary osteoarthritis, left knee (principal) | CPT/HCPCS: 99212 ==

== ENCOUNTER 2024-04-09 09:53 | Outpatient (AMB) | payer MEDICARE, OTHER, SELFPAY ==
--- OUTSIDE RECORDS SUMMARY | 2024-04-09 09:59 | XMS_ITS ---
Author Organization Ramon Cortez DO, [facility] Address [address] [place] [phone] Care Team Providers Care Brass Pourer Name Role Phone Ramon Cortez Primary Care Provider [phone] REASON FOR VISIT Needs call back from office Encounters Encounter Location Date Provider Diagnosis Ramon Cortez DO, FACP [address] [place] [address] [id number] 02/06/2024 Ramon Cortez PLAN OF TREATMENT No Information
--- OUTSIDE RECORDS SUMMARY | 2024-04-09 09:59 | XMS_ITS ---
Author Organization Ramon Cortez DO, [facility] [address] Address [address] [place] [address] [phone] Care Team Providers Care Senior Loan Officer Name Role Phone Ramon Cortez Primary Care Provider [phone] REASON FOR VISIT FYI Encounters Encounter Location Date Provider Diagnosis Ramon Cortez DO, [address] [id number] 02/27/2024 Ramon Cortez PLAN OF TREATMENT No Information
--- OUTSIDE RECORDS SUMMARY | 2024-04-09 09:59 | XMS_ITS ---
Author Organization Ramon Cortez DO [facility] Address [address] [place] [address] [phone] Care Team Providers Care Color Specialist Name Role Phone Ramon Cortez Primary Care Provider REASON FOR VISIT Needs call back from MD MEDICATIONS Medication SIG (Take, Route, Fr equency, Duration) Notes Start Date End Date Status Lovastatin 40 MG 1 tablet with the ev ening meal Orally Once a day for 90 days Ac tive Encounters Encounter Location Date Provider Diagnosis Ramon Cortez DO, [address] [phone] 02/03/2024 Ramon Cortez Hypercholesterolemia E78.00 ASSESSMENTS Encounter Date Diagnosis Assessment Notes Treatment Notes Treatment Clinical Notes 02/03/2024 Hypercholesterolemia (ICD-10 - E78.00) PLAN OF TREATMENT Medication Medication Name Sig Start Date Stop Date Notes Lovastatin 40 MG 1 tablet with the ev ening meal Orally Once a day for 90 days
--- OUTSIDE RECORDS SUMMARY | 2024-04-09 09:59 | XMS_ITS | Patient Health Record ---
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 (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) Problem Irritable bowel syndrome (K58.9) Active confirmed Irritable b owel syndrome (66852327) Problem History of adenomatous polyp of colon (Z86.010) Active confirmed History of adenomatous polyp of colon (255000120) Problem Diverticulosis of colon (K57.30) Active confirmed Diverticulosi s of colon (542448849) Problem Other malignant neuroendocrine tumors (C7A.8) Active confirmed Problem Decreased appetite (R63.0) Active confirmed Decrease in appetite (finding) (95350742) Problem Gastritis (K29.70) Active confirmed Gastritis (5103689) PLAN OF TREATMENT Future Test Test Name Order Date UPPER GI ENDOSCOPY 01/24/2022 COLONOSCOPY 01/24/2022 Insurance Providers Payer Name Payer Address Payer Phone Subscriber Number Group Number Insured Name Patient Relationship to Insured Coverage Start Date Coverage End Date MEDICARE OF [place] [address] [place] [address] [id number] JOHN IYER Self - patient is the insured [facility] [address] [place] [address] [id number] JOHN IYER Self - patient is the insured MEDICAL (GENERAL) HISTORY Medical History History ICD Code Hypertension GERD Gout Peptic ulcer disease Depression Denies WA,DM,CVA,Lung disease,renal dise ase 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 Surgical History Surgery Date(Month/Year) Right inguinal hernia repair Appendectomy Bilateral cataracts
--- OUTSIDE RECORDS SUMMARY | 2024-04-09 10:00 | XMS_ITS | Patient Health Record ---
Author Organization Ramon Cortez DO, [facility] Address [address] [place] [id number] Care Team Providers Care Workforce Management Consultant Name Role Phone Ramon Cortez Primary Care Provider ALLERGIES Allergen (clinical drug ingredient) Drug/Non Drug Allergy documented on EMR Reaction Allergy Type Onset Date Status amoxicillin / clavulanate Augmentin diarrhea Drug Allergy Active RESULTS Component Value Reference Range Notes Creatinine GFR POC Reviewed date:04/18/2023 10:35:33 AM Interpretation:Normal Performing Lab:[facility], [address] [place] [phone] Notes/Report: [id number] 0.65 >60 1108 HO.BERCHB Creatinine POC 0.7 0.5-1.4 mg/dL GFR POC > 60 Chronic Kidney Disease: Estimated GFR < 60 mL/min/1.73m2 Severe Kidney Disease: Estimated GFR < 15 mL/min/1.73m2 CT abdomen pelvis w con Reviewed date:04/25/2023 09:48:59 AM Interpretation:Abnormal Performing Lab: Notes/Report: [address] [address] [address] Scan Report Signed Patient: Bernardo Mae MR#: [id number] 889 : 1940 Acct:[id number] Age/Sex: 82 / M ADM Date: 04/17/23 Loc: HO.CT Attending Dr: Bhavani Jackson MD Ordering Physician: Bhavani Jackson MD Date of Service: 04/17/23 Procedure(s): CT abdomen pelvis w IV con Accession Number(s): [id number] cc: Ramon Cortez DO; Bhavani Jackson MD [...] in OV> 04/24/23 1407 DD/ 1122 TD/TT: Community Health Consultant: PHILLIP Complete Blood Count Auto Di ff Reviewed date:05/30/2023 02:24:16 PM Interpretation:Normal Performing Lab:[facility], [address] [place] [phone] Notes/Report: White Blood Count 5.8 4.8-10.8 X10*3/uL [...] Panel Reviewed date:05/30/2023 03:15:42 PM Interpretation:Abnormal Performing Lab:[facility], [address] [place] [phone] Notes/Report: Sodium 144 135-145 mmol/L Potassium 4.1 [...] Glomerular Filt Rate > 60 NOTE: For -Citizen Of [place] individuals, multiply the result by 1.210. Chronic [...] Antigen Reviewed date:05/30/2023 03:14:51 PM Interpretation:Normal Performing Lab:[facility], [address] [place] [phone] Notes/Report: Carcinoembryonic Antigen 2.00 CEA Reference Range: 93.4% Non-Smokers = 0.0-3.0 ng/mL 95.6% Smokers = 0.0-5.0 ng/mL CEA Methodology: [employer] Alinity i Chemiluminescent Microparticle Immunoassay (CMIA) CEA testing can have significant value in monitoring of patients with diagnosed malignancies in whom changing concentrations of CEA are observed. Values obtained with different assay methods cannot be used interchangeably. Ethan Nelson Reviewed date:05/30/2023 02:21:06 PM Interpretation:Hold Performing Lab:[facility], [address] [place] [phone] Notes/Report: Ethan Nelson See Note Specimen held untested for 24 hours; Call to request Chemistry testing. XR sacrum coccyx min 2V Reviewed date:07/28/2023 03:39:16 PM Interpretation:Abnormal Performing Lab: Notes/Report: [facility] [address] [place] [address] [place] [address] XRay Report Signed Patient: Bernardo Mae MR#: [id number] 889 : 1940 Acct:[id number] Age/Sex: 83 / M ADM Date: 07/28/23 Loc: .HMGCX Attending Dr: Rena Calderón APRN, CNP Ordering Physician: Rena Calderón APRN, CNP Date of Service: 07/28/23 Procedure(s): XR sacrum coccyx min 2V Accession Number(s): [id number] cc: Ramon Cortez DO; Rena Calderón APRN, [...] in OV> 07/28/23 1530 DD/ 1432 TD/TT: Community Health Consultant: PHILLIP Pathology Reviewed date:09/22/2023 04:57:26 PM Interpretation:Benign Performing Lab:[facility], [address] [place] [phone] Notes/Report: Complete Blood Count Auto Di ff Reviewed date:12/30/2023 03:58:56 PM Interpretation:Abnormal Performing Lab:[facility], [address] [place] [phone] Notes/Report: White Blood Count 5.2 4.8-10.8 X10*3/uL [...] Panel Reviewed date:12/30/2023 07:28:05 PM Interpretation:Abnormal Performing Lab:[address] [address] Notes/Report: Sodium 146 135-145 mmol/L Potassium 4.2 [...] Glomerular Filt Rate > 60 NOTE: For -Citizen [place] individuals, multiply the result by 1.210. Chronic [...] Antigen Reviewed date:12/30/2023 07:28:34 PM Interpretation:Normal Performing Lab:[address] [phone] Notes/Report: Carcinoembryonic Antigen 2.20 CEA Reference Range: [...] A Reviewed date:01/11/2024 03:34:12 PM Interpretation:Abnormal Performing Lab:[facility], [address] [place] [phone] Notes/Report: Chromogranin A 1468 ADULTS: <311 ng/mL [...] analytical performance characteristics have been determined by [employer]. It has not been cleared or approved by FDA. This assay has been validated pursuant to the CLIA regulations and is used for clinical purposes. THIS TEST WAS PERFORMED AT: [facility] [address] [place] [address] MAY GARNER MD,PHD,RASHAUN Ethan Nelson Reviewed date:12/30/2023 03:53:52 PM Interpretation:Hold Performing Lab:[facility], [address] [place] [phone] Notes/Report: Ethan Nelson See Note Specimen held untested for 24 hours; Call to request Chemistry testing. CT abdomen pelvis w con Reviewed date:01/05/2024 03:04:52 PM Interpretation:Abnormal Performing Lab: Notes/Report: [address] [place] [address] CT Scan Report Signed Patient: Bernardo Mae MR#: [id number] 889 : 1940 Acct:[id number] Age/Sex: 83 / M ADM Date: 01/05/24 Loc: HO.CT Attending Dr: Bhavani Jackson MD Ordering Physician: Bhavani Jackson MD Date of Service: 01/05/24 Procedure(s): CT abdomen pelvis w IV con Accession Number(s): [id number] cc: Ramon Cortez DO; Bhavani Jackson MD [...] 01/05/24 1417 DD/ 1124 TD/TT: 01/05/24 1143 Community Health Consultant: REASON FOR REFERRAL Reason Pilonidal Cyst Diagnosis 1 Pilonidal cyst (L05. 91) Referral Organization Ramon Bach FACP Referring Provider First Name Ramon Referring Provider Last Name Dana Referring Provider Speciality Internal edicine Referred Provider Toi Contreras Referred Provider Specialty General Surg eliazar General Notes Erin Jimenez 01:24:40 PM EDT > Referral and notes faxed, Eirn Jimenez 08/27/2023 11:21:40 AM EDT > Patient [...] aware of appointment with Dr. 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) Active confirmed 072060374 Problem Hypercholesterolemia (E78.00) Active confirmed 59747184 VITAL SIGNS Blood pressure diastolic 64 mm Hg 08/12/2023 Height 68.25 in 08/12/2023 Blood pressure systolic 114 mm Hg 08/12/2023 Weight 157 lbs 08/12/2023 BMI 23.69 kg/m2 08/12/2023 Encounters Encounter Location Date Provider Diagnosis Ramon Cortez DO, [address] [id number] 10/07/2023 Ramno Cortez DO, [address] [id number] 08/06/2023 Ramon Cortez DO, [address] [id number] 08/25/2023 Ramon Cortez DO, [address] [id number] 08/26/2023 Ramon Cortez DO, [address] [id number] 10/07/2023 Ramon Cortez DO, [address] [id number] 10/28/2023 Ramon Cortez DO, [address] [id number] 01/20/2024 Ramon Cortez Hypercholesterolemia E78.00 Ramon Cortez DO, [address] [id number] 01/21/2024 Ramon Cortez DO, [address] [id number] 01/23/2024 Ramon Cortez Hypercholesterolemia E78.00 Ramon Cortez DO, [address] [id number] 01/27/2024 Ramon Cortez Hypercholesterolemia E78.00 Ramon Cortez DO, [address], [place] [id number] 02/03/2024 Ramon Cortez Hypercholesterolemia E78.00 Ramon Cortez DO, [facility] [address] [place], [place] [id number] 02/06/2024 Ramon Cortez DO, [facility] [address] [place], [place] [id number] 02/27/2024 Ramon Cortez DO, [facility] [address] [place], [place] [id number] 08/12/2023 Ramon Cortez Pilonidal cyst L05.9 1 [...] Date MEDICARE [address] [place] [phone] [id number] Bernardo Mae Self - patient is the insured [facility] [address] [place] [address] [id number] Bernardo Mae Self - patient is [...]
--- OUTSIDE RECORDS SUMMARY | 2024-04-09 10:00 | XMS_ITS | Clinical Summary ---
Author Organization Unknown Care Team Providers Care Contract Administrative Assistant Name Role Phone KIMBERLY MANRIQUE DO Unavailable Unavailable BECKY CLIENT MANAGER LARGE LAW, CANDI Unavailable Unavailable HAKEEM RN, ELIESER Unavailable Unavailable VON HUGO CLIENT MANAGER LARGE LAW, BIRGIT Unavailable Unavail able KALETINA CLIENT MANAGER LARGE LAW, HAI Unavailable Unavailab le Payers Payer Name Policy Type Policy Number Effective Date Expira tion Date [place] [id number] Problems Condition Name Condition Details Condition Category [...] 5 mg tablet 07-05 00:00: 00 Yes [id number] 1 tablet DAILY 1 tablet DAILY (route: oral) Med Classific ation: Cardiovas cular Therapy Agents lovastatin 40 mg tablet 07-05 00:00: 00 Yes [id number] 1 tablet DAILY 1 tablet DAILY (route: oral) Med Classific ation: Cardiovas cular Therapy Agents metoprolol tartrate 50 mg tablet 07-05 00:00: 00 Yes [id number] 1 tablet 2 TIMES DAILY 1 tablet 2 TIMES DAILY (route: oral) Med Classific ation: Cardiovas cular Therapy Agents mirtazapine 45 mg tablet 07-05 00:00: 00 Yes [id number] 1 tablet BEDTIME 1 tablet BEDTIME (route: oral) Med Classific ation: Central Nervous System Agents quetiapine 100 mg tablet 07-05 00:00: 00 Yes [id number] 1 tablet BEDTIME 1 tablet BEDTIME (route: oral) Med Classific ation: Central Nervous System Agents Tylenol Extra Strength 500 mg tablet 07-05 00:00: 00 Yes [id number] 2 tablet 2 TIMES DAILY 2 tablet 2 TIMES DAILY (route: oral) Med Classific ation: Analgesic , Anti-infl ammatory or Antipyret ic Cipro 500 mg tablet 07-12 00:00: 00 07-19 23:59 :00 No [id number] 1 tablet 2 TIMES DAILY 1 tablet [...] CARE WILL BE ESTABLISHED THAT MEETS PATIENT'S LONG-TERM NEEDS AND INCLUDES PATIENT GOAL FOR HOME [...] End Date/Time Encounter Type Admission Type Attending [facility] Care Department Encounter ID Discharge Date Discharge Status Discharge Condition Discharge Reason Percent Goals Met 2022-07-05 00:00:00 2022-08-22 00:00:00 Outpatient NEW ADMISSION ELIESER PALACIO [facility] [id number] 9961-05-11 00:00:00 DISCHARGE TO HOME OR SELF CARE INDEPENDEN T IN THE COMMUNITY GOALS MET ( ONLY) 100.00
--- OUTSIDE RECORDS SUMMARY | 2024-04-09 10:00 | XMS_ITS | Clinical Summary ---
Author Organization Unknown Care Team Providers Care History Instructor Name Role Phone KIMBERLY MANRIQUE DO Unavailable Unavailable BECKY TRANSPORTATION COORDINATOR, CANDI Unavailable Unavailable HAKEEM RN, ELIESER Unavailable Unavailable VON HUGO TRANSPORTATION COORDINATOR, BIRGIT Unavailable Unavail able KALETINA TRANSPORTATION COORDINATOR, HAI Unavailable Unavailab le Payers Payer Name Policy Type Policy Number Effective Date Expira tion Date [place] [id number] Problems Condition Name Condition Details Condition Category [...] 5 mg tablet 07-05 00:00: 00 Yes [id number] 1 tablet DAILY 1 tablet DAILY (route: oral) Med Classific ation: Cardiovas cular Therapy Agents lovastatin 40 mg tablet 07-05 00:00: 00 Yes [id number] 1 tablet DAILY 1 tablet DAILY (route: oral) Med Classific ation: Cardiovas cular Therapy Agents metoprolol tartrate 50 mg tablet 07-05 00:00: 00 Yes [id number] 1 tablet 2 TIMES DAILY 1 tablet 2 TIMES DAILY (route: oral) Med Classific ation: Cardiovas cular Therapy Agents mirtazapine 45 mg tablet 07-05 00:00: 00 Yes [id number] 1 tablet BEDTIME 1 tablet BEDTIME (route: oral) Med Classific ation: Central Nervous System Agents quetiapine 100 mg tablet 07-05 00:00: 00 Yes [id number] 1 tablet BEDTIME 1 tablet BEDTIME (route: oral) Med Classific ation: Central Nervous System Agents Tylenol Extra Strength 500 mg tablet 07-05 00:00: 00 Yes [id number] 2 tablet 2 TIMES DAILY 2 tablet 2 TIMES DAILY (route: oral) Med Classific ation: Analgesic , Anti-infl ammatory or Antipyret ic Cipro 500 mg tablet 07-12 00:00: 00 07-19 23:59 :00 No [id number] 1 tablet 2 TIMES DAILY 1 tablet [...] CARE WILL BE ESTABLISHED THAT MEETS PATIENT'S CORRECTION NEEDS AND INCLUDES PATIENT GOAL FOR HOME [...] End Date/Time Encounter Type Admission Type Attending [facility] Care Department Encounter ID Discharge Date Discharge Status Discharge Condition Discharge Reason Percent Goals Met 2022-07-05 00:00:00 2022-08-22 00:00:00 Outpatient NEW ADMISSION ELIESER PALACIO [facility] [id number] 1550-05-11 00:00:00 DISCHARGE TO HOME OR SELF CARE INDEPENDEN T IN THE COMMUNITY GOALS MET ( ONLY) 100.00
--- NOTE | 2024-04-09 10:15 | MHC.OFFVIS ---
Vital Signs 04/09/24 10:16 Height 5 ft 9 in Weight 154 lb BMI 22.7 Respiration 15 Pulse 60 Pulse Source Pulse Oximeter Pulse Oximetry (%) 98 Oxygen Delivery Method Room Air Intake Visit Reasons: Pain in left knee Allergies amoxicillin [From Augmentin] Allergy (Intermediate, Verified 04/09/24 10:16) Diarrhea clavulanic acid [From Augmentin] Allergy (Intermediate, Verified 04/09/24 10:16) Diarrhea Medication List - Last Reconciled 04/09/24 by Gena Kat LPN lisinopril 5 mg PO DAILY lovastatin 40 mg PO DAILY metoprolol tartrate 25 mg PO BID mirtazapine 45 mg PO BEDTIME quetiapine 100 mg PO BEDTIME HPI HPI Pain in left knee: Details: 83-year-old male who presents today to the office for evaluation of pain in left knee. He complains of progressively worsening left knee pain. He describes his pain as sharp in nature.? His pain has gotten worse over the last few years in spite of continued nonoperative treatments. He has tried physical therapy exercises, which aggravated his pain. He has also tried Tylenol and anti-inflammatory medicines, which gave him minimal relief. He has failed the conservative treatment, which has included a home exercise program and topical creams. He has had multiple cortisone injections in the past, which gave him no relief. He had left knee Durolane viscosupplementation injection on 12/18/23 with minimal to no relief. The pain is interfering with his activities of daily living and his ability to sleep well through the night. He wishes to hold off on surgery if at all possible. [facility] Medical History Epidermal cyst Arthritis Right inguinal hernia Neuroendocrine tumor Depression Peptic ulcer disease Gout GERD (gastroesophageal reflux disease) Hypertension Surgical History History of removal of cyst (~09/18/23) S/P partial colectomy (06/28/22) Hx of bilateral cataract extraction Hx of right inguinal hernia repair History of esophagogastroduodenoscopy (EGD) H/O colonoscopy History of appendectomy Family History Other No family history of cancer Social History Household Members: None Housing: Apartment Are you a primary infant childcare provider to a significant other at home: No Do you presently have visiting nurse or other home services: No Alcohol intake: current Alcohol intake frequency: a few times a week Patient Tobacco Use Status: Former Tobacco user Tobacco use type: Cigarette Years Smoked: 20 service: No Current occupational status: retired Current occupation: left hand Review of Systems Const All systems reviewed & are unremarkable except as noted in HPI and below Physical Exam Vital Signs: Last Vital Signs Pulse 60 04/09/24 10:16 Resp 15 04/09/24 10:16 Pulse Ox 98 04/09/24 10:16 Oxygen Delivery Method Room Air 04/09/24 10:16 BMI result Body Mass Index 22.7 General: Appears afebrile. Alert and oriented. Mood and affect appropriate. Follows and participates in conversation appropriately. Respiratory effort is unlabored. Able to transition from sit to stand unassisted. Ambulates with bilaterally normal heel strike and toe off. Results Reviewed Results Reviewed: 12/01/23: XR KNEE, LEFT FINDINGS: Bones are diffusely demineralized. Small joint effusion. Extensive vascular calcifications. Moderate joint space narrowing with degenerative changes in the medial and patellofemoral compartments. IMPRESSION: Moderate degenerative changes. Assessment & Plan Assessment & Plan (1) Osteoarthritis of left knee: Code(s): M17.12 - Unilateral primary osteoarthritis, left knee Category: Medical (2) Left knee pain: Code(s): M25.562 - Pain in left knee Category: Medical Plan Discussed temporary peripheral nerve stimulator as a possible treatment option. Informed the patient that insurance approval is required. We will file a PA for approval and keep him updated. We will schedule him for a left temporary saphenous peripheral nerve stimulator placement. Discussed the risks and benefits of the procedure with the patient in detail. All questions were answered. The patient is on board with the plan. A device brochure was provided to the patient today. Justification for interventional therapy: ? Patient with average pain > 6/10 ? Patient has exhausted conservative therapy including oral and topical medications, Durolane and cortisone injections. ? Patient unable to tolerate physical therapy due to pain. . Patient has a good understanding of their pain condition and has appropriate mental and social support. Scribed for Dr. Daly by Khoa Hall, medical office worker, on 04/09/2024. I, Dr. Daly, have personally reviewed and agree with the information entered by the scribe. Coding Level of Care Code New Pt Level 4 (88526) Diagnoses Osteoarthritis of left knee M17.12 Left knee pain M25.562
[2024-04-09 10:16] VITALS: PULSE 60; RESP 15; O2SAT 98; BMI 22.7
== END 2024-04-09 11:12 | disposition home or self-care (01) ==
PROVIDERS: PCP Internal Medicine; Visit Provider Internal Medicine
DX: M17.12 Unilateral primary osteoarthritis, left knee (principal); M25.562 Pain in left knee
CPT/HCPCS: 99204

== ENCOUNTER → 2024-04-09 09:53 | Outpatient (BNVA) | payer MEDICARE, OTHER, SELFPAY | PROVIDERS: PCP Internal Medicine; Visit Provider Internal Medicine | DX: M17.12 Unilateral primary osteoarthritis, left knee (principal) | CPT/HCPCS: 99202 ==

== ENCOUNTER 2024-05-06 06:24 | Outpatient (REF) | payer MEDICARE, OTHER, SELFPAY | END 2024-05-06 06:25 | disposition home or self-care (01) | LOC: CF 06:24 | PROVIDERS: Visit Provider Internal Medicine | DX: M17.12 Unilateral primary osteoarthritis, left knee (principal); M25.562 Pain in left knee | CPT/HCPCS: 64555; C1778; J2003 ==

== ENCOUNTER 2024-05-06 12:48 | Outpatient (AMB) | payer MEDICARE, OTHER, SELFPAY ==
[2024-05-06 13:18] VITALS: BP 148/59; PULSE 62; O2SAT 96; BMI 22.7
--- NOTE | 2024-05-06 13:18 | A.OFFVIS_ITS ---
Vital Signs 05/06/24 13:18 Height 5 ft 9 in Weight 154 lb BMI 22.7 BP 148/59 H Blood Pressure Location Lt brachial Position Sitting Pulse 62 Pulse Source Pulse Oximeter Pulse Oximetry (%) 96 Oxygen Delivery Method Room Air Intake Visit Reasons: Left saphenous Sprint End User Support Specialist Required: No Allergies amoxicillin [From Augmentin] Allergy (Intermediate, Verified 05/19/24 13:44) Diarrhea clavulanic acid [From Augmentin] Allergy (Intermediate, Verified 05/19/24 13:44) Diarrhea Medication List - Last Reconciled 05/06/24 by Shana Perry, BAKERY TECHNICIAN lisinopril 5 mg PO DAILY lovastatin 40 mg PO DAILY metoprolol tartrate 25 mg PO BID mirtazapine 45 mg PO BEDTIME quetiapine 100 mg PO BEDTIME [facility] Medical History Epidermal cyst Arthritis Right inguinal hernia Neuroendocrine tumor Depression Peptic ulcer disease Gout GERD (gastroesophageal reflux disease) Hypertension Surgical History History of removal of cyst (~09/18/23) S/P partial colectomy (06/28/22) Hx of bilateral cataract extraction Hx of right inguinal hernia repair History of esophagogastroduodenoscopy (EGD) H/O colonoscopy History of appendectomy Family History Other No family history of cancer Social History Household Members: None Housing: Apartment Are you a primary childbirth and infant care teacher to a significant other at home: No Do you presently have visiting nurse or other home services: No Alcohol intake: current Alcohol intake frequency: a few times a week Patient Tobacco Use Status: Former Tobacco user Tobacco use type: Cigarette Years Smoked: 20 service: No Current occupational status: retired Current occupation: left hand Physical Exam Vital Signs: Last Vital Signs Pulse 62 05/06/24 13:18 BP 148/59 H 05/06/24 13:18 Pulse Ox 96 05/06/24 13:18 Oxygen Delivery Method Room Air 05/06/24 13:18 BMI result Body Mass Index 22.7 Office Procedures Details: Peripheral Nerve Stimulation Temporary Lead Placement, Ultrasound-Guided, Saphenous Nerve, left ? After the risks, benefits and alternatives were discussed with the patient and informed consentwas obtained, patient was placed in the supine position and padded to foster comfort. Appropriate skin and bony landmarks were identified, and pertinent vascular structures were located. The skin overlying the needle entry site was prepped and draped in sterile fashion. Ultrasound was used to identify the femoral artery, the femoral vein and the saphenous nerve. After identifying and marking the intended target along the course of the saphenous ne rve, the skin around the planned entry point and the subcutaneous tissues were injected with local anesthetic. An introducer needle and stimulating probe were assembled, inserted and advanced along the intended course of the saphenous nerve, taking care to maintain the proper depth of insertion as the introducer was advanced under ultrasound guidance. The introducer needle was delivered to a location in proximity to the nerve taking care not to puncture the femoral artery or the vein. Multiple stimulation parameters were used to deliver stimulation to the saphenous nerve in concert with stimulating at multiple positions around the nerve. Nerve target acquisition was confirmed noting generation of sensory and mild motor effects (paresthesia, muscle tension, etc) in the medial knee, leg and ankle; corresponding to the distribution of the saphenous nerve. Various electrical parameter combinations were tested, and the lead location was adjusted (physically relocated under ultrasound guidance) until the patient indicated medial knee paresthesia and tension overlapping the distribution of the patient?s typical region of pain. The stimulating probe was removed from the introducer and a percutaneous lead was guided through the needle and delivered to a location in similar proximity to the nerve. Final location was verified with electrical stimulation and documented. The introducer needle was removed, and the exposed end of the percutaneous lead was attached to an external stimulator unit. Various electrical parameter combinations were again tested until the patient indicated paresthesia and muscle tension overlapping the distribution of the patient?s typical region of pain. After confirming that lead impedance was in the normal range, the external unit was detached, the needle was removed, and the lead was anchored at the skin. The lead was threaded into the connector block and electrical continuity and desired patient response was confirmed. The connector block was attached to the external stimulator unit. The site was covered with a sterile occlusive dressing. A final ultrasound image was taken to document final placement. The patient was observed for stability of vital signs and comfort. Sprint PNS Device: Sprint PNS Device [id number] Percutaneous Peripheral Neuroelectrode Procedure: 89161 - Percutaneous Peripheral Neuroelectrode Procedure code (CPT) selection complete Office Meds lidocaine HCl 10 mg/mL (1 %) injection solution Performing Provider: Matthew Daly MD Performing Location: [facility] – [place] [facility] Administered by: Gena Kat LPN on 05/06/24 13:24 Dose Route Admin Location Dispensed Lot Number Expiration Date ND Wall Mirror Department Supervisor 50 mg subcut 5 mL Assessment & Plan Assessment & Plan (1) Osteoarthritis of left knee: Code(s): M17.12 - Unilateral primary osteoarthritis, left knee Category: Medical (2) Left knee pain: Code(s): M25.562 - Pain in left knee Category: Medical Plan Patient is status post temporary left saphenous nerve stimulator placement. Patient tolerated procedure well and was discharged home in stable condition with discharge instructions. All questions were answered. We will follow-up via telephone or in clinic to assess response to therapy. A follow-up appointment was made during today's visit. Orders: Orders US guide needle placement 05/06/24 Rena Calderón APRN, TREE DEADENER M17.12 - Unilateral primary osteoarthritis, left knee AMB Sprint PNS 05/06/24 Matthew Daly MD M17.12 - Unilateral primary osteoarthritis, left knee, M25.562 - Pain in left knee Coding Level of Care Code Procedure Only Diagnoses Osteoarthritis of left knee M17.12 Left knee pain M25.562 CPT Codes Sprint PNS - Sprint PNS Device: Sprint PNS Device ([id number]) Sprint PNS - SPRINT: 36950 - Percutaneous Peripheral Neuroelectrode ([id number]) Implantable Device Implantable Device Implantable Devices Qty Wall Mirror Department Supervisor Implant Date Expiration Date Analgesic PENS system 1 SPR [employer] 05/06/24 07/16/25
--- NOTE | 2024-05-06 13:18 | MHC.OFFVIS ---
Vital Signs 05/06/24 13:18 Height 5 ft 9 in Weight 154 lb BMI 22.7 BP 148/59 H Blood Pressure Location Lt brachial Position Sitting Pulse 62 Pulse Source Pulse Oximeter Pulse Oximetry (%) 96 Oxygen Delivery Method Room Air Intake Visit Reasons: Left saphenous Sprint Lay Out Inspector Required: No Allergies amoxicillin [From Augmentin] Allergy (Intermediate, Verified 05/06/24 13:19) Diarrhea clavulanic acid [From Augmentin] Allergy (Intermediate, Verified 05/06/24 13:19) Diarrhea Medication List - Last Reconciled 05/06/24 by Shana Perry, SALES AND SERVICE ASSOCIATE lisinopril 5 mg PO DAILY lovastatin 40 mg PO DAILY metoprolol tartrate 25 mg PO BID mirtazapine 45 mg PO BEDTIME quetiapine 100 mg PO BEDTIME [facility] Medical History Epidermal cyst Arthritis Right inguinal hernia Neuroendocrine tumor Depression Peptic ulcer disease Gout GERD (gastroesophageal reflux disease) Hypertension Surgical History History of removal of cyst (~09/18/23) S/P partial colectomy (06/28/22) Hx of bilateral cataract extraction Hx of right inguinal hernia repair History of esophagogastroduodenoscopy (EGD) H/O colonoscopy History of appendectomy Family History Other No family history of cancer Social History Household Members: None Housing: Apartment Are you a primary career development specialist to a significant other at home: No Do you presently have visiting nurse or other home services: No Alcohol intake: current Alcohol intake frequency: a few times a week Patient Tobacco Use Status: Former Tobacco user Tobacco use type: Cigarette Years Smoked: 20 service: No Current occupational status: retired Current occupation: left hand Physical Exam Vital Signs: Last Vital Signs Pulse 62 05/06/24 13:18 BP 148/59 H 05/06/24 13:18 Pulse Ox 96 05/06/24 13:18 Oxygen Delivery Method Room Air 05/06/24 13:18 BMI result Body Mass Index 22.7 Office Procedures Sprint PNS Device: Sprint PNS Device [id number] Percutaneous Peripheral Neuroelectrode Procedure: 53694 - Percutaneous Peripheral Neuroelectrode Procedure code (CPT) selection complete Office Meds lidocaine HCl 10 mg/mL (1 %) injection solution Performing Provider: Matthew Daly MD [place] [facility] [place] [facility] Administered by: Gena Kat LPN on 05/06/24 13:24 Dose Route Admin Location Dispensed Lot Number Expiration Date NDC Flux Core Welder 50 mg subcut 5 mL Assessment & Plan Assessment & Plan (1) Osteoarthritis of left knee: Code(s): M17.12 - Unilateral primary osteoarthritis, left knee Category: Medical (2) Left knee pain: Code(s): M25.562 - Pain in left knee Category: Medical Orders: Orders US guide needle placement Today Rena Calderón APRN, CLOCKMAKER APPRENTICE M17.12 - Unilateral primary osteoarthritis, left knee AMB Sprint PNS Today Matthew Daly MD M17.12 - Unilateral primary osteoarthritis, left knee, M25.562 - Pain in left knee Medications: New lidocaine HCl 50 mg (5 mL) subcut ONCE 5 mL 0RF Matthew Daly MD M17.12 - Unilateral primary osteoarthritis, left knee, M25.562 - Pain in left knee Coding Diagnoses Osteoarthritis of left knee M17.12 Left knee pain M25.562 CPT Codes Sprint PNS - Sprint PNS Device: Sprint PNS Device ([id number]) Sprint PNS - SPRINT: 84812 - Percutaneous Peripheral Neuroelectrode ([id number]) Implantable Device Implantable Device Implantable Devices Qty Flux Core Welder Implant Date Expiration Date Analgesic PENS system 1 [employer] 05/06/24 07/16/25
== END 2024-05-06 13:31 | disposition home or self-care (01) ==
LOC: HO.PMCPRC 12:48
PROVIDERS: PCP Internal Medicine; Visit Provider Internal Medicine
DX: M17.12 Unilateral primary osteoarthritis, left knee (principal); M25.562 Pain in left knee
CPT/HCPCS: 64555

== ENCOUNTER 2024-05-12 09:17 | Outpatient (AMB) | payer MEDICARE, OTHER, SELFPAY ==
--- NOTE | 2024-05-12 09:41 | MHC.OFFVIS ---
Vital Signs 05/12/24 09:42 Height 5 ft 9 in Weight 154 lb BMI 22.7 BP 130/60 Blood Pressure Location Lt brachial Position Sitting Respiration 16 Pulse 62 Pulse Source Pulse Oximeter Pulse Oximetry (%) 99 Oxygen Delivery Method Room Air Intake Visit Reasons: s/p Left saphenous Sprint Applications Scientist Required: No Allergies amoxicillin [From Augmentin] Allergy (Intermediate, Verified 05/19/24 13:44) Diarrhea clavulanic acid [From Augmentin] Allergy (Intermediate, Verified 05/19/24 13:44) Diarrhea Medication List - Last Reconciled 05/12/24 by Gena Kat LPN lisinopril 5 mg PO DAILY lovastatin 40 mg PO DAILY metoprolol tartrate 25 mg PO BID mirtazapine 45 mg PO BEDTIME quetiapine 100 mg PO BEDTIME HPI HPI s/p Left saphenous Sprint: Details: History of Present Illness The patient is an 83-year-old male presenting with chronic left knee pain. This issue of chronic pain began as a persistent problem that eventually required intervention with the placement of a left temporary nerve stimulator targeting the left saphenous nerve. The temporary nerve stimulator was implemented to assist in managing the patient's condition, with the severity of pain previously impacting his daily activities. Prior interventions and treatments for the left knee pain included conservative management which eventually led to the decision for nerve stimulator placement. The patient now reports a substantial improvement with approximately 90% relief of his knee pain. The nerve stimulator has alleviated the debilitating symptoms, allowing for a significant reduction in pain intensity. The current management plan revolves around monitoring the effectiveness of the nerve stimulator with a follow-up planned for the removal of the device in seven weeks. Pain Description - Onset and Timing: Chronic condition, previously severe, now significantly improved. - Quality and Character: Previous persistent knee pain, now reduced. - Primary Location: Left knee. - Areas of Radiation: Not mentioned. - Exacerbating Factors: Not currently exacerbated due to treatment. - Relieving Factors: Placement of a left temporary nerve stimulator. - Interferences: Initially interfered with daily activities, now reduced interference. Physical Exam - Lead insertion is c/d/i Pain Management - Affect: The patient reports significant mood improvement correlating with pain reduction. - Analgesia: Placement of left temporary nerve stimulator; pain relief at 90%. - Adverse Effects: None reported. - Activities of Daily Living: Improvement noted; pain no longer interfering significantly. - Aberrant Drug Related Behaviors: None noted. PFSH Medical History Epidermal cyst Arthritis Right inguinal hernia Neuroendocrine tumor Depression Peptic ulcer disease Gout GERD (gastroesophageal reflux disease) Hypertension Surgical History History of removal of cyst (~09/18/23) S/P partial colectomy (06/28/22) Hx of bilateral cataract extraction Hx of right inguinal hernia repair History of esophagogastroduodenoscopy (EGD) H/O colonoscopy History of appendectomy Family History Other No family history of cancer Social History Household Members: None Housing: Apartment Are you a primary director of managed care to a significant other at home: No Do you presently have visiting nurse or other home services: No Alcohol intake: current Alcohol intake frequency: a few times a week Patient Tobacco Use Status: Former Tobacco user Tobacco use type: Cigarette Years Smoked: 20 service: No Current occupational status: retired Current occupation: left hand Physical Exam Vital Signs: Last Vital Signs Pulse 62 05/12/24 09:42 Resp 16 05/12/24 09:42 BP 130/60 05/12/24 09:42 Pulse Ox 99 05/12/24 09:42 Oxygen Delivery Method Room Air 05/12/24 09:42 BMI result Body Mass Index 22.7 Assessment & Plan Assessment & Plan (1) Osteoarthritis of left knee: Code(s): M17.12 - Unilateral primary osteoarthritis, left knee Category: Medical (2) Left knee pain: Code(s): M25.562 - Pain in left knee Category: Medical Plan Plan - Conduct follow-up care with the nurse for dressing changes as needed. - Plan for removal of the temporary nerve stimulator in seven weeks. Patient was informed and verbally consented to the use of an ambient scribe for clinic note documentation during this visit. Discussion Notes I discussed with the patient the positive impact of the temporary nerve stimulator on his chronic left knee pain, noting 90% improvement. We confirmed the next steps involve a follow-up for dressing changes in a week and the eventual removal of the stimulator in seven weeks. The patient was informed to see the nurse for the dressing change, which does not require a specific appointment time. The patient was reassured that he could visit any day convenient for him, ideally in the afternoon. All information was reviewed with the patient, ensuring clarity and providing an opportunity for any further questions. Patient Instructions - Attend a follow-up appointment in one week for a dressing change with the nurse. - Plan to return in seven weeks for potential removal of the nerve stimulator. - Monitor the knee for any changes or concerns and contact the clinic if necessary. - Scheduling flexibility is available for the follow-up dressing change appointment; afternoon visits can be accommodated. Coding Level of Care Code Est Pt Level 3 (45473) Diagnoses Osteoarthritis of left knee M17.12 Left knee pain M25.562
[2024-05-12 09:42] VITALS: BP 130/60; PULSE 62; RESP 16; O2SAT 99; BMI 22.7
== END 2024-05-12 10:04 | disposition home or self-care (01) ==
PROVIDERS: PCP Internal Medicine; Visit Provider Internal Medicine
DX: M17.12 Unilateral primary osteoarthritis, left knee (principal); M25.562 Pain in left knee
CPT/HCPCS: 99024

== ENCOUNTER → 2024-05-12 09:17 | Outpatient (BNVA) | payer MEDICARE, OTHER, SELFPAY | PROVIDERS: PCP Internal Medicine; Visit Provider Internal Medicine | DX: M17.12 Unilateral primary osteoarthritis, left knee (principal); Z96.82 Presence of neurostimulator | CPT/HCPCS: 99212 ==

== ENCOUNTER → 2024-05-26 13:22 | Outpatient (BNVA) | payer MEDICARE, OTHER, SELFPAY | PROVIDERS: PCP Internal Medicine; Visit Provider Internal Medicine ==

== ENCOUNTER → 2024-06-15 13:21 | Outpatient (BNVA) | payer MEDICARE, OTHER, SELFPAY | PROVIDERS: PCP Internal Medicine; Visit Provider Internal Medicine ==

== ENCOUNTER → 2024-06-21 14:55 | Outpatient (BNVA) | payer MEDICARE, OTHER, SELFPAY | PROVIDERS: PCP Internal Medicine; Visit Provider Internal Medicine ==

== ENCOUNTER → 2024-06-30 10:22 | Outpatient (BNVA) | payer MEDICARE, OTHER, SELFPAY | PROVIDERS: PCP Internal Medicine; Visit Provider Internal Medicine ==